=== PATIENT | male | born 1965 | race Caucasian/White ===

== ENCOUNTER 2016-11-16 20:43 | Inpatient (IN) | payer SELFPAY ==
[~2016-11-16] VITALS: Ht 167.6 cm; Wt 82.0 kg
[~2016-11-16 20:43] MED LIST: ASPI81TA82 PO; INSU1INJ14 SQ; LISI-357 PO
[2016-11-16 20:49] VITALS: BP 140/81; PULSE 129; RESP 18; TEMP 101.6; O2SAT 97
[2016-11-16] MEDS ORDERED: BACT800T5 PO (21:27)
[2016-11-16] MEDS ORDERED: CLIN1CAP6 PO (21:27)
[2016-11-16] MEDS ORDERED: ASPI81CH CHEW (21:27)
[2016-11-16] MEDS ORDERED: SODIUM CHLOR 0.9% 1000 ML INJ 1,000 ML IV ONE (21:31)
[2016-11-16] MEDS ORDERED: SODIUM CHLOR 0.9% 1000 ML INJ 800 ML IV ONE (21:31)
--- NOTE | 2016-11-16 21:38 | PD ---
HPI Chief Complaint: Skin Problem Time Seen by Provider: 21:19 Travel History International Travel<30 days: No Contact w/Intl Traveler<30days: No Traveled to known affect area: No History of Present Illness HPI 51-year-old male with history of diabetes, currently not on any medications, here for evaluation of right foot infection. Two nights ago the patient reports that a corn on the right/lateral aspect of his right foot was scraped off. The next day he noticed pain and redness to the area. Today he noticed red streaks up his leg and increasing area of redness to the right foot. He went to an urgent care facility earlier today and was prescribed Bactrim and Keflex, however was advised to present to the emergency department for evaluation. Pain is 10 out of 10, constant, worse with movement and palpation. PFSH Past Medical History Autoimmune Disease: No Blood Disorders: No Cancer: No Cardiovascular Problems: No High Cholesterol: No Congestive Heart Failure: No Cerebrovascular Accident: No Diabetes: Yes Patient Takes Glucophage: No Diminished Hearing: No Gastrointestinal Disorders: No GERD: No Glaucoma: No Genitourinary: No Headaches: No Hepatitis: No Hiatal Hernia: No Hypertension: No Kidney Stones: No Musculoskeletal: No Neurologic: No Psychiatric: No Reproductive: No Respiratory: No Immunizations Current: No Myocardial Infarction: No Radiation Therapy: No Renal Failure: No Seizures: No Sickle Cell Disease: No Thyroid Disease: No Ulcer: No ?: Not Past Surgical History Abdominal Surgery: No Cardiac Surgery: No Ear Surgery: No Endocrine Surgery: No Eye Surgery: No Genitourinary Surgery: No Gynecologic Surgery: No Neurologic Surgery: No Oral Surgery: No Pacemaker: No Thoracic Surgery: No Social History Alcohol Use: Yes (once a week beer) Tobacco Use: Yes Substance Use: No Allergies-Medications (Allergen,Severity, Reaction): Coded Allergies: Penicillin (Verified Allergy, Severe, 11/16/16) Reported Meds & Prescriptions Reported Meds & Active Scripts Active Reported Aspirin 81 Mg Chew 81 Mg CHEW DAILY Clindamycin (Clindamycin HCl) 300 Mg Cap 300 Mg PO Q6H Bactrim DS (Sulfamethoxazole-Trimethoprim) 800-160 Mg Tab 1 Tab PO BID Review of Systems Except as stated in HPI: all other systems reviewed are Neg Physical Exam Narrative GENERAL: Well-developed, well-nourished, comfortable, no acute distress. SKIN: Dorsal aspect of right foot with diffuse warmth and erythema with red streaks up two thirds of the right leg. Right lateral/plantar aspect of the foot with small/superficial/circular ulceration. Right/lateral/dorsal aspect of the right foot with small/ruptured blister. The foot is very foul-smelling. There is no gross purulence. No crepitus. HEAD: Atraumatic. Normocephalic. EYES: Pupils equal and round. No scleral icterus. No injection or drainage. ENT: Mucous membranes pink and moist. NECK: Trachea midline. No JVD. CARDIOVASCULAR: Tachycardic, regular. Bilateral dorsalis pedis pulses are brisk and equal. RESPIRATORY: No accessory muscle use. Clear to auscultation. Breath sounds equal bilaterally. GASTROINTESTINAL: Abdomen soft, non-tender, nondistended. MUSCULOSKELETAL: Skin exam as above. NEUROLOGICAL: Awake and alert. No obvious cranial nerve deficits. Motor grossly within normal limits. Normal speech. PSYCHIATRIC: Appropriate mood and affect; insight and judgment normal. Data Data Last Documented VS Vital Signs Date Time Temp Pulse Resp B/P Pulse Ox O2 Delivery O2 Flow Rate FiO2 11/16/16 20:49 101.6 129 18 140/81 97 Orders Complete Blood Count With Diff (11/16/16 21:31) Comprehensive Metabolic Panel (11/16/16 21:31) Lactic Acid Sepsis Protocol (11/16/16 21:31) Blood Culture (11/16/16 21:31) Ecg Monitoring (11/16/16 21:31) Iv Access Insert/Monitor (11/16/16 21:31) Oximetry (11/16/16 21:31) Sodium Chlor 0.9% 1000 Ml Inj (Ns 1000 M (11/16/16 21:31) Sodium Chlor 0.9% 1000 Ml Inj (Ns 1000 M (11/16/16 21:31) Morphine Inj (Morphine Inj) (11/16/16 21:45) Vancomycin Inj (Vancomycin Inj) (11/16/16 21:45) Foot, Complete ([id number]) (11/16/16 ) Wound Culture And Gram Stain (11/16/16 21:35) Piperacil-Tazo 3.375 Gm Premix (Zosyn 3. (11/16/16 21:45) Acetaminophen (Tylenol) (11/16/16 21:45) Insulin Human Regular Inj (Novolin R Inj (11/16/16 22:30) Morphine Inj (Morphine Inj) (11/16/16 22:30) Labs Laboratory Tests Test 11/16/16 21:45 White Blood Count 19.8 TH/MM3 Red Blood Count 4.98 MIL/MM3 Hemoglobin 14.8 GM/DL Hematocrit 44.2 % Mean Corpuscular Volume 88.6 FL Mean Corpuscular Hemoglobin 29.7 PG Mean Corpuscular Hemoglobin 33.5 % Concent Red Cell Distribution Width 12.7 % Platelet Count 175 TH/MM3 Mean Platelet Volume 8.8 FL Neutrophils (%) (Auto) 80.7 % Lymphocytes (%) (Auto) 6.0 % Monocytes (%) (Auto) 11.1 % Eosinophils (%) (Auto) 0.1 % Basophils (%) (Auto) 2.1 % Neutrophils # (Auto) 16.0 TH/MM3 Lymphocytes # (Auto) 1.2 TH/MM3 Monocytes # (Auto) 2.2 TH/MM3 Eosinophils # (Auto) 0.0 TH/MM3 Basophils # (Auto) 0.4 TH/MM3 CBC Comment AUTO DIFF Differential Comment AUTO DIFF CONFIRMED Sodium Level 130 MEQ/L Potassium Level 3.6 MEQ/L Chloride Level 96 MEQ/L Carbon Dioxide Level 25.8 MEQ/L Anion Gap 8 MEQ/L Blood Urea Nitrogen 11 MG/DL Creatinine 0.66 MG/DL Estimat Glomerular Filtration 127 ML/MIN Rate Random Glucose 278 MG/DL Lactic Acid Level 1.2 mmol/L Calcium Level 8.6 MG/DL Total Bilirubin 1.3 MG/DL Aspartate Amino Transf 10 U/L (AST/SGOT) Alanine Aminotransferase 19 U/L (ALT/SGPT) Alkaline Phosphatase 106 U/L Total Protein 7.1 GM/DL Albumin 2.9 GM/DL [facility] Medical Decision Making Medical Screen Exam Complete: Yes Emergency Medical Condition: Yes Differential Diagnosis Cellulitis, lymphangitis, diabetic foot ulcer, necrotizing fasciitis, osteomyelitis Narrative Course Initial vital signs show heart rate 129, blood pressure 140/81, pulse ox 97% on room air, oral temp of 101.6F. CBC is remarkable for WBC 19.8 with 80.7% neutrophils. CMP is remarkable for sodium 1:30, chloride 96, random glucose 278. Patient was given 6 units of subcutaneous regular insulin. Lactic acid is 1.2. Right foot x-ray: CONCLUSION: 1. Changes consistent with cellulitis involving the lateral forefoot. No radiopaque foreign body or radiographic evidence to clearly suggest osteomyelitis. Patient was given 2 L of normal saline IV and was written for IV vancomycin and IV Zosyn. He was also given 6 units of regular insulin. He meets sepsis criteria. Given rapid progression of cellulitis, lymphangitis, believe the patient should be admitted for further IV antibiotic therapy as well as podiatry consultation. Case discussed with hospitalist Dr Fya who will admit the patient to her service. Diagnosis Primary Impression: Sepsis Qualified Code: A41.9 - Sepsis, due to unspecified organism Additional Impressions: Cellulitis of right foot Lymphangitis Hyperglycemia Admitting Information Admitting Physician Requests: Admit Jose Angel Sellers MD November 16, 2016 21:38
[2016-11-16] MEDS ORDERED: PIPERACIL-TAZO 3.375 GM PREMIX 50 ML IV ONE (21:45)
[2016-11-16] MEDS ORDERED: VANCOMYCIN INJ 1,000 MG in SODIUM CHLOR 0.9% 250 ML INJ 250 ML IV ONE (21:45)
[2016-11-16] MEDS ORDERED: MORPHINE SULFATE 8 MG/ML INJ IV PUSH ONE ×2 (21:45→22:30)
[2016-11-16] MEDS ORDERED: ACETAMINOPHEN 325 MG TAB PO ONE (21:45)
[2016-11-16 21:57] LABS: BASOPHIL # 0.4 TH/MM3 (0-0.2); BASOPHIL % 2.1 % (0.0-2.0); EOSINOPHIL % 0.1 % (0.0-4.0); HEMATOCRIT 44.2 % (39.0-51.0); LYMPHOCYTE # 1.2 TH/MM3 (1.0-4.8); MEAN CELL VOLUME 88.6 FL (80.0-100.0); MEAN CORPUSCULAR HEMOGLOBIN 29.7 PG (27.0-34.0); MEAN CORPUSCULAR HGB CONC 33.5 % (32.0-36.0); MONO % 11.1 % (0.0-8.0); NEUT % 80.7 % (16.0-70.0); PLATELET COUNT 175 TH/MM3 (150-450); RED BLOOD COUNT 4.98 MIL/MM3 (4.50-5.90); RED CELL DISTRIBUTION WIDTH 12.7 % (11.6-17.2); WHITE BLOOD COUNT 19.8 TH/MM3 (4.0-11.0)
[2016-11-16 22:04] LABS: HEMO FLAGS AUTO DIFF
[2016-11-16 22:05] LABS: CHLORIDE 96 MEQ/L (98-107); POTASSIUM 3.6 MEQ/L (3.5-5.1); SODIUM (NA) 130 MEQ/L (136-145)
[2016-11-16 22:08] LABS: ANION GAP 8 MEQ/L (5-15); BICARBONATE 25.8 MEQ/L (21.0-32.0); BLOOD UREA NITROGEN 11 MG/DL (7-18)
[2016-11-16 22:11] LABS: ALT (GPT) 19 U/L (12-78); AST (GOT) 10 U/L (15-37); GLOMERULAR FILTRATION RATE 127 ML/MIN (>89)
[2016-11-16 22:13] LABS: TOTAL BILIRUBIN ADULT 1.3 MG/DL (0.2-1.0)
[2016-11-16 22:14] LABS: ALKALINE PHOSPHATASE 106 U/L (45-117)
--- NOTE | 2016-11-16 22:20 | RADHPO ---
EXAM DATE/TIME: 11/16/2016 21:54 [facility] COMPARISON: No previous studies available for comparison. INDICATIONS : Right foot swelling. Patient states he has had an open sore on the lateral side of his right foot sin ce Tuesday. MEDICAL HISTORY : None. SURGICAL HISTORY : None. ENCOUNTER: Initial ACUITY: 4 - 6 days PAIN SCORE: 5/10 LOCATION: Right foot. FINDINGS: 3 views of the right foot show soft tissue swelling the subcutaneous air involving the lateral portio n of the forefoot. No radiopaque foreign body observed. No cortical destruction or lucency. No fractu res or dislocations. CONCLUSION: 1. Changes consistent with cellulitis involving the lateral forefoot. No radiopaque foreign body or r adiographic evidence to clearly suggest osteomyelitis. Robb Landin Jr., MD on November 16, 2016 at 22:18 Board Certified Radiologist. This report was verified electronically.
[2016-11-16 22:29] LABS: SCAN/DIFF AUTO DIFF CONFIRMED
[2016-11-16] MEDS ORDERED: INSULIN HUMAN REGULAR 1,000 UNITS/10 ML VIAL SQ ONE (22:30)
[2016-11-16] MEDS ORDERED: NALOXONE HCL 0.4 MG/ML AMP IV PRN (23:00)
[2016-11-16] MEDS ORDERED: Vancomycin Consult Pharmacy 1 EA OTHER SCH (23:00)
[2016-11-17] VITALS (10 sets, daily range): BP systolic 108–142; BP diastolic 67–91; PULSE 88–99; RESP 16–20; TEMP 98.2–99.1; O2SAT 93–100
[2016-11-17] MEDS: MORPHINE SULFATE 4 MG/ML INJ IV PUSH PRN ×3 (03:45→18:04)
[2016-11-17] MEDS: PIPERACIL-TAZO 4.5 GM PREMIX 100 ML IV SCH ×4 (05:33→23:49)
[2016-11-17 06:04] LABS: AUTOMATED NEUTROPHIL # 15.2 TH/MM3 (1.8-7.7); BASOPHIL # 0.1 TH/MM3 (0-0.2); BASOPHIL % 0.6 % (0.0-2.0); EOSINOPHIL # 0.1 TH/MM3 (0-0.4); EOSINOPHIL % 0.3 % (0.0-4.0); HEMATOCRIT 37.7 % (39.0-51.0); LYMPH % 6.6 % (9.0-44.0); LYMPHOCYTE # 1.3 TH/MM3 (1.0-4.8); MEAN CORPUSCULAR HEMOGLOBIN 30.5 PG (27.0-34.0); MEAN CORPUSCULAR HGB CONC 34.7 % (32.0-36.0); MONO % 11.8 % (0.0-8.0); NEUT % 80.7 % (16.0-70.0); PLATELET COUNT 153 TH/MM3 (150-450); RED BLOOD COUNT 4.29 MIL/MM3 (4.50-5.90); RED CELL DISTRIBUTION WIDTH 12.2 % (11.6-17.2); WHITE BLOOD COUNT 18.9 TH/MM3 (4.0-11.0)
[2016-11-17 06:13] LABS: POTASSIUM 3.3 MEQ/L (3.5-5.1)
[2016-11-17 06:22] LABS: BICARBONATE 27.5 MEQ/L (21.0-32.0)
[2016-11-17 06:34] LABS: HEMO FLAGS AUTO DIFF
[2016-11-17 07:15] LABS: SCAN/DIFF AUTO DIFF CONFIRMED
[2016-11-17] MEDS ORDERED: GLUCAGON 1 MG/ML VIAL OTHER PRN (08:15)
[2016-11-17] MEDS ORDERED: POTASSIUM CHLORIDE 20 MEQ CONTROLLED RELEASE TAB PO ONE (08:15)
[2016-11-17] MEDS ORDERED: DEXTROSE 50% IN WATER 50 ML VIAL(D50) IV PRN (08:15)
[2016-11-17] MEDS ORDERED: CALCIUM CARBONATE 500 MG CHEWABLE TAB CHEW PRN (08:15)
[2016-11-17] MEDS ORDERED: MAGNESIUM HYDROXIDE SUSP 30 ML CUP PO PRN (08:15)
[2016-11-17] MEDS ORDERED: ACETAMINOPHEN 325 MG TAB PO PRN ×2 (08:15)
[2016-11-17] MEDS ORDERED: NALOXONE HCL 0.4 MG/ML AMP IV PRN (08:15)
[2016-11-17] MEDS ORDERED: ONDANSETRON HCL 4 MG/2 ML VIAL IV PRN (08:15)
[2016-11-17] MEDS: ASPIRIN 81 MG CHEW TAB CHEW SCH (08:47)
[2016-11-17] MEDS: SODIUM CHLORIDE 0.9% FLUSH 10 ML FLUSH IV FLUSH SCH ×2 (09:00→22:32)
[2016-11-17] MEDS: DOCUSATE SODIUM 50 MG/SENNA 8.6 MG TAB PO SCH ×2 (09:12→21:00)
[2016-11-17] MEDS: VANCOMYCIN INJ 1,700 MG in SODIUM CHLORID 0.9% 500 ML INJ 500 ML IV SCH ×2 (09:13→22:32)
[2016-11-17] MEDS: INSULIN ASPART SUPPLEMENTAL SCALE SQ SCH ×3 (12:04→22:41)
[2016-11-17] MEDS: ACETAMINOPHEN/HYDROcodone 325 MG/7.5 MG TAB PO PRN ×3 (12:06→22:33)
--- NOTE | 2016-11-17 14:34 | HHI.HP ---
[facility] Service [place] [facility] Primary Care Physician No Primary Care Physician Admission Diagnosis Sepsis, right foot cellulitis, lymphangitis, hyperglycemia Diagnoses: Chief Complaint: Cellulitis Travel History International Travel<30 Days: No Contact w/Intl Traveler <30 Da: No Traveled to Known Affected Are: No Sepsis Criteria SIRS Criteria (2 or more): Temp > 100.9 or < 96.8, Heart rate over 90, WBC > 24891, < 4000 or > 10% bands Sepsis Criteria (SIRS+source): Infect source susp/known Criteria Outcome: Meets SIRS criteria, Meets sepsis criteria History of Present Illness This is a 51-year-old male with history of diabetes and tobacco abuse. He presents to the emergency department complaining of cellulitis involving his right foot. Two nights ago, he reports that a corn on the right/lateral aspect of his right foot was scraped off after banging against the door. The next day he noticed pain and redness to the area. He reports of constant severe foot pain worse when his foot is lowered. He noticed red streaks up his leg and increasing area of redness to the right foot with purulent drainage. He also had fever last night. He went to an urgent care facility earlier today and was prescribed Bactrim and Keflex, however was advised to present to the emergency department for evaluation. Denies claudication Review of Systems Except as stated in HPI: all other systems reviewed are Neg Past Family Social History Past Medical History As previously mentioned Past Surgical History Denies Reported Medications Aspirin Allergies: Coded Allergies: Penicillin (Verified Allergy, Severe, 11/16/16) Family History Heart disease and diabetes mellitus Social History Drinks socially. Continues to smoke. Physical Exam Vital Signs Vital Signs Date Time Temp Pulse Resp B/P Pulse Ox O2 Delivery O2 Flow Rate FiO2 11/17/16 12:00 98.4 96 20 142/91 94 11/17/16 10:21 94 16 127/83 97 Room Air 11/17/16 09:30 90 16 11/17/16 09:00 88 16 123/75 97 Room Air 11/17/16 07:00 95 16 11/17/16 07:00 98.9 95 16 108/67 97 Room Air 11/17/16 05:34 89 16 136/79 98 Room Air 11/17/16 03:52 98.2 96 16 134/72 Room Air 11/17/16 02:35 92 16 142/76 100 Room Air 11/17/16 00:04 98.9 99 16 117/74 99 Room Air 11/16/16 20:49 101.6 129 18 140/81 97 Physical Exam GENERAL: This is a well-nourished, well-developed patient, in no apparent distress. SKIN: No rashes, ecchymoses or lesions. Cool and dry. HEAD: Atraumatic. Normocephalic. No temporal or scalp tenderness. EYES: Pupils equal round and reactive. Extraocular motions intact. No scleral icterus. No injection or drainage. ENT: Nose without bleeding, purulent drainage or septal hematoma. Throat without erythema, tonsillar hypertrophy or exudate. Uvula midline. Airway patent. NECK: Trachea midline. No JVD or lymphadenopathy. Supple, nontender, no meningeal signs. CARDIOVASCULAR: Regular rate and rhythm without murmurs, gallops, or rubs. RESPIRATORY: Clear to auscultation. Breath sounds equal bilaterally. No wheezes , rales, or rhonchi. GASTROINTESTINAL: Abdomen soft, non-tender, nondistended. No guarding. MUSCULOSKELETAL: Extremities without clubbing, cyanosis, or edema. No joint tenderness, effusion, or edema noted. No calf tenderness. Negative Homans sign bilaterally. Dorsal aspect of the right foot with diffuse warmth and erythema with red streaks spreading cephalad the proximal leg. There is a central ulceration on the right foot is very foul-smelling. NEUROLOGICAL: Awake and alert. Cranial nerves II through XII intact. Motor and sensory grossly within normal limits. Five out of 5 muscle strength in all muscle groups. Normal speech. Laboratory Laboratory Tests Test 11/16/16 11/17/16 21:45 05:30 White Blood Count 19.8 18.9 Red Blood Count 4.98 4.29 Hemoglobin 14.8 13.1 Hematocrit 44.2 37.7 Mean Corpuscular Volume 88.6 88.0 Mean Corpuscular Hemoglobin 29.7 30.5 Mean Corpuscular Hemoglobin 33.5 34.7 Concent Red Cell Distribution Width 12.7 12.2 Platelet Count 175 153 Mean Platelet Volume 8.8 8.8 Neutrophils (%) (Auto) 80.7 80.7 Lymphocytes (%) (Auto) 6.0 6.6 Monocytes (%) (Auto) 11.1 11.8 Eosinophils (%) (Auto) 0.1 0.3 Basophils (%) (Auto) 2.1 0.6 Neutrophils # (Auto) 16.0 15.2 Lymphocytes # (Auto) 1.2 1.3 Monocytes # (Auto) 2.2 2.2 Eosinophils # (Auto) 0.0 0.1 Basophils # (Auto) 0.4 0.1 CBC Comment AUTO DIFF AUTO DIFF Differential Comment AUTO DIFF AUTO DIFF CONFIRMED CONFIRMED Sodium Level 130 134 Potassium Level 3.6 3.3 Chloride Level 96 101 Carbon Dioxide Level 25.8 27.5 Anion Gap 8 6 Blood Urea Nitrogen 11 4 Creatinine 0.66 0.47 Estimat Glomerular Filtration 127 188 Rate Random Glucose 278 160 Lactic Acid Level 1.2 Calcium Level 8.6 7.6 Total Bilirubin 1.3 Aspartate Amino Transf 10 (AST/SGOT) Alanine Aminotransferase 19 (ALT/SGPT) Alkaline Phosphatase 106 Total Protein 7.1 Albumin 2.9 Magnesium Level 1.8 Date/Time Procedure Status Source Growth 11/16/16 22:30 Gram Stain - Final Resulted Wound Foot 11/16/16 22:30 Wound Culture - Preliminary Resulted Wound Foot RESULTS PENDING 11/16/16 21:55 Aerobic Blood Culture - Preliminary Resulted Blood Peripheral NO GROWTH IN 1 DAY 11/16/16 21:55 Anaerobic Blood Culture - Preliminary Resulted Blood Peripheral NO GROWTH IN 1 DAY Result Diagram: 11/17/16 0530 11/17/16 0530 Imaging Image of the foot interpreted by me with no foreign body or evidence to suggest osteomyelitis Last Impressions Foot X-Ray 11/16/16 0000 Signed Impressions: Service Date/Time: Wednesday, November 16, 2016 21:54 - CONCLUSION: 1. Changes consistent with cellulitis involving the lateral forefoot. No radiopaque foreign body or radiographic evidence to clearly suggest osteomyelitis. Robb Landin Jr., MD Assessment and Plan Problem List: (1) Sepsis ICD Code: A41.9 Status: Acute (2) Cellulitis of right foot ICD Code: L03.115 Status: Acute Assessment and Plan This is a 51-year-old male with history of diabetes and tobacco abuse. He presents to the emergency department because of cellulitis/abscess involving his right foot. Diabetic foot infection. He has cellulitis/abscess and I suspect osteomyelitis. Obtain MRI of the foot. Continue IV vancomycin and Zosyn. Pain management with Lortab and IV morphine. Consult podiatry Sepsis secondary to above. Follow up cultures. Hypokalemia. Replace with 40 in MICU potassium. Repeat BMP and magnesium in the morning Diabetes mellitus. Monitor fingerstick restart scale coverage. Obtain A1c. Diabetic education Tobacco abuse. Tobacco cessation. DVT prophylaxis with teds and early ambulation. Hold pharmacological prophylaxis pending podiatry evaluation Discussed Condition With Patient and nursing staff Physician Certification 2 Midnight Certification Type: Admission for Inpatient Services Order for Inpatient Services The services are ordered in accordance with Medicare regulations or non- Medicare payer requirements, as applicable. In the case of services not specified as inpatient-only, they are appropriately provided as inpatient services in accordance with the 2-midnight benchmark. Estimated LOS (days): 2 days is the estimated time the patient will need to remain in the hospital, assuming treatment plan goals are met and no additional complications. Post-Hospital Plan: Home Problem Qualifiers (1) Sepsis: Qualified Code: A41.9 - Sepsis, due to unspecified organism Rodney Dickey MD November 17, 2016 14:34
[2016-11-17 15:44] LABS: HEMOGLOBIN A1a 1.3 %; HEMOGLOBIN A1b 0.8 %; HEMOGLOBIN Ao 76.8 %; HEMOGLOBIN F 1.7 %; HEMOGLOBIN LA1C 2.4 %
[2016-11-17] MEDS: MUPIROCIN 2% CREAM 15 GM TOPICAL SCH (21:00)
[2016-11-17] MEDS: INSULIN DETEMIR 100 UNITS/ML VIAL SQ SCH (22:41)
[2016-11-18] VITALS: BP 136/82; PULSE 89; RESP 16; TEMP 100.5; O2SAT 95
[2016-11-18] MEDS: PIPERACIL-TAZO 4.5 GM PREMIX 100 ML IV SCH ×3 (05:51→16:06)
[2016-11-18] MEDS: INSULIN ASPART SUPPLEMENTAL SCALE SQ SCH ×4 (05:58→21:22)
[2016-11-18] MEDS: ACETAMINOPHEN/HYDROcodone 325 MG/7.5 MG TAB PO PRN ×4 (05:59→21:20)
[2016-11-18 06:39] LABS: BASOPHIL # 0.1 TH/MM3 (0-0.2); BASOPHIL % 0.5 % (0.0-2.0); EOSINOPHIL % 0.2 % (0.0-4.0); HEMATOCRIT 39.2 % (39.0-51.0); LYMPH % 5.7 % (9.0-44.0); MEAN CELL VOLUME 88.5 FL (80.0-100.0); MEAN CORPUSCULAR HEMOGLOBIN 30.5 PG (27.0-34.0); MEAN CORPUSCULAR HGB CONC 34.4 % (32.0-36.0); MONO % 9.9 % (0.0-8.0); NEUT % 83.7 % (16.0-70.0); PLATELET COUNT 160 TH/MM3 (150-450); RED BLOOD COUNT 4.43 MIL/MM3 (4.50-5.90); RED CELL DISTRIBUTION WIDTH 12.3 % (11.6-17.2); WHITE BLOOD COUNT 17.9 TH/MM3 (4.0-11.0)
[2016-11-18 06:44] LABS: HEMO FLAGS DIFF FINAL
[2016-11-18 06:53] LABS: CHLORIDE 100 MEQ/L (98-107); POTASSIUM 3.4 MEQ/L (3.5-5.1); SODIUM (NA) 136 MEQ/L (136-145)
[2016-11-18 07:07] LABS: ALKALINE PHOSPHATASE 126 U/L (45-117); ALT (GPT) 13 U/L (12-78); ANION GAP 9 MEQ/L (5-15); AST (GOT) 5 U/L (15-37); BICARBONATE 27.5 MEQ/L (21.0-32.0); BLOOD UREA NITROGEN 6 MG/DL (7-18); GLOMERULAR FILTRATION RATE 192 ML/MIN (>89); MAGNESIUM 1.8 MG/DL (1.5-2.5); TOTAL BILIRUBIN ADULT 1.3 MG/DL (0.2-1.0)
[2016-11-18] MEDS: INSULIN DETEMIR 100 UNITS/ML VIAL SQ SCH ×2 (07:50→21:20)
[2016-11-18] MEDS: VANCOMYCIN INJ 1,700 MG in SODIUM CHLORID 0.9% 500 ML INJ 500 ML IV SCH ×2 (07:51→21:09)
[2016-11-18] MEDS: ASPIRIN 81 MG CHEW TAB CHEW SCH (07:56)
[2016-11-18] MEDS: MUPIROCIN 2% CREAM 15 GM TOPICAL SCH ×2 (07:57→20:28)
[2016-11-18] MEDS: SODIUM CHLORIDE 0.9% FLUSH 10 ML FLUSH IV FLUSH SCH ×2 (07:57→21:00)
[2016-11-18] MEDS: DOCUSATE SODIUM 50 MG/SENNA 8.6 MG TAB PO SCH ×2 (07:57→21:00)
[2016-11-18 08:00] VITALS: BP 124/78; PULSE 86; RESP 18; TEMP 97.8; O2SAT 96
[2016-11-18] MEDS ORDERED: POTASSIUM CHLORIDE 20 MEQ CONTROLLED RELEASE TAB PO ONE (09:00)
--- NOTE | 2016-11-18 09:36 | HHI.PR ---
Subjective Remarks Follow-up diabetic foot infection. Tmax 100.5. Complaining of foot pain. Discussed with RN, podiatry requesting patient to be transferred to the main hospital for surgery which patient agrees. Blood culture positive for gram- positive cocci Objective Vitals Vital Signs Date Time Temp Pulse Resp B/P Pulse Ox O2 Delivery O2 Flow Rate FiO2 11/18/16 08:00 97.8 86 18 124/78 96 11/18/16 00:00 100.5 89 16 136/82 95 11/17/16 20:00 99.1 93 18 123/85 93 11/17/16 16:00 98.8 89 20 126/81 95 11/17/16 12:00 98.4 96 20 142/91 94 11/17/16 10:21 94 16 127/83 97 Room Air I/O 11/17/16 11/17/16 11/17/16 11/18/16 11/18/16 11/18/16 07:00 15:00 23:00 07:00 15:00 23:00 Intake Total 1350 ml 350 ml 765 ml Balance 1350 ml 350 ml 765 ml Intake Oral 240 ml IV Total 1350 ml 110 ml 765 ml # Voids 1 Result Diagram: 11/18/16 0540 11/18/16 0540 Imaging Last Impressions Foot X-Ray 11/16/16 0000 Signed Impressions: Service Date/Time: Wednesday, November 16, 2016 21:54 - CONCLUSION: 1. Changes consistent with cellulitis involving the lateral forefoot. No radiopaque foreign body or radiographic evidence to clearly suggest osteomyelitis. Robb Landin Jr., MD Objective Remarks GENERAL: This is a well-nourished, well-developed patient, in no apparent distress. SKIN: No rashes, ecchymoses or lesions. Cool and dry. HEAD: Atraumatic. Normocephalic. No temporal or scalp tenderness. EYES: Pupils equal round and reactive. Extraocular motions intact. No scleral icterus. No injection or drainage. ENT: Nose without bleeding, purulent drainage or septal hematoma. Throat without erythema, tonsillar hypertrophy or exudate. Uvula midline. Airway patent. NECK: Trachea midline. No JVD or lymphadenopathy. Supple, nontender, no meningeal signs. CARDIOVASCULAR: Regular rate and rhythm without murmurs, gallops, or rubs. RESPIRATORY: Clear to auscultation. Breath sounds equal bilaterally. No wheezes , rales, or rhonchi. GASTROINTESTINAL: Abdomen soft, non-tender, nondistended. No guarding. MUSCULOSKELETAL: Extremities without clubbing, cyanosis, or edema. No joint tenderness, effusion, or edema noted. No calf tenderness. Negative Homans sign bilaterally. Dorsal aspect of the right foot with diffuse warmth and erythema with red streaks spreading cephalad the proximal leg. There is a central ulceration on the right foot which is very foul-smelling. NEUROLOGICAL: Awake and alert. Cranial nerves II through XII intact. Motor and sensory grossly within normal limits. Five out of 5 muscle strength in all muscle groups. Normal speech. A/P Problem List: (1) Sepsis ICD Code: A41.9 Status: Acute (2) Cellulitis of right foot ICD Code: L03.115 Status: Acute Assessment and Plan This is a 51-year-old male with history of diabetes and tobacco abuse. He presents to the emergency department because of cellulitis/abscess involving his right foot. Diabetic foot infection. He has cellulitis/abscess and I suspect osteomyelitis. Obtain MRI of the foot. Continue IV vancomycin and Zosyn. Pain management with Lortab and IV morphine. Consulted podiatry who requested transfer to [facility] for surgery. Nothing by mouth and start IV hydration with NS with 20 mEq potassium Sepsis secondary to above. Follow up cultures growing gram-positive cocci in 2/ 4 bottles. Hypokalemia. Replace with 20 in Meq potassium. Repeat BMP and magnesium in the morning Diabetes mellitus. Uncontrolled A1c 11.8. Monitor fingerstick restart scale coverage. Continue Levemir 5 units twice a day, patient prefers insulin. Diabetic education. Discussed with RN, monitor fingersticks every 4 hours and do not cover fingersticks less than 200 while nothing by mouth Tobacco abuse. Tobacco cessation. DVT prophylaxis with teds and early ambulation. Hold pharmacological prophylaxis pending surgical intervention Problem Qualifiers (1) Sepsis: Qualified Code: A41.9 - Sepsis, due to unspecified organism Rodney Dickey MD Nov 18, 2016 09:36
[2016-11-18] MEDS ORDERED: GADODIAMIDE PF 287 MG/ML 5 ML VIAL (for RAD MRI) IV ONE (10:02)
[2016-11-18] MEDS: NS + KCL 20 MEQ INJ 1,000 ML IV SCH ×2 (10:50→21:25)
--- NOTE | 2016-11-18 11:01 | RADHPO ---
EXAM DATE/TIME: 11/18/2016 09:43 [facility] COMPARISON: No previous studies available for comparison. INDICATIONS : Osteomyelitis. Ulcer on lateral aspect of great toe on right foot. CONTRAST: 15 cc Omniscan (gadodiamide) IV MEDICAL HISTORY : Diabetes mellitus type 2. SURGICAL HISTORY : None. ENCOUNTER: Initial ACUITY: 1 week PAIN SCORE: 0/10 LOCATION: Right Foot. TECHNIQUE: Multiplanar, multisequence MRI examination was performed without contrast and after the intravenous a dministration of gadolinium. FINDINGS: BONE/CARTILAGE: Bone marrow signal in the region of interest of the great toe is homogeneous and within normal limits . No evidence of focal bone erosion. Small osteophytes of the tarsometatarsal joints and mild subcho ndral reactive bony change of the second and third metatarsal bases. TENDONS: All of the visualized tendons are intact. MISCELLANEOUS: Ill-defined superficial soft tissue edema of the forefoot and toes. Lobulated area of soft tissue sig nal abnormality is seen laterally superficial to the lateral aspect of the fifth metatarsal head and neck. It has predominantly high signal on T2 weighted images measuring 2.6 x 0.9 cm. It has mixed hig h and intermediate signal on precontrast T1-weighted images. No evidence of enhancement. POST-CONTRAST: Mild superficial soft tissue enhancement of the first second and third toes on the postcontrast image s. CONCLUSION: 1. Mild enhancement of the soft tissues of the first through third toes indicating possible celluliti s. 2. No evidence of osteomyelitis. 3. Nonspecific arthritic findings of the midfoot. 4. Lobulated 2 cm area of superficial soft tissue abnormality lateral to the fifth metatarsal head an d neck. No evidence of enhancement. May represent "pressure lesion". Given that it has predominantly high signal on the T1-weighted images, hemangioma is also the differential diagnosis. Jerry Moreau MD on November 18, 2016 at 10:45 Board Certified Radiologist. This report was verified electronically.
[2016-11-18 11:46] VITALS: BP 124/78; PULSE 86; RESP 18; TEMP 97.8; O2SAT 96
[2016-11-18] MEDS ORDERED: BUPIVACAINE HCL PF 0.25% 30 ML VIAL ONE (11:49)
[2016-11-18] MEDS ORDERED: ONDANSETRON HCL 4 MG/2 ML VIAL IV PUSH ONE (12:00)
[2016-11-18] MEDS ORDERED: PROPOFOL 200 MG/20 ML AMP IV ONE (12:00)
[2016-11-18] MEDS ORDERED: MIDAZOLAM HCL 2 MG/2 ML VIAL ONE (12:09)
[2016-11-18] MEDS ORDERED: FAMOTIDINE 20 MG/2 ML VIAL ONE (12:09)
[2016-11-18] MEDS ORDERED: LACTATED RINGER'S 1000 ML INJ 1,000 ML ONE (12:15)
--- NOTE | 2016-11-18 12:18 | PD.CONS ---
History of Present Illness Service Podiatry Consult Requested By Reason for Consult R foot infection Primary Care Physician No Primary Care Physician Diagnoses: History of Present Illness This is a 51-year-old male presented to the emergency department complaining of cellulitis involving his right foot. Two nights before admission, he reports that he had a corn on lateral R foot that was injured and scraped off after banging against the door. The next day he noticed pain and redness to the area. He reports of constant severe foot pain worse when his foot is lowered. He noticed red streaks up his leg and increasing area of redness to the right foot with purulent drainage. He also had fever. Past Family Social History Allergies: Coded Allergies: Penicillin (Verified Allergy, Severe, 11/16/16) Past Medical History DM HTN Past Surgical History Denies Reported Medications ASA Active Ordered Medications Current Medications Medications (Trade) Dose Ordered Sig/Kristian Route Start Time Stop Time Status Last Admin (NS Flush) 2 ml UNSCH PRN IV FLUSH 11/16/16 23:00 (NS Flush) 2 ml BID IV FLUSH 11/17/16 09:00 11/18/16 07:57 Naloxone HCl 0.4 mg 0.4 mg UNSCH PRN IV 11/16/16 23:00 Pharmacy Profile Note 0 ml @ 0 mls/hr UNSCH OTHER 11/16/16 23:00 (Zosyn 4.5 Gm Premix) 100 ml @ 200 mls/hr Q6H IV 11/17/16 05:00 11/18/16 11:21 Morphine Sulfate 2 mg 2 mg Q3H PRN IV PUSH 11/16/16 23:00 11/17/16 18:04 (Vancomycin Inj/ NS 500 ml Inj) 517 ml @ 250 mls/hr Q12H IV 11/17/16 08:00 11/18/16 07:51 Miscellaneous Information SPECIFIC LAB TO BE DRAWN: VANCO TROUGH DATE TO... ONCE ONCE .XX 11/18/16 19:45 11/18/16 19:46 (Tylenol) 650 mg Q4H PRN PO 11/17/16 08:15 (Zofran Inj) 4 mg Q6H PRN IV 11/17/16 08:15 (Luda-Colace) 1 tab BID PO 11/17/16 09:00 11/17/16 09:12 (Milk Of Magnesia Liq) 30 ml DAILY PRN PO 11/17/16 08:15 (Tums Chew) 1,000 mg TID PRN CHEW 11/17/16 08:15 (Tylenol) 650 mg Q6H PRN PO 11/17/16 08:15 (Ingram 5-325 Mg) 1 tab Q4H PRN PO 11/17/16 08:15 (Ingram 7.5-325 Mg) 1 tab Q4H PRN PO 11/17/16 08:15 11/18/16 10:49 (Narcan Inj) 0.4 mg UNSCH PRN IV 11/17/16 08:15 (D50w (Vial) Inj) 50 ml UNSCH PRN IV 11/17/16 08:15 (Glucagon Inj) 1 mg UNSCH PRN OTHER 11/17/16 08:15 (Aspirin Chew) 81 mg DAILY CHEW 11/17/16 09:00 11/18/16 07:56 (Bactroban 2% Cream) 1 applic Q12HR TOPICAL 11/17/16 21:00 11/18/16 07:57 (Levemir Inj) 5 units HS SQ 11/17/16 21:00 11/17/16 22:41 Insulin Detemir 5 units 5 units DAILYAC SQ 11/18/16 08:00 11/18/16 07:50 (NS + KCl 20 Meq Inj) 1,000 ml @ 84 mls/hr [id number] IV 11/18/16 09:30 11/18/16 10:50 Family History Heart disease and diabetes mellitus Social History Drinks socially. Continues to smoke. Physical Exam Vital Signs Vital Signs Date Time Temp Pulse Resp B/P Pulse Ox O2 Delivery O2 Flow Rate FiO2 11/18/16 11:46 97.8 86 18 124/78 96 11/18/16 08:00 97.8 86 18 124/78 96 11/18/16 00:00 100.5 89 16 136/82 95 11/17/16 20:00 99.1 93 18 123/85 93 11/17/16 16:00 98.8 89 20 126/81 95 Physical Exam R lateral foot with necrotic tissue and purulence dorsally and erythema extending proximally to just below knee. Significant malodor Sensation diminished. Laboratory Laboratory Tests Test 11/18/16 05:40 White Blood Count 17.9 Red Blood Count 4.43 Hemoglobin 13.5 Hematocrit 39.2 Mean Corpuscular Volume 88.5 Mean Corpuscular Hemoglobin 30.5 Mean Corpuscular Hemoglobin 34.4 Concent Red Cell Distribution Width 12.3 Platelet Count 160 Mean Platelet Volume 9.1 Neutrophils (%) (Auto) 83.7 Lymphocytes (%) (Auto) 5.7 Monocytes (%) (Auto) 9.9 Eosinophils (%) (Auto) 0.2 Basophils (%) (Auto) 0.5 Neutrophils # (Auto) 15.0 Lymphocytes # (Auto) 1.0 Monocytes # (Auto) 1.8 Eosinophils # (Auto) 0.0 Basophils # (Auto) 0.1 CBC Comment DIFF FINAL Differential Comment Sodium Level 136 Potassium Level 3.4 Chloride Level 100 Carbon Dioxide Level 27.5 Anion Gap 9 Blood Urea Nitrogen 6 Creatinine 0.46 Estimat Glomerular Filtration 192 Rate Random Glucose 166 Calcium Level 8.5 Magnesium Level 1.8 Total Bilirubin 1.3 Aspartate Amino Transf 5 (AST/SGOT) Alanine Aminotransferase 13 (ALT/SGPT) Alkaline Phosphatase 126 Total Protein 6.6 Albumin 2.3 Date/Time Procedure Status Source Growth 11/16/16 22:30 Gram Stain - Final Resulted Wound Foot 11/16/16 22:30 Wound Culture - Preliminary Resulted Strep Not A,B D 11/16/16 21:55 Aerobic Blood Culture - Preliminary Resulted Blood Peripheral NO GROWTH IN 2 DAYS 11/16/16 21:55 Anaerobic Blood Culture - Preliminary Resulted Gram Positive Cocci Result Diagram: 11/18/16 0540 11/18/16 0540 Imaging Last Impressions Foot MRI 11/18/16 0000 Signed Impressions: Service Date/Time: November 09:43 - CONCLUSION: 1. Mild enhancement of the soft tissues of the first through third toes indicating possible cellulitis. 2. No evidence of osteomyelitis. 3. Nonspecific arthritic findings of the midfoot. 4. Lobulated 2 cm area of superficial soft tissue abnormality lateral to the fifth metatarsal head and neck. No evidence of enhancement. May represent pressure lesion. Given that it has predominantly high signal on the T1-weighted images, hemangioma is also the differential diagnosis. Jerry Moreau MD Foot X-Ray 11/16/16 0000 Signed Impressions: Service Date/Time: Ila, November 16, 2016 21:54 - CONCLUSION: 1. Changes consistent with cellulitis involving the lateral forefoot. No radiopaque foreign body or radiographic evidence to clearly suggest osteomyelitis. Robb Landin Jr., MD Assessment and Plan Assessment and Plan Abscess R dorsolateral foot NPO To OR today for I&D, possible wound vac placement Arsenio Sales DPM Nov 18, 2016 12:18
[2016-11-18] MEDS: NEOMYCIN/POLYMYXIN 1 ML G.U. IRRIGANT ONE ×2 (12:35→12:45)
--- NOTE | 2016-11-18 13:16 | HHI.PR ---
Immediate Post Op Note Procedure Date: Nov 18, 2016 Pre Op Diagnosis: Abscess R dorsolateral foot Post Op Diagnosis: Same Surgeon: Arsenio Sales DPM [employer]ight Truck Driver(s): Staff Procedure: I&D R foot with wound vac Findings: Consistent with diagnosis. Dorsolateral foot with large necrotic center and foul odor/purulence dorsal to metatarsals 3-5 midshaft area. Upon I&D, copious amount of purulent drainage and necrotic tissue down to extensor tendon and MTP joints of 3,4,5. Curettage and rongeur utilized to remove necrotic tissue, found worm-like structure in foot and send to pathology, followed by irrigation with 6L NS, then adaptic and wound vac application R foot. Will plan to repeat I&D Tuesday Additional Information: n/a Complications: none Specimen(s) removed: Micro: Culture R foot To Pathology: Foreign body R foot, possible worm Estimated blood loss: minimal Anesthesia: General Drains: None Tourniquet time (min at mmHg) n/a Patient to: PACU Patient Condition: Good Date/Time of Procedure: SEE SURGICAL CARE RECORD Arsenio Sales DPM Nov 18, 2016 13:16
[2016-11-18] MEDS ORDERED: DO NOT ADM ANY ANTICOAGULANT DRUGS PRN (14:15)
[2016-11-18 16:00] VITALS: BP 135/88; PULSE 87; RESP 18; TEMP 97.5; O2SAT 96
[2016-11-18] MEDS: MORPHINE SULFATE 4 MG/ML INJ IV PUSH PRN (18:48)
--- NOTE | 2016-11-18 19:10 | PD.CONS ---
History of Present Illness Service ID CONSULT DR ZABALA Consult Requested By Reason for Consult RIGHT FOOT DIABETIC INFECTION BACTEREMIA Primary Care Physician No Primary Care Physician Diagnoses: (1) Lymphangitis (2) Type 2 diabetes mellitus History of Present Illness This is a 51-year-old male presented to the emergency department complaining of cellulitis involving his right foot. Tuesday night he woke up and hit his right foot on a wooden coffee table. He had a callus on the outer toe / foot and states that what he hit. by Tuesday it was bluish and red and swollen. Tuesday he noted red streaks up his leg and came in to the ed. He had fever on admission. He is diabetic and noted elevated blood glucose. Bc are 3 of 4 + gpc 1 with MRSA. His wound culture + strep / MRSA. He is on zosyn / vancomycin . Id consulted. He was seen by surgery and taken for I&D and now has a wound vac. Review of Systems Constitutional: COMPLAINS OF: Fever, Chills Eyes: DENIES: Double Vision Gastrointestinal: DENIES: Bloody stools Genitourinary: DENIES: Urinary incontinence Musculoskeletal: DENIES: Joint Swelling Integumentary: DENIES: Pruritus Past Family Social History Allergies: Coded Allergies: Penicillin (Verified Allergy, Severe, 11/16/16) Past Medical History Past Medical History As previously mentioned Past Surgical History Denies Past Surgical History No surgical history Reported Medications asa Active Ordered Medications vancomycin zosyn Family History Family History Heart disease and diabetes mellitus Social History Social History Drinks socially. Continues to smoke. He is a hoffman Physical Exam Vital Signs Vital Signs Date Time Temp Pulse Resp B/P Pulse Ox O2 Delivery O2 Flow Rate FiO2 11/18/16 16:00 97.5 87 18 135/88 96 11/18/16 13:55 98.0 72 16 130/78 99 11/18/16 13:40 74 16 120/80 98 11/18/16 13:25 77 16 132/80 98 Room Air 11/18/16 13:08 97.5 81 16 115/74 97 Nasal Cannula 2 11/18/16 11:46 97.8 86 18 124/78 96 11/18/16 08:00 97.8 86 18 124/78 96 11/18/16 00:00 100.5 89 16 136/82 95 11/17/16 20:00 99.1 93 18 123/85 93 Physical Exam GENERAL: This is a well-nourished, well-developed patient, appears older than in no apparent distress. SKIN: No rashes, ecchymoses or lesions. Cool and dry. HEAD: Atraumatic. Normocephalic. No temporal or scalp tenderness. EYES: Pupils equal round and reactive. Extraocular motions intact. No scleral icterus. No injection or drainage. ENT: Nose without bleeding, purulent drainage or septal hematoma. Throat without erythema, tonsillar hypertrophy or exudate. Uvula midline. Airway patent. NECK: Trachea midline. No JVD or lymphadenopathy. Supple, nontender, no meningeal signs. CARDIOVASCULAR: Regular rate and rhythm without murmurs, gallops, or rubs. RESPIRATORY: Clear to auscultation. Breath sounds equal bilaterally. No wheezes , rales, or rhonchi. GASTROINTESTINAL: Abdomen soft, non-tender, nondistended. No hepato-splenomegaly , or palpable masses. No guarding. MUSCULOSKELETAL: Extremities without clubbing, cyanosis, or edema. No joint tenderness, effusion, or edema noted. No calf tenderness. Negative Homans sign bilaterally. right foot with wound vac NEUROLOGICAL: Awake and alert. Cranial nerves II through XII intact. Motor and sensory grossly within normal limits. Five out of 5 muscle strength in all muscle groups. Normal speech. Laboratory Laboratory Tests Test 11/18/16 05:40 White Blood Count 17.9 Red Blood Count 4.43 Hemoglobin 13.5 Hematocrit 39.2 Mean Corpuscular Volume 88.5 Mean Corpuscular Hemoglobin 30.5 Mean Corpuscular Hemoglobin 34.4 Concent Red Cell Distribution Width 12.3 Platelet Count 160 Mean Platelet Volume 9.1 Neutrophils (%) (Auto) 83.7 Lymphocytes (%) (Auto) 5.7 Monocytes (%) (Auto) 9.9 Eosinophils (%) (Auto) 0.2 Basophils (%) (Auto) 0.5 Neutrophils # (Auto) 15.0 Lymphocytes # (Auto) 1.0 Monocytes # (Auto) 1.8 Eosinophils # (Auto) 0.0 Basophils # (Auto) 0.1 CBC Comment DIFF FINAL Differential Comment Sodium Level 136 Potassium Level 3.4 Chloride Level 100 Carbon Dioxide Level 27.5 Anion Gap 9 Blood Urea Nitrogen 6 Creatinine 0.46 Estimat Glomerular Filtration 192 Rate Random Glucose 166 Calcium Level 8.5 Magnesium Level 1.8 Total Bilirubin 1.3 Aspartate Amino Transf 5 (AST/SGOT) Alanine Aminotransferase 13 (ALT/SGPT) Alkaline Phosphatase 126 Total Protein 6.6 Albumin 2.3 Date/Time Procedure Status Source Growth 11/18/16 12:37 Gram Stain Received Wound Foot Pending 11/18/16 12:37 Wound Culture Received Wound Foot Pending 11/18/16 12:37 Fungal Smear Received Wound Foot Pending 11/18/16 12:37 Fungal Culture Received Wound Foot Pending 11/18/16 12:37 Acid Fast Stain Received Wound Foot Pending 11/18/16 12:37 Mycobacterial Culture Received Wound Foot Pending 11/16/16 22:30 Gram Stain - Final Resulted Wound Foot 11/16/16 22:30 Wound Culture - Preliminary Resulted Strep Not A,B D 11/16/16 21:55 Aerobic Blood Culture - Preliminary Resulted Blood Peripheral NO GROWTH IN 2 DAYS 11/16/16 21:55 Anaerobic Blood Culture - Preliminary Resulted Gram Positive Cocci Result Diagram: 11/18/16 0540 11/18/16 0540 Assessment and Plan Problem List: (1) Type 2 diabetes mellitus Status: Acute (2) Cellulitis of right foot Status: Acute Plan: s/p I& D on zosyn change to rocephin (3) Lymphangitis Status: Acute Plan: better continue to monitor (4) MRSA (methicillin resistant staph aureus) culture positive Status: Acute Plan: pt on vancomycin monitor trough will fu (5) Bacteremia due to methicillin resistant Staphylococcus aureus Status: Acute Charlette Ruiz Nov 18, 2016 19:10
[2016-11-18] MEDS ORDERED: PHARMACY ORDERED LAB ONE (19:45)
[2016-11-18 20:00] VITALS: BP 140/85; PULSE 81; RESP 20; TEMP 98.2; O2SAT 94
[2016-11-18] MEDS: cefTRIAXone INJ 2,000 MG in SODIUM CHLORIDE 0.9% INJ 100 ML IV SCH (23:09)
[2016-11-19] VITALS: BP 142/86; PULSE 83; RESP 20; TEMP 97.9; O2SAT 92
[2016-11-19] MEDS: VANCOMYCIN INJ 1,250 MG in SODIUM CHLOR 0.9% 250 ML INJ 250 ML IV SCH ×3 (05:45→22:48)
[2016-11-19] MEDS: NS + KCL 20 MEQ INJ 1,000 ML IV SCH (05:46)
[2016-11-19] MEDS: ACETAMINOPHEN/HYDROcodone 325 MG/7.5 MG TAB PO PRN ×3 (05:46→20:47)
[2016-11-19] MEDS: INSULIN ASPART SUPPLEMENTAL SCALE SQ SCH ×4 (05:59→23:40)
[2016-11-19 06:20] LABS: AUTOMATED NEUTROPHIL # 10.4 TH/MM3 (1.8-7.7); BASOPHIL # 0.2 TH/MM3 (0-0.2); BASOPHIL % 1.2 % (0.0-2.0); EOSINOPHIL # 0.1 TH/MM3 (0-0.4); EOSINOPHIL % 0.5 % (0.0-4.0); LYMPH % 12.7 % (9.0-44.0); LYMPHOCYTE # 1.7 TH/MM3 (1.0-4.8); MEAN CELL VOLUME 88.2 FL (80.0-100.0); MEAN CORPUSCULAR HEMOGLOBIN 30.4 PG (27.0-34.0); MEAN CORPUSCULAR HGB CONC 34.5 % (32.0-36.0); MONO % 9.1 % (0.0-8.0); NEUT % 76.5 % (16.0-70.0); PLATELET COUNT 172 TH/MM3 (150-450); RED CELL DISTRIBUTION WIDTH 12.1 % (11.6-17.2); WHITE BLOOD COUNT 13.7 TH/MM3 (4.0-11.0)
[2016-11-19 06:30] LABS: POTASSIUM 3.5 MEQ/L (3.5-5.1)
[2016-11-19 06:32] LABS: HEMO FLAGS DIFF FINAL
[2016-11-19 06:35] LABS: MAGNESIUM 1.9 MG/DL (1.5-2.5)
[2016-11-19 06:36] LABS: BICARBONATE 29.4 MEQ/L (21.0-32.0)
[2016-11-19 08:00] VITALS: BP 121/74; PULSE 77; RESP 17; TEMP 98.6; O2SAT 96
[2016-11-19] MEDS: MORPHINE SULFATE 4 MG/ML INJ IV PUSH PRN ×2 (08:38→18:07)
[2016-11-19] MEDS: DOCUSATE SODIUM 50 MG/SENNA 8.6 MG TAB PO SCH (08:38)
[2016-11-19] MEDS: ASPIRIN 81 MG CHEW TAB CHEW SCH (08:39)
[2016-11-19] MEDS: SODIUM CHLORIDE 0.9% FLUSH 10 ML FLUSH IV FLUSH SCH ×2 (08:39→20:44)
[2016-11-19] MEDS: MUPIROCIN 2% CREAM 15 GM TOPICAL SCH ×2 (08:40→20:48)
[2016-11-19] MEDS: INSULIN DETEMIR 100 UNITS/ML VIAL SQ SCH ×2 (08:46→23:05)
[2016-11-19] MEDS ORDERED: POTASSIUM CHLORIDE 20 MEQ CONTROLLED RELEASE TAB PO ONE (09:00)
--- NOTE | 2016-11-19 10:51 | HHI.IDPN ---
Subjective Subjective Remarks Feels better Some pain in right foot No more fevers Antibiotics Vancomycin Ceftriaxone Lines Peripheral line Past Medical History Type 2 diabetes Allergies: Coded Allergies: Penicillin (Verified Allergy, Severe, 11/16/16) *MDRO Multi-Drug Resistant Organism (Verified Adverse Reaction, Unknown, MRSA, 11/19/16) MRSA (blood) - 11/16/16 Review of Systems Constitutional Constitutional Remarks No fever chills Objective . Vital Signs Date Time Temp Pulse Resp B/P Pulse Ox O2 Delivery O2 Flow Rate FiO2 11/19/16 08:00 98.6 77 17 121/74 96 11/19/16 00:00 97.9 83 20 142/86 92 11/18/16 20:00 98.2 81 20 140/85 94 11/18/16 16:00 97.5 87 18 135/88 96 11/18/16 13:55 98.0 72 16 130/78 99 11/18/16 13:40 74 16 120/80 98 11/18/16 13:25 77 16 132/80 98 Room Air 11/18/16 13:08 97.5 81 16 115/74 97 Nasal Cannula 2 11/18/16 11:46 97.8 86 18 124/78 96 11/18/16 11/18/16 11/19/16 14:59 22:59 06:59 Intake Total 500 ml 2724 ml Balance 500 ml 2724 ml Intake Oral 0 ml 480 ml IV Total 2244 ml Other 500 ml # Voids 1 1 # Bowel Movements 1 1 . Laboratory Tests Test 11/18/16 11/19/16 05:40 05:05 White Blood Count 17.9 TH/MM3 13.7 TH/MM3 Red Blood Count 4.43 MIL/MM3 4.20 MIL/MM3 Hemoglobin 13.5 GM/DL 12.8 GM/DL Hematocrit 39.2 % 37.0 % Mean Corpuscular Volume 88.5 FL 88.2 FL Mean Corpuscular Hemoglobin 30.5 PG 30.4 PG Mean Corpuscular Hemoglobin 34.4 % 34.5 % Concent Red Cell Distribution Width 12.3 % 12.1 % Platelet Count 160 TH/MM3 172 TH/MM3 Mean Platelet Volume 9.1 FL 9.2 FL Neutrophils (%) (Auto) 83.7 % 76.5 % Lymphocytes (%) (Auto) 5.7 % 12.7 % Monocytes (%) (Auto) 9.9 % 9.1 % Eosinophils (%) (Auto) 0.2 % 0.5 % Basophils (%) (Auto) 0.5 % 1.2 % Neutrophils # (Auto) 15.0 TH/MM3 10.4 TH/MM3 Lymphocytes # (Auto) 1.0 TH/MM3 1.7 TH/MM3 Monocytes # (Auto) 1.8 TH/MM3 1.3 TH/MM3 Eosinophils # (Auto) 0.0 TH/MM3 0.1 TH/MM3 Basophils # (Auto) 0.1 TH/MM3 0.2 TH/MM3 CBC Comment DIFF FINAL DIFF FINAL Differential Comment Laboratory Tests Test 11/18/16 11/19/16 05:40 05:05 Sodium Level 136 MEQ/L 138 MEQ/L Potassium Level 3.4 MEQ/L 3.5 MEQ/L Chloride Level 100 MEQ/L 103 MEQ/L Carbon Dioxide Level 27.5 MEQ/L 29.4 MEQ/L Anion Gap 9 MEQ/L 6 MEQ/L Blood Urea Nitrogen 6 MG/DL 4 MG/DL Creatinine 0.46 MG/DL 0.49 MG/DL Estimat Glomerular Filtration 192 ML/MIN 179 ML/MIN Rate Random Glucose 166 MG/DL 192 MG/DL Calcium Level 8.5 MG/DL 8.3 MG/DL Magnesium Level 1.8 MG/DL 1.9 MG/DL Total Bilirubin 1.3 MG/DL Aspartate Amino Transf 5 U/L (AST/SGOT) Alanine Aminotransferase 13 U/L (ALT/SGPT) Alkaline Phosphatase 126 U/L Total Protein 6.6 GM/DL Albumin 2.3 GM/DL Microbiology Date/Time Procedure Status Source Growth 11/16/16 21:45 Aerobic Blood Culture - Preliminary Resulted Blood Peripheral S. Aureus Mrsa Staphylococcus Epidermidis 11/16/16 21:45 Anaerobic Blood Culture - Preliminary Resulted Blood Peripheral NO GROWTH IN 2 DAYS 11/16/16 21:55 Aerobic Blood Culture - Preliminary Resulted Blood Peripheral NO GROWTH IN 2 DAYS 11/16/16 21:55 Anaerobic Blood Culture - Preliminary Resulted Gram Positive Cocci 11/16/16 22:30 Gram Stain - Final Resulted Wound Foot 11/16/16 22:30 Wound Culture - Preliminary Resulted Strep Not A,B D 11/18/16 12:37 Gram Stain - Final Resulted Wound Foot 11/18/16 12:37 Wound Culture Resulted Wound Foot Pending 11/18/16 12:37 Acid Fast Stain Received Wound Foot Pending 11/18/16 12:37 Mycobacterial Culture Received Wound Foot Pending 11/18/16 12:37 Fungal Smear - Final Resulted Wound Foot NO FUNGAL ELEMENTS SEEN. 11/18/16 12:37 Fungal Culture Resulted Wound Foot Pending Physical Exam GENERAL: This is a chronically ill patient, appears older than in no apparent distress. SKIN: rt siddiqi some lymphangitis. HEAD: Atraumatic. Normocephalic. No temporal or scalp tenderness. EYES: Pupils equal round and reactive. Extraocular motions intact. No scleral icterus. No injection or drainage. ENT: Nose without bleeding, purulent drainage or septal hematoma. Throat without erythema, tonsillar hypertrophy or exudate. Uvula midline. Airway patent. Poor dental hygiene NECK: Trachea midline. No JVD or lymphadenopathy. Supple, nontender, no meningeal signs. CARDIOVASCULAR: Regular rate and rhythm without murmurs, gallops, or rubs. RESPIRATORY: Clear to auscultation. Breath sounds equal bilaterally. No wheezes , rales, or rhonchi. GASTROINTESTINAL: Abdomen soft, non-tender, nondistended. No hepato-splenomegaly , or palpable masses. No guarding. MUSCULOSKELETAL: Rt foot with a wound vac NEUROLOGICAL: Awake and alert. Cranial nerves II through XII intact. Motor and sensory grossly within normal limits. Five out of 5 muscle strength in all muscle groups. Normal speech. Assessment & Plan Diagnosis: (1) Sepsis Plan: Continue IV Vancomycin Pharmacy to dose Check repeat blood cultures Check Echocardiogram (2) Cellulitis of right foot Plan: Wound culture with Strep Continue IV Ceftriaxone (3) Bacteremia due to methicillin resistant Staphylococcus aureus (4) Type 2 diabetes mellitus (5) Lymphangitis Problem Qualifiers (1) Sepsis: Qualified Code: A41.02 - Sepsis due to methicillin resistant Staphylococcus aureus (MRSA) Bren Silva MD Nov 19, 2016 10:51
--- NOTE | 2016-11-19 11:39 | HHI.PR ---
Subjective Remarks Follow-up diabetic foot infection. Tolerated procedure yesterday. Patient reports he has been having loose stools for the past 3 months no workup. Denies nausea and abdominal pain. Discussed with RN and ID Objective Vitals Vital Signs Date Time Temp Pulse Resp B/P Pulse Ox O2 Delivery O2 Flow Rate FiO2 11/19/16 08:00 98.6 77 17 121/74 96 11/19/16 00:00 97.9 83 20 142/86 92 11/18/16 20:00 98.2 81 20 140/85 94 11/18/16 16:00 97.5 87 18 135/88 96 11/18/16 13:55 98.0 72 16 130/78 99 11/18/16 13:40 74 16 120/80 98 11/18/16 13:25 77 16 132/80 98 Room Air 11/18/16 13:08 97.5 81 16 115/74 97 Nasal Cannula 2 11/18/16 11:46 97.8 86 18 124/78 96 I/O 11/18/16 11/18/16 11/18/16 11/19/16 11/19/16 11/19/16 07:00 15:00 23:00 07:00 15:00 23:00 Intake Total 765 ml 500 ml 2724 ml Balance 765 ml 500 ml 2724 ml Intake Oral 0 ml 480 ml IV Total 765 ml 2244 ml Other 500 ml # Voids 1 1 # Bowel Movements 1 1 Result Diagram: 11/19/16 0505 11/19/16 0505 Imaging Last Impressions Foot MRI 11/18/16 0000 Signed Impressions: Service Date/Time: November 09:43 - CONCLUSION: 1. Mild enhancement of the soft tissues of the first through third toes indicating possible cellulitis. 2. No evidence of osteomyelitis. 3. Nonspecific arthritic findings of the midfoot. 4. Lobulated 2 cm area of superficial soft tissue abnormality lateral to the fifth metatarsal head and neck. No evidence of enhancement. May represent pressure lesion. Given that it has predominantly high signal on the T1-weighted images, hemangioma is also the differential diagnosis. Jerry Moreau MD Foot X-Ray 11/16/16 0000 Signed Impressions: Service Date/Time: Wednesday, November 16, 2016 21:54 - CONCLUSION: 1. Changes consistent with cellulitis involving the lateral forefoot. No radiopaque foreign body or radiographic evidence to clearly suggest osteomyelitis. Robb Landin Jr., MD Objective Remarks GENERAL: This is a well-nourished, well-developed patient, in no apparent distress. SKIN: No rashes, ecchymoses or lesions. Cool and dry. HEAD: Atraumatic. Normocephalic. No temporal or scalp tenderness. EYES: Pupils equal round and reactive. Extraocular motions intact. No scleral icterus. No injection or drainage. ENT: Nose without bleeding, purulent drainage or septal hematoma. Throat without erythema, tonsillar hypertrophy or exudate. Uvula midline. Airway patent. NECK: Trachea midline. No JVD or lymphadenopathy. Supple, nontender, no meningeal signs. CARDIOVASCULAR: Regular rate and rhythm without murmurs, gallops, or rubs. RESPIRATORY: Clear to auscultation. Breath sounds equal bilaterally. No wheezes , rales, or rhonchi. GASTROINTESTINAL: Abdomen soft, non-tender, nondistended. No guarding. MUSCULOSKELETAL: Extremities without clubbing, cyanosis, or edema. No joint tenderness, effusion, or edema noted. No calf tenderness. Negative Homans sign bilaterally. Right foot with wound VAC. NEUROLOGICAL: Awake and alert. Cranial nerves II through XII intact. Motor and sensory grossly within normal limits. Five out of 5 muscle strength in all muscle groups. Normal speech. Procedures IND of the right foot abscess with wound VAC application A/P Problem List: (1) Sepsis ICD Code: A41.9 Status: Acute (2) Cellulitis of right foot ICD Code: L03.115 Status: Acute Assessment and Plan This is a 51-year-old male with history of diabetes and tobacco abuse. He presents to the emergency department because of cellulitis/abscess involving his right foot. Diabetic foot infection. He has cellulitis/abscess status post I and D and wound VAC application. Culture growing multiple organisms. Continue Rocephin per ID Pain management with Lortab and IV morphine. Polymicrobial bacteremia/Sepsis secondary to above. Continue IV vancomycin Hypokalemia. Improved Diabetes mellitus. Uncontrolled A1c 11.8. Improving hyperglycemia on Levemir Monitor fingerstick restart scale coverage. Diarrhea. Start Lactinex and obtain stool studies including C. difficile Tobacco abuse. Tobacco cessation. DVT prophylaxis with teds and early ambulation. Subcutaneous heparin if okay with podiatry Discharge Planning Not ready for discharge Problem Qualifiers (1) Sepsis: Qualified Code: A41.02 - Sepsis due to methicillin resistant Staphylococcus aureus (MRSA) Rodney Dickey MD Nov 19, 2016 11:39
[2016-11-19 12:00] VITALS: BP 143/94; PULSE 94; RESP 17; TEMP 97.9; O2SAT 96
[2016-11-19] MEDS: LACTOBACILLUS ACIDOPHILUS TAB PO SCH ×2 (14:32→18:06)
[2016-11-19 16:00] VITALS: BP 146/90; PULSE 78; RESP 17; TEMP 95.7; O2SAT 97
--- NOTE | 2016-11-19 17:44 | EC ---
Study Study Date:11/19/2016 STUDY CONCLUSIONS SUMMARY - Procedure narrative: Image quality was fair. The study was technically limited due to poor acoustic window availability. - Left ventricle: The cavity size was normal. Wall thickness was at the upper limits of normal. Systolic function was normal. The estimated ejection fraction was in the range of 55% to 60%. Although no diagnostic regional wall motion abnormality was identified, this possibility cannot be completely excluded on the basis of this study. - Aortic valve: Moderately thickened leaflets, specifically of the left coronary cusp, cannot rule out endocarditis, but does not appear mobile as endocarditis would be. If LV function is below 40, please consider prescribing an ACEI or ARB or document rationale for non-use. PROCEDURE DATA STUDY STATUS: Elective. Procedure: Transthoracic echocardiography. Image quality was fair. The study was technically limited due to poor acoustic window availability. Scanning was performed from the parasternal, apical, and subcostal acoustic windows. Study completion: The patient tolerated the procedure well. Transthoracic echocardiography. M-mode, complete 2D, complete spectral Doppler, and color Doppler. Height: Height: 69in. Weight: Weight: 164.7lb. Body mass index: BMI: 24.4kg/m^2. Body surface area: BSA: 1.9m^2. Patient status: Inpatient. CARDIAC ANATOMY LEFT VENTRICLE: The cavity size was normal. Wall thickness was at the upper limits of normal. Systolic function was normal. The estimated ejection fraction was in the range of 55% to 60%. Although no diagnostic regional wall motion abnormality was identified, this possibility cannot be completely excluded on the basis of this study. AORTIC VALVE: Moderately thickened leaflets, specifically of the left coronary cusp, cannot rule out endocarditis, but does not appear mobile as endocarditis would be. Doppler: There was no stenosis. No significant regurgitation. Valve area: 2.3cm^2(VTI). Indexed valve area: 1.21cm^2/m^2 (VTI). Valve area: 2.7cm^2 (Vmax). Indexed valve area: 1.42cm^2/m^2 (Vmax). Mean gradient: 7mm Hg (S). Peak gradient: 16mm Hg (S). MITRAL VALVE: The valve appears to be grossly normal. Doppler: There was no evidence for stenosis. Trace to mild regurgitation. Peak gradient: 3mm Hg (D). LEFT ATRIUM: The atrium was normal in size. PULMONIC VALVE: Not visualized. Doppler: There was no evidence for stenosis. Trace regurgitation. TRICUSPID VALVE: The valve appears to be grossly normal. Doppler: There was no evidence for stenosis. Trace regurgitation. Patient weight: 164.7lb _Ejection fraction:_ 65-75% _Fractional shortening:_ 32% up to 5Kg 5-11.5Kg 11.6-22.9Kg 23-45Kg 45-57Kg Aortic Root 7-13 <17 13-22 17-27 17-27 LA diam 6-13 <23 24-38 33-47 37-40 RVID 10-17 7-15 7-15 7-18 8-17 LVIDd 12-22 <32 24-38 33-47 37-40 LVPW 2-4 3-6 5-7 6-8 7-8 IVS 2-4 3-6 5-7 6-8 7-8 BASIC MEASUREMENTS ADULT NORMAL Left ventricle LV internal dimension, ED, chordal 48.6 mm 43-52 level, PLAX LV internal dimension, ES, chordal 34.6 mm 23-38 level, PLAX Fractional shortening, chordal level, *29 % >29 PLAX LV posterior wall thickness, ED 10.6 mm IVS/LVPW ratio, ED 0.99 <1.3 Ventricular septum Septal thickness, ED 10.5 mm Aortic valve Leaflet separation 18 mm 15-26 Aorta Root diameter, ED 33 mm Left atrium Anterior-posterior dimension 34 mm Anterior-posterior dimension index 1.79 cm/m^2 <2.2 BASIC MEASUREMENTS ADULT NORMAL Aortic valve Leaflet separation 18 mm 15-26 DOPPLER MEASUREMENTS ADULT NORMAL Main pulmonary artery Pressure, S *33 mm Hg =30 Aortic valve Peak velocity, S 197 cm/s Mean velocity, S 123 cm/s VTI, S 32.7 cm Mean gradient, S 7 mm Hg Peak gradient, S 16 mm Hg Valve area, VTI 2.3 cm^2 Valve area index, VTI 1.21 cm^2/m^2 Valve area, Vmax 2.7 cm^2 Valve area index, Vmax 1.42 cm^2/m^2 Mitral valve Peak E-wave velocity 83.9 cm/s Peak A-wave velocity 75.5 cm/s Deceleration time *120 ms 150-230 Peak gradient, D 3 mm Hg Peak E/A ratio 1.1 Tricuspid valve Regurgitant peak velocity 257 cm/s Peak RV-RA gradient, S 26 mm Hg Maximal regurgitant velocity 257 cm/s Systemic veins Estimated CVP 10 mm Hg Right ventricle RV pressure, S *36 mm Hg <30 Pulmonic valve Peak velocity, S 83.5 cm/s LEGEND: Mean values are shown as u=mean value. Asterisk (*) askew values outside specified normal range. Prepared and signed by Catalino Powers [id number]
[2016-11-19] MEDS: HEPARIN SODIUM - SQ 10,000 UNITS/ML VIAL SQ SCH (20:46)
[2016-11-19 21:15] VITALS: BP 136/91; PULSE 81; RESP 18; TEMP 98.3; O2SAT 99
[2016-11-19] MEDS: cefTRIAXone INJ 2,000 MG in SODIUM CHLORIDE 0.9% INJ 100 ML IV SCH (23:41)
[2016-11-20] VITALS (11 sets, daily range): BP systolic 127–151; BP diastolic 70–92; PULSE 68–99; RESP 16–20; TEMP 97.1–98.8; O2SAT 96–100
[2016-11-20] MEDS: ACETAMINOPHEN/HYDROcodone 325 MG/7.5 MG TAB PO PRN ×5 (00:29→21:33)
[2016-11-20] MEDS: MORPHINE SULFATE 4 MG/ML INJ IV PUSH PRN ×5 (02:23→21:33)
[2016-11-20] MEDS ORDERED: PHARMACY ORDERED LAB ONE (04:45)
[2016-11-20] MEDS: VANCOMYCIN INJ 1,250 MG in SODIUM CHLOR 0.9% 250 ML INJ 250 ML IV SCH (05:00)
[2016-11-20] MEDS: INSULIN ASPART SUPPLEMENTAL SCALE SQ SCH ×4 (07:00→20:23)
[2016-11-20] MEDS ORDERED: NEOMYCIN/POLYMYXIN 1 ML G.U. IRRIGANT ONE (07:24)
[2016-11-20] MEDS ORDERED: BUPIVACAINE HCL PF 0.25% 30 ML VIAL ONE (07:24)
[2016-11-20] MEDS ORDERED: LACTATED RINGER'S 1000 ML INJ 1,000 ML ONE (08:01)
[2016-11-20] MEDS ORDERED: MIDAZOLAM HCL 2 MG/2 ML VIAL ONE (08:10)
[2016-11-20 08:37] LABS: POTASSIUM 3.5 MEQ/L (3.5-5.1)
[2016-11-20 08:40] LABS: BICARBONATE 28.5 MEQ/L (21.0-32.0); MAGNESIUM 2.1 MG/DL (1.5-2.5)
[2016-11-20] MEDS: MUPIROCIN 2% CREAM 15 GM TOPICAL SCH ×2 (09:00→20:23)
[2016-11-20] MEDS ORDERED: POTASSIUM CHLORIDE 20 MEQ CONTROLLED RELEASE TAB PO ONE (09:00)
--- NOTE | 2016-11-20 09:14 | HHI.PR ---
Immediate Post Op Note Procedure Date: Nov 20, 2016 Pre Op Diagnosis: Abscess R dorsolateral foot Post Op Diagnosis: same Surgeon: Arsenio Sales DPM [employer] Lifeguard(s): Staff Procedure: I&D abscess R foot with wound vac Findings: Consistent with diagnosis. Large defect from initial I&D abscess R dorsolateral foot. Debrided all necrotic tissue from periphery and residual wound measures approx 20 cm x 15cm x 1cm depth, down to level of extensor tendons to 2,3,4,5 R foot. Mild peripheral bleeding noted. Irrigation with 3L NS. Wound vac reapplied. Additional Information: mild peripheral bleeding. No bleeding from wound base. Tendons exposed. WBAT R foot with vac. Ordering wound vac changes MWF 125mmHg medium continuous. Adaptic over tendons. MUST REMOVE AND RE-APPLY ADAPTIC WITH EACH DSG CHANGE Will need long-term vac therapy in order to attempt limb salvage and IV antibiotics long-term per ID recommendations based on initial cultures Complications: none Estimated blood loss: 20mL Anesthesia: General Drains: None IVF Tourniquet time (min at mmHg) n/a Patient to: PACU Patient Condition: Good Date/Time of Procedure: SEE SURGICAL CARE RECORD Arsenio Sales DPM Nov 20, 2016 09:14
[2016-11-20] MEDS: HEPARIN SODIUM - SQ 10,000 UNITS/ML VIAL SQ SCH ×2 (10:13→20:18)
[2016-11-20] MEDS: ASPIRIN 81 MG CHEW TAB CHEW SCH (10:14)
[2016-11-20] MEDS: SODIUM CHLORIDE 0.9% FLUSH 10 ML FLUSH IV FLUSH SCH ×2 (10:14→20:17)
[2016-11-20] MEDS: LACTOBACILLUS ACIDOPHILUS TAB PO SCH ×3 (10:14→18:10)
--- NOTE | 2016-11-20 12:25 | HHI.PR ---
Subjective Remarks Follow-up right foot abscess and bacteremia. Patient has no new complaints. Having soft stools. Agrees with NORIS made aware of echo results. Discussed with RN Objective Vitals Vital Signs Date Time Temp Pulse Resp B/P Pulse Ox O2 Delivery O2 Flow Rate FiO2 11/20/16 12:00 97.1 70 20 151/92 98 11/20/16 10:00 68 14 145/89 97 Room Air 11/20/16 09:45 67 14 141/86 97 Room Air 11/20/16 09:30 68 11/20/16 09:30 98.2 68 14 140/88 97 Room Air 11/20/16 09:15 76 14 138/83 94 Room Air 11/20/16 09:11 74 11/20/16 09:11 98.8 74 14 132/82 94 Room Air 11/20/16 08:00 97.1 70 20 151/92 98 11/20/16 07:45 98.8 76 16 138/76 96 11/20/16 04:48 11/20/16 00:55 98.7 79 16 127/88 100 11/19/16 21:15 98.3 81 18 136/91 99 11/19/16 16:00 95.7 78 17 146/90 97 11/19/16 15:32 20 I/O 11/19/16 11/19/16 11/19/16 11/20/16 11/20/16 11/20/16 07:00 15:00 23:00 07:00 15:00 23:00 Intake Total 2724 ml 900 ml 700 ml Output Total 50 ml Balance 2724 ml 900 ml 650 ml Intake Oral 480 ml 900 ml 0 ml IV Total 2244 ml Other 700 ml Output Estimated Blood Loss 50 ml # Voids 1 4 3 0 # Bowel Movements 1 0 0 Result Diagram: 11/19/16 0505 11/20/16 0645 Imaging Echocardiogram 11/19/16 - Procedure narrative: Image quality was fair. The study was technically limited due to poor acoustic window availability. - Left ventricle: The cavity size was normal. Wall thickness was at the upper limits of normal. Systolic function was normal. The estimated ejection fraction was in the range of 55% to 60%. Although no diagnostic regional wall motion abnormality was identified, this possibility cannot be completely excluded on the basis of this study. - Aortic valve: Moderately thickened leaflets, specifically of the left coronary cusp, cannot rule out endocarditis, but does not appear mobile as endocarditis would be. Last Impressions Foot MRI 11/18/16 0000 Signed Impressions: Service Date/Time: November 09:43 - CONCLUSION: 1. Mild enhancement of the soft tissues of the first through third toes indicating possible cellulitis. 2. No evidence of osteomyelitis. 3. Nonspecific arthritic findings of the midfoot. 4. Lobulated 2 cm area of superficial soft tissue abnormality lateral to the fifth metatarsal head and neck. No evidence of enhancement. May represent pressure lesion. Given that it has predominantly high signal on the T1-weighted images, hemangioma is also the differential diagnosis. Jerry Moreau MD Foot X-Ray 11/16/16 0000 Signed Impressions: Service Date/Time: Wednesday, November 16, 2016 21:54 - CONCLUSION: 1. Changes consistent with cellulitis involving the lateral forefoot. No radiopaque foreign body or radiographic evidence to clearly suggest osteomyelitis. Robb Landin Jr., MD Objective Remarks GENERAL: This is a well-nourished, well-developed patient, in no apparent distress. SKIN: No rashes, ecchymoses or lesions. Cool and dry. HEAD: Atraumatic. Normocephalic. No temporal or scalp tenderness. EYES: Pupils equal round and reactive. Extraocular motions intact. No scleral icterus. No injection or drainage. ENT: Nose without bleeding, purulent drainage or septal hematoma. Throat without erythema, tonsillar hypertrophy or exudate. NECK: Trachea midline. No JVD or lymphadenopathy. Supple CARDIOVASCULAR: Regular rate and rhythm RESPIRATORY: Clear to auscultation. Breath sounds equal bilaterally. No wheezes , rales, or rhonchi. GASTROINTESTINAL: Abdomen soft, non-tender, nondistended. No guarding. MUSCULOSKELETAL: Extremities without clubbing, cyanosis, or edema. No joint tenderness, effusion, or edema noted. No calf tenderness. Negative Homans sign bilaterally. Right foot with wound VAC. NEUROLOGICAL: Awake and alert. Cranial nerves II through XII intact. Motor and sensory grossly within normal limits. Five out of 5 muscle strength in all muscle groups. Normal speech. Procedures IND of the right foot abscess with wound VAC application November 18 and November 20 A/P Problem List: (1) Sepsis ICD Code: A41.9 Status: Acute (2) Cellulitis of right foot ICD Code: L03.115 Status: Acute Assessment and Plan This is a 51-year-old male with history of diabetes and tobacco abuse. He presents to the emergency department because of cellulitis/abscess involving his right foot. Diabetic foot infection. He has cellulitis/abscess status post I and D 2 and wound VAC application. Culture growing multiple organisms. Continue Rocephin per ID Pain management with Lortab and IV morphine. Polymicrobial bacteremia/Sepsis including MRSA secondary to above. Continue IV vancomycin. Echocardiogram shows thickened leaflets of the aortic valve unable to rule out endocarditis will request NORIS consult cardiology Hypokalemia. Improved Diabetes mellitus. Uncontrolled A1c 11.8. Episodic hyperglycemia with increased Levemir to 8 units in the morning and continue 5 units at bedtime Monitor fingerstick restart scale coverage. Diarrhea. Continue Lactinex and follow-up stool studies including C. difficile Tobacco abuse. Tobacco cessation. DVT prophylaxis with teds and early ambulation. Continue subcutaneous heparin Discharge Planning Not ready for discharge Problem Qualifiers (1) Sepsis: Qualified Code: A41.02 - Sepsis due to methicillin resistant Staphylococcus aureus (MRSA) Rodney Dickey MD Nov 20, 2016 12:25
[2016-11-20] MEDS ORDERED: PROPOFOL 200 MG/20 ML AMP IV ONE (13:08)
[2016-11-20] MEDS: VANCOMYCIN 1,500 MG/NS 500 ML IV SCH ×4 (15:41→23:00)
[2016-11-20] MEDS: INSULIN DETEMIR 100 UNITS/ML VIAL SQ SCH (20:22)
[2016-11-21] VITALS (12 sets, daily range): BP systolic 128–147; BP diastolic 78–93; PULSE 60–81; RESP 16–20; TEMP 97.9–98.3; O2SAT 95–99
[2016-11-21] MEDS: cefTRIAXone INJ 2,000 MG in SODIUM CHLORIDE 0.9% INJ 100 ML IV SCH ×2 (01:51→20:41)
[2016-11-21] MEDS: MORPHINE SULFATE 4 MG/ML INJ IV PUSH PRN (05:35)
[2016-11-21] MEDS: VANCOMYCIN 1,500 MG/NS 500 ML IV SCH ×6 (05:36→23:06)
[2016-11-21] MEDS: INSULIN ASPART SUPPLEMENTAL SCALE SQ SCH ×4 (06:11→20:47)
[2016-11-21] MEDS ORDERED: INSULIN DETEMIR 100 UNITS/ML VIAL SQ SCH (08:00)
[2016-11-21] MEDS ORDERED: ATROPINE SULFATE 1 MG/10 ML SYRINGE ONE (08:45)
[2016-11-21] MEDS: ASPIRIN 81 MG CHEW TAB CHEW SCH (08:47)
[2016-11-21] MEDS: LACTOBACILLUS ACIDOPHILUS TAB PO SCH ×3 (08:47→16:59)
[2016-11-21] MEDS: HEPARIN SODIUM - SQ 10,000 UNITS/ML VIAL SQ SCH ×2 (08:47→20:40)
[2016-11-21] MEDS: SODIUM CHLORIDE 0.9% FLUSH 10 ML FLUSH IV FLUSH SCH ×2 (08:56→20:39)
[2016-11-21] MEDS: MUPIROCIN 2% CREAM 15 GM TOPICAL SCH ×2 (09:00→20:55)
--- NOTE | 2016-11-21 09:43 | HHI.PR ---
Subjective Remarks F-U sepsis/DFI/positive 2D echo with vegetation 11/21/16-patient seen and examined; transferred from to [facility] for NORIS. Currently afebrile and denies any chest pain Objective Vitals Vital Signs Date Time Temp Pulse Resp B/P Pulse Ox O2 Delivery O2 Flow Rate FiO2 11/21/16 08:24 97.9 81 20 139/78 96 11/21/16 07:21 96 Room Air 11/21/16 06:24 70 11/21/16 05:00 68 11/21/16 04:00 Room Air 11/21/16 04:00 72 11/21/16 04:00 98.0 72 20 143/90 95 11/21/16 03:00 68 11/21/16 02:00 71 11/21/16 01:00 68 11/21/16 00:00 98.3 68 18 128/83 96 11/21/16 00:00 68 11/21/16 00:00 Room Air 11/20/16 23:00 72 11/20/16 22:00 75 11/20/16 21:00 70 11/20/16 20:00 77 11/20/16 20:00 98.1 77 20 139/88 97 11/20/16 20:00 Room Air 11/20/16 16:35 98.0 99 148/70 98 11/20/16 12:00 97.1 70 20 151/92 98 11/20/16 10:00 68 14 145/89 97 Room Air 11/20/16 09:45 67 14 141/86 97 Room Air I/O 11/20/16 11/20/16 11/20/16 11/21/16 11/21/16 11/21/16 07:00 15:00 23:00 07:00 15:00 23:00 Intake Total 710 ml 1180 ml Output Total 50 ml 800 ml Balance 660 ml 380 ml Intake Oral 0 ml 480 ml IV Total 10 ml 700 ml Other 700 ml Output Urine Total 800 ml Estimated Blood Loss 50 ml # Voids 3 0 # Bowel Movements 0 0 Result Diagram: 11/19/16 0505 11/21/16 0606 Imaging Last Impressions Foot MRI 11/18/16 0000 Signed Impressions: Service Date/Time: November 09:43 - CONCLUSION: 1. Mild enhancement of the soft tissues of the first through third toes indicating possible cellulitis. 2. No evidence of osteomyelitis. 3. Nonspecific arthritic findings of the midfoot. 4. Lobulated 2 cm area of superficial soft tissue abnormality lateral to the fifth metatarsal head and neck. No evidence of enhancement. May represent pressure lesion. Given that it has predominantly high signal on the T1-weighted images, hemangioma is also the differential diagnosis. Jerry Moreau MD Foot X-Ray 11/16/16 0000 Signed Impressions: Service Date/Time: Wednesday, November 16, 2016 21:54 - CONCLUSION: 1. Changes consistent with cellulitis involving the lateral forefoot. No radiopaque foreign body or radiographic evidence to clearly suggest osteomyelitis. Robb Landin Jr., MD Objective Remarks GENERAL: NAD SKIN: Warm and dry. HEAD: Normocephalic. EYES: No scleral icterus. No injection or drainage. NECK: Supple, trachea midline. No JVD or lymphadenopathy. CARDIOVASCULAR: Regular rate and rhythm without murmurs, gallops, or rubs. RESPIRATORY: Breath sounds equal bilaterally. No accessory muscle use. GASTROINTESTINAL: Abdomen soft, non-tender, nondistended. MUSCULOSKELETAL: No cyanosis, or edema. wound vac to RLE BACK: Nontender without obvious deformity. No CVA tenderness. Procedures IND of the right foot abscess with wound VAC application November 18 and November 20 A/P Problem List: (1) Sepsis ICD Code: A41.9 Status: Acute (2) Cellulitis of right foot ICD Code: L03.115 Status: Acute (3) Type 2 diabetes mellitus ICD Code: E11.9 Status: Acute (4) Bacteremia due to methicillin resistant Staphylococcus aureus ICD Code: R78.81 Status: Acute Assessment and Plan 51 yrs old man with Polymicrobial bacteremia/Sepsis including MRSA secondary to above. Continue IV vancomycin and Rocephin per ID. Monitor cultures Echocardiogram shows thickened leaflets of the aortic valve unable to rule out endocarditis Cardiology consultation pending for evaluation for NORIS Diabetic foot infection. Status post I and D 2 and wound VAC application. Appreciate input from Podiatry Continue Rocephin and Vancomycin per ID Pain management with Lortab and IV morphine. Hypokalemia. Improved Diabetes mellitus. Uncontrolled A1c 11.8. On Levemir 8 units in the morning and continue 5 units at bedtime Monitor fingerstick restart scale coverage. Diarrhea. Continue Lactinex and follow-up stool studies including C. difficile Tobacco abuse. Tobacco cessation. DVT prophylaxis: Continue subcutaneous heparin Problem Qualifiers (1) Sepsis: Qualified Code: A41.02 - Sepsis due to methicillin resistant Staphylococcus aureus (MRSA) Marcel Orlando MD Nov 21, 2016 09:42
--- NOTE | 2016-11-21 10:23 | MB ---
cc: Joycelyn DATE OF CONSULTATION: 11/21/2016 REASON FOR CONSULTATION For NORIS. HISTORY OF PRESENT ILLNESS The patient is a pleasant 51-year-old gentleman with no prior cardiac history, who was admitted with purulent right foot drainage as well as other signs of infection such as red streaks up his legs. He was admitted for a diabetic foot infection and sepsis. He an echocardiogram which showed a thickened aortic valve and I have been asked to perform a NORIS to exclude endocarditis. Currently the patient is asymptomatic, denying chest pain, shortness breath, lightheadedness, dizziness, syncope or any prior cardiac history or symptoms. PAST MEDICAL HISTORY Diabetes, tobacco abuse. CURRENT MEDICATIONS 1. IV vancomycin. 2. Lactinex. 3. IV Ceftriaxone. 4. Aspirin 81 milligrams daily. ALLERGIES PENICILLIN. PHYSICAL EXAMINATION VITAL SIGNS: Afebrile, pulse 81, respiratory rate 20, BP 139/78. Sating 96 on room air. GENERAL: Pleasant well-appearing gentleman, in no distress. NECK: No JVD. LUNGS: Clear to auscultation bilaterally. CARDIOVASCULAR: Regular rate and rhythm. No murmurs appreciated. ABDOMEN: Benign. EXTREMITIES: No edema, though the right cellulitic diabetic infection is noted. LABORATORY DATA Sodium 130, potassium 3.5, chloride 103, bicarb 28.5, BUN 5, creatinine 0.5, glucose 258, hemoglobin A1c is 11.8. Microbiology was notable for MRSA. EKG Shows sinus tachycardia with no acute ST or T-wave changes. ECHOCARDIOGRAM From November 19, 2016 showed a normal ejection fraction with thickened aortic valve leaflets and endocarditis was not excluded. IMPRESSION 1. Bacteremia with abnormal echocardiogram. The patient had a abnormal echocardiogram and positive blood cultures, I think a NORIS is reasonable though probably unlikely to reveal endocarditis, still given his diabetes and at least transient bacteremia, a NORIS is a reasonable procedure to perform. The patient agrees with this plan and will be done later this morning. Thank you again for the opportunity to participate in this patient's care. MD ADITHYA Cruz/DIPESH /9:21 AM /10:14 AM
--- NOTE | 2016-11-21 10:47 | PD.CARD ---
Cardiology Procedure Note Procedure Name: NORIS with bubble study Procedure Date: Nov 21, 2016 Procedure Note: NORIS with bubble study was done for concern for endocarditis Preliminary report showing probable endocarditis of the anterior mitral valve towards the annulus. Not felt to be an abscess, mild MR, non-surgical in nature. Discussed with the primary team, may be sent back to [facility] for treatment. Discussed with Infectious Disease, to make recommendations tomorrow. Catalino Powers DO Nov 21, 2016 10:47
--- NOTE | 2016-11-21 11:11 | PD.POD ---
Subjective Podiatric Problems R foot infection, s/p I&D 11/18/16 and 11/20/16 Mónica Past Med/Surg/Social History Social History Smoking Status: Never Smoker Objective Vital Signs Vital Signs Date Time Temp Pulse Resp B/P Pulse Ox O2 Delivery O2 Flow Rate FiO2 11/21/16 08:24 97.9 81 20 139/78 96 11/21/16 07:21 96 Room Air 11/21/16 06:24 70 11/21/16 05:00 68 11/21/16 04:00 Room Air 11/21/16 04:00 72 11/21/16 04:00 98.0 72 20 143/90 95 11/21/16 03:00 68 11/21/16 02:00 71 11/21/16 01:00 68 11/21/16 00:00 98.3 68 18 128/83 96 11/21/16 00:00 68 11/21/16 00:00 Room Air 11/20/16 23:00 72 11/20/16 22:00 75 11/20/16 21:00 70 11/20/16 20:00 77 11/20/16 20:00 98.1 77 20 139/88 97 11/20/16 20:00 Room Air 11/20/16 16:35 98.0 99 148/70 98 11/20/16 12:00 97.1 70 20 151/92 98 Coded Allergies: Penicillin (Verified Allergy, Severe, 11/16/16) *MDRO Multi-Drug Resistant Organism (Verified Adverse Reaction, Unknown, MRSA, 11/19/16) MRSA (blood) - 11/16/16 Physical Exam Remarks vac in place and functioning properly Assessment & Plan A/P R foot infection, s/p I&D 11/18/16 and 11/20/16 Mónica Continue wound vac Consulted vascular for evaluation [facility] eval/management before transfer back to [facility]. Continue IV antibiotics Arsenio Sales DPM Nov 21, 2016 11:11
--- NOTE | 2016-11-21 11:18 | ETE ---
Study Study Date:11/21/2016 STUDY CONCLUSIONS SUMMARY - Left ventricle: The cavity size was normal. Systolic function was normal. The estimated ejection fraction was in the range of 55% to 60%. Wall motion was normal; there were no regional wall motion abnormalities. - Mitral valve: There is a echodensity on the atrial aspect of the base of the anterior leaflet; the appearance is consistent with vegetation. Mild regurgitation. - Atrial septum: No defect or patent foramen ovale was identified. 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 Discussed with Primary team and Infectious Disease If LV function is below 40, please consider prescribing an ACEI or ARB or document rationale for non-use. PROCEDURE DATA Consent: The risks, benefits, and alternatives to the procedure were explained to the patient and informed consent was obtained. Procedure: Initial setup. The patient was brought to the laboratory in the fasting state. Intravenous access was obtained. Surface ECG leads and pulse oximetric signals were monitored. Sedation. Conscious sedation was administered by anesthesia. Transesophageal echocardiography. A transesophageal probe was inserted by the attending dining room manager. Image quality was good. Study completion: All IVs inserted during the procedure were removed. The patient tolerated the procedure well. There were no complications. Transesophageal echocardiography. 2D, complete spectral Doppler, and color Doppler. CARDIAC ANATOMY LEFT VENTRICLE: The cavity size was normal. Systolic function was normal. The estimated ejection fraction was in the range of 55% to 60%. Wall motion was normal; there were no regional wall motion abnormalities. AORTIC VALVE: Mildly thickened leaflets. Doppler: There was no stenosis. No significant regurgitation. MITRAL VALVE: Normal thickness leaflets, . There is a echodensity on the atrial aspect of the base of the anterior leaflet; the appearance is consistent with vegetation. Doppler: There was no evidence for stenosis. Mild regurgitation. LEFT ATRIUM: The atrium was normal in size. ATRIAL SEPTUM: No defect or patent foramen ovale was identified. PULMONIC VALVE: The valve appears to be grossly normal. Doppler: There was no evidence for stenosis. Trace regurgitation. TRICUSPID VALVE: The valve appears to be grossly normal. Doppler: There was no evidence for stenosis. No significant regurgitation. Prepared and signed by Catalino Powers [id number]
--- NOTE | 2016-11-21 13:15 | HHI.PR ---
Addendum to Inpatient Note Addendum Reason: Additional Documentation Additional Information Report of NORIS discussed with cardiology as well as infectious disease on-call Dr. García -Atrial septum: No defect or patent foramen ovale was identified. 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 Silva He will require long-term treatment for endocarditis Marcel Orlando MD Nov 21, 2016 13:15
--- NOTE | 2016-11-21 13:33 | MB ---
cc: MD SONAM,[facility] ([place]) DATE OF CONSULTATION: 11/21/2016. REASON FOR CONSULTATION: Cellulitis of the right foot and purulent infection of the right foot with diabetes mellitus and peripheral vascular disease. REFERRING PHYSICIAN: Dr. Arsenio Godinez, podiatry. 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 The patient states that he had a corn on the lateral aspect of his foot and banged it against a door. This thing came off, got worse over the next few days and he noted streaking up the leg and then the foot swelled up like a balloon. One thing lead to another and the bottom line is the patient had drainage and debridement of the foot and has a purulent cellulitic ulcer on the right lateral foot with some cellulitis of the leg. The question arises about vascular disease and some contribution to the changes. PAST MEDICAL HISTORY: 1. Diabetes mellitus. 2. Hypertension for about 15 years. PAST SURGICAL HISTORY: The patient denies any surgery except this last debridement. MEDICATIONS: The patient takes only aspirin, it is not treating his diabetes at all. SOCIAL HISTORY: He is a social drinker and has smoked most of his adult life off and on between one pack and two packs a day. He is very noncompliant with his care. PHYSICAL EXAMINATION: GENERAL: The physical examination reveals a 51-year-old male. HEAD, EYES, EARS, NOSE, THROAT: Normocephalic. No trauma to the head. Pupils equal and reactive. Extraocular muscles intact. NECK: The neck is supple. Bilateral carotid pulses. No bruits. CHEST: Clear. Bilateral breath sounds. HEART: Regular rhythm. ABDOMEN: Soft. No rebound. No guarding. No masses. EXTREMITIES: The patient actually has palpable femoral pulses and palpable popliteal pulses. Distal pulses, posterior tibial pulses and dorsalis pedis pulses by Doppler. The feet are warm. Capillary refill is intact. The right foot is indeed swollen and cellulitic status post debridement. A wound VAC is applied. NEUROLOGIC: The patient is grossly intact. IMPRESSION AND RECOMMENDATIONS: A 51-year-old male with longstanding diabetes mellitus, a heavy smoker, now starting to develop various sequelae of the diabetes and smoking in the form of peripheral vascular changes, nonhealing and so forth. The patient has grown MRSA and Staph aureus from his wound and I believe this probably took a while to develop, probably longer than only 48 hours as he states. Having said that, there are two kinds of vascular disease that we usually see: The pattern of diabetic vascular disease involves vessels below the level of the knee and small vessel disease with a classic atherosclerotic pattern involves the vessels in the inflow tract and above the knee. In this case, I will order a CTA with runoff but I do not think the patient will at this point have any reconstructable disease. By exam patient has very good inflow and clean vessels based on the fact that can palpate his femoral and popliteal pulses easily.considering the feet are warm patient has a good flow to the feet but there is likely some degree of disease in trifurcation vessels and CTA will show us this. Again there is unlikely something unreconstructable and blood flow is in essence adequate by clinical exam. I will continue to follow the patient at [facility]. It should be noted that the patient got transferred from [facility] here for cardiac transesophageal echo so I saw him at this hospital but I could have as easily have seen him at [facility] without him being transferred here, but so be it. I will continue to follow patient as necessary at [facility] Thank you very much for the referral. Emily CONSTANTINO/SUSANNAH /1:02 PM /1:25 PM ANA
[2016-11-21] MEDS ORDERED: PHARMACY ORDERED LAB ONE (14:45)
[2016-11-21] MEDS: ACETAMINOPHEN/HYDROcodone 325 MG/5 MG TAB PO PRN (16:59)
[2016-11-21] MEDS: INSULIN DETEMIR 100 UNITS/ML VIAL SQ SCH (20:46)
[2016-11-22 01:32] VITALS: BP 156/84; PULSE 65; RESP 16; TEMP 98.4; O2SAT 97
[2016-11-22] MEDS: ACETAMINOPHEN/HYDROcodone 325 MG/7.5 MG TAB PO PRN ×4 (03:55→22:00)
[2016-11-22 06:04] VITALS: BP 156/84; PULSE 65; RESP 16; TEMP 98.4; O2SAT 97
[2016-11-22] MEDS: VANCOMYCIN 1,500 MG/NS 500 ML IV SCH ×6 (06:31→22:00)
[2016-11-22 08:00] VITALS: BP 150/89; PULSE 75; RESP 18; TEMP 97.9; O2SAT 96
[2016-11-22] MEDS: MUPIROCIN 2% CREAM 15 GM TOPICAL SCH ×2 (08:35→21:00)
[2016-11-22] MEDS: SODIUM CHLORIDE 0.9% FLUSH 10 ML FLUSH IV FLUSH SCH ×2 (08:39→21:50)
[2016-11-22] MEDS: LACTOBACILLUS ACIDOPHILUS TAB PO SCH ×3 (08:40→17:47)
[2016-11-22] MEDS: ASPIRIN 81 MG CHEW TAB CHEW SCH (08:40)
[2016-11-22] MEDS: HEPARIN SODIUM - SQ 10,000 UNITS/ML VIAL SQ SCH ×2 (08:41→21:45)
[2016-11-22] MEDS: INSULIN ASPART SUPPLEMENTAL SCALE SQ SCH ×4 (08:43→21:49)
[2016-11-22] MEDS: INSULIN DETEMIR 100 UNITS/ML VIAL SQ SCH ×2 (08:46→21:49)
--- NOTE | 2016-11-22 09:42 | PD.CARD.PN ---
Subjective Subjective Remarks Doing well post-NORIS, minor sore throat yesterday, none today Objective Medications Current Medications Medications (Trade) Dose Ordered Sig/Kristian Route Start Time Stop Time Status Last Admin (NS Flush) 2 ml UNSCH PRN IV FLUSH 11/16/16 23:00 (NS Flush) 2 ml BID IV FLUSH 11/17/16 09:00 11/21/16 20:39 Naloxone HCl 0.4 mg 0.4 mg UNSCH PRN IV 11/16/16 23:00 (Vancomycin Consult Pharmacy) 0 ml @ 0 mls/hr UNSCH OTHER 11/16/16 23:00 (Morphine Inj) 2 mg Q3H PRN IV PUSH 11/16/16 23:00 11/21/16 05:35 (Tylenol) 650 mg Q4H PRN PO 11/17/16 08:15 (Zofran Inj) 4 mg Q6H PRN IV 11/17/16 08:15 (Milk Of Magnesia Liq) 30 ml DAILY PRN PO 11/17/16 08:15 (Tums Chew) 1,000 mg TID PRN CHEW 11/17/16 08:15 (Tylenol) 650 mg Q6H PRN PO 11/17/16 08:15 ([place] 5-325 Mg) 1 tab Q4H PRN PO 11/17/16 08:15 11/21/16 16:59 ([place] 7.5-325 Mg) 1 tab Q4H PRN PO 11/17/16 08:15 11/22/16 08:52 (Narcan Inj) 0.4 mg UNSCH PRN IV 11/17/16 08:15 (D50w (Vial) Inj) 50 ml UNSCH PRN IV 11/17/16 08:15 (Glucagon Inj) 1 mg UNSCH PRN OTHER 11/17/16 08:15 (Aspirin Chew) 81 mg DAILY CHEW 11/17/16 09:00 11/22/16 08:40 (Bactroban 2% Cream) 1 applic Q12HR TOPICAL 11/17/16 21:00 11/20/16 20:23 Insulin Detemir 5 units 5 units HS SQ 11/17/16 21:00 11/21/16 20:46 (Rocephin Inj/NS Inj) 100 ml @ 200 mls/hr Q24H IV 11/18/16 23:00 11/21/16 20:41 (Lactinex) 1 tab TID PO 11/19/16 13:00 11/22/16 08:40 Heparin Sodium (Porcine) 5000 units 5,000 units BID SQ 11/19/16 21:00 11/22/16 08:41 (Vancomycin Inj/ NS 500 ml Inj) 515 ml @ 257.5 mls/ hr Q8H IV 11/20/16 15:00 11/22/16 06:31 Miscellaneous Information SPECIFIC LAB TO BE MONI... ONCE ONCE .XX 11/22/16 14:45 11/22/16 14:46 (Levemir Inj) 12 units DAILYAC SQ 11/22/16 08:00 11/22/16 08:46 Vital Signs / I&O Vital Signs Date Time Temp Pulse Resp B/P Pulse Ox O2 Delivery O2 Flow Rate FiO2 11/22/16 09:31 16 11/22/16 08:00 97.9 75 18 150/89 96 11/22/16 06:04 98.4 65 16 156/84 97 11/22/16 01:32 98.4 65 16 156/84 97 11/21/16 21:50 98.0 63 16 137/93 96 11/21/16 21:50 Room Air 11/21/16 16:04 98.1 66 18 138/87 99 11/21/16 15:12 98.2 76 20 147/85 97 11/21/16 12:29 98.1 60 20 145/86 99 I/O 11/21/16 11/21/16 11/21/16 11/22/16 11/22/16 11/22/16 07:00 15:00 23:00 07:00 15:00 23:00 Intake Total 1180 ml 520 ml 1500 ml Output Total 800 ml Balance 380 ml 520 ml 1500 ml Intake Oral 480 ml IV Total 700 ml 520 ml 1500 ml Output Urine Total 800 ml # Voids 4 # Bowel Movements 0 Physical Exam GENERAL: NAD, AAOx3 SKIN: Warm and dry. HEAD: Atraumatic. Normocephalic. EYES: Pupils equal and round. No scleral icterus. No injection or drainage. ENT: No nasal bleeding or discharge. Mucous membranes pink and moist. NECK: Trachea midline. No JVD. CARDIOVASCULAR: Regular rate and rhythm. RESPIRATORY: No accessory muscle use. Clear to auscultation. Breath sounds equal bilaterally. GASTROINTESTINAL: Abdomen soft, non-tender, nondistended. Hepatic and splenic margins not palpable. MUSCULOSKELETAL: Extremities without clubbing, cyanosis, or edema. No obvious deformities. Right lower extremity with wrapped foot NEUROLOGICAL: Awake and alert. No obvious cranial nerve deficits. Motor grossly within normal limits. Five out of 5 muscle strength in the arms and legs. Normal speech. PSYCHIATRIC: Appropriate mood and affect; insight and judgment normal. Laboratory Laboratory Tests Test 11/21/16 15:12 Vancomycin Level Trough 12.4 MCG/ML Assessment and Plan Problem List: (1) Bacteremia due to methicillin resistant Staphylococcus aureus (2) Type 2 diabetes mellitus (3) Cellulitis of right foot (4) Sepsis (5) Endocarditis, suspected (6) Endocarditis of mitral valve Assessment and Plan 1) NORIS showing what is felt to be endocarditis of the mitral valve No abscess, mild MR 2) Await recommendations from ID for antibiotics 3) Discussed with primary team 4) Will see PRN, call with questions Problem Qualifiers (1) Sepsis: Qualified Code: A41.02 - Sepsis due to methicillin resistant Staphylococcus aureus (MRSA) Catalino Powers DO Nov 22, 2016 09:42
--- NOTE | 2016-11-22 10:34 | PD.CAR.PN ---
CVT Progress Note Subjective/Hospital Course: 11/22/16 Patient with PVD and related issues. Full consult done yesterday. CTA with runoff pending Objective: Vital Signs Date Time Temp Pulse Resp B/P Pulse Ox O2 Delivery O2 Flow Rate FiO2 11/22/16 09:31 16 11/22/16 08:00 97.9 75 18 150/89 96 11/22/16 06:04 98.4 65 16 156/84 97 11/22/16 01:32 98.4 65 16 156/84 97 11/21/16 21:50 98.0 63 16 137/93 96 11/21/16 21:50 Room Air 11/21/16 16:04 98.1 66 18 138/87 99 11/21/16 15:12 98.2 76 20 147/85 97 11/21/16 12:29 98.1 60 20 145/86 99 Result Diagram: 11/19/16 0505 11/21/16 0606 (1) Bacteremia due to methicillin resistant Staphylococcus aureus (2) Type 2 diabetes mellitus (3) Cellulitis of right foot (4) Sepsis (5) Endocarditis, suspected (6) Endocarditis of mitral valve Problem Qualifiers (1) Sepsis: Qualified Code: A41.02 - Sepsis due to methicillin resistant Staphylococcus aureus (MRSA) Emily Shah MD Nov 22, 2016 10:34
--- NOTE | 2016-11-22 11:46 | HHI.PR ---
Subjective Remarks Follow-up DFI and probable mitral valve endocarditis. Patient is doing okay. He went to [facility] for NORIS. Results discussed with patient and cardiology. Discussed with RN Objective Vitals Vital Signs Date Time Temp Pulse Resp B/P Pulse Ox O2 Delivery O2 Flow Rate FiO2 11/22/16 09:31 16 11/22/16 08:40 Room Air 11/22/16 08:00 97.9 75 18 150/89 96 11/22/16 06:04 98.4 65 16 156/84 97 11/22/16 01:32 98.4 65 16 156/84 97 11/21/16 21:50 98.0 63 16 137/93 96 11/21/16 21:50 Room Air 11/21/16 16:04 98.1 66 18 138/87 99 11/21/16 15:12 98.2 76 20 147/85 97 11/21/16 12:29 98.1 60 20 145/86 99 I/O 11/21/16 11/21/16 11/21/16 11/22/16 11/22/16 11/22/16 07:00 15:00 23:00 07:00 15:00 23:00 Intake Total 1180 ml 520 ml 1500 ml Output Total 800 ml Balance 380 ml 520 ml 1500 ml Intake Oral 480 ml IV Total 700 ml 520 ml 1500 ml Output Urine Total 800 ml # Voids 4 # Bowel Movements 0 Result Diagram: 11/19/16 0505 11/21/16 0606 Imaging Last Impressions Foot MRI 11/18/16 0000 Signed Impressions: Service Date/Time: November 09:43 - CONCLUSION: 1. Mild enhancement of the soft tissues of the first through third toes indicating possible cellulitis. 2. No evidence of osteomyelitis. 3. Nonspecific arthritic findings of the midfoot. 4. Lobulated 2 cm area of superficial soft tissue abnormality lateral to the fifth metatarsal head and neck. No evidence of enhancement. May represent pressure lesion. Given that it has predominantly high signal on the T1-weighted images, hemangioma is also the differential diagnosis. Jerry Moreau MD Foot X-Ray 11/16/16 0000 Signed Impressions: Service Date/Time: Wednesday, November 16, 2016 21:54 - CONCLUSION: 1. Changes consistent with cellulitis involving the lateral forefoot. No radiopaque foreign body or radiographic evidence to clearly suggest osteomyelitis. Robb Lanidn Jr., MD Objective Remarks GENERAL: This is a well-nourished, well-developed patient, in no apparent distress. SKIN: No rashes, ecchymoses or lesions. Cool and dry. HEAD: Atraumatic. Normocephalic. EYES: Pupils equal round and reactive. Extraocular motions intact. No scleral icterus. No injection or drainage. ENT: Nose without bleeding, purulent drainage or septal hematoma. Throat without erythema, tonsillar hypertrophy or exudate. NECK: Trachea midline. No JVD or lymphadenopathy. Supple CARDIOVASCULAR: Regular rate and rhythm RESPIRATORY: Clear to auscultation. Breath sounds equal bilaterally. No wheezes , rales, or rhonchi. GASTROINTESTINAL: Abdomen soft, non-tender, nondistended. No guarding. MUSCULOSKELETAL: Extremities without clubbing, cyanosis, or edema. No joint tenderness, effusion, or edema noted. No calf tenderness. Negative Homans sign bilaterally. Right foot with wound VAC. NEUROLOGICAL: Awake and alert. Cranial nerves II through XII intact. Motor and sensory grossly within normal limits. Five out of 5 muscle strength in all muscle groups. Normal speech. Procedures IND of the right foot abscess with wound VAC application November 18 and November 20 NORIS A/P Problem List: (1) Sepsis ICD Code: A41.9 Status: Acute (2) Cellulitis of right foot ICD Code: L03.115 Status: Acute (3) Type 2 diabetes mellitus ICD Code: E11.9 Status: Acute (4) Bacteremia due to methicillin resistant Staphylococcus aureus ICD Code: R78.81 Status: Acute Assessment and Plan This is a 51-year-old male with history of diabetes and tobacco abuse. He presents to the emergency department because of cellulitis/abscess involving his right foot. Diabetic foot infection. He has cellulitis/abscess status post I and D 2 and wound VAC application. Culture growing multiple organisms. Continue Rocephin per ID Pain management with Lortab and IV morphine. Follow-up CTA to evaluate for PVD. Vascular surgery following Sepsis blood culture updated to staph epidermidis only. It was initially reported growing MRSA. Continue IV vancomycin. Echocardiogram shows thickened leaflets of the aortic valve unable to rule out endocarditis. NORIS shows probable mitral valve endocarditis. Repeat blood culture 11/20/16 negative to date. Hypokalemia. Improved Diabetes mellitus. Uncontrolled A1c 11.8. Increase Levemir to 12 units in the morning and continue 5 units at bedtime Monitor fingerstick restart scale coverage. Hypertension. Start Norvasc. Monitor for response Diarrhea. Improving. Continue Lactinex and follow-up stool studies including C. difficile Tobacco abuse. Tobacco cessation. DVT prophylaxis with teds and early ambulation. Continue subcutaneous heparin Discharge Planning Not ready for discharge Problem Qualifiers (1) Sepsis: Qualified Code: A41.02 - Sepsis due to methicillin resistant Staphylococcus aureus (MRSA) Rodney Dickey MD Nov 22, 2016 11:46
[2016-11-22 12:00] VITALS: BP 144/91; PULSE 67; RESP 20; TEMP 98; O2SAT 96
[2016-11-22] MEDS ORDERED: IOHEXOL 350 MG/ML 10 ML VIAL (for RAD DIAG) IV ONE (12:12)
[2016-11-22] MEDS ORDERED: PILL SPLITTER OTHER PRN (12:15)
--- NOTE | 2016-11-22 14:19 | HHI.IDPN ---
Subjective Subjective Remarks ID FU DR SILVA Feels better Some pain in right foot No more fevers + diarrhea stool negative cdiff Antibiotics Vancomycin Ceftriaxone Lines Peripheral line Past Medical History Type 2 diabetes (Charlette Ruiz) Remarks ISSAC findings noted (Bren Silva MD) Allergies: Coded Allergies: Penicillin (Verified Allergy, Severe, 11/16/16) Objective . Vital Signs Date Time Temp Pulse Resp B/P Pulse Ox O2 Delivery O2 Flow Rate FiO2 11/22/16 12:00 98.0 67 20 144/91 96 11/22/16 09:31 16 11/22/16 08:40 Room Air 11/22/16 08:00 97.9 75 18 150/89 96 11/22/16 06:04 98.4 65 16 156/84 97 11/22/16 01:32 98.4 65 16 156/84 97 11/21/16 21:50 98.0 63 16 137/93 96 11/21/16 21:50 Room Air 11/21/16 16:04 98.1 66 18 138/87 99 11/21/16 15:12 98.2 76 20 147/85 97 11/21/16 11/21/16 11/22/16 15:00 23:00 07:00 Intake Total 520 ml 1500 ml Balance 520 ml 1500 ml IV Total 520 ml 1500 ml # Voids 4 . Laboratory Tests Test 11/21/16 06:06 Creatinine 0.50 MG/DL Estimat Glomerular Filtration 175 ML/MIN Rate Microbiology Date/Time Procedure Status Source Growth 11/19/16 18:00 - Final Complete Stool Stool NO ENTERIC PATHOGENS DETECTED BY PCR... Physical Exam GENERAL: This is a chronically ill patient, appears older than in no apparent distress. SKIN: rt siddiqi some lymphangitis. HEAD: Atraumatic. Normocephalic. No temporal or scalp tenderness. EYES: Pupils equal round and reactive. Extraocular motions intact. No scleral icterus. No injection or drainage. ENT: Nose without bleeding, purulent drainage or septal hematoma. Throat without erythema, tonsillar hypertrophy or exudate. Uvula midline. Airway patent. Poor dental hygiene NECK: Trachea midline. No JVD or lymphadenopathy. Supple, nontender, no meningeal signs. CARDIOVASCULAR: Regular rate and rhythm without murmurs, gallops, or rubs. RESPIRATORY: Clear to auscultation. Breath sounds equal bilaterally. No wheezes , rales, or rhonchi. GASTROINTESTINAL: Abdomen soft, non-tender, nondistended. No hepato-splenomegaly , or palpable masses. No guarding. MUSCULOSKELETAL: Rt foot with a wound vac NEUROLOGICAL: Awake and alert. Cranial nerves II through XII intact. Motor and sensory grossly within normal limits. Five out of 5 muscle strength in all muscle groups. Normal speech. (Charlette Ruiz) Assessment & Plan Diagnosis: (1) Type 2 diabetes mellitus (2) Cellulitis of right foot Plan: s/p I& D on rocephin will need PICC line seen exam with Dr Silva (3) Lymphangitis Plan: better continue to monitor (4) MRSA (methicillin resistant staph aureus) culture positive Plan: pt on vancomycin monitor trough will fu (5) Bacteremia due to methicillin resistant Staphylococcus aureus Plan: updated cultures show staph epi in 2 of 4 bottles only pt with + ISSAC however he has poor dental health possible culprit (6) Endocarditis of mitral valve (Charlette Ruiz) Diagnosis: (1) Type 2 diabetes mellitus (2) Cellulitis of right foot Plan: s/p I& D on rocephin will need PICC line seen exam with Dr Silva (3) Lymphangitis Plan: better continue to monitor (4) MRSA (methicillin resistant staph aureus) culture positive Plan: pt on vancomycin monitor trough will fu Blood culture was initially reported as 1 bottle with MRSA - subsequently changed to 2 of 4 bottles with Staph epidermis Repeat blood cultures again Issac with ? vegetation on Mitral valve (5) Bacteremia due to methicillin resistant Staphylococcus aureus Plan: updated cultures show staph epi in 2 of 4 bottles only pt with + ISSAC however he has poor dental health possible culprit (6) Endocarditis of mitral valve (Bren Silva MD) Charlette Ruiz Nov 22, 2016 14:19 Bren Silva MD Nov 22, 2016 15:21
[2016-11-22] MEDS ORDERED: PHARMACY ORDERED LAB ONE (14:45)
--- NOTE | 2016-11-22 15:11 | RADHPO ---
EXAM DATE/TIME: 11/22/2016 12:01 [facility] COMPARISON: No previous studies available for comparison. INDICATIONS : Right foot cellulitis. Peripheral vascular disease. IV CONTRAST: 95 cc Omnipaque 350 (iohexol) IV RADIATION DOSE: 14.57 CTDIvol (mGy) MEDICAL HISTORY : Diabetes. SURGICAL HISTORY : None. ENCOUNTER: Initial ACUITY: 4 - 6 days PAIN SCALE: 5/10 LOCATION: Right lower extremity TECHNIQUE: Volumetric scanning was performed using a multi-row detector CT scanner. The data was post processed with a variety of visualization algorithms including full volume maximum intensity projection, multi -planar sliding thin slab reformation, curved planar reformation, and surface rendering techniques. Using automated exposure control and adjustment of the mA and/or kV according to patient size, radiat ion dose was kept as low as reasonably achievable to obtain optimal diagnostic quality images. FINDINGS: ABDOMINAL AORTA: Moderate mixed atherosclerotic plaque involving the infrarenal abdominal aorta with resultant mild jennifer hsashi stenosis. No aortic aneurysm. Celiac is patent. SMA is patent. There is standard celiac and SMA anatomy. There are single bilateral renal arteries which are widely patent. Origin of the EPTER is occ luded and there is reconstitution of the proximal PETER via prominent marginal artery. BIFURCATION: Mild mixed plaque with resultant mild stenosis. RIGHT PELVIS: Mild calcified plaque in the distal common iliac artery with resultant mild stenosis. Internal and ex ternal iliac arteries are patent. Common femoral artery is patent. LEFT PELVIS: Mild eccentric calcified plaque involving the proximal to mid common iliac artery without significant flow-limiting stenosis. Calcified plaque at the internal iliac origin with resultant moderate stenos is. External iliac is widely patent. Tandem [id number] stenoses of the mid to distal common fem oral artery secondary to noncalcified plaque. RIGHT THIGH: Profunda is patent. Mild stenosis of the distal SFA near the adductor canal. SFA is otherwise patent. LEFT THIGH: Profunda is patent. Mild tandem stenoses of the distal SFA near the adductor canal secondary to be ce ntric calcified plaque. RIGHT KNEE: Patent popliteal artery. LEFT KNEE: Tandem mild stenoses of the above-knee popliteal artery. RIGHT LEG: The trifurcation is intact. LEFT LEG: The trifurcation is intact. CT ABDOMEN NON-ANGIOGRAPHIC FINDINGS: There are trace bilateral pleural effusions and minimal associated lower lobe atelectasis in the lung bases. Liver, spleen, adrenal glands, pancreas, and gallbladder are unremarkable by CT. Kidneys demo nstrate symmetrical enhancement status hydronephrosis or radiopaque renal calculi. No significant foc al renal mass. The appendix is visualized and normal in appearance. Bowel appears grossly unremarkabl e without evidence for bowel obstruction. No significant free fluid or drainable fluid collection. CT PELVIS NON-ANGIOGRAPHIC FINDINGS: The bladder is distended but otherwise unremarkable. Prostate is minimally enlarged and contains calc ifications. There is a left inguinal hernia containing trace fluid and fat. There are prominent right inguinal nodes measuring up to 1.1 cm. No abnormal lytic or blastic bony lesions. Multiple bilateral femoral bone islands. CONCLUSION: 1. Mild to moderate mixed infrarenal aortic plaque with resultant mild distal aortic stenosis. 2. Mild bilateral common iliac artery stenosis secondary to calcified plaque. Otherwise, no significa nt iliac inflow stenosis. 3. Tandem [id number]-[id number]-[id number] stenoses of the mid to distal left common femoral artery secondary to ecce ntric noncalcified plaque. 4. No significant outflow stenosis. 5. Three-vessel runoff bilaterally. 6. Trace bilateral pleural effusions. 7. Left inguinal hernia containing trace fluid and fat. 8. Nonspecific, likely reactive, right inguinal adenopathy measuring up to 1.1 cm. Kelvin Ferguson MD on November 22, 2016 at 14:41 Board Certified Radiologist. This report was verified electronically.
--- NOTE | 2016-11-22 15:20 | PD.CAR.PN ---
CVT Progress Note Subjective/Hospital Course: 11/22/16 Patient with PVD and related issues. Full consult done yesterday. CTA with runoff pending 11/22/16 CTA with runoff has been performed and I reviewed it patient has actually very good flow through the aorta. Iliac arteries separately clean and saw the external iliac arteries as well as common femorals. Bilateral superficial femoral arteries are patent down to the trifurcation and trifurcation looks pretty clean as well bilaterally going down to the feet patient has infrapopliteal disease consisting of dominant anterior tibial artery on the right which is interrupted in one area and then smaller posterior tibial artery that runs to the foot. On the left side there is more disease in the anterior tibial artery and there are some areas of interruption but finally it reaches the foot. Plantar and dorsal arch or interrupted and not fully formed due to arthrosclerotic disease which is consistent with diabetes and small vessel disease changes At this point there is no reconstructable disease of sorts that would improve the blood supply to the feet Objective: Vital Signs Date Time Temp Pulse Resp B/P Pulse Ox O2 Delivery O2 Flow Rate FiO2 11/22/16 12:00 98.0 67 20 144/91 96 11/22/16 09:31 16 11/22/16 08:40 Room Air 11/22/16 08:00 97.9 75 18 150/89 96 11/22/16 06:04 98.4 65 16 156/84 97 11/22/16 01:32 98.4 65 16 156/84 97 11/21/16 21:50 98.0 63 16 137/93 96 11/21/16 21:50 Room Air 11/21/16 16:04 98.1 66 18 138/87 99 Result Diagram: 11/19/16 0505 11/21/16 0606 (1) Bacteremia due to methicillin resistant Staphylococcus aureus (2) Type 2 diabetes mellitus (3) Cellulitis of right foot (4) Sepsis (5) Endocarditis, suspected (6) Endocarditis of mitral valve Problem Qualifiers (1) Sepsis: Qualified Code: A41.02 - Sepsis due to methicillin resistant Staphylococcus aureus (MRSA) Emily Shah MD Nov 22, 2016 15:20
[2016-11-22 16:00] VITALS: BP 158/99; PULSE 65; RESP 20; TEMP 98.2; O2SAT 99
[2016-11-22] MEDS: MORPHINE SULFATE 4 MG/ML INJ IV PUSH PRN (17:20)
[2016-11-22 20:00] VITALS: BP 152/87; PULSE 62; RESP 20; TEMP 98; O2SAT 99
[2016-11-22] MEDS: cefTRIAXone INJ 2,000 MG in SODIUM CHLORIDE 0.9% INJ 100 ML IV SCH (21:45)
[2016-11-23] VITALS: BP 140/74; PULSE 54; RESP 18; TEMP 96.4; O2SAT 96
[2016-11-23] MEDS: ACETAMINOPHEN/HYDROcodone 325 MG/7.5 MG TAB PO PRN ×3 (02:27→12:11)
[2016-11-23] MEDS: VANCOMYCIN 1,500 MG/NS 500 ML IV SCH ×6 (06:06→21:30)
[2016-11-23 08:00] VITALS: BP 156/95; PULSE 66; RESP 18; TEMP 97.8; O2SAT 98
[2016-11-23] MEDS: INSULIN ASPART SUPPLEMENTAL SCALE SQ SCH ×4 (08:00→21:00)
[2016-11-23] MEDS: INSULIN DETEMIR 100 UNITS/ML VIAL SQ SCH ×2 (09:00→21:00)
[2016-11-23] MEDS: MUPIROCIN 2% CREAM 15 GM TOPICAL SCH ×2 (09:00→21:00)
[2016-11-23] MEDS: ASPIRIN 81 MG CHEW TAB CHEW SCH (09:11)
[2016-11-23] MEDS: amLODIPine BESYLATE 5 MG TAB PO SCH (09:12)
[2016-11-23] MEDS: HEPARIN SODIUM - SQ 10,000 UNITS/ML VIAL SQ SCH ×3 (09:12→21:28)
[2016-11-23] MEDS: LACTOBACILLUS ACIDOPHILUS TAB PO SCH ×3 (09:12→18:09)
[2016-11-23] MEDS: SODIUM CHLORIDE 0.9% FLUSH 10 ML FLUSH IV FLUSH SCH ×2 (09:12→21:27)
--- NOTE | 2016-11-23 10:24 | HHI.PR ---
Subjective Remarks Follow-up diabetic foot infection. He is doing okay requesting assistance with medications and outpatient follow-up. Discussed with case management, awaiting recommendations from podiatry still has wound VAC. Infectious disease has recommended IV Rocephin for 6 weeks from November 20. He will need a PICC line when he is ready for discharge. Objective Vitals Vital Signs Date Time Temp Pulse Resp B/P Pulse Ox O2 Delivery O2 Flow Rate FiO2 11/23/16 08:00 97.8 66 18 156/95 98 11/23/16 07:15 18 11/23/16 00:00 96.4 54 18 140/74 96 11/22/16 20:00 98.0 62 20 152/87 99 11/22/16 17:26 16 11/22/16 16:00 98.2 65 20 158/99 99 11/22/16 12:00 98.0 67 20 144/91 96 I/O 11/22/16 11/22/16 11/22/16 11/23/16 11/23/16 11/23/16 07:00 15:00 23:00 07:00 15:00 23:00 Intake Total 1500 ml 600 ml 480 ml 1670 ml Balance 1500 ml 600 ml 480 ml 1670 ml Intake Oral 600 ml 480 ml 480 ml IV Total 1500 ml 1190 ml # Voids 4 3 Result Diagram: 11/19/16 0505 11/23/16 0715 Imaging Last Impressions Aorta w/Runoff CTA 11/22/16 0000 Signed Impressions: Service Date/Time: Tuesday, November 22, 2016 12:01 - CONCLUSION: 1. Mild to moderate mixed infrarenal aortic plaque with resultant mild distal aortic stenosis. 2. Mild bilateral common iliac artery stenosis secondary to calcified plaque. Otherwise, no significant iliac inflow stenosis. 3. Tandem yxgz-cw-veaziwrb stenoses of the mid to distal left common femoral artery secondary to eccentric noncalcified plaque. 4. No significant outflow stenosis. 5. Three-vessel runoff bilaterally. 6. Trace bilateral pleural effusions. 7. Left inguinal hernia containing trace fluid and fat. 8. Nonspecific, likely reactive, right inguinal adenopathy measuring up to 1.1 cm. Kelvin Ferguson MD Foot MRI 11/18/16 0000 Signed Impressions: Service Date/Time: November 09:43 - CONCLUSION: 1. Mild enhancement of the soft tissues of the first through third toes indicating possible cellulitis. 2. No evidence of osteomyelitis. 3. Nonspecific arthritic findings of the midfoot. 4. Lobulated 2 cm area of superficial soft tissue abnormality lateral to the fifth metatarsal head and neck. No evidence of enhancement. May represent pressure lesion. Given that it has predominantly high signal on the T1-weighted images, hemangioma is also the differential diagnosis. Jerry Moreau MD Foot X-Ray 11/16/16 0000 Signed Impressions: Service Date/Time: Wednesday, November 16, 2016 21:54 - CONCLUSION: 1. Changes consistent with cellulitis involving the lateral forefoot. No radiopaque foreign body or radiographic evidence to clearly suggest osteomyelitis. Robb Landin Jr., MD Objective Remarks GENERAL: This is a well-nourished, well-developed patient, in no apparent distress. SKIN: No rashes, ecchymoses or lesions. Cool and dry. HEAD: Atraumatic. Normocephalic. EYES: Pupils equal round and reactive. Extraocular motions intact. No scleral icterus. No injection or drainage. ENT: Nose without bleeding, purulent drainage or septal hematoma. NECK: Trachea midline. No JVD or lymphadenopathy. Supple CARDIOVASCULAR: Regular rate and rhythm RESPIRATORY: Clear to auscultation. Breath sounds equal bilaterally. No wheezes , rales, or rhonchi. GASTROINTESTINAL: Abdomen soft, non-tender, nondistended. No guarding. MUSCULOSKELETAL: Extremities without clubbing, cyanosis, or edema. No joint tenderness, effusion, or edema noted. No calf tenderness. Negative Homans sign bilaterally. Right foot with wound VAC. NEUROLOGICAL: Awake and alert. Cranial nerves II through XII intact. Motor and sensory grossly within normal limits. Five out of 5 muscle strength in all muscle groups. Normal speech. Procedures IND of the right foot abscess with wound VAC application November 18 and November 20 NORIS A/P Problem List: (1) Sepsis ICD Code: A41.9 Status: Acute (2) Cellulitis of right foot ICD Code: L03.115 Status: Acute (3) Type 2 diabetes mellitus ICD Code: E11.9 Status: Acute (4) Bacteremia due to methicillin resistant Staphylococcus aureus ICD Code: R78.81 Status: Acute Assessment and Plan This is a 51-year-old male with history of diabetes and tobacco abuse. He presents to the emergency department because of cellulitis/abscess involving his right foot. Diabetic foot infection. He has cellulitis/abscess status post I and D 2 and wound VAC application. Culture growing multiple organisms. Continue Rocephin per ID Pain management with Lortab and IV morphine. Sepsis blood culture updated to staph epidermidis only. It was initially reported growing MRSA. Continue IV vancomycin/Rocephin. Echocardiogram shows thickened leaflets of the aortic valve unable to rule out endocarditis. NORIS shows probable mitral valve endocarditis. Repeat blood culture 11/20/16 negative to date. ID recommended 6 weeks of IV Rocephin and will need PICC line when he is ready for discharge Hypokalemia. Improved Diabetes mellitus. Uncontrolled A1c 11.8. Increase Levemir to 8 units units at bedtime and continue 12 units in the morning. Monitor fingerstick with sliding scale coverage. Hypertension. Improving continue Norvasc. Monitor for response Diarrhea. Improving. Continue Lactinex and follow-up stool studies including C. difficile Tobacco abuse. Tobacco cessation. Peripheral vascular disease. Status post CTA no reconstructable dse per vascular surgery. Ct asa. Tobacco cessation DVT prophylaxis with teds and early ambulation. Continue subcutaneous heparin Discharge Planning Discharge when cleared by podiatry and IV antibiotics arranged Problem Qualifiers (1) Sepsis: Qualified Code: A41.02 - Sepsis due to methicillin resistant Staphylococcus aureus (MRSA) Rodney Dickey MD Nov 23, 2016 10:24
[2016-11-23] MEDS ORDERED: LACT PO (10:28)
[2016-11-23] MEDS ORDERED: LEVEMIR SQ ×2 (10:28)
[2016-11-23] MEDS ORDERED: HYDR-3580 PO (10:28)
[2016-11-23] MEDS ORDERED: AMLO5 PO (10:28)
[2016-11-23] MEDS ORDERED: INSU1MIS15 (10:30)
[2016-11-23] MEDS ORDERED: GLUCTES12 (10:30)
[2016-11-23] MEDS ORDERED: LANCETS1 MI1 (10:30)
[2016-11-23] MEDS ORDERED: GLUCKIT15 (10:30)
--- NOTE | 2016-11-23 10:31 | HHI.DCPOC ---
Discharge Care Plan Diagnosis: (1) Endocarditis of mitral valve (2) Cellulitis of right foot (3) Sepsis Your Health Problems Are: Difficulty with ADL Exercise Tolerance Goals to Promote Your Health * To prevent worsening of your condition and complications * To maintain your health at the optimal level Directions to Meet Your Goals Take your medications as prescribed Follow your dietary instruction Follow activity as directed Keep your appointments as scheduled Take your immunizations and boosters as scheduled If your symptoms worsen call your PCP, if no PCP go to Urgent Care Center or Emergency Room Smoking is Dangerous to Your Health. Avoid second hand smoke Call the 24-hour hour crisis hotline for domestic abuse at Rodney Dickey MD Nov 23, 2016 10:31
[2016-11-23 12:00] VITALS: BP 161/97; PULSE 63; RESP 18; TEMP 97.8; O2SAT 97
--- NOTE | 2016-11-23 12:54 | PD.POD ---
Subjective Podiatric Problems R foot infection, s/p I&D 11/18/16 and 11/20/16 Mónica Past Med/Surg/Social History Social History Smoking Status: Never Smoker Objective Vital Signs Vital Signs Date Time Temp Pulse Resp B/P Pulse Ox O2 Delivery O2 Flow Rate FiO2 11/23/16 12:00 97.8 63 18 161/97 97 11/23/16 08:00 97.8 66 18 156/95 98 11/23/16 07:15 18 11/23/16 00:00 96.4 54 18 140/74 96 11/22/16 20:00 98.0 62 20 152/87 99 11/22/16 17:26 16 11/22/16 16:00 98.2 65 20 158/99 99 Coded Allergies: Penicillin (Verified Allergy, Severe, 11/16/16) Physical Exam Remarks R foot wound vac intact and functioning properly. Upon removal of wound vac, there is a small amount of necrotic tissue at most proximal aspect of wound. Remainder of wound appears healthy and granular. Extensor tendons visualized. DP pulse palpable in wound. Assessment & Plan A/P R foot infection, s/p I&D 11/18/16 and 11/20/16 Mónica Continue wound vac changes as ordered until next debridement Am recommended at least one more debridement with wound vac to continue for limb salvage effort, in addition to long-term IV antibiotics Will notify Dr Hardwick (formulation technician podiatry) and she will schedule surgery per her availability Wet to dry applied today after wound examination. Continue IV antibiotics Arsenio Sales DPM Nov 23, 2016 12:54
[2016-11-23 15:58] VITALS: BP 155/89; PULSE 71; RESP 18; TEMP 98.9; O2SAT 98
[2016-11-23 16:00] VITALS: BP 155/89; PULSE 71; RESP 18; TEMP 98.9; O2SAT 98
[2016-11-23 20:00] VITALS: BP 156/94; PULSE 65; RESP 18; TEMP 98.5; O2SAT 96
[2016-11-23] MEDS: cefTRIAXone INJ 2,000 MG in SODIUM CHLORIDE 0.9% INJ 100 ML IV SCH (21:30)
[2016-11-23] MEDS: ACETAMINOPHEN/HYDROcodone 325 MG/5 MG TAB PO PRN (21:31)
[2016-11-24] VITALS (8 sets, daily range): BP systolic 127–171; BP diastolic 87–94; PULSE 59–89; RESP 18–20; TEMP 97.2–98.3; O2SAT 96–97
[2016-11-24] MEDS: VANCOMYCIN 1,500 MG/NS 500 ML IV SCH ×6 (05:08→23:01)
[2016-11-24] MEDS: ACETAMINOPHEN/HYDROcodone 325 MG/7.5 MG TAB PO PRN ×2 (05:08→20:02)
[2016-11-24] MEDS: INSULIN ASPART SUPPLEMENTAL SCALE SQ SCH ×4 (05:08→20:07)
[2016-11-24] MEDS ORDERED: BUPIVACAINE HCL PF 0.25% 30 ML VIAL ONE (06:12)
[2016-11-24] MEDS ORDERED: NEOMYCIN/POLYMYXIN 1 ML G.U. IRRIGANT ONE (06:12)
[2016-11-24] MEDS ORDERED: MIDAZOLAM HCL 2 MG/2 ML VIAL ONE (07:08)
[2016-11-24] MEDS: INSULIN DETEMIR 100 UNITS/ML VIAL SQ SCH ×2 (08:00→20:07)
--- NOTE | 2016-11-24 08:23 | MP ---
cc: IVET HARDWICK DATE OF SURGERY: 11/24/[address] Ivet Hardwick BUSINESS LIBRARIAN None. PREOPERATIVE DIAGNOSIS Right foot ulceration. POSTOPERATIVE DIAGNOSIS Right foot ulceration. PROCEDURE PERFORMED 1. Right foot wound debridement. 2. Wound VAC application. PATHOLOGY SENT None. ANESTHESIA General. HEMOSTASIS Anatomical dissection. ESTIMATED BLOOD LOSS Less than 5 mL. MATERIALS USED Adaptic and a [employer] black wound VAC. INJECTABLES None. COMPLICATIONS None. INDICATIONS Mr. Armstrong is a 51-year-old male patient, well-known to my partner Dr. Sales who performed I&D on November 18 and November 20. There was a small amount of residual fibrotic and necrotic tissue at his last dressing change with Dr. Sales and she felt that an additional debridement would be beneficial to the patient's health. The consent was signed. The procedure was explained. No guarantees were given. PROCEDURE Under mild sedation the patient was brought to the operating room and placed on the operating table in supine position. Following IV sedation a pneumatic ankle tourniquet was applied to the right ankle and the foot was scrubbed, prepped and draped in the usual aseptic manner. Attention was directed to the dorsal aspect of the right foot where a large dorsolateral wound was noted to approximately 5 cm x 7 cm x 0.25 cm with a small amount of tunneling to the proximal lateral aspect with exposed extensor tendons but they do appear viable. The extensor tendon to the third digit is showing some signs of desiccation but still appears viable as well. A scalpel, curet and rongeur were used to remove all nonviable soft tissue. There was a small amount of necrotic tissue at the most proximal aspect of the wound, however, after close evaluation it appeared to be slightly ischemic and not full thickness necrosis. The decision was made to leave the tissue intact and monitor. The area was flushed with copious amounts of sterile saline. Adaptic was placed over the tendons. A small piece of black wound VAC sponge was placed inside the lateral tunneling site. Wound VAC tape was placed around the edges of the wound in order to protect the skin and then a larger piece of black wound VAC sponge was applied to the entire wound site and secured with wound VAC tape. The suction was set to 125 medium pressure continuous therapy and adequate suction was noted. Proper bandaging and padding were applied. The patient tolerated the procedure and anesthesia well. He will recover in the PACU for a period of time before being discharged back to his room with written and oral postoperative instructions. Ivet CAMPO /8:02 AM /8:09 AM
[2016-11-24] MEDS ORDERED: DO NOT ADM ANY ANTICOAGULANT DRUGS PRN (08:30)
[2016-11-24] MEDS ORDERED: MORPHINE SULFATE 8 MG/ML INJ ONE (08:36)
[2016-11-24] MEDS ORDERED: VISCOAT OPHT IRRIG SOLN 0.75 ML SYRINGE RIGHT EYE ONE ×2 (08:55→09:05)
[2016-11-24] MEDS: MUPIROCIN 2% CREAM 15 GM TOPICAL SCH ×2 (09:00→20:09)
[2016-11-24] MEDS: HEPARIN SODIUM - SQ 10,000 UNITS/ML VIAL SQ SCH ×4 (09:00→20:12)
[2016-11-24] MEDS: ASPIRIN 81 MG CHEW TAB CHEW SCH (09:35)
[2016-11-24] MEDS: amLODIPine BESYLATE 5 MG TAB PO SCH (09:35)
[2016-11-24] MEDS: LACTOBACILLUS ACIDOPHILUS TAB PO SCH ×3 (09:35→18:03)
[2016-11-24] MEDS: SODIUM CHLORIDE 0.9% FLUSH 10 ML FLUSH IV FLUSH SCH ×2 (09:36→20:05)
--- NOTE | 2016-11-24 11:52 | HHI.PR ---
Subjective Remarks Patient is seen postop right foot debridement and wound VAC application. He reports he is feeling well. Pain is controlled. Afebrile. Objective Vitals Vital Signs Date Time Temp Pulse Resp B/P Pulse Ox O2 Delivery O2 Flow Rate FiO2 11/24/16 09:58 97.7 86 20 159/94 97 11/24/16 09:00 98.0 75 16 166/88 96 Room Air 11/24/16 08:45 79 16 166/91 97 Room Air 11/24/16 08:30 70 16 179/83 97 Room Air 11/24/16 08:15 77 16 171/89 95 Room Air 11/24/16 08:04 89 11/24/16 08:04 98.3 77 16 171/89 95 Room Air 11/24/16 00:00 97.2 59 18 170/93 97 11/23/16 20:00 98.5 65 18 156/94 96 11/23/16 16:00 98.9 71 18 155/89 98 11/23/16 15:58 98.9 71 18 155/89 98 11/23/16 13:23 15 11/23/16 12:00 97.8 63 18 161/97 97 I/O 11/23/16 11/23/16 11/23/16 11/24/16 11/24/16 11/24/16 07:00 15:00 23:00 07:00 15:00 23:00 Intake Total 1670 ml 600 ml 1500 ml 1108 ml 900 ml Output Total 750 ml Balance 1670 ml 600 ml 750 ml 1108 ml 900 ml Intake Oral 480 ml 600 ml 450 ml IV Total 1190 ml 1050 ml 1108 ml 900 ml Output Urine Total 750 ml # Voids 3 3 0 # Bowel Movements 0 Result Diagram: 11/23/16 0715 Imaging Last Impressions Aorta w/Runoff CTA 11/22/16 0000 Signed Impressions: Service Date/Time: Tuesday, November 22, 2016 12:01 - CONCLUSION: 1. Mild to moderate mixed infrarenal aortic plaque with resultant mild distal aortic stenosis. 2. Mild bilateral common iliac artery stenosis secondary to calcified plaque. Otherwise, no significant iliac inflow stenosis. 3. Tandem tcoy-se-lhbafphj stenoses of the mid to distal left common femoral artery secondary to eccentric noncalcified plaque. 4. No significant outflow stenosis. 5. Three-vessel runoff bilaterally. 6. Trace bilateral pleural effusions. 7. Left inguinal hernia containing trace fluid and fat. 8. Nonspecific, likely reactive, right inguinal adenopathy measuring up to 1.1 cm. Kelvin Ferguson MD Foot MRI 11/18/16 0000 Signed Impressions: Service Date/Time: November 09:43 - CONCLUSION: 1. Mild enhancement of the soft tissues of the first through third toes indicating possible cellulitis. 2. No evidence of osteomyelitis. 3. Nonspecific arthritic findings of the midfoot. 4. Lobulated 2 cm area of superficial soft tissue abnormality lateral to the fifth metatarsal head and neck. No evidence of enhancement. May represent pressure lesion. Given that it has predominantly high signal on the T1-weighted images, hemangioma is also the differential diagnosis. Jerry Moreau MD Foot X-Ray 11/16/16 0000 Signed Impressions: Service Date/Time: Wednesday, November 16, 2016 21:54 - CONCLUSION: 1. Changes consistent with cellulitis involving the lateral forefoot. No radiopaque foreign body or radiographic evidence to clearly suggest osteomyelitis. Robb Landin Jr., MD Objective Remarks GENERAL: This is a well-nourished, well-developed patient, in no apparent distress. CARDIOVASCULAR: Normal rate and regular rhythm without murmurs, gallops, or rubs. RESPIRATORY: Good respiratory efforts. Breath sounds equal and clear to auscultation bilaterally. GASTROINTESTINAL: Abdomen soft, non-tender, non-distended. Normal active bowel sounds MUSCULOSKELETAL: Right foot postop, wound vac in place. NEURO: Alert & Oriented x4 to person, place, time, situation. Moves all ext x4 PSYCH: Appropriate mood and affect. Procedures IND of the right foot abscess with wound VAC application November 18 and November 20 NORIS A/P Problem List: (1) Sepsis ICD Code: A41.9 Status: Acute (2) Cellulitis of right foot ICD Code: L03.115 Status: Acute (3) Type 2 diabetes mellitus ICD Code: E11.9 Status: Acute (4) Bacteremia due to methicillin resistant Staphylococcus aureus ICD Code: R78.81 Status: Acute Assessment and Plan 51-year-old male with history of diabetes and tobacco abuse. He presents to the emergency department because of cellulitis/abscess involving his right foot. Diabetic foot infection. He has cellulitis/abscess status post I and D 3 and wound VAC application. Culture growing multiple organisms. Continue Rocephin per ID Pain management with Lortab and IV morphine. Per ID, patient needs 6 weeks of IV antibiotics. PICC line to be placed today. Sepsis blood culture updated to staph epidermidis only. It was initially reported growing MRSA. Continue IV vancomycin/Rocephin. Echocardiogram shows thickened leaflets of the aortic valve unable to rule out endocarditis. NORIS shows probable mitral valve endocarditis. Repeat blood culture 11/20/16 negative to date. ID recommended 6 weeks of IV Rocephin. Diabetes mellitus. Uncontrolled A1c 11.8. Increase Levemir to 10 units units at bedtime and continue 12 units in the morning. Monitor fingerstick with sliding scale coverage. Hypertension. Improving continue Norvasc. Monitor for response Tobacco abuse. Patient previously counseled regarding cessation. Peripheral vascular disease. Status post CTA no reconstructible vessels per vascular surgery. Ct asa. Tobacco cessation DVT prophylaxis with subcutaneous heparin Discharge Planning Discharge when cleared by podiatry and IV antibiotics arranged. Likely in the next 1-2 days. Problem Qualifiers (1) Sepsis: Qualified Code: A41.02 - Sepsis due to methicillin resistant Staphylococcus aureus (MRSA) Carlos Alvarez MD Nov 24, 2016 11:51
[2016-11-24] MEDS ORDERED: PROPOFOL 200 MG/20 ML AMP IV ONE (12:52)
--- NOTE | 2016-11-24 17:39 | HHI.IDPN ---
Note Infectious Disease Note ID COVERAGE: Patient seen and examined. Admitted 11/16 with cellulitis at the r. foot with streaks up the r. leg. Had debridement of the r. foot and wound vac placement. Feels okay. says pain in right foot is better. No fever. Antibiotics Vancomycin Ceftriaxone Lines Peripheral line Past Medical History Type 2 diabetes Allergies: Coded Allergies: Penicillin (Verified Allergy, Severe, 11/16/16) OBJECTIVE: Vital Signs Date Time Temp Pulse Resp B/P Pulse Ox O2 Delivery O2 Flow Rate FiO2 11/24/16 16:30 96 21 11/24/16 16:00 98.0 78 20 171/94 96 11/24/16 11:59 97.4 79 20 127/87 97 11/24/16 09:58 97.7 86 20 159/94 97 11/24/16 09:00 98.0 75 16 166/88 96 Room Air 11/24/16 08:45 79 16 166/91 97 Room Air 11/24/16 08:30 70 16 179/83 97 Room Air 11/24/16 08:15 77 16 171/89 95 Room Air 11/24/16 08:04 89 11/24/16 08:04 98.3 77 16 171/89 95 Room Air 11/24/16 00:00 97.2 59 18 170/93 97 11/23/16 20:00 98.5 65 18 156/94 96 11/23/16 11/23/16 11/24/16 15:00 23:00 07:00 Intake Total 600 ml 1500 ml 1108 ml Output Total 750 ml Balance 600 ml 750 ml 1108 ml Intake Oral 600 ml 450 ml IV Total 1050 ml 1108 ml Output Urine Total 750 ml # Voids 3 3 # Bowel Movements 0 Laboratory Tests Test 11/23/16 07:15 Creatinine 0.52 MG/DL Estimat Glomerular Filtration 167 ML/MIN Rate Microbiology Date/Time Procedure Status Source Growth 11/22/16 16:35 Aerobic Blood Culture - Preliminary Resulted Blood Peripheral NO GROWTH IN 2 DAYS 11/22/16 16:35 Anaerobic Blood Culture - Preliminary Resulted Blood Peripheral NO GROWTH IN 2 DAYS 11/22/16 16:41 Aerobic Blood Culture - Preliminary Resulted Blood Peripheral NO GROWTH IN 2 DAYS 11/22/16 16:41 Anaerobic Blood Culture - Preliminary Resulted Blood Peripheral NO GROWTH IN 2 DAYS PHYSICAL EXAM GENERAL: Patient is in no acute distress. HEENT: EOMI, No icterus. Oropharynx has poor dentition. NECK: Supple. LUNGS: Clear breath sounds. CARDIAC: Regular rate and rhythm. No audible murmur. ABDOMEN: Soft, non tender. EXTREMITIES: No CCE. SKIN: No rash. NEURO: Non focal. Impression: 1. endocarditis - mitral valve. Staph epi (+) blood culture. 2. Cellulitis R. foot. Post wound vac. 3. Diabetes mellitus. Recommend: DC Rocephin. Continue IV Vancomycin x 6 weeks- until December 28, if last blood culture is negative. PICC line when negative blood culture. Follow up with ID outpatient after discharge. Lazarus Villalta MD Nov 24, 2016 17:39
--- NOTE | 2016-11-24 17:41 | HHI.FF ---
Infusion Therapy Location of Infusion Therapy: Ambulatory Infusion Therapy Order Patient Information Patient Weight 75.1 kg Diagnosis: (1) Endocarditis of mitral valve Coded Allergies: Penicillin (Verified Allergy, Severe, 11/16/16) Administer Medication Vancomycin 2 grams IV q 12 hours Stop Treatment: Dec 28, 2016 Additional Information Venous access: PICC Line Additional Instructions [x] Peripheral flush and dressing changes per protocol [x] Implanted port and central front line leader: * Implanted port: 10 ml Normal Saline followed by 5 ml Heparin 100 units/ml Heparin flush after each use and monthly to maintain. [] May leave port accessed during therapy. [] May leave peripheral site accessed for duration of therapy. [x] If patient has SOB or respiratory distress, check oxygen saturation. If less than 90% or clinical signs of respiratory distress, administer oxygen at 2 L/min. via nasal cannula and notify physician. [x] Anaphylaxis/Reaction orders: * Stop infusion. * Keep IV line open with saline flush. * Notify physician. * Monitor vital signs every 15 minutes until symptoms resolve. * Check Oxygen saturation; Oxygen at 2 L/min. via nasal cannula if less than 90% or clinical signs of respiratory distress. * Administer diphenhydramine (Benadryl) 25 mg IV STAT, (unless patient has received as pre-med). May repeat once, if necessary. * Solu-Cortef 250 mg IVP over 30-60 seconds, use 100 mg vials for each dissolution. * Epinephrine (1mg/1 ml) 0.3 mg subcutaneously or IVP now with any signs of respiratory distress. * Check with physician for new additional pre-med orders if patient is re- challenged or re-treated. [x] May remove PICC line when treatment complete, after confirming with Physician. [x] If the patient is admitted to the hospital, the ED, or transferred via [facility] , complete transfer form including medication reconciliation order sheet. Laboratory Tests Weekly Labs: BMP, Vancomycin Trough Lazarus Villalta MD Nov 24, 2016 17:41
[2016-11-24] MEDS: SODIUM CHLORIDE 0.9% FLUSH 10 ML FLUSH IV FLUSH PRN (23:01)
[2016-11-24] MEDS: MORPHINE SULFATE 4 MG/ML INJ IV PUSH PRN (23:22)
[2016-11-25] VITALS: BP 142/89; PULSE 71; RESP 18; TEMP 96.8; O2SAT 96
[2016-11-25 05:45] LABS: HEMATOCRIT 38.3 % (39.0-51.0); MEAN CELL VOLUME 88.7 FL (80.0-100.0); MEAN CORPUSCULAR HEMOGLOBIN 30.4 PG (27.0-34.0); MEAN CORPUSCULAR HGB CONC 34.3 % (32.0-36.0); PLATELET COUNT 290 TH/MM3 (150-450); RED BLOOD COUNT 4.32 MIL/MM3 (4.50-5.90); RED CELL DISTRIBUTION WIDTH 12.5 % (11.6-17.2); WHITE BLOOD COUNT 8.1 TH/MM3 (4.0-11.0)
[2016-11-25 05:52] LABS: REVIEW FLAG FINAL
[2016-11-25] MEDS: VANCOMYCIN 1,500 MG/NS 500 ML IV SCH ×6 (06:24→21:42)
[2016-11-25] MEDS: INSULIN ASPART SUPPLEMENTAL SCALE SQ SCH ×4 (06:25→21:00)
[2016-11-25] MEDS: ACETAMINOPHEN/HYDROcodone 325 MG/7.5 MG TAB PO PRN ×4 (06:25→21:41)
[2016-11-25 08:00] VITALS: BP 150/94; PULSE 80; RESP 20; TEMP 98.8; O2SAT 100
[2016-11-25] MEDS: LACTOBACILLUS ACIDOPHILUS TAB PO SCH ×3 (08:38→17:36)
[2016-11-25] MEDS: ASPIRIN 81 MG CHEW TAB CHEW SCH (08:38)
[2016-11-25] MEDS: amLODIPine BESYLATE 5 MG TAB PO SCH (08:38)
[2016-11-25] MEDS: INSULIN DETEMIR 100 UNITS/ML VIAL SQ SCH (08:38)
[2016-11-25] MEDS: HEPARIN SODIUM - SQ 10,000 UNITS/ML VIAL SQ SCH ×2 (08:39→21:41)
[2016-11-25] MEDS: MUPIROCIN 2% CREAM 15 GM TOPICAL SCH ×2 (08:39→21:00)
[2016-11-25] MEDS: SODIUM CHLORIDE 0.9% FLUSH 10 ML FLUSH IV FLUSH SCH ×2 (08:40→21:45)
--- NOTE | 2016-11-25 09:41 | HHI.PR ---
Subjective Remarks Patient reports is feeling well today. Pain is controlled. Awaiting to have PICC line placed. No fevers or chills. Objective Vitals Vital Signs Date Time Temp Pulse Resp B/P Pulse Ox O2 Delivery O2 Flow Rate FiO2 11/25/16 08:00 98.8 80 20 150/94 100 11/25/16 00:00 96.8 71 18 142/89 96 11/24/16 20:00 98.3 78 18 161/94 96 11/24/16 19:56 96 21 11/24/16 16:30 96 21 11/24/16 16:00 98.0 78 20 171/94 96 11/24/16 11:59 97.4 79 20 127/87 97 11/24/16 09:58 97.7 86 20 159/94 97 I/O 11/24/16 11/24/16 11/24/16 11/25/16 11/25/16 11/25/16 07:00 15:00 23:00 07:00 15:00 23:00 Intake Total 1108 ml 1560 ml 240 ml 240 ml Balance 1108 ml 1560 ml 240 ml 240 ml Intake Oral 660 ml 240 ml 240 ml IV Total 1108 ml 900 ml # Voids 1 2 2 # Bowel Movements 1 0 0 Result Diagram: 11/25/16 0450 11/25/16 0450 Objective Remarks GENERAL: This is a well-nourished, well-developed patient, in no apparent distress. CARDIOVASCULAR: Normal rate and regular rhythm without murmurs, gallops, or rubs. RESPIRATORY: Good respiratory efforts. Breath sounds equal and clear to auscultation bilaterally. GASTROINTESTINAL: Abdomen soft, non-tender, non-distended. Normal active bowel sounds MUSCULOSKELETAL: Right foot postop, wound vac in place. NEURO: Alert & Oriented x4 to person, place, time, situation. Moves all ext x4 PSYCH: Appropriate mood and affect. Procedures IND of the right foot abscess with wound VAC application November 18 and November 20 NORIS A/P Problem List: (1) Sepsis ICD Code: A41.9 Status: Acute (2) Cellulitis of right foot ICD Code: L03.115 Status: Acute (3) Type 2 diabetes mellitus ICD Code: E11.9 Status: Acute (4) Bacteremia due to methicillin resistant Staphylococcus aureus ICD Code: R78.81 Status: Acute Assessment and Plan 51-year-old male with history of diabetes and tobacco abuse. He presents to the emergency department because of cellulitis/abscess involving his right foot. Diabetic foot infection. He has cellulitis/abscess status post I and D 3 and wound VAC application. Culture growing multiple organisms. Continue Rocephin per ID Pain management with Lortab and IV morphine. Per ID, patient needs 6 weeks of IV vancomycin. PICC line will be placed today. Case management to assist. Unsure if he will be able to get home IV antibiotics every 12 hours Sepsis blood culture updated to staph epidermidis only. It was initially reported growing MRSA. Continue IV vancomycin/Rocephin. Echocardiogram shows thickened leaflets of the aortic valve unable to rule out endocarditis. NORIS shows probable mitral valve endocarditis. Repeat blood culture 11/20/16 negative to date. ID recommended 6 weeks of IV vancomycin as above. Diabetes mellitus. Uncontrolled A1c 11.8. Increase Levemir to 10 units units at bedtime and continue 12 units in the morning. Monitor fingerstick with sliding scale coverage. Hypertension. Improving continue Norvasc. Monitor for response Tobacco abuse. Patient previously counseled regarding cessation. Peripheral vascular disease. Status post CTA no reconstructible vessels per vascular surgery. Ct asa. Tobacco cessation DVT prophylaxis with subcutaneous heparin Discharge Planning Discharge when cleared by podiatry and IV antibiotics arranged. Problem Qualifiers (1) Sepsis: Qualified Code: A41.02 - Sepsis due to methicillin resistant Staphylococcus aureus (MRSA) Carlos Alvarez MD Nov 25, 2016 09:41
[2016-11-25] MEDS ORDERED: SODIUM CHLORIDE 0.9% FLUSH 10 ML FLUSH IV FLUSH PRN (09:45)
--- NOTE | 2016-11-25 11:18 | RADHPO ---
EXAM DATE/TIME: 11/25/2016 10:56 [place] COMPARISON: CHEST SINGLE AP, December 25, 2015, 12:30. INDICATIONS : Post PICC line placement. MEDICAL HISTORY : Diabetes mellitus type II. SURGICAL HISTORY : None. ENCOUNTER: Subsequent ACUITY: 1 week PAIN SCORE: 0/10 LOCATION: Right chest FINDINGS: A single view of the chest demonstrates the lungs to be symmetrically aerated without evidence of mas s, infiltrate or effusion. No evidence of pneumothorax. The cardiomediastinal contours are unremark able. Osseous structures are intact. Right PICC line catheter at the cavoatrial junction. CONCLUSION: PICC line in good position. The lungs are clear. Robb Pathak MD on November 25, 2016 at 11:16 Board Certified Radiologist. This report was verified electronically.
[2016-11-25 12:00] VITALS: BP 121/91; PULSE 76; RESP 20; TEMP 98.2; O2SAT 98
--- NOTE | 2016-11-25 12:56 | HHI.IDPN ---
Note Infectious Disease Note ID COVERAGE: Admitted 11/16 with cellulitis at the r. foot with streaks up the r. leg. Had debridement of the r. foot and wound vac placement. No complaints says pain in right foot is better. No fever. Antibiotics Vancomycin Lines Peripheral line Past Medical History Type 2 diabetes Allergies: Coded Allergies: Penicillin (Verified Allergy, Severe, 11/16/16) OBJECTIVE: Vital Signs Date Time Temp Pulse Resp B/P Pulse Ox O2 Delivery O2 Flow Rate FiO2 11/25/16 12:00 98.2 76 20 121/91 98 11/25/16 08:00 98.8 80 20 150/94 100 11/25/16 00:00 96.8 71 18 142/89 96 11/24/16 20:00 98.3 78 18 161/94 96 11/24/16 19:56 96 21 11/24/16 16:30 96 21 11/24/16 16:00 98.0 78 20 171/94 96 11/24/16 11/24/16 11/25/16 14:59 22:59 06:59 Intake Total 1560 ml 240 ml 240 ml Balance 1560 ml 240 ml 240 ml Intake Oral 660 ml 240 ml 240 ml IV Total 900 ml # Voids 1 2 2 # Bowel Movements 1 0 0 Laboratory Tests Test 11/25/16 04:50 White Blood Count 8.1 TH/MM3 Red Blood Count 4.32 MIL/MM3 Hemoglobin 13.1 GM/DL Hematocrit 38.3 % Mean Corpuscular Volume 88.7 FL Mean Corpuscular Hemoglobin 30.4 PG Mean Corpuscular Hemoglobin 34.3 % Concent Red Cell Distribution Width 12.5 % Platelet Count 290 TH/MM3 Mean Platelet Volume 8.4 FL Laboratory Tests Test 11/25/16 04:50 Creatinine 0.58 MG/DL Estimat Glomerular Filtration 147 ML/MIN Rate Microbiology Date/Time Procedure Status Source Growth 11/22/16 16:35 Aerobic Blood Culture - Preliminary Resulted Blood Peripheral NO GROWTH IN 3 DAYS 11/22/16 16:35 Anaerobic Blood Culture - Preliminary Resulted Blood Peripheral NO GROWTH IN 3 DAYS 11/22/16 16:41 Aerobic Blood Culture - Preliminary Resulted Blood Peripheral NO GROWTH IN 3 DAYS 11/22/16 16:41 Anaerobic Blood Culture - Preliminary Resulted Blood Peripheral NO GROWTH IN 3 DAYS PHYSICAL EXAM GENERAL: Patient is in no acute distress. HEENT: EOMI, No icterus. Oropharynx : poor dentition. NECK: Supple. LUNGS: Clear breath sounds. CARDIAC: Regular rate and rhythm. No audible murmur. ABDOMEN: Soft, non tender. EXTREMITIES: No CCE. Wound vac in place. SKIN: No rash. NEURO: Non focal. Impression: 1. Endocarditis - mitral valve. Staph epi (+) blood culture. 2. Cellulitis R. foot. Post wound vac. Follow. 3. Diabetes mellitus. Recommend: Continue IV Vancomycin x 6 weeks- until December 28. Case management to arrange outpatient IV antibiotics. Orders written and case discussed with case management. Patient needs BID vancomycin and will need to be trained to administer one of the doses himself if treated outpatient. Dose adjustment will need to be done as outpatient. Follow up with ID outpatient after discharge. Lazarus Villalta MD Nov 25, 2016 12:56
[2016-11-25 16:00] VITALS: BP 159/89; PULSE 72; RESP 20; TEMP 97.2; O2SAT 98
[2016-11-25 20:00] VITALS: BP 148/88; PULSE 79; RESP 18; TEMP 97.8; O2SAT 98
[2016-11-25] MEDS ORDERED: INSULIN DETEMIR 100 UNITS/ML VIAL SQ SCH (21:00)
[2016-11-26] VITALS: BP 135/90; PULSE 75; RESP 18; TEMP 96.1; O2SAT 96
[2016-11-26] MEDS: VANCOMYCIN 1,500 MG/NS 500 ML IV SCH ×6 (06:07→23:28)
[2016-11-26 08:00] VITALS: BP 163/97; PULSE 79; RESP 18; TEMP 97.6; O2SAT 98
[2016-11-26] MEDS: ASPIRIN 81 MG CHEW TAB CHEW SCH (08:00)
[2016-11-26] MEDS: LACTOBACILLUS ACIDOPHILUS TAB PO SCH ×3 (08:01→16:48)
[2016-11-26] MEDS: amLODIPine BESYLATE 5 MG TAB PO SCH (08:01)
[2016-11-26] MEDS: HEPARIN SODIUM - SQ 10,000 UNITS/ML VIAL SQ SCH ×2 (08:01→21:34)
[2016-11-26] MEDS: INSULIN DETEMIR 100 UNITS/ML VIAL SQ SCH ×2 (08:05→21:32)
[2016-11-26] MEDS: INSULIN ASPART SUPPLEMENTAL SCALE SQ SCH ×4 (08:05→21:33)
[2016-11-26] MEDS: MUPIROCIN 2% CREAM 15 GM TOPICAL SCH ×2 (08:07→21:00)
[2016-11-26] MEDS: SODIUM CHLORIDE 0.9% FLUSH 10 ML FLUSH IV FLUSH SCH ×3 (08:07→21:34)
[2016-11-26 12:00] VITALS: BP 165/92; PULSE 86; RESP 19; TEMP 98.4; O2SAT 97
[2016-11-26] MEDS ORDERED: FUROSEMIDE 20 MG/2 ML VIAL IV ONE (12:15)
[2016-11-26] MEDS ORDERED: SODIUM CHLOR 0.9% 250 ML INJ 250 ML IV ONE (12:15)
--- NOTE | 2016-11-26 14:05 | HHI.PR ---
Subjective Remarks Written by Diogo Gallagher, acting as scribe for Dr. Eastman on 11/26/16 at 13: 45. 51-year-old male who is seen and examined today with Dr. Eastman for follow-up on diabetic foot infection, sepsis with endocarditis. Patient sitting in chair resting comfortably. Is indicated the patient will require 6 weeks worth of IV vancomycin. Patient does not have insurance or any monetary means of this time. Case was discussed with case management who indicates that they're trying to get outpatient company to supply antibiotics but do not think that is going to be feasible. Patient will likely be transitioned into long- term care here in [place] for continued IV antibiotics. Objective Vitals Vital Signs Date Time Temp Pulse Resp B/P Pulse Ox O2 Delivery O2 Flow Rate FiO2 11/26/16 12:00 98.4 86 19 165/92 97 11/26/16 08:00 97.6 79 18 163/97 98 11/26/16 00:00 96.1 75 18 135/90 96 11/25/16 20:00 97.8 79 18 148/88 98 11/25/16 16:00 97.2 72 20 159/89 98 I/O 11/25/16 11/25/16 11/25/16 11/26/16 11/26/16 11/26/16 07:00 15:00 23:00 07:00 15:00 23:00 Intake Total 240 ml 900 ml 1480 ml Output Total 1300 ml 700 ml Balance 240 ml -400 ml 780 ml Intake Oral 240 ml 900 ml 480 ml IV Total 1000 ml Output Urine Total 1300 ml 700 ml # Voids 2 # Bowel Movements 0 0 Result Diagram: 11/25/16 0450 11/25/16 0450 Objective Remarks GENERAL: Well-developed, well-nourished, in no acute distress. alert and orientated HEENT: Head is normocephalic without any lesions or masses noted. Facial features are symmetric. Eyes: Extraocular muscles are intact. Conjunctivae were clear. NECK: Supple without any masses. Trachea midline no deviation. No JVD, CARDIAC: Regular rhythm, regular rate. S1/S2 are heard. No murmurs gallops or rubs. LUNGS: Clear to auscultation bilaterally. No wheeze, rhonchi or rales. No use of accessory muscles on inspiration or expiration. ABDOMEN: Soft, nontender. Nondistended. Bowel sounds heard in all 4 quadrants. No organomegaly or masses. Negative rebound, negative guarding EXTREMITIES: No edema, pulses are equal bilaterally. No cyanosis or clubbing NEUROLOGY: Mood and affect appear appropriate. Cranial nerves II through XII grossly intact. Moving all extremities, speech is clear RIGHT FOOT: Patient does have right foot bandaged with wound VAC at this time. Procedures IND of the right foot abscess with wound VAC application November 18 and November 20 [facility] Urinary Catheter: No Vascular Central Line Catheter: Yes Assessment to: Continue Date of Insertion: Nov 25, 2016 Line: PICC Side: Right A/P Assessment and Plan 51-year-old male with history of diabetes and tobacco abuse. He presents to the emergency department because of cellulitis/abscess involving his right foot. Mitral valve endocarditis Patient originally presented with sepsis from diabetic foot infection, bacteremia Blood cultures indicated Staphylococcus epidermidis Repeat blood cultures 11/19/16 have remained negative Echocardiogram 11/19/16 indicated aortic valve was moderately thickened leaflets , specifically of the left coronary cusp, cannot rule out endocarditis does not appear mobile as endocarditis would be NORIS 11/21/16 indicates mitral valve with echo density on the atrial aspect of the base of the anterior leaflet appearance consistent with vegetation. Probable endocarditis of the anterior leaflet of the mitral valve. Infectious disease was consulted and evaluated the patient and at this time recommending 6 weeks worth of IV vancomycin, until December 28, 2016 PICC line placed 11/25/16 for long-term antibiotics Case management consulted to try to arrange outpatient antibiotics Diabetic foot infection. He has cellulitis/abscess status post I and D 3 and wound VAC application. Culture growing multiple organisms. Infectious disease consulted and made antibiotic recommendations Diabetes mellitus. Uncontrolled Hemoglobin A1c 11.8. Increase Levemir to 15 units units at bedtime and continue 15 units in the morning. Accu-Cheks with sliding scale coverage. Hypertension. Improving Increase to Norvasc 5 mg daily Start lisinopril 5 mg daily. Monitor for response Tobacco abuse. Patient previously counseled regarding cessation. Peripheral vascular disease. Status post CTA no reconstructible vessels per vascular surgery. Ct asa. Tobacco cessation DVT prophylaxis subcutaneous heparin Discharge Planning Discharge planning if case management can arrange outpatient antibiotics, otherwise, patient remain at [facility] for long-term care until antibiotics completed This note was transcribed by chiquita [Diogo Gallagher]. I, Dr. Leo Eastman personally performed the history, physical exam, and medical decision making; and confirmed the accuracy of the information in the transcribed note. Authenticated by Dr. Leo Eastman on 11/26/16 at 22:17. Diogo Gallagher Nov 26, 2016 14:05 Leo Eastman MD Nov 26, 2016 22:17
[2016-11-26] MEDS: MORPHINE SULFATE 4 MG/ML INJ IV PUSH PRN (17:05)
[2016-11-26 20:00] VITALS: BP 125/88; PULSE 82; RESP 19; TEMP 98.1; O2SAT 100
--- NOTE | 2016-11-26 20:00 | PD.WCN.NOT ---
Neg Pressure Wound Therapy Wound Location Wound Location: R foot Wound Description Underminin.5 cm undermining noted at 9 o'clock Periwound appearance: Other (Periwound noted with partial thickness skin loss at 1 o'clock) Settings Suction: 125 mmHg, Continuous Other Information: Mushroomed Foam type: Black Number of pieces: 2 Additonal Information Patient seen on 5th floor [facility] for wound VAC dressing changed, Removed VAC and adaptic dressings in place to reveal Wound with ~40% red granulation tissue, ~40 % exposed tendon and ~20% subcutaneous tissue. Cleansed wound with wound cleanser and applied oil emulsion gauze (adaptic) over exposed tendons. Cut black granufoam into small single strip and packed dressing into undermined area at 9 o'clock. Skin prep applied to periwound before window paning wound with VAC drape. Stoma paste applied between 5 and 7 o'clock just below toes on dorsal surface of foot to seal dressing. Applied larger single piece of black granufoam over wound bed connecting to single strip of granufoam in undermined area. Covered all exposed granufoam with VAC drape. Cut hole in dressing and applied single granufoam mushroom cap over exposed foam. Covered Mushroom cap with VAC Sensi trac pad. Wound suctioning at 125 mm/hg medium continuous suction. Patient tolerated dressing change well. Next dressing change due on 05/2017. Anisha Jolly Nov 26, 2016 20:00
[2016-11-27] MEDS: ACETAMINOPHEN/HYDROcodone 325 MG/7.5 MG TAB PO PRN ×4 (02:23→23:34)
[2016-11-27] MEDS: VANCOMYCIN 1,500 MG/NS 500 ML IV SCH ×6 (06:37→23:34)
[2016-11-27 08:00] VITALS: BP 142/86; PULSE 75; RESP 18; TEMP 97.6; O2SAT 99
[2016-11-27] MEDS: INSULIN ASPART SUPPLEMENTAL SCALE SQ SCH ×4 (08:25→20:04)
[2016-11-27] MEDS: INSULIN DETEMIR 100 UNITS/ML VIAL SQ SCH ×2 (08:25→20:06)
[2016-11-27] MEDS: HEPARIN SODIUM - SQ 10,000 UNITS/ML VIAL SQ SCH ×2 (08:26→21:30)
[2016-11-27] MEDS: LISINOPRIL 5 MG TAB PO SCH (08:27)
[2016-11-27] MEDS: ASPIRIN 81 MG CHEW TAB CHEW SCH (08:27)
[2016-11-27] MEDS: LACTOBACILLUS ACIDOPHILUS TAB PO SCH ×3 (08:27→16:48)
[2016-11-27] MEDS: amLODIPine BESYLATE 5 MG TAB PO SCH (08:27)
[2016-11-27] MEDS: SODIUM CHLORIDE 0.9% FLUSH 10 ML FLUSH IV FLUSH SCH ×3 (08:28→21:31)
[2016-11-27] MEDS: MUPIROCIN 2% CREAM 15 GM TOPICAL SCH ×2 (08:31→21:00)
--- NOTE | 2016-11-27 11:30 | HHI.PR ---
Subjective Remarks Patient seen and examined today for follow-up on endocarditis, diabetic foot infection. Patient to case that he developed a rash in his groin area. Otherwise patient is doing well. Objective Vitals Vital Signs Date Time Temp Pulse Resp B/P Pulse Ox O2 Delivery O2 Flow Rate FiO2 11/27/16 08:00 97.6 75 18 142/86 99 11/26/16 20:00 98.1 82 19 125/88 100 11/26/16 12:00 98.4 86 19 165/92 97 I/O 11/26/16 11/26/16 11/26/16 11/27/16 11/27/16 11/27/16 07:00 15:00 23:00 07:00 15:00 23:00 Intake Total 1480 ml 960 ml 460 ml 240 ml Output Total 700 ml Balance 780 ml 960 ml 460 ml 240 ml Intake Oral 480 ml 960 ml 460 ml 240 ml IV Total 1000 ml Output Urine Total 700 ml # Voids 3 2 2 # Bowel Movements 0 1 Result Diagram: 11/25/16 0450 11/27/16 0635 Objective Remarks GENERAL: Well-developed, well-nourished, in no acute distress. alert and orientated HEENT: Head is normocephalic without any lesions or masses noted. Facial features are symmetric. Eyes: Extraocular muscles are intact. Conjunctivae were clear. NECK: Supple without any masses. Trachea midline no deviation. No JVD, CARDIAC: Regular rhythm, regular rate. S1/S2 are heard. No murmurs gallops or rubs. LUNGS: Clear to auscultation bilaterally. No wheeze, rhonchi or rales. No use of accessory muscles on inspiration or expiration. ABDOMEN: Soft, nontender. Nondistended. Bowel sounds heard in all 4 quadrants. No organomegaly or masses. Negative rebound, negative guarding EXTREMITIES: No edema, pulses are equal bilaterally. No cyanosis or clubbing NEUROLOGY: Mood and affect appear appropriate. Cranial nerves II through XII grossly intact. Moving all extremities, speech is clear RIGHT FOOT: Patient does have right foot bandaged with wound VAC at this time. Procedures IND of the right foot abscess with wound VAC application November 18 and November 20 [facility] Urinary Catheter: No Vascular Central Line Catheter: Yes Assessment to: Continue Date of Insertion: Nov 25, 2016 Line: PICC Side: Right A/P Assessment and Plan 51-year-old male with history of diabetes and tobacco abuse. He presents to the emergency department because of cellulitis/abscess involving his right foot. Mitral valve endocarditis Patient originally presented with sepsis from diabetic foot infection, bacteremia Blood cultures indicated Staphylococcus epidermidis Repeat blood cultures 11/19/16 have remained negative Echocardiogram 11/19/16 indicated aortic valve was moderately thickened leaflets , specifically of the left coronary cusp, cannot rule out endocarditis does not appear mobile as endocarditis would be NORIS 11/21/16 indicates mitral valve with echo density on the atrial aspect of the base of the anterior leaflet appearance consistent with vegetation. Probable endocarditis of the anterior leaflet of the mitral valve. Infectious disease was consulted and evaluated the patient and at this time recommending 6 weeks worth of IV vancomycin, until December 28, 2016 PICC line placed 11/25/16 for long-term antibiotics Case management consulted to try to arrange outpatient antibiotics Diabetic foot infection. He has cellulitis/abscess status post I and D 3 and wound VAC application. Culture growing multiple organisms. Infectious disease consulted and made antibiotic recommendations Diabetes mellitus. Improving Hemoglobin A1c 11.8. Levemir to 15 units units at bedtime and continue 15 units in the morning. Accu-Cheks with sliding scale coverage. Hypertension. Improving Norvasc 5 mg daily lisinopril 5 mg daily. Monitor for response Tinea cruris Nystatin powder Tobacco abuse. Patient previously counseled regarding cessation. Peripheral vascular disease. Status post CTA no reconstructible vessels per vascular surgery. Ct asa. Tobacco cessation DVT prophylaxis subcutaneous heparin Discharge Planning Discharge planning if case management can arrange outpatient antibiotics, otherwise, patient remain at [facility] for long-term care until antibiotics completed Diogo Gallagher Nov 27, 2016 11:30
[2016-11-27 20:00] VITALS: BP 152/98; PULSE 75; RESP 16; TEMP 98.3; O2SAT 98
[2016-11-27] MEDS: NYSTATIN 100,000 U/GM PWD 15 GM BTL TOPICAL SCH (21:31)
[2016-11-28] MEDS: VANCOMYCIN 1,500 MG/NS 500 ML IV SCH ×6 (06:15→22:57)
[2016-11-28 08:00] VITALS: BP 145/85; PULSE 78; RESP 18; TEMP 98.6; O2SAT 99
[2016-11-28] MEDS: amLODIPine BESYLATE 5 MG TAB PO SCH (08:24)
[2016-11-28] MEDS: ASPIRIN 81 MG CHEW TAB CHEW SCH (08:25)
[2016-11-28] MEDS: LACTOBACILLUS ACIDOPHILUS TAB PO SCH ×3 (08:25→16:43)
[2016-11-28] MEDS: LISINOPRIL 5 MG TAB PO SCH (08:25)
[2016-11-28] MEDS: HEPARIN SODIUM - SQ 10,000 UNITS/ML VIAL SQ SCH ×2 (08:25→20:43)
[2016-11-28] MEDS: NYSTATIN 100,000 U/GM PWD 15 GM BTL TOPICAL SCH ×2 (08:26→20:45)
[2016-11-28] MEDS: ACETAMINOPHEN/HYDROcodone 325 MG/7.5 MG TAB PO PRN ×3 (08:28→20:42)
[2016-11-28] MEDS: INSULIN ASPART SUPPLEMENTAL SCALE SQ SCH ×4 (08:28→20:37)
[2016-11-28] MEDS: MUPIROCIN 2% CREAM 15 GM TOPICAL SCH ×2 (08:29→20:45)
[2016-11-28] MEDS: INSULIN DETEMIR 100 UNITS/ML VIAL SQ SCH ×2 (08:29→20:40)
[2016-11-28] MEDS: SODIUM CHLORIDE 0.9% FLUSH 10 ML FLUSH IV FLUSH SCH ×3 (08:33→20:42)
--- NOTE | 2016-11-28 11:49 | HHI.PR ---
Subjective Remarks Patient seen and examined today for follow-up on endocarditis, diabetic foot infection. Patient resting carefully in a chair. Denies any new complaints. He asked if he could get IV morphine prior to wound VAC changes. He indicated that wound care nurse recommended it. Objective Vitals Vital Signs Date Time Temp Pulse Resp B/P Pulse Ox O2 Delivery O2 Flow Rate FiO2 11/28/16 09:41 14 11/28/16 08:00 98.6 78 18 145/85 99 11/27/16 20:00 98.3 75 16 152/98 98 I/O 11/27/16 11/27/16 11/27/16 11/28/16 11/28/16 11/28/16 07:00 15:00 23:00 07:00 15:00 23:00 Intake Total 240 ml 820 ml 680 ml Output Total 700 ml Balance 240 ml 820 ml -20 ml Intake Oral 240 ml 820 ml 680 ml Output Urine Total 700 ml # Voids 2 2 # Bowel Movements 1 0 Result Diagram: 11/25/16 0450 11/27/16 0635 Objective Remarks GENERAL: Well-developed, well-nourished, in no acute distress. alert and orientated HEENT: Head is normocephalic without any lesions or masses noted. Facial features are symmetric. Eyes: Extraocular muscles are intact. Conjunctivae were clear. NECK: Supple without any masses. Trachea midline no deviation. No JVD, CARDIAC: Regular rhythm, regular rate. S1/S2 are heard. No murmurs gallops or rubs. LUNGS: Clear to auscultation bilaterally. No wheeze, rhonchi or rales. No use of accessory muscles on inspiration or expiration. ABDOMEN: Soft, nontender. Nondistended. Bowel sounds heard in all 4 quadrants. No organomegaly or masses. Negative rebound, negative guarding EXTREMITIES: No edema, pulses are equal bilaterally. No cyanosis or clubbing NEUROLOGY: Mood and affect appear appropriate. Cranial nerves II through XII grossly intact. Moving all extremities, speech is clear RIGHT FOOT: Patient does have right foot bandaged with wound VAC at this time. Procedures IND of the right foot abscess with wound VAC application November 18 and November 20 [facility] Urinary Catheter: No Vascular Central Line Catheter: Yes Assessment to: Continue Date of Insertion: Nov 25, 2016 Line: PICC Side: Right A/P Assessment and Plan 51-year-old male with history of diabetes and tobacco abuse. He presents to the emergency department because of cellulitis/abscess involving his right foot. Mitral valve endocarditis Patient originally presented with sepsis from diabetic foot infection, bacteremia Blood cultures indicated Staphylococcus epidermidis Repeat blood cultures 11/19/16 have remained negative Echocardiogram 11/19/16 indicated aortic valve was moderately thickened leaflets , specifically of the left coronary cusp, cannot rule out endocarditis does not appear mobile as endocarditis would be [facility]IS 11/21/16 indicates mitral valve with echo density on the atrial aspect of the base of the anterior leaflet appearance consistent with vegetation. Probable endocarditis of the anterior leaflet of the mitral valve. Infectious disease was consulted and evaluated the patient and at this time recommending 6 weeks worth of IV vancomycin, until December 28, 2016 PICC line placed 11/25/16 for long-term antibiotics Case management consulted to try to arrange outpatient antibiotics Diabetic foot infection. He has cellulitis/abscess status post I and D 3 and wound VAC application. Culture growing multiple organisms. Infectious disease consulted and made antibiotic recommendations Diabetes mellitus. Improving Hemoglobin A1c 11.8. Levemir to 15 units units at bedtime and continue 15 units in the morning. Accu-Cheks with sliding scale coverage. Hypertension. Improving Norvasc 5 mg daily, increase to 10 mg daily lisinopril 5 mg daily. Monitor for response Tinea cruris Nystatin powder Tobacco abuse. Patient previously counseled regarding cessation. Peripheral vascular disease. Status post CTA no reconstructible vessels per vascular surgery. Ct asa. Tobacco cessation DVT prophylaxis subcutaneous heparin Discharge Planning Discharge planning if case management can arrange outpatient antibiotics, otherwise, patient remain at [facility] for long-term care until antibiotics completed Diogo Gallagher Nov 28, 2016 11:49
[2016-11-28 20:00] VITALS: BP 115/76; PULSE 84; RESP 16; TEMP 98.7; O2SAT 97
[2016-11-29] MEDS: ACETAMINOPHEN/HYDROcodone 325 MG/7.5 MG TAB PO PRN ×5 (01:14→23:24)
[2016-11-29] MEDS: SODIUM CHLORIDE 0.9% FLUSH 10 ML FLUSH IV FLUSH PRN (06:34)
[2016-11-29] MEDS: VANCOMYCIN 1,500 MG/NS 500 ML IV SCH ×6 (06:34→23:04)
[2016-11-29] MEDS ORDERED: PHARMACY ORDERED LAB ONE (06:45)
[2016-11-29 08:55] VITALS: BP 149/90; PULSE 82; RESP 18; TEMP 98.5; O2SAT 100
[2016-11-29] MEDS: MUPIROCIN 2% CREAM 15 GM TOPICAL SCH ×2 (09:00→20:56)
[2016-11-29] MEDS: SODIUM CHLORIDE 0.9% FLUSH 10 ML FLUSH IV FLUSH SCH ×3 (09:00→20:55)
[2016-11-29] MEDS: ASPIRIN 81 MG CHEW TAB CHEW SCH (09:19)
[2016-11-29] MEDS: LACTOBACILLUS ACIDOPHILUS TAB PO SCH ×3 (09:21→17:07)
[2016-11-29] MEDS: HEPARIN SODIUM - SQ 10,000 UNITS/ML VIAL SQ SCH ×2 (09:21→20:55)
[2016-11-29] MEDS: LISINOPRIL 5 MG TAB PO SCH (09:21)
[2016-11-29] MEDS: NYSTATIN 100,000 U/GM PWD 15 GM BTL TOPICAL SCH ×2 (09:24→20:57)
[2016-11-29] MEDS: INSULIN DETEMIR 100 UNITS/ML VIAL SQ SCH ×2 (09:34→20:54)
[2016-11-29] MEDS: INSULIN ASPART SUPPLEMENTAL SCALE SQ SCH ×4 (09:34→20:52)
--- NOTE | 2016-11-29 11:57 | HHI.PR ---
Subjective Remarks Patient seen and examined today for follow-up on endocarditis, diabetic foot infection. Patient sitting in chair, resting comfortably. Patient still requesting to have morphine when wound VAC is changed Objective Vitals Vital Signs Date Time Temp Pulse Resp B/P Pulse Ox O2 Delivery O2 Flow Rate FiO2 11/29/16 08:55 98.5 82 18 149/90 100 11/29/16 07:28 18 11/28/16 20:00 98.7 84 16 115/76 97 I/O 11/28/16 11/28/16 11/28/16 11/29/16 11/29/16 11/29/16 07:00 15:00 23:00 07:00 15:00 23:00 Intake Total 680 ml 720 ml 1060 ml Output Total 700 ml 700 ml Balance -20 ml 720 ml 360 ml Intake Oral 680 ml 720 ml 560 ml IV Total 500 ml Output Urine Total 700 ml 700 ml # Voids 2 # Bowel Movements 0 2 0 Result Diagram: 11/25/16 0450 11/29/16 0635 Objective Remarks GENERAL: Well-developed, well-nourished, in no acute distress. alert and orientated HEENT: Head is normocephalic without any lesions or masses noted. Facial features are symmetric. Eyes: Extraocular muscles are intact. Conjunctivae were clear. NECK: Supple without any masses. Trachea midline no deviation. No JVD, CARDIAC: Regular rhythm, regular rate. S1/S2 are heard. No murmurs gallops or rubs. LUNGS: Clear to auscultation bilaterally. No wheeze, rhonchi or rales. No use of accessory muscles on inspiration or expiration. ABDOMEN: Soft, nontender. Nondistended. Bowel sounds heard in all 4 quadrants. No organomegaly or masses. Negative rebound, negative guarding EXTREMITIES: No edema, pulses are equal bilaterally. No cyanosis or clubbing NEUROLOGY: Mood and affect appear appropriate. Cranial nerves II through XII grossly intact. Moving all extremities, speech is clear RIGHT FOOT: Patient does have right foot bandaged with wound VAC at this time. Procedures IND of the right foot abscess with wound VAC application November 18 and November 20 [facility] Urinary Catheter: No Vascular Central Line Catheter: Yes Assessment to: Continue Date of Insertion: Nov 25, 2016 Line: PICC Side: Right A/P Assessment and Plan 51-year-old male with history of diabetes and tobacco abuse. He presents to the emergency department because of cellulitis/abscess involving his right foot. Mitral valve endocarditis Patient originally presented with sepsis from diabetic foot infection, bacteremia Blood cultures indicated Staphylococcus epidermidis Repeat blood cultures 11/19/16 have remained negative Echocardiogram 11/19/16 indicated aortic valve was moderately thickened leaflets , specifically of the left coronary cusp, cannot rule out endocarditis does not appear mobile as endocarditis would be NORIS 11/21/16 indicates mitral valve with echo density on the atrial aspect of the base of the anterior leaflet appearance consistent with vegetation. Probable endocarditis of the anterior leaflet of the mitral valve. Infectious disease was consulted and evaluated the patient and at this time recommending 6 weeks worth of IV vancomycin, until December 28, 2016 PICC line placed 11/25/16 for long-term antibiotics Case management consulted to try to arrange outpatient antibiotics Diabetic foot infection. He has cellulitis/abscess status post I and D 3 and wound VAC application. Culture growing multiple organisms. Infectious disease consulted and made antibiotic recommendations Morphine 2 mg IV when necessary for wound VAC change Diabetes mellitus. Improving Hemoglobin A1c 11.8. Levemir to 15 units units at bedtime and 18 units in the morning. Accu-Cheks with sliding scale coverage. Hypertension. Improving Norvasc 10 mg daily lisinopril 5 mg daily. Monitor for response Tinea cruris Nystatin powder Tobacco abuse. Patient previously counseled regarding cessation. Peripheral vascular disease. Status post CTA no reconstructible vessels per vascular surgery. Ct asa. Tobacco cessation DVT prophylaxis subcutaneous heparin Discharge Planning Discharge planning if case management can arrange outpatient antibiotics, otherwise, patient remain at [facility] for long-term care until antibiotics completed Diogo Gallagher Nov 29, 2016 11:57
[2016-11-29] MEDS ORDERED: ACETAMINOPHEN/HYDROcodone 325 MG/7.5 MG TAB PO PRN (18:00)
[2016-11-29] MEDS: MORPHINE SULFATE 4 MG/ML INJ IV PUSH PRN (18:40)
[2016-11-29 20:00] VITALS: BP 108/66; PULSE 79; RESP 20; TEMP 98.5; O2SAT 97
--- NOTE | 2016-11-29 20:16 | PD.WCN.NOT ---
Wound Consult Description: R foot Neg Pressure Wound Therapy Wound Location Wound Location: R foot Wound Description Underminin.5 cm undermining noted at 9 o'clock Periwound appearance: Unremarkable Settings Suction: 125 mmHg, Continuous Other Information: Bridged Foam type: Black Number of pieces: 2 Additonal Information Patient seen on 5th floor [facility] for wound VAC dressing change.Removed VAC and adaptic dressings in place to reveal Wound bed noted with ~40% red granulation tissue, ~40% exposed tendon, ~20% yellow slough. Periwound noted with erythema behind toes on dorsal aspect of R foot between 4 and 7 o'clock. Dark purple discolored tissue noted at 2 o'clock. Undermined area noted at 9 o' clock.Cleansed wound with wound cleanser and applied oil emulsion gauze (adaptic ) over exposed tendons. Cut black granufoam into small single strip and packed dressing into undermined area at 9 o'clock. Skin prep applied to periwound before window paning wound with VAC drape. Stoma paste applied between 5 and 7 o 'clock just below toes on dorsal surface of foot to seal dressing. Applied larger single piece of black granufoam over wound bed connecting to single strip of granufoam in undermined area. Covered all exposed granufoam with VAC drape. Cut hole in dressing and bridged granufoam over VAC drape to anterior medial siddiqi.Applied Sensi trac pad over bridged granufoam. Wound suctioning at 125 mm/hg medium continuous suction. Patient tolerated dressing change well. Next dressing change due on 12/01/2016.Spoke with Doctor Ronen regarding findings. Anisha Jolly [facility] Nov 29, 2016 20:16
[2016-11-30] MEDS: VANCOMYCIN 1,500 MG/NS 500 ML IV SCH ×6 (06:34→22:53)
[2016-11-30] MEDS: ACETAMINOPHEN/HYDROcodone 325 MG/7.5 MG TAB PO PRN ×4 (06:34→23:34)
[2016-11-30] MEDS: SODIUM CHLORIDE 0.9% FLUSH 10 ML FLUSH IV FLUSH PRN ×2 (06:35→22:56)
[2016-11-30] MEDS: INSULIN ASPART SUPPLEMENTAL SCALE SQ SCH ×4 (06:40→20:43)
[2016-11-30 08:00] VITALS: BP 147/92; PULSE 90; RESP 19; TEMP 97.8; O2SAT 98
[2016-11-30] MEDS: LISINOPRIL 5 MG TAB PO SCH (08:21)
[2016-11-30] MEDS: ASPIRIN 81 MG CHEW TAB CHEW SCH (08:21)
[2016-11-30] MEDS: LACTOBACILLUS ACIDOPHILUS TAB PO SCH ×3 (08:21→16:54)
[2016-11-30] MEDS: SODIUM CHLORIDE 0.9% FLUSH 10 ML FLUSH IV FLUSH SCH ×3 (08:22→20:46)
[2016-11-30] MEDS: HEPARIN SODIUM - SQ 10,000 UNITS/ML VIAL SQ SCH ×2 (08:23→20:44)
[2016-11-30] MEDS: INSULIN DETEMIR 100 UNITS/ML VIAL SQ SCH ×2 (08:26→20:42)
[2016-11-30] MEDS: MUPIROCIN 2% CREAM 15 GM TOPICAL SCH ×2 (09:00→20:46)
--- NOTE | 2016-11-30 10:12 | HHI.PR ---
Subjective Remarks Follow-up for endocarditis, diabetic foot infection. Patient denies any fevers or chills. Objective Vitals Vital Signs Date Time Temp Pulse Resp B/P Pulse Ox O2 Delivery O2 Flow Rate FiO2 11/30/16 08:00 97.8 90 19 147/92 98 11/29/16 20:00 98.5 79 20 108/66 97 11/29/16 18:45 18 11/29/16 18:31 18 I/O 11/29/16 11/29/16 11/29/16 11/30/16 11/30/16 11/30/16 07:00 15:00 23:00 07:00 15:00 23:00 Intake Total 1060 ml 1160 ml 926 ml Output Total 700 ml 800 ml Balance 360 ml 1160 ml 126 ml Intake Oral 560 ml 660 ml 360 ml IV Total 500 ml 500 ml 566 ml Output Urine Total 700 ml 800 ml # Voids 4 # Bowel Movements 0 Result Diagram: 11/29/16 0635 Objective Remarks GENERAL: Pleasant, well-nourished, well-developed patient in no apparent distress sitting in recliner. CARDIOVASCULAR: Regular rate and rhythm. No murmurs. RESPIRATORY: No accessory muscle use. Clear to auscultation. Breath sounds equal bilaterally. GASTROINTESTINAL: Abdomen soft, non-tender, nondistended. NEUROLOGICAL: Awake and alert. Normal speech. PSYCHIATRIC: Appropriate mood and affect; insight and judgment normal. Procedures IND of the right foot abscess with wound VAC application November 18 and November 20 NORIS Urinary Catheter: No Vascular Central Line Catheter: Yes Assessment to: Continue Date of Insertion: Nov 25, 2016 Line: PICC Side: Right Reason for Continuation Long-term antibiotics. A/P Problem List: (1) Sepsis ICD Code: A41.9 Status: Acute (2) Cellulitis of right foot ICD Code: L03.115 Status: Acute (3) Type 2 diabetes mellitus ICD Code: E11.9 Status: Acute (4) Bacteremia due to methicillin resistant Staphylococcus aureus ICD Code: R78.81 Status: Acute Assessment and Plan 51-year-old male with history of diabetes and tobacco abuse. He presents to the emergency department because of cellulitis/abscess involving his right foot. Mitral valve endocarditis Presented with sepsis from diabetic foot infection, bacteremia Blood cultures indicated Staphylococcus epidermidis Repeat blood cultures 11/19/16 have remained negative Echocardiogram 11/19/16 indicated aortic valve was moderately thickened leaflets , specifically of the left coronary cusp, cannot rule out endocarditis. NORIS 11/21/16 indicates mitral valve with echo density on the atrial aspect of the base of the anterior leaflet appearance consistent with vegetation. Probable endocarditis of the anterior leaflet of the mitral valve. Infectious disease was consulted and evaluated the patient and recommend 6 weeks worth of IV vancomycin, until December 28, 2016 PICC line placed 11/25/16 for long-term antibiotics Case management consulted to try to arrange outpatient antibiotics Diabetic foot infection. He has cellulitis/abscess status post I&D 3 and wound VAC application. Culture growing multiple organisms. Infectious disease consulted and made antibiotic recommendations Morphine 2 mg IV when necessary for wound VAC change, dressing changed 11/29. Diabetes mellitus: Improving Hemoglobin A1c 11.8. Levemir 15 units units at bedtime and 18 units in the morning. Continue to monitor and adjust as needed. Accu-Cheks with sliding scale coverage. Only 4 units required today thus far. Hypertension. Improving Norvasc 10 mg daily lisinopril 5 mg daily. Monitor for response Tinea cruris Nystatin powder Tobacco abuse. Patient previously counseled regarding cessation. Peripheral vascular disease. Status post CTA no reconstructible vessels per vascular surgery. Continue asa. Tobacco cessation DVT prophylaxis subcutaneous heparin Problem Qualifiers (1) Sepsis: Qualified Code: A41.02 - Sepsis due to methicillin resistant Staphylococcus aureus (MRSA) Alexandra Mora Nov 30, 2016 10:12
[2016-11-30] MEDS: NYSTATIN 100,000 U/GM PWD 15 GM BTL TOPICAL SCH ×2 (12:07→20:46)
--- NOTE | 2016-11-30 17:16 | MP ---
cc: ARSENIO GONZALEZ DP DATE OF 63 DATE OF SURGERY 11/18/16 DATE OF SURGERY 11/18/2016 The patient is a 51-year-old male who presented to the emergency department originally complaining of cellulitis involving his right foot. About two nights before admission, he says he had a corn on the lateral aspect of the right foot that was injured and he scraped some of it off when he banged it against the door. He states that the next day he noticed there was pain and redness to the area. He says that there is constant, severe foot pain that gets worse when he lowers his foot and he started noticing some red streaks coming up the leg with some drainage as well as a fever and came into the emergency department to be evaluated. I discussed with the patient that, based on this alone, that he needed to undergo incision and drainage of the abscess on the right foot. He was noted to have a loculated 2 cm soft tissue abnormality to the lateral aspect of the fifth metatarsal head and neck with no evidence of osteomyelitis noted at the time. The right lateral foot was noted to have significant necrotic tissue with purulence and erythema extending proximally to just below the knee with significant malodor noted. I discussed with him that he needed to undergo incision and drainage in order to salvage the limb. He consented to surgery and he was seen in preop holding by myself, nursing staff and Anesthesia where the correct patient, side and site were all confirmed to be correct and the right foot. He was taken back to the surgical suite, placed in supine position where the right foot was prepped and draped in normal sterile fashion followed by attention directed to the right foot at the dorsal and lateral aspect. The dorsal foot had a large necrotic center with foul odor and purulent drainage dorsal to the metatarsal heads three through five mid shaft areas. Upon incision and drainage, there was copious amount of purulent drainage and necrotic tissue that was found to be down to the extensor tendon and the metatarsophalangeal joints of digits 3, 4 and 5. Curettage and rongeur were utilized in order to remove necrotic tissue. I found a wormlike structure that was black and had a clear head and tail in the foot. It was sent to pathology for gross and microscopic exam. Irrigation consisting of 6 liters of normal saline was then used followed by Adaptic and wound VAC application to the right foot. He was then taken back to PACU with vital signs stable and vascular status intact for remainder of the right foot. We plan to repeat an incision and drainage on Tuesday and determine if further surgery is required. SHORT OPERATIVE NOTE SURGEON Meghan Gonzalez MD [employer] Staff PREOPERATIVE DIAGNOSIS Abscess right dorsolateral foot. POSTOPERATIVE DIAGNOSIS Abscess right dorsolateral foot. PROCEDURE Incision and drainage right foot with wound VAC application PATHOLOGY Culture right foot and foreign body possible worm to right foot sent to pathology for gross microscopic exam. ESTIMATED BLOOD LOSS Minimal ANESTHESIA General endotracheal anesthesia CONDITION Stable to PACU. COMPLICATIONS None DISPOSITION Weightbearing as tolerated with plan to repeat incision and drainage on Tuesday. Arsenio RENE/ /7:13 PM /5:09 PM
[2016-11-30 20:08] VITALS: BP 145/87; PULSE 96; RESP 21; TEMP 98.1; O2SAT 100
[2016-12-01] MEDS: SODIUM CHLORIDE 0.9% FLUSH 10 ML FLUSH IV FLUSH PRN (06:54)
[2016-12-01] MEDS: VANCOMYCIN 1,500 MG/NS 500 ML IV SCH ×6 (06:54→21:53)
[2016-12-01] MEDS: ACETAMINOPHEN/HYDROcodone 325 MG/7.5 MG TAB PO PRN (06:55)
[2016-12-01 08:00] VITALS: BP 150/97; PULSE 88; RESP 18; TEMP 98.1; O2SAT 99
[2016-12-01] MEDS: INSULIN ASPART SUPPLEMENTAL SCALE SQ SCH ×4 (08:44→21:13)
[2016-12-01] MEDS: INSULIN DETEMIR 100 UNITS/ML VIAL SQ SCH ×2 (08:45→21:12)
[2016-12-01] MEDS: LISINOPRIL 5 MG TAB PO SCH (08:49)
[2016-12-01] MEDS: ASPIRIN 81 MG CHEW TAB CHEW SCH (08:50)
[2016-12-01] MEDS: LACTOBACILLUS ACIDOPHILUS TAB PO SCH ×3 (08:50→17:36)
[2016-12-01] MEDS: HEPARIN SODIUM - SQ 10,000 UNITS/ML VIAL SQ SCH ×2 (08:51→21:14)
[2016-12-01] MEDS: SODIUM CHLORIDE 0.9% FLUSH 10 ML FLUSH IV FLUSH SCH ×3 (08:53→21:14)
[2016-12-01] MEDS: MUPIROCIN 2% CREAM 15 GM TOPICAL SCH ×2 (09:00→21:51)
[2016-12-01] MEDS: NYSTATIN 100,000 U/GM PWD 15 GM BTL TOPICAL SCH ×2 (09:03→21:51)
--- NOTE | 2016-12-01 11:45 | PD.POD ---
Subjective Podiatric Problems R foot infection, s/p I&D 11/18/16 and 11/20/16 [place] 11/24/16 [place] Past Med/Surg/Social History Social History Smoking Status: Never Smoker Objective Vital Signs Vital Signs Date Time Temp Pulse Resp B/P Pulse Ox O2 Delivery O2 Flow Rate FiO2 12/01/16 08:00 98.1 88 18 150/97 99 11/30/16 20:08 98.1 96 21 145/87 100 11/30/16 18:33 18 Coded Allergies: Penicillin (Verified Allergy, Severe, 11/16/16) Physical Exam Remarks R foot with wound vac intact and functioning properly. Photos from patient's phone from yesterday's dressing change shows a slight amount of necrotic tissue to distal wound and questionable area to proximal rim of wound. Tendons still appear white, intact, and viable. Assessment & Plan A/P R foot infection, s/p I&D 11/18/16 and 11/20/16 Mónica 11/24 Ronen Plan for I&D with possible graft R foot and vac dressing tomorrow. Continue wound vac changes as ordered until next debridement NPO after midnight Arsenio Sales DPM Dec 01, 2016 11:45
--- NOTE | 2016-12-01 13:31 | HHI.PR ---
Subjective Remarks Follow-up for endocarditis, diabetic foot infection. Objective Vitals Vital Signs Date Time Temp Pulse Resp B/P Pulse Ox O2 Delivery O2 Flow Rate FiO2 12/01/16 08:00 98.1 88 18 150/97 99 11/30/16 20:08 98.1 96 21 145/87 100 11/30/16 18:33 18 I/O 11/30/16 11/30/16 11/30/16 12/01/16 12/01/16 12/01/16 07:00 15:00 23:00 07:00 15:00 23:00 Intake Total 926 ml 1500 ml 1130 ml Output Total 800 ml 900 ml Balance 126 ml 1500 ml 230 ml Intake Oral 360 ml 1500 ml 600 ml IV Total 566 ml 530 ml Output Urine Total 800 ml 900 ml # Voids 4 2 Result Diagram: 12/01/16 0650 Objective Remarks GENERAL: Pleasant, well-nourished, well-developed patient in no apparent distress sitting in recliner. CARDIOVASCULAR: Regular rate and rhythm. No murmurs. RESPIRATORY: No accessory muscle use. Clear to auscultation. Breath sounds equal bilaterally. GASTROINTESTINAL: Abdomen soft, non-tender, nondistended. NEUROLOGICAL: Awake and alert. Normal speech. PSYCHIATRIC: Appropriate mood and affect; insight and judgment normal. Wound vac R foot. Procedures R foot infection, I&D 11/18/16 and 11/20/16 [facility], 11/24 [place] NORIS Urinary Catheter: No Vascular Central Line Catheter: Yes Assessment to: Continue Date of Insertion: Nov 25, 2016 Line: PICC Side: Right A/P Problem List: (1) Sepsis ICD Code: A41.9 Status: Acute (2) Cellulitis of right foot ICD Code: L03.115 Status: Acute (3) Type 2 diabetes mellitus ICD Code: E11.9 Status: Acute (4) Bacteremia due to methicillin resistant Staphylococcus aureus ICD Code: R78.81 Status: Acute Assessment and Plan 51-year-old male with history of diabetes and tobacco abuse. He presents to the emergency department because of cellulitis/abscess involving his right foot. Mitral valve endocarditis Presented with sepsis from diabetic foot infection, bacteremia Blood cultures indicated Staphylococcus epidermidis Repeat blood cultures 11/19/16 have remained negative Echocardiogram 11/19/16 indicated aortic valve was moderately thickened leaflets , specifically of the left coronary cusp, cannot rule out endocarditis. NORIS 11/21/16 indicates mitral valve with echo density on the atrial aspect of the base of the anterior leaflet appearance consistent with vegetation. Probable endocarditis of the anterior leaflet of the mitral valve. Infectious disease was consulted and evaluated the patient and recommend 6 weeks worth of IV vancomycin, until December 28, 2016 PICC line placed 11/25/16 for long-term antibiotics Case management consulted to try to arrange outpatient antibiotics Diabetic foot infection. He has cellulitis/abscess status post I&D 3 and wound VAC application. Culture growing multiple organisms. Infectious disease consulted and made antibiotic recommendations Morphine 2 mg IV when necessary for wound VAC change, dressing changed 11/29. Podiatry evaluated the patient today. Plan for I&D with possible graft R foot and vac dressing tomorrow. NPO after midnight. Diabetes mellitus: Stable. Hemoglobin A1c 11.8. Levemir 15 units units at bedtime and 18 units in the morning. AM BGLs improved but still elevated in the evening. Daytime Levemir dose was just adjusted yesterday. Will continue to monitor and reevaluate tomorrow. Accu-Cheks with sliding scale coverage. Hypertension: BP still elevated but there are intermittently low blood pressures. Will reevaluate tomorrow, but will likely need to increase Lisinopril. Norvasc 10 mg daily Lisinopril 5 mg daily. Monitor for response Tinea cruris Nystatin powder Tobacco abuse. Patient previously counseled regarding cessation. Peripheral vascular disease. Status post CTA no reconstructible vessels per vascular surgery. Continue asa. Tobacco cessation DVT prophylaxis subcutaneous heparin Problem Qualifiers (1) Sepsis: Qualified Code: A41.02 - Sepsis due to methicillin resistant Staphylococcus aureus (MRSA) Alexandra Mora Dec 01, 2016 13:31
[2016-12-01 20:29] VITALS: BP 144/88; PULSE 92; RESP 16; TEMP 98.7; O2SAT 98
[2016-12-02] MEDS: ACETAMINOPHEN/HYDROcodone 325 MG/7.5 MG TAB PO PRN ×3 (06:18→23:51)
[2016-12-02] MEDS: VANCOMYCIN 1,500 MG/NS 500 ML IV SCH ×6 (06:18→22:52)
[2016-12-02] MEDS: INSULIN ASPART SUPPLEMENTAL SCALE SQ SCH ×4 (06:28→20:47)
[2016-12-02 07:10] VITALS: BP 138/89; PULSE 92; RESP 16; TEMP 98.4; O2SAT 97
[2016-12-02] MEDS ORDERED: MIDAZOLAM HCL 2 MG/2 ML VIAL ONE (07:33)
[2016-12-02] MEDS ORDERED: FAMOTIDINE 20 MG/2 ML VIAL ONE (07:33)
[2016-12-02] MEDS: LACTATED RINGER'S 1000 ML IV PRN ×2 (07:36→08:20)
--- NOTE | 2016-12-02 08:32 | HHI.PR ---
Immediate Post Op Note Procedure Date: Dec 02, 2016 Pre Op Diagnosis: Wound dorsal R foot Post Op Diagnosis: same Surgeon: Arsenio Sales DPM [employer]isher T[employer]or Apprentice(s): Staff Procedure: I&D R foot with integra graft placement and wound vac Additional Information: R dorsal foot wound measured approx 10 x 13 x 0.5 cm Extensor tendons exposed and appear viable at this time with otherwise healthy granular base. Excisional debridement performed of wound with #15 blade and curettage, to remove fibrotic tissue down to healthy bleeding granulation tissue. Nonadherent dressing over graft, followed by small granufoam vac applied and set at 125mmHg medium continuous setting. Patient will need wound vac set up for d/c Complications: none Specimen(s) removed: none Estimated blood loss: minimal Anesthesia: General Drains: None IVF Patient to: PACU Patient Condition: Good Date/Time of Procedure: SEE SURGICAL CARE RECORD Arsenio Sales DPM Dec 02, 2016 08:32
[2016-12-02] MEDS ORDERED: METOPROLOL TARTRATE 25 MG TAB PO PRN (09:00)
[2016-12-02] MEDS ORDERED: SODIUM CHLORID 0.9% 500 ML IV PRN (09:00)
[2016-12-02] MEDS ORDERED: POVIDONE IODINE 5% (ANTISEPSIS KIT) 4 APPLICATIONS EACH NARE PRN (09:00)
[2016-12-02] MEDS ORDERED: INSULIN HUMAN REGULAR 1,000 UNITS/10 ML VIAL SQ PRN (09:00)
[2016-12-02] MEDS: SODIUM CHLORIDE 0.9% FLUSH 10 ML FLUSH IV FLUSH SCH ×3 (09:00→20:41)
[2016-12-02] MEDS: MUPIROCIN 2% CREAM 15 GM TOPICAL SCH ×2 (09:00→20:48)
[2016-12-02] MEDS ORDERED: CHLORHEXIDINE GLUCONATE 2 % 1 PACK (2 CLOTHS) TOPICAL PRN (09:00)
[2016-12-02 09:14] VITALS: PULSE 76
[2016-12-02 09:30] VITALS: PULSE 85
[2016-12-02 10:30] VITALS: BP 127/80; PULSE 86; RESP 18; TEMP 97.5; O2SAT 98
[2016-12-02] MEDS: LACTOBACILLUS ACIDOPHILUS TAB PO SCH ×3 (10:45→17:40)
[2016-12-02] MEDS: LISINOPRIL 5 MG TAB PO SCH (10:46)
[2016-12-02] MEDS: ASPIRIN 81 MG CHEW TAB CHEW SCH (10:46)
[2016-12-02] MEDS: HEPARIN SODIUM - SQ 10,000 UNITS/ML VIAL SQ SCH ×2 (10:46→20:41)
[2016-12-02] MEDS: INSULIN DETEMIR 100 UNITS/ML VIAL SQ SCH ×2 (10:49→20:44)
[2016-12-02] MEDS: NYSTATIN 100,000 U/GM PWD 15 GM BTL TOPICAL SCH ×2 (10:50→20:40)
[2016-12-02] MEDS ORDERED: PROPOFOL 200 MG/20 ML AMP IV ONE (12:00)
[2016-12-02] MEDS ORDERED: PHENYLEPH/NS 1000 MCG/10 ML SYR IV ONE (12:00)
[2016-12-02] MEDS ORDERED: ONDANSETRON HCL 4 MG/2 ML VIAL IV PUSH ONE (12:00)
--- NOTE | 2016-12-02 13:43 | HHI.PR ---
Subjective Remarks Patient evaluated around 1100 this morning s/p I&D R foot with integra graft placement and wound vac this morning by Dr. Sales. Patient admits to doing well. Objective Vitals Vital Signs Date Time Temp Pulse Resp B/P Pulse Ox O2 Delivery O2 Flow Rate FiO2 12/02/16 10:30 97.5 86 18 127/80 98 12/02/16 09:45 98.4 85 14 109/68 98 Room Air 12/02/16 09:30 85 12/02/16 09:30 85 14 102/71 99 Nasal Cannula 2 12/02/16 09:15 80 14 94/65 99 Nasal Cannula 2 12/02/16 09:14 76 12/02/16 09:14 98.7 76 14 89/61 96 Nasal Cannula 2 12/02/16 07:10 98.4 92 16 138/89 97 12/01/16 20:29 98.7 92 16 144/88 98 I/O 12/01/16 12/01/16 12/01/16 12/02/16 12/02/16 12/02/16 07:00 15:00 23:00 07:00 15:00 23:00 Intake Total 1130 ml 960 ml 1015 ml 220 ml 500 ml Output Total 900 ml 1000 ml 20 ml Balance 230 ml 960 ml 1015 ml -780 ml 480 ml Intake Oral 600 ml 960 ml 220 ml 0 ml IV Total 530 ml 1015 ml Other 500 ml Output Urine Total 900 ml 1000 ml Estimated Blood Loss 20 ml # Voids 2 3 0 # Bowel Movements 1 0 Result Diagram: 12/02/16 0541 Objective Remarks GENERAL: Pleasant, well-nourished, well-developed patient in no apparent distress sitting in recliner eating a snack. CARDIOVASCULAR: Regular rate and rhythm. RESPIRATORY: No accessory muscle use. Clear to auscultation. Breath sounds equal bilaterally. GASTROINTESTINAL: Abdomen soft, non-tender, nondistended. MUSCULOSKELETAL: Wound vac and JUNE to R foot. Capillary refill normal in all toes to R foot. NEUROLOGICAL: Awake and alert. Normal speech. PSYCHIATRIC: Appropriate mood and affect; insight and judgment normal. Procedures R foot infection, I&D 11/18/16 and 11/20/16 M[facility]ica, 11/24 [place] NORIS Urinary Catheter: No Vascular Central Line Catheter: Yes Assessment to: Continue Date of Insertion: Nov 25, 2016 Line: PICC Side: Right Reason for Continuation long-term IV antibiotics. A/P Problem List: (1) Sepsis ICD Code: A41.9 Status: Acute (2) Cellulitis of right foot ICD Code: L03.115 Status: Acute (3) Type 2 diabetes mellitus ICD Code: E11.9 Status: Acute (4) Bacteremia due to methicillin resistant Staphylococcus aureus ICD Code: R78.81 Status: Acute Assessment and Plan 51-year-old male with history of diabetes and tobacco abuse. He presents to the emergency department because of cellulitis/abscess involving his right foot. Mitral valve endocarditis Presented with sepsis from diabetic foot infection, bacteremia Blood cultures indicated Staphylococcus epidermidis Repeat blood cultures 11/19/16 have remained negative Echocardiogram 11/19/16 indicated aortic valve was moderately thickened leaflets , specifically of the left coronary cusp, cannot rule out endocarditis. NORIS 11/21/16 indicates mitral valve with echo density on the atrial aspect of the base of the anterior leaflet appearance consistent with vegetation. Probable endocarditis of the anterior leaflet of the mitral valve. Infectious disease was consulted and evaluated the patient and recommend 6 weeks worth of IV vancomycin, until December 28, 2016 PICC line placed 11/25/16 for long-term antibiotics Case management consulted to try to arrange outpatient antibiotic infusion. Diabetic foot infection. He has cellulitis/abscess status post multiple I&Ds and wound VAC application. Culture growing multiple organisms. Infectious disease consulted and made antibiotic recommendations Morphine 2 mg IV when necessary for wound VAC change. 12/02: Patient underwent I&D R foot with integra graft placement and wound vac today. Diabetes mellitus: Stable. Hemoglobin A1c 11.8. Levemir 15 units units at bedtime and 18 units in the morning. AM BGL good at 140 although patient was NPO overnight. Will monitor blood glucose level today and reevaluate need for adjustment tomorrow. Accu-Cheks with sliding scale coverage. Hypertension: Improved today. Norvasc 10 mg daily Lisinopril 5 mg daily. Tinea cruris Nystatin powder Tobacco abuse. Patient previously counseled regarding cessation. Peripheral vascular disease. Status post CTA no reconstructible vessels per vascular surgery. Continue asa. Tobacco cessation DVT prophylaxis subcutaneous heparin Discharge Planning 12/02: Per podiatry, needs wound vac set up for discharge. Case management had been previously consulted to set up outpatient antibiotic infusion therapy, but this likely will not be able to be arranged as patient is on vancomycin 3 times daily. Problem Qualifiers (1) Sepsis: Qualified Code: A41.02 - Sepsis due to methicillin resistant Staphylococcus aureus (MRSA) Alexandra Mora Dec 02, 2016 13:43
[2016-12-02 20:00] VITALS: BP 147/92; PULSE 94; RESP 18; TEMP 97.6; O2SAT 98
[2016-12-02] MEDS: SODIUM CHLORIDE 0.9% FLUSH 10 ML FLUSH IV FLUSH PRN (22:55)
[2016-12-03 06:05] LABS: AUTOMATED NEUTROPHIL # 3.9 TH/MM3 (1.8-7.7); BASOPHIL # 0.1 TH/MM3 (0-0.2); BASOPHIL % 1.3 % (0.0-2.0); EOSINOPHIL # 0.1 TH/MM3 (0-0.4); EOSINOPHIL % 1.5 % (0.0-4.0); HEMATOCRIT 36.9 % (39.0-51.0); HEMO FLAGS DIFF FINAL; LYMPH % 23.3 % (9.0-44.0); LYMPHOCYTE # 1.4 TH/MM3 (1.0-4.8); MEAN CELL VOLUME 88.6 FL (80.0-100.0); MEAN CORPUSCULAR HEMOGLOBIN 30.8 PG (27.0-34.0); MEAN CORPUSCULAR HGB CONC 34.7 % (32.0-36.0); NEUT % 61.9 % (16.0-70.0); PLATELET COUNT 264 TH/MM3 (150-450); RED BLOOD COUNT 4.16 MIL/MM3 (4.50-5.90); RED CELL DISTRIBUTION WIDTH 12.9 % (11.6-17.2); WHITE BLOOD COUNT 6.2 TH/MM3 (4.0-11.0)
[2016-12-03] MEDS: ACETAMINOPHEN/HYDROcodone 325 MG/7.5 MG TAB PO PRN ×2 (06:06→20:31)
[2016-12-03] MEDS: VANCOMYCIN 1,500 MG/NS 500 ML IV SCH ×6 (06:09→22:59)
[2016-12-03] MEDS: SODIUM CHLORIDE 0.9% FLUSH 10 ML FLUSH IV FLUSH PRN (06:09)
[2016-12-03] MEDS: INSULIN ASPART SUPPLEMENTAL SCALE SQ SCH ×4 (08:06→20:40)
[2016-12-03] MEDS: SODIUM CHLORIDE 0.9% FLUSH 10 ML FLUSH IV FLUSH SCH ×3 (09:00→20:34)
[2016-12-03] MEDS: MUPIROCIN 2% CREAM 15 GM TOPICAL SCH ×2 (09:00→21:00)
[2016-12-03] MEDS: ASPIRIN 81 MG CHEW TAB CHEW SCH (09:12)
[2016-12-03] MEDS: LISINOPRIL 5 MG TAB PO SCH (09:12)
[2016-12-03] MEDS: LACTOBACILLUS ACIDOPHILUS TAB PO SCH ×3 (09:12→18:01)
[2016-12-03] MEDS: NYSTATIN 100,000 U/GM PWD 15 GM BTL TOPICAL SCH ×2 (09:13→21:43)
[2016-12-03] MEDS: HEPARIN SODIUM - SQ 10,000 UNITS/ML VIAL SQ SCH ×2 (09:18→20:32)
[2016-12-03] MEDS: INSULIN DETEMIR 100 UNITS/ML VIAL SQ SCH ×2 (09:21→20:40)
[2016-12-03 09:56] VITALS: BP 128/93; PULSE 81; RESP 16; TEMP 97.6; O2SAT 98
--- NOTE | 2016-12-03 12:01 | HHI.PR ---
Subjective Remarks Follow up for endocarditis and diabetic foot infection s/p I&D R foot with integra graft placement and wound vac yesterday. No acute complaints. Objective Vitals Vital Signs Date Time Temp Pulse Resp B/P Pulse Ox O2 Delivery O2 Flow Rate FiO2 12/03/16 09:56 97.6 81 16 128/93 98 12/03/16 07:06 18 12/02/16 20:00 97.6 94 18 147/92 98 I/O 12/02/16 12/02/16 12/02/16 12/03/16 12/03/16 12/03/16 07:00 15:00 23:00 07:00 15:00 23:00 Intake Total 220 ml 500 ml 1996 ml 996 ml Output Total 1000 ml 20 ml 700 ml Balance -780 ml 480 ml 1996 ml 296 ml Intake Oral 220 ml 0 ml 960 ml 480 ml IV Total 1036 ml 516 ml Tube Feeding 0 ml Tube Irrigant 0 ml Other 500 ml Output Urine Total 1000 ml 700 ml Estimated Blood Loss 20 ml # Voids 0 5 # Bowel Movements 0 1 0 Result Diagram: 12/03/16 0545 12/03/16 0545 Objective Remarks GENERAL: Pleasant, well-nourished, well-developed patient in no apparent distress sitting in recliner. CARDIOVASCULAR: Regular rate and rhythm. RESPIRATORY: No accessory muscle use. Clear to auscultation. Breath sounds equal bilaterally. GASTROINTESTINAL: Abdomen soft, non-tender, nondistended. MUSCULOSKELETAL: Wound vac and JUNE to R foot. NEUROLOGICAL: Awake and alert. Normal speech. PSYCHIATRIC: Appropriate mood and affect; insight and judgment normal. Procedures R foot infection, [facility] [place] [facility] Urinary Catheter: No Vascular Central Line Catheter: Yes Assessment to: Continue Date of Insertion: Nov 25, 2016 Line: PICC Side: Right A/P Problem List: (1) Sepsis ICD Code: A41.9 Status: Acute (2) Cellulitis of right foot ICD Code: L03.115 Status: Acute (3) Type 2 diabetes mellitus ICD Code: E11.9 Status: Acute (4) Bacteremia due to methicillin resistant Staphylococcus aureus ICD Code: R78.81 Status: Acute Assessment and Plan 51-year-old male with history of diabetes and tobacco abuse. He presents to the emergency department because of cellulitis/abscess involving his right foot. Mitral valve endocarditis: stable Presented with sepsis from diabetic foot infection, bacteremia Blood cultures indicated Staphylococcus epidermidis Repeat blood cultures 11/19/16 have remained negative Echocardiogram 11/19/16 indicated aortic valve was moderately thickened leaflets , specifically of the left coronary cusp, cannot rule out endocarditis. NORIS 11/21/16 indicates mitral valve with echo density on the atrial aspect of the base of the anterior leaflet appearance consistent with vegetation. Probable endocarditis of the anterior leaflet of the mitral valve. Infectious disease was consulted and evaluated the patient and recommend 6 weeks worth of IV vancomycin, until December 28, 2016 PICC line placed 11/25/16 for long-term antibiotics 12/03: Weekly CBC reviewed with normal WBC count. Diabetic foot infection. He has cellulitis/abscess status post multiple I&Ds and wound VAC application. Culture growing multiple organisms. Infectious disease consulted and made antibiotic recommendations Morphine 2 mg IV when necessary for wound VAC change. 12/02: Patient underwent I&D R foot with integra graft placement and wound vac. Diabetes mellitus: Hemoglobin A1c 11.8. Levemir 15 units units at bedtime and 18 units in the morning. BGLs for the past few days reviewed, worse, elevated last night at 315. Will increase AM Levemir to 20 units. Accu-Cheks with sliding scale coverage. Hypertension: Improved. Norvasc 10 mg daily Lisinopril 5 mg daily. Tinea cruris Nystatin powder Tobacco abuse. Patient previously counseled regarding cessation. Peripheral vascular disease. Status post CTA no reconstructible vessels per vascular surgery. Continue asa. Tobacco cessation DVT prophylaxis subcutaneous heparin Discharge Planning 12/02: Per podiatry, needs wound vac set up for discharge. Case management had been previously consulted to set up outpatient antibiotic infusion therapy, but this likely will not be able to be arranged as patient is on vancomycin 3 times daily. Problem Qualifiers (1) Sepsis: Qualified Code: A41.02 - Sepsis due to methicillin resistant Staphylococcus aureus (MRSA) Alexandra Mora Dec 03, 2016 12:01
[2016-12-03 20:00] VITALS: BP 96/59; PULSE 84; RESP 14; TEMP 97.2; O2SAT 97
[2016-12-04] MEDS: ACETAMINOPHEN/HYDROcodone 325 MG/7.5 MG TAB PO PRN ×3 (06:16→21:12)
[2016-12-04] MEDS: VANCOMYCIN 1,500 MG/NS 500 ML IV SCH ×2 (06:31)
[2016-12-04] MEDS ORDERED: PHARMACY ORDERED LAB ONE (06:45)
[2016-12-04 08:00] VITALS: BP 142/79; PULSE 81; RESP 18; TEMP 97.5; O2SAT 98
[2016-12-04] MEDS: LISINOPRIL 5 MG TAB PO SCH (09:00)
[2016-12-04] MEDS: MUPIROCIN 2% CREAM 15 GM TOPICAL SCH ×2 (09:00→21:00)
[2016-12-04] MEDS: NYSTATIN 100,000 U/GM PWD 15 GM BTL TOPICAL SCH ×2 (09:00→20:10)
[2016-12-04] MEDS: HEPARIN SODIUM - SQ 10,000 UNITS/ML VIAL SQ SCH ×2 (09:23→20:09)
[2016-12-04] MEDS: ASPIRIN 81 MG CHEW TAB CHEW SCH (09:23)
[2016-12-04] MEDS: LACTOBACILLUS ACIDOPHILUS TAB PO SCH ×3 (09:23→15:59)
[2016-12-04] MEDS: SODIUM CHLORIDE 0.9% FLUSH 10 ML FLUSH IV FLUSH SCH ×3 (09:24→20:10)
--- NOTE | 2016-12-04 09:24 | HHI.PR ---
Subjective Remarks Follow up for endocarditis and diabetic foot infection s/p I&D R foot with Integra graft placement and wound vac on 12/02. Patient denies any fevers or chills. Admits to pain in his foot but states it is relieved by the pain medication. Objective Vitals Vital Signs Date Time Temp Pulse Resp B/P Pulse Ox O2 Delivery O2 Flow Rate FiO2 12/03/16 21:31 20 12/03/16 20:00 97.2 84 14 96/59 97 12/03/16 09:56 97.6 81 16 128/93 98 I/O 12/03/16 12/03/16 12/03/16 12/04/16 12/04/16 12/04/16 06:59 14:59 22:59 06:59 14:59 22:59 Intake Total 1512 ml 1600 ml 1480 ml Output Total 700 ml 1550 ml Balance 812 ml 1600 ml -70 ml Intake Oral 480 ml 1080 ml 480 ml IV Total 1032 ml 520 ml 1000 ml Tube Feeding 0 ml Tube Irrigant 0 ml Output Urine Total 700 ml 1550 ml # Voids 2 # Bowel Movements 0 1 0 Result Diagram: 12/03/16 0545 12/03/16 0545 Objective Remarks GENERAL: Pleasant, well-nourished, well-developed patient in no apparent distress. CARDIOVASCULAR: Regular rate and rhythm. RESPIRATORY: No accessory muscle use. Clear to auscultation. Breath sounds equal bilaterally. GASTROINTESTINAL: Abdomen soft, non-tender, nondistended. MUSCULOSKELETAL: Wound vac and JUNE to R foot. Intact Right DP pulse. NEUROLOGICAL: Awake and alert. Normal speech. PSYCHIATRIC: Appropriate mood and affect; insight and judgment normal. Procedures R foot infection, I&D 11/18/16 and 11/20/16 [facility], 11/24 [place] NORIS Urinary Catheter: No Vascular Central Line Catheter: Yes Assessment to: Continue Date of Insertion: Nov 25, 2016 Line: PICC Side: Right Reason for Continuation Long-term IV antibiotics A/P Problem List: (1) Sepsis ICD Code: A41.9 Status: Acute (2) Cellulitis of right foot ICD Code: L03.115 Status: Acute (3) Type 2 diabetes mellitus ICD Code: E11.9 Status: Acute (4) Bacteremia due to methicillin resistant Staphylococcus aureus ICD Code: R78.81 Status: Acute Assessment and Plan 51-year-old male with history of diabetes and tobacco abuse. He presents to the emergency department because of cellulitis/abscess involving his right foot. Mitral valve endocarditis: stable Presented with sepsis from diabetic foot infection, bacteremia Blood cultures indicated Staphylococcus epidermidis Repeat blood cultures 11/19/16 have remained negative Echocardiogram 11/19/16 indicated aortic valve was moderately thickened leaflets , specifically of the left coronary cusp, cannot rule out endocarditis. NORIS 11/21/16 indicates mitral valve with echo density on the atrial aspect of the base of the anterior leaflet appearance consistent with vegetation. Probable endocarditis of the anterior leaflet of the mitral valve. Infectious disease was consulted and evaluated the patient and recommend 6 weeks worth of IV vancomycin, until December 28, 2016 PICC line placed 11/25/16 for long-term antibiotics 12/03: CBC with normal WBC count. Diabetic foot infection. He has cellulitis/abscess status post multiple I&Ds and wound VAC application. Culture growing multiple organisms. Infectious disease consulted and made antibiotic recommendations Morphine 2 mg IV when necessary for wound VAC change. 12/02: Patient underwent I&D R foot with integra graft placement and wound vac. Diabetes mellitus: Hemoglobin A1c 11.8. Levemir 15 units units at bedtime and 20 units in the morning (am dose increase to start today). BGL 151 this morning, so will keep nighttime dose the same. Accu-Cheks with sliding scale coverage. Hypertension: Improved. Norvasc 10 mg daily Lisinopril 5 mg daily. Tinea cruris Nystatin powder Tobacco abuse. Patient previously counseled regarding cessation. Peripheral vascular disease. Status post CTA no reconstructible vessels per vascular surgery. Continue asa. Tobacco cessation DVT prophylaxis subcutaneous heparin Discharge Planning 12/02: Per podiatry, needs wound vac set up for discharge. Case management had been previously consulted to set up outpatient antibiotic infusion therapy, but this will not be able to be arranged as patient is on vancomycin 3 times daily. Problem Qualifiers (1) Sepsis: Qualified Code: A41.02 - Sepsis due to methicillin resistant Staphylococcus aureus (MRSA) Alexandra Mora Dec 04, 2016 09:24
[2016-12-04] MEDS: INSULIN DETEMIR 100 UNITS/ML VIAL SQ SCH ×2 (09:25→20:07)
[2016-12-04] MEDS: INSULIN ASPART SUPPLEMENTAL SCALE SQ SCH ×4 (09:26→20:08)
[2016-12-04] MEDS: VANCOMYCIN INJ 1,250 MG in SODIUM CHLOR 0.9% 250 ML INJ 250 ML IV SCH ×2 (16:00→22:59)
--- NOTE | 2016-12-04 19:25 | MP ---
cc: ARSENIO GONZALEZ DPM DATE OF SURGERY: 12/02/2016 PREOPERATIVE DIAGNOSIS: Wound, dorsal right foot. POSTOPERATIVE DIAGNOSIS: Wound, dorsal right foot. OPERATION: Irrigation and debridement right foot with Integra graft placement and wound VAC application. SURGEON: Arsenio Gonzalez DPM. AMPOULE FILLER: Staff. ANESTHESIA: General endotracheal anesthesia. ESTIMATED BLOOD LOSS: Minimal. SPECIMENS: No specimens were removed. COMPLICATIONS: None. CONDITION: Stable to post-anesthesia care unit. DISPOSITION: Weightbearing to heel only right foot and will need wound VAC changes on Tuesday, Tuesday and Tuesday set up with home health care upon discharge. INDICATIONS FOR THE PROCEDURE: The patient presented to the emergency department with a worsening infection to the right dorsal foot. He has undergone several incisions and drainages with wound VAC changes to the right dorsal foot and debridement of the wound and was found to have a slight amount of necrotic tissue to the area just proximal to the toes and it was deemed necessary for him to undergo a final wound debridement and irrigation and debridement of the right foot with possible graft placement secondary to tendons being visible to the dorsal aspect of the foot in this area. I discussed this with the patient including the risks, benefits and potential complications were also described and the patient understood and signed consent for the procedure and irrigation and debridement right foot with Integra graft placement and wound VAC. DESCRIPTION OF THE PROCEDURE IN DETAIL: He was seen in preop holding by myself, nursing staff and anesthesia where the correct patient side and site were all confirmed to be correct in the right foot. He was then taken to the surgical suite, placed in supine position where the right foot was addressed and irrigated with three liters of normal sterile saline followed by excisional debridement of the wound was a #15 blade and curettage to remove the fibrotic tissue and necrotic tissue distally down to healthy bleeding granulation tissue and visible exposed extensor tendons that appeared viable at that time as well as an otherwise healthy granular base to the wound. The right dorsal foot wound measured approximately 10 cm x 13 cm x 0.5 cm. However, a 2 inch x 2 inch Integra graft was utilized at an angle in order to apply coverage to the dorsal extensor tendon area in the central aspect of the wound. Following irrigation, was sutured in place with Vicryl suture followed by a non-adherent dressing over the graft followed by the small Granufoam wound VAC applied at a setting of 125 mmHg medium continuous. The patient tolerated procedure and anesthesia well without complications and was returned the post-anesthesia care unit with vital signs stable and vascular status intact to the remainder of the right foot. He will be weightbearing to heel only to the right foot and will be discharged with wound VAC changes and monitored for wound healing and the coming weeks to months. Arsenio RENE/SUSANNAH /3:09 PM /7:21 PM
--- NOTE | 2016-12-04 19:43 | MP ---
cc: ARSENIO GONZALEZ DPM DATE OF SURGERY: 11/20/2016. PREOPERATIVE DIAGNOSIS: Abscess, right dorsolateral foot. POSTOPERATIVE DIAGNOSIS: Abscess, right dorsolateral foot. OPERATION: Incision and drainage of abscess right foot with wound VAC. SURGEON: Arsenio Gonzalez DPM. DESULFURIZER MACHINE: Staff. PATHOLOGY: None. COMPLICATIONS: None. ESTIMATED BLOOD LOSS: 20 mL. ANESTHESIA: General endotracheal anesthesia. CONDITION: Stable to the post-anesthesia care unit. DISPOSITION: Weightbearing as tolerated to the heel only on the right foot with wound VAC changes ordered and will continue to monitor the wound in the coming days to weeks to determine if further surgery versus graft placement is possible. INDICATIONS FOR THE PROCEDURE: The patient presented to the hospital with an infection to the right dorsolateral foot. He underwent incision and drainage of the right foot abscess with wound VAC placement and it was deemed necessary to take him back for repeat incision and drainage of the right foot. He consented to the procedure. DESCRIPTION OF THE PROCEDURE IN DETAIL: He was seen in preop holding by myself, nursing staff and anesthesia where the correct patient side and site were all confirmed to be correct in the right foot. He was then taken back to the surgical suite and placed in supine position where attention was directed to the right dorsolateral foot. The wound VAC was removed and the wound was examined to have minimal necrotic tissue around the periphery of the wound, visible extensor tendons to digits two, three, four and five were present within the central aspect of the wound with mild peripheral bleeding noted. The area was irrigated copiously with 3 liters of normal saline followed by debridement of the necrotic tissue with curettage, a #15 blade and a rongeur. The wound measured approximately 10 cm x 15 cm x 1 cm in depth with visible extensor tendons and appeared to be healthy and viable upon end of procedure. Following this irrigation with normal saline, a wound VAC was re-applied with a small Granufoam wound VAC and set at 125 mmHg medium continuous after Adaptic was placed over the tendon areas. Orders were written for wound VAC changes Tuesday, Tuesday, Tuesday and specifically to remember to apply a nonadherent barrier between the wound VAC and the tendons in order to hopefully maintain viability of the tissue. The patient tolerated procedure and anesthesia well without complications and will likely need long-term therapy and possibly skin grafting of some sort in the future and will monitor the wound in the coming days to weeks. Arsenio RENE/SUSANNAH /3:13 PM /7:35 PM
[2016-12-04 20:00] VITALS: BP 129/81; PULSE 87; RESP 19; TEMP 97.5; O2SAT 97
[2016-12-05] MEDS: VANCOMYCIN INJ 1,250 MG in SODIUM CHLOR 0.9% 250 ML INJ 250 ML IV SCH ×3 (06:31→14:51)
[2016-12-05] MEDS: ACETAMINOPHEN/HYDROcodone 325 MG/7.5 MG TAB PO PRN ×2 (06:40→16:00)
[2016-12-05] MEDS: INSULIN ASPART SUPPLEMENTAL SCALE SQ SCH ×4 (07:00→21:00)
[2016-12-05 08:00] VITALS: BP 136/92; PULSE 88; RESP 18; TEMP 98; O2SAT 97
[2016-12-05] MEDS: HEPARIN SODIUM - SQ 10,000 UNITS/ML VIAL SQ SCH ×2 (08:22→21:51)
[2016-12-05] MEDS: ASPIRIN 81 MG CHEW TAB CHEW SCH (08:22)
[2016-12-05] MEDS: LISINOPRIL 5 MG TAB PO SCH (08:22)
[2016-12-05] MEDS: LACTOBACILLUS ACIDOPHILUS TAB PO SCH ×3 (08:22→15:52)
[2016-12-05] MEDS: SODIUM CHLORIDE 0.9% FLUSH 10 ML FLUSH IV FLUSH SCH ×3 (08:22→21:55)
[2016-12-05] MEDS: MUPIROCIN 2% CREAM 15 GM TOPICAL SCH ×2 (08:33→21:48)
[2016-12-05] MEDS: NYSTATIN 100,000 U/GM PWD 15 GM BTL TOPICAL SCH ×2 (08:33→21:48)
[2016-12-05] MEDS: INSULIN DETEMIR 100 UNITS/ML VIAL SQ SCH ×2 (08:33→21:50)
[2016-12-05] MEDS: MORPHINE SULFATE 4 MG/ML INJ IV PUSH PRN (08:43)
--- NOTE | 2016-12-05 11:22 | HHI.PR ---
Subjective Remarks Follow up for endocarditis and diabetic foot infection s/p I&D R foot with Integra graft placement and wound vac on 12/02. Nurse states that the patient's wound VAC was turned off early this morning by overnight houseperson because it was getting clogged and was apparently left on the patient's foot for 8 hours not running. No acute complaints by patient. Objective Vitals Vital Signs Date Time Temp Pulse Resp B/P Pulse Ox O2 Delivery O2 Flow Rate FiO2 12/05/16 08:00 98.0 88 18 136/92 97 12/04/16 20:00 97.5 87 19 129/81 97 I/O 12/04/16 12/04/16 12/04/16 12/05/16 12/05/16 12/05/16 07:00 15:00 23:00 07:00 15:00 23:00 Intake Total 1480 ml 960 ml 240 ml Output Total 1550 ml Balance -70 ml 960 ml 240 ml Intake Oral 480 ml 960 ml 240 ml IV Total 1000 ml Output Urine Total 1550 ml # Voids 9 1 # Bowel Movements 0 Result Diagram: 12/03/16 0545 12/05/16 0630 Objective Remarks GENERAL: Pleasant, well-nourished, well-developed patient in no apparent distress. SKIN: Wound VAC has been removed from dorsal R foot by the nurse as she is about to change it. The patient's wound site appears good with grafts in place. Tendons are visible. There is no surrounding erythema. No drainage. CARDIOVASCULAR: Regular rate and rhythm. RESPIRATORY: No accessory muscle use. Clear to auscultation. Breath sounds equal bilaterally. GASTROINTESTINAL: Abdomen soft, non-tender, nondistended. MUSCULOSKELETAL: There is no swelling to the right foot. Capillary refill is normal in digits of right foot. Patient is able to move his right toes. NEUROLOGICAL: Awake and alert. Normal speech. PSYCHIATRIC: Appropriate mood and affect; insight and judgment normal. Procedures R foot infection, I&D 11/18/16 and 11/20/16 [place], 11/24 [place] NORIS Urinary Catheter: No Vascular Central Line Catheter: Yes Assessment to: Continue Date of Insertion: Nov 25, 2016 Line: PICC Side: Right Reason for Continuation detention IV antibiotics A/P Problem List: (1) Sepsis ICD Code: A41.9 Status: Acute (2) Cellulitis of right foot ICD Code: L03.115 Status: Acute (3) Type 2 diabetes mellitus ICD Code: E11.9 Status: Acute (4) Bacteremia due to methicillin resistant Staphylococcus aureus ICD Code: R78.81 Status: Acute Assessment and Plan 51-year-old male with history of diabetes and tobacco abuse. He presents to the emergency department because of cellulitis/abscess involving his right foot. Mitral valve endocarditis: stable Presented with sepsis from diabetic foot infection, bacteremia Blood cultures indicated Staphylococcus epidermidis Repeat blood cultures 11/19/16 have remained negative Echocardiogram 11/19/16 indicated aortic valve was moderately thickened leaflets , specifically of the left coronary cusp, cannot rule out endocarditis. NORIS 11/21/16 indicates mitral valve with echo density on the atrial aspect of the base of the anterior leaflet appearance consistent with vegetation. Probable endocarditis of the anterior leaflet of the mitral valve. Infectious disease was consulted and evaluated the patient and recommend 6 weeks worth of IV vancomycin, until December 28, 2016 PICC line placed 11/25/16 for long-term antibiotics 12/03: CBC with normal WBC count. Diabetic foot infection. He has cellulitis/abscess status post multiple I&Ds and wound VAC application. Culture growing multiple organisms. Infectious disease consulted and made antibiotic recommendations Morphine 2 mg IV when necessary for wound VAC change. 12/02: Patient underwent I&D R foot with integra graft placement and wound vac. 12/05: Afebrile. Wound vac changed today. Diabetes mellitus: Improving. Hemoglobin A1c 11.8. Levemir 15 units units at bedtime and 20 units in the morning (am dose increased on 12/04). Accu-Cheks with sliding scale coverage. 12/05: Last night's BGL improved. AM BGL good today at 134. Continue current regimen. Hypertension: Improved. Norvasc 10 mg daily Lisinopril 5 mg daily. Tinea cruris Nystatin powder Tobacco abuse. Patient previously counseled regarding cessation. Peripheral vascular disease. Status post CTA no reconstructible vessels per vascular surgery. Continue asa. Tobacco cessation DVT prophylaxis subcutaneous heparin Discharge Planning 12/02: Per podiatry, needs wound vac set up for discharge. Case management had been previously consulted to set up outpatient antibiotic infusion therapy, but this will not be able to be arranged as patient is on vancomycin 3 times daily. Problem Qualifiers (1) Sepsis: Qualified Code: A41.02 - Sepsis due to methicillin resistant Staphylococcus aureus (MRSA) Alexandra Mora Dec 05, 2016 11:22
[2016-12-05] MEDS ORDERED: PHARMACY ORDERED LAB ONE (14:45)
[2016-12-05 20:00] VITALS: BP 123/79; PULSE 84; RESP 20; TEMP 97.3; O2SAT 98
[2016-12-06] MEDS: VANCOMYCIN INJ 1,300 MG in SODIUM CHLORID 0.9% 500 ML INJ 500 ML IV SCH ×2 (02:51→16:41)
[2016-12-06] MEDS: INSULIN ASPART SUPPLEMENTAL SCALE SQ SCH ×4 (07:00→20:19)
[2016-12-06] MEDS: LACTOBACILLUS ACIDOPHILUS TAB PO SCH ×3 (08:34→16:41)
[2016-12-06] MEDS: LISINOPRIL 5 MG TAB PO SCH (08:34)
[2016-12-06] MEDS: ASPIRIN 81 MG CHEW TAB CHEW SCH (08:34)
[2016-12-06] MEDS: SODIUM CHLORIDE 0.9% FLUSH 10 ML FLUSH IV FLUSH SCH ×3 (08:34→20:21)
[2016-12-06] MEDS: HEPARIN SODIUM - SQ 10,000 UNITS/ML VIAL SQ SCH ×2 (08:34→20:26)
[2016-12-06] MEDS: INSULIN DETEMIR 100 UNITS/ML VIAL SQ SCH ×2 (08:40→20:16)
[2016-12-06] MEDS: MUPIROCIN 2% CREAM 15 GM TOPICAL SCH ×2 (08:40→20:22)
[2016-12-06] MEDS: NYSTATIN 100,000 U/GM PWD 15 GM BTL TOPICAL SCH ×2 (08:40→20:21)
[2016-12-06 08:58] VITALS: BP 139/101; PULSE 109; RESP 14; TEMP 97.1; O2SAT 100
--- NOTE | 2016-12-06 09:55 | HHI.PR ---
Subjective Remarks Follow up for endocarditis and diabetic foot infection s/p I&D R foot with Integra graft placement and wound vac on 12/02. Patient states there is only clear drainage from his foot. Objective Vitals Vital Signs Date Time Temp Pulse Resp B/P Pulse Ox O2 Delivery O2 Flow Rate FiO2 12/06/16 08:58 97.1 109 14 139/101 100 12/05/16 20:00 97.3 84 20 123/79 98 I/O 12/05/16 12/05/16 12/05/16 12/06/16 12/06/16 12/06/16 07:00 15:00 23:00 07:00 15:00 23:00 Intake Total 240 ml 240 ml 1000 ml Balance 240 ml 240 ml 1000 ml Intake Oral 240 ml 240 ml 480 ml IV Total 520 ml # Voids 1 2 2 Result Diagram: 12/03/16 0545 12/05/16 0630 Objective Remarks GENERAL: Pleasant, well-nourished, well-developed patient in no apparent distress. CARDIOVASCULAR: Regular rate and rhythm. RESPIRATORY: No accessory muscle use. Clear to auscultation. Breath sounds equal bilaterally. GASTROINTESTINAL: Abdomen soft, non-tender, nondistended. NEUROLOGICAL: Awake and alert. Normal speech. PSYCHIATRIC: Appropriate mood and affect; insight and judgment normal. Wound vac with clear drainage only. Procedures R foot infection, I&D 11/18/16 and 11/20/16 [facility], 11/24 [place] NORIS Urinary Catheter: No Vascular Central Line Catheter: Yes Assessment to: Continue Date of Insertion: Nov 25, 2016 Line: PICC Side: Right Reason for Continuation Long-term antibiotics A/P Problem List: (1) Sepsis ICD Code: A41.9 Status: Acute (2) Cellulitis of right foot ICD Code: L03.115 Status: Acute (3) Type 2 diabetes mellitus ICD Code: E11.9 Status: Acute (4) Bacteremia due to methicillin resistant Staphylococcus aureus ICD Code: R78.81 Status: Acute Assessment and Plan 51-year-old male with history of diabetes and tobacco abuse. He presents to the emergency department because of cellulitis/abscess involving his right foot. Mitral valve endocarditis: stable Presented with sepsis from diabetic foot infection, bacteremia Blood cultures indicated Staphylococcus epidermidis Repeat blood cultures 11/19/16 have remained negative Echocardiogram 11/19/16 indicated aortic valve was moderately thickened leaflets , specifically of the left coronary cusp, cannot rule out endocarditis. NORIS 11/21/16 indicates mitral valve with echo density on the atrial aspect of the base of the anterior leaflet appearance consistent with vegetation. Probable endocarditis of the anterior leaflet of the mitral valve. Infectious disease was consulted and evaluated the patient and recommend 6 weeks worth of IV vancomycin, until December 28, 2016. PICC line placed 11/25/16 for long-term antibiotics 12/03: CBC with normal WBC count. Diabetic foot infection. He has cellulitis/abscess status post multiple I&Ds and wound VAC application. Culture growing multiple organisms. Infectious disease consulted and made antibiotic recommendations Morphine 2 mg IV when necessary for wound VAC change. 12/02: Patient underwent I&D R foot with integra graft placement and wound vac. 12/05: Afebrile. Wound vac changed today. Diabetes mellitus: Improving. Hemoglobin A1c 11.8. Levemir 15 units units at bedtime and 20 units in the morning (am dose increased on 12/04). Accu-Cheks with sliding scale coverage. 12/06: Last night's BGL greatly improved to 123. AM BGL good today at 137. Continue current regimen. Hypertension: Norvasc 10 mg daily Lisinopril 5 mg daily. 12/06: BP fluctuates, elevated this morning. Continue to monitor and adjust regimen as needed. Tinea cruris Nystatin powder Tobacco abuse. Patient previously counseled regarding cessation. Peripheral vascular disease. Status post CTA no reconstructible vessels per vascular surgery. Continue asa. Tobacco cessation DVT prophylaxis subcutaneous heparin Discharge Planning 12/02: Per podiatry, needs wound vac set up for discharge. Case management had been previously consulted to set up outpatient antibiotic infusion therapy, but this will not be able to be arranged as patient is on vancomycin 3 times daily. Problem Qualifiers (1) Sepsis: Qualified Code: A41.02 - Sepsis due to methicillin resistant Staphylococcus aureus (MRSA) Alexandra Mora Dec 06, 2016 09:55
[2016-12-06] MEDS: ACETAMINOPHEN/HYDROcodone 325 MG/7.5 MG TAB PO PRN ×2 (12:33→20:28)
[2016-12-06 20:00] VITALS: BP 145/96; PULSE 96; RESP 20; TEMP 97.7; O2SAT 100
[2016-12-07] MEDS: VANCOMYCIN INJ 1,300 MG in SODIUM CHLORID 0.9% 500 ML INJ 500 ML IV SCH ×2 (02:53→15:00)
[2016-12-07] MEDS: INSULIN ASPART SUPPLEMENTAL SCALE SQ SCH ×4 (07:00→20:16)
[2016-12-07] MEDS: MORPHINE SULFATE 4 MG/ML INJ IV PUSH PRN (07:03)
[2016-12-07 08:00] VITALS: BP 140/82; PULSE 83; RESP 18; TEMP 96.9; O2SAT 98
[2016-12-07] MEDS: MUPIROCIN 2% CREAM 15 GM TOPICAL SCH ×2 (09:00→20:20)
[2016-12-07] MEDS: NYSTATIN 100,000 U/GM PWD 15 GM BTL TOPICAL SCH ×2 (09:00→20:21)
[2016-12-07] MEDS: LACTOBACILLUS ACIDOPHILUS TAB PO SCH ×3 (09:18→17:07)
[2016-12-07] MEDS: LISINOPRIL 5 MG TAB PO SCH (09:18)
[2016-12-07] MEDS: ASPIRIN 81 MG CHEW TAB CHEW SCH (09:19)
[2016-12-07] MEDS: HEPARIN SODIUM - SQ 10,000 UNITS/ML VIAL SQ SCH ×2 (09:19→20:20)
[2016-12-07] MEDS: INSULIN DETEMIR 100 UNITS/ML VIAL SQ SCH ×2 (09:19→20:17)
[2016-12-07] MEDS: SODIUM CHLORIDE 0.9% FLUSH 10 ML FLUSH IV FLUSH SCH ×3 (09:20→20:20)
--- NOTE | 2016-12-07 10:42 | HHI.PR ---
Subjective Remarks Patient seen and examined today in follow-up for right foot cellulitis. Patient lying in bed currently having wound VAC change. Wound was evaluated which appears to be healing nicely. Sister at bedside who is a nurse at [employer] who is inquiring if there is a GM or exercise equipment that can be used while the patient is here in the hospital. Objective Vitals Vital Signs Date Time Temp Pulse Resp B/P Pulse Ox O2 Delivery O2 Flow Rate FiO2 12/07/16 08:00 96.9 83 18 140/82 98 12/06/16 21:28 16 12/06/16 20:00 97.7 96 20 145/96 100 I/O 12/06/16 12/06/16 12/06/16 12/07/16 12/07/16 12/07/16 07:00 15:00 23:00 07:00 15:00 23:00 Intake Total 1000 ml 1360 ml 765 ml Balance 1000 ml 1360 ml 765 ml Intake Oral 480 ml 1360 ml 240 ml IV Total 520 ml 525 ml # Voids 2 7 2 # Bowel Movements 1 Result Diagram: 12/03/16 0545 12/07/16 0610 Objective Remarks GENERAL: Well-developed, well-nourished, in no acute distress. alert and orientated HEENT: Head is normocephalic without any lesions or masses noted. Facial features are symmetric. Eyes: Extraocular muscles are intact. Conjunctivae were clear. NECK: Supple without any masses. Trachea midline no deviation. No JVD, CARDIAC: Regular rhythm, regular rate. S1/S2 are heard. No murmurs gallops or rubs. LUNGS: Clear to auscultation bilaterally. No wheeze, rhonchi or rales. No use of accessory muscles on inspiration or expiration. ABDOMEN: Soft, nontender. Nondistended. Bowel sounds heard in all 4 quadrants. No organomegaly or masses. Negative rebound, negative guarding EXTREMITIES: No edema, pulses are equal bilaterally. No cyanosis or clubbing NEUROLOGY: Mood and affect appear appropriate. Cranial nerves II through XII grossly intact. Moving all extremities, speech is clear RIGHT FOOT: Patient does have right foot wound which appears to be healing fine , nice pink edges, able see tendon sheaths through graft material. No signs of infection Procedures R foot infection, I&D 11/18/16 and 11/20/16 [facility], 11/24 [place] NORIS Urinary Catheter: No Vascular Central Line Catheter: Yes Assessment to: Continue Date of Insertion: Nov 25, 2016 Line: PICC Side: Right A/P Assessment and Plan 51-year-old male with history of diabetes and tobacco abuse. He presents to the emergency department because of cellulitis/abscess involving his right foot. Mitral valve endocarditis Patient originally presented with sepsis from diabetic foot infection, bacteremia Blood cultures indicated Staphylococcus epidermidis Repeat blood cultures 11/19/16 have remained negative Echocardiogram 11/19/16 indicated aortic valve was moderately thickened leaflets , specifically of the left coronary cusp, cannot rule out endocarditis does not appear mobile as endocarditis would be NORIS 11/21/16 indicates mitral valve with echo density on the atrial aspect of the base of the anterior leaflet appearance consistent with vegetation. Probable endocarditis of the anterior leaflet of the mitral valve. Infectious disease was consulted and evaluated the patient and at this time recommending 6 weeks worth of IV vancomycin, until December 28, 2016 PICC line placed 11/25/16 for long-term antibiotics Case management consulted to try to arrange outpatient antibiotics Diabetic foot infection. He has cellulitis/abscess status post I and D 3 and wound VAC application. Culture growing multiple organisms. Infectious disease consulted and made antibiotic recommendations Morphine 2 mg IV when necessary for wound VAC change Diabetes mellitus. Improving Hemoglobin A1c 11.8. Levemir to 15 units units at bedtime and 22 units in the morning. Accu-Cheks with sliding scale coverage. Hypertension. Improving Norvasc 10 mg daily lisinopril 5 mg daily. Increase to 10 mg daily Monitor for response Tinea cruris Nystatin powder Tobacco abuse. Patient previously counseled regarding cessation. Peripheral vascular disease. Status post CTA no reconstructible vessels per vascular surgery. Ct asa. Tobacco cessation DVT prophylaxis subcutaneous heparin Discharge Planning Discharge planning if case management can arrange outpatient antibiotics, otherwise, patient remain at [facility] for long-term care until antibiotics completed Diogo Gallagher Dec 07, 2016 10:42
[2016-12-07] MEDS ORDERED: PHARMACY ORDERED LAB ONE (14:45)
[2016-12-07] MEDS: ACETAMINOPHEN/HYDROcodone 325 MG/7.5 MG TAB PO PRN (17:07)
[2016-12-07 20:00] VITALS: BP 118/80; PULSE 95; RESP 16; TEMP 97.6; O2SAT 97
--- NOTE | 2016-12-07 20:53 | PD.POD ---
Subjective Podiatric Problems R foot infection, s/p I&D 11/18/16 and 11/20/16 [facility], 11/24/16 [place] , [facility] with skin graft application and wound VAC. Seen this am at bedside with nursing staff. Nursing staff Noted VAC stoppage x 8hrs without removing the sponge on 12/05/16 Pain scale used: 0-10 numeric scale Past Med/Surg/Social History Social History Smoking Status: Never Smoker Objective Vital Signs Vital Signs Date Time Temp Pulse Resp B/P Pulse Ox O2 Delivery O2 Flow Rate FiO2 12/07/16 08:00 96.9 83 18 140/82 98 12/06/16 21:28 16 Coded Allergies: Penicillin (Verified Allergy, Severe, 11/16/16) Other Results Laboratory Tests Test 12/03/16 12/07/16 12/07/16 05:45 06:10 15:28 White Blood Count 6.2 TH/MM3 Red Blood Count 4.16 MIL/MM3 Hemoglobin 12.8 GM/DL Hematocrit 36.9 % Mean Corpuscular Volume 88.6 FL Mean Corpuscular Hemoglobin 30.8 PG Mean Corpuscular Hemoglobin 34.7 % Concent Red Cell Distribution Width 12.9 % Platelet Count 264 TH/MM3 Mean Platelet Volume 7.8 FL Neutrophils (%) (Auto) 61.9 % Lymphocytes (%) (Auto) 23.3 % Monocytes (%) (Auto) 12.0 % Eosinophils (%) (Auto) 1.5 % Basophils (%) (Auto) 1.3 % Neutrophils # (Auto) 3.9 TH/MM3 Lymphocytes # (Auto) 1.4 TH/MM3 Monocytes # (Auto) 0.7 TH/MM3 Eosinophils # (Auto) 0.1 TH/MM3 Basophils # (Auto) 0.1 TH/MM3 CBC Comment DIFF FINAL Differential Comment Creatinine 0.53 MG/DL Estimat Glomerular Filtration 163 ML/MIN Rate Vancomycin Level Trough 8.4 MCG/ML Exam-Podiatry Dermatological Exam Ulcers: Location/Measurements RLE Intact skin substitute with exposed extensor tendons. Granular wound base. Intact DP and PT. Protective sensation is intact. Assessment & Plan Diagnosis: (1) Type 2 diabetes mellitus Status: Acute A/P R foot infection, s/p I&D 11/18/16 and 11/20/16 [place], 11/24/16 [place], 12/04/17 [place] with skin substitute application. OK to WB with post ops shoe. OK to work out including stationary bike with post op shoe x 20-30 minutes qod. Continue with wound VAC. Will continue to f/u while inhouse. Kate Ayoub DPM Dec 07, 2016 20:53
[2016-12-08] MEDS: VANCOMYCIN INJ 1,500 MG in SODIUM CHLORID 0.9% 500 ML INJ 500 ML IV SCH ×2 (03:07→16:23)
[2016-12-08] MEDS: INSULIN ASPART SUPPLEMENTAL SCALE SQ SCH ×4 (07:00→20:09)
[2016-12-08] MEDS: ASPIRIN 81 MG CHEW TAB CHEW SCH (08:09)
[2016-12-08] MEDS: HEPARIN SODIUM - SQ 10,000 UNITS/ML VIAL SQ SCH ×2 (08:09→20:09)
[2016-12-08] MEDS: LACTOBACILLUS ACIDOPHILUS TAB PO SCH ×3 (08:09→16:23)
[2016-12-08] MEDS: LISINOPRIL 10 MG TAB PO SCH (08:09)
[2016-12-08] MEDS: SODIUM CHLORIDE 0.9% FLUSH 10 ML FLUSH IV FLUSH SCH ×3 (08:10→20:09)
[2016-12-08] MEDS: MUPIROCIN 2% CREAM 15 GM TOPICAL SCH ×2 (08:11→20:15)
[2016-12-08] MEDS: ACETAMINOPHEN/HYDROcodone 325 MG/7.5 MG TAB PO PRN (08:14)
[2016-12-08] MEDS: INSULIN DETEMIR 100 UNITS/ML VIAL SQ SCH ×2 (08:18→20:06)
[2016-12-08] MEDS: NYSTATIN 100,000 U/GM PWD 15 GM BTL TOPICAL SCH ×2 (08:19→20:14)
[2016-12-08 08:51] VITALS: BP 138/84; PULSE 106; RESP 19; TEMP 98.3; O2SAT 99
--- NOTE | 2016-12-08 12:14 | HHI.PR ---
Subjective Remarks Patient seen and examined today for follow-up on foot cellulitis. Patient is resting comfortably in a chair. Denies any new complaints. No change in clinical status. Objective Vitals Vital Signs Date Time Temp Pulse Resp B/P Pulse Ox O2 Delivery O2 Flow Rate FiO2 12/08/16 08:51 98.3 106 19 138/84 99 12/07/16 20:00 97.6 95 16 118/80 97 I/O 12/07/16 12/07/16 12/07/16 12/08/16 12/08/16 12/08/16 07:00 15:00 23:00 07:00 15:00 23:00 Intake Total 765 ml 1150 ml 480 ml 1005 ml Balance 765 ml 1150 ml 480 ml 1005 ml Intake Oral 240 ml 1150 ml 480 ml 480 ml IV Total 525 ml 525 ml # Voids 2 4 6 1 # Bowel Movements 1 2 0 Result Diagram: 12/07/16 0610 Objective Remarks GENERAL: Well-developed, well-nourished, in no acute distress. alert and orientated HEENT: Head is normocephalic without any lesions or masses noted. Facial features are symmetric. Eyes: Extraocular muscles are intact. Conjunctivae were clear. NECK: Supple without any masses. Trachea midline no deviation. No JVD, CARDIAC: Regular rhythm, regular rate. S1/S2 are heard. No murmurs gallops or rubs. LUNGS: Clear to auscultation bilaterally. No wheeze, rhonchi or rales. No use of accessory muscles on inspiration or expiration. ABDOMEN: Soft, nontender. Nondistended. Bowel sounds heard in all 4 quadrants. No organomegaly or masses. Negative rebound, negative guarding EXTREMITIES: No edema, pulses are equal bilaterally. No cyanosis or clubbing NEUROLOGY: Mood and affect appear appropriate. Cranial nerves II through XII grossly intact. Moving all extremities, speech is clear RIGHT FOOT: Patient does have right foot wound which appears to be healing fine , nice pink edges, able see tendon sheaths through graft material. No signs of infection Procedures R foot infection, I&D 11/18/16 and 11/20/16 [place], 11/24 [place] NORIS Urinary Catheter: No Vascular Central Line Catheter: Yes Assessment to: Continue Date of Insertion: Nov 25, 2016 Line: PICC Side: Right A/P Assessment and Plan 51-year-old male with history of diabetes and tobacco abuse. He presents to the emergency department because of cellulitis/abscess involving his right foot. Mitral valve endocarditis Patient originally presented with sepsis from diabetic foot infection, bacteremia Blood cultures indicated Staphylococcus epidermidis Repeat blood cultures 11/19/16 have remained negative Echocardiogram 11/19/16 indicated aortic valve was moderately thickened leaflets , specifically of the left coronary cusp, cannot rule out endocarditis does not appear mobile as endocarditis would be NORIS 11/21/16 indicates mitral valve with echo density on the atrial aspect of the base of the anterior leaflet appearance consistent with vegetation. Probable endocarditis of the anterior leaflet of the mitral valve. Infectious disease was consulted and evaluated the patient and at this time recommending 6 weeks worth of IV vancomycin, until December 28, 2016 PICC line placed 11/25/16 for long-term antibiotics Case management consulted to try to arrange outpatient antibiotics Diabetic foot infection. He has cellulitis/abscess status post multiple I&D, intragraft placement and wound VAC application. Culture growing multiple organisms. Infectious disease consulted and made antibiotic recommendations Morphine 2 mg IV when necessary for wound VAC change Diabetes mellitus. Improving Hemoglobin A1c 11.8. Levemir to 15 units units at bedtime and 22 units in the morning. Accu-Cheks with sliding scale coverage. Hypertension. Improving Norvasc 10 mg daily lisinopril 10 mg daily Monitor for response Tinea cruris Nystatin powder Tobacco abuse. Patient previously counseled regarding cessation. Peripheral vascular disease. Status post CTA no reconstructible vessels per vascular surgery. Ct asa. Tobacco cessation DVT prophylaxis subcutaneous heparin Discharge Planning Discharge planning if case management can arrange outpatient antibiotics, otherwise, patient remain at [facility] for long-term care until antibiotics completed Diogo Gallagher Dec 08, 2016 12:14
[2016-12-08 20:00] VITALS: BP 117/73; PULSE 96; RESP 16; TEMP 98; O2SAT 98
[2016-12-09] MEDS: VANCOMYCIN INJ 1,500 MG in SODIUM CHLORID 0.9% 500 ML INJ 500 ML IV SCH ×2 (02:50→15:22)
[2016-12-09] MEDS: INSULIN ASPART SUPPLEMENTAL SCALE SQ SCH ×3 (07:43→17:35)
[2016-12-09] MEDS: NYSTATIN 100,000 U/GM PWD 15 GM BTL TOPICAL SCH ×2 (09:00→21:26)
[2016-12-09] MEDS: MUPIROCIN 2% CREAM 15 GM TOPICAL SCH (09:00)
[2016-12-09] MEDS: SODIUM CHLORIDE 0.9% FLUSH 10 ML FLUSH IV FLUSH SCH ×3 (09:00→21:26)
[2016-12-09] MEDS: ASPIRIN 81 MG CHEW TAB CHEW SCH (09:40)
[2016-12-09] MEDS: LISINOPRIL 10 MG TAB PO SCH (09:40)
[2016-12-09] MEDS: LACTOBACILLUS ACIDOPHILUS TAB PO SCH ×3 (09:40→17:26)
[2016-12-09] MEDS: HEPARIN SODIUM - SQ 10,000 UNITS/ML VIAL SQ SCH ×2 (09:42→21:26)
[2016-12-09] MEDS: INSULIN DETEMIR 100 UNITS/ML VIAL SQ SCH (09:48)
[2016-12-09] MEDS: ACETAMINOPHEN/HYDROcodone 325 MG/7.5 MG TAB PO PRN (09:50)
--- NOTE | 2016-12-09 10:30 | HHI.PR ---
Subjective Remarks Patient seen and examined today for follow-up on right foot wound. Patient is resting carefully in a chair. Denies any new complaints. States that he had the wound VAC changed yesterday. Objective Vitals Vital Signs Date Time Temp Pulse Resp B/P Pulse Ox O2 Delivery O2 Flow Rate FiO2 12/08/16 20:00 98.0 96 16 117/73 98 I/O 12/08/16 12/08/16 12/08/16 12/09/16 12/09/16 12/09/16 07:00 15:00 23:00 07:00 15:00 23:00 Intake Total 1005 ml 1680 ml 480 ml Output Total 2 ml Balance 1005 ml 1678 ml 480 ml Intake Oral 480 ml 1680 ml 480 ml IV Total 525 ml Output Urine Total 2 ml # Voids 1 4 1 # Bowel Movements 0 1 0 Result Diagram: 12/07/16 0610 Objective Remarks GENERAL: Well-developed, well-nourished, in no acute distress. alert and orientated HEENT: Head is normocephalic without any lesions or masses noted. Facial features are symmetric. Eyes: Extraocular muscles are intact. Conjunctivae were clear. NECK: Supple without any masses. Trachea midline no deviation. No JVD, CARDIAC: Regular rhythm, regular rate. S1/S2 are heard. No murmurs gallops or rubs. LUNGS: Clear to auscultation bilaterally. No wheeze, rhonchi or rales. No use of accessory muscles on inspiration or expiration. ABDOMEN: Soft, nontender. Nondistended. Bowel sounds heard in all 4 quadrants. No organomegaly or masses. Negative rebound, negative guarding EXTREMITIES: No edema, pulses are equal bilaterally. No cyanosis or clubbing NEUROLOGY: Mood and affect appear appropriate. Cranial nerves II through XII grossly intact. Moving all extremities, speech is clear RIGHT FOOT: Patient does have right foot wound which appears to be healing fine , nice pink edges, able see tendon sheaths through graft material. No signs of infection Procedures R foot infection, I&D 11/18/16 and 11/20/16 [place], 11/24 [place] NORIS Urinary Catheter: No Vascular Central Line Catheter: Yes Assessment to: Continue Date of Insertion: Nov 25, 2016 Line: PICC Side: Right A/P Assessment and Plan 51-year-old male with history of diabetes and tobacco abuse. He presents to the emergency department because of cellulitis/abscess involving his right foot. Mitral valve endocarditis Patient originally presented with sepsis from diabetic foot infection, bacteremia Blood cultures indicated Staphylococcus epidermidis Repeat blood cultures 11/19/16 have remained negative Echocardiogram 11/19/16 indicated aortic valve was moderately thickened leaflets , specifically of the left coronary cusp, cannot rule out endocarditis does not appear mobile as endocarditis would be NORIS 11/21/16 indicates mitral valve with echo density on the atrial aspect of the base of the anterior leaflet appearance consistent with vegetation. Probable endocarditis of the anterior leaflet of the mitral valve. Infectious disease was consulted and evaluated the patient and at this time recommending 6 weeks worth of IV vancomycin, until December 28, 2016 PICC line placed 11/25/16 for long-term antibiotics Case management consulted to try to arrange outpatient antibiotics Diabetic foot infection. He has cellulitis/abscess status post multiple I&D, intragraft placement and wound VAC application. Culture growing multiple organisms. Infectious disease consulted and made antibiotic recommendations Morphine 2 mg IV when necessary for wound VAC change Diabetes mellitus. Improving Hemoglobin A1c 11.8. Levemir to 15 units units at bedtime and 22 units in the morning. Accu-Cheks with sliding scale coverage. Hypertension. Improving Norvasc 10 mg daily lisinopril 10 mg daily Monitor for response Tinea cruris Nystatin powder Tobacco abuse. Patient previously counseled regarding cessation. Peripheral vascular disease. Status post CTA no reconstructible vessels per vascular surgery. Ct asa. Tobacco cessation DVT prophylaxis subcutaneous heparin Discharge Planning Discharge planning if case management can arrange outpatient antibiotics, otherwise, patient remain at [facility] for long-term care until antibiotics completed Diogo Gallagher Dec 09, 2016 10:30
[2016-12-09 10:35] VITALS: BP 137/81; PULSE 97; RESP 16; TEMP 97.4; O2SAT 100
[2016-12-09] MEDS: MORPHINE SULFATE 4 MG/ML INJ IV PUSH PRN (11:29)
[2016-12-09] MEDS ORDERED: VANCOMYCIN TROUGH ONE (14:45)
[2016-12-09 20:00] VITALS: BP 134/84; PULSE 90; RESP 20; TEMP 97.7; O2SAT 98
[2016-12-10] MEDS: VANCOMYCIN INJ 1,250 MG in SODIUM CHLOR 0.9% 250 ML INJ 250 ML IV SCH ×3 (03:54→18:21)
[2016-12-10] MEDS: INSULIN ASPART SUPPLEMENTAL SCALE SQ SCH ×4 (07:00→19:51)
[2016-12-10 08:00] VITALS: BP 127/91; PULSE 91; RESP 18; TEMP 97.8; O2SAT 96
[2016-12-10] MEDS: INSULIN DETEMIR 100 UNITS/ML VIAL SQ SCH ×2 (08:39→19:50)
[2016-12-10] MEDS: LISINOPRIL 10 MG TAB PO SCH (08:41)
[2016-12-10] MEDS: LACTOBACILLUS ACIDOPHILUS TAB PO SCH ×3 (08:42→16:57)
[2016-12-10] MEDS: ACETAMINOPHEN/HYDROcodone 325 MG/7.5 MG TAB PO PRN ×2 (08:42→20:43)
[2016-12-10] MEDS: ASPIRIN 81 MG CHEW TAB CHEW SCH (08:42)
[2016-12-10] MEDS: HEPARIN SODIUM - SQ 10,000 UNITS/ML VIAL SQ SCH ×2 (08:46→20:36)
[2016-12-10] MEDS: NYSTATIN 100,000 U/GM PWD 15 GM BTL TOPICAL SCH ×2 (08:48→20:36)
[2016-12-10] MEDS: SODIUM CHLORIDE 0.9% FLUSH 10 ML FLUSH IV FLUSH SCH ×3 (08:48→21:00)
[2016-12-10] MEDS: MUPIROCIN 2% CREAM 15 GM TOPICAL SCH ×2 (09:00→21:00)
--- NOTE | 2016-12-10 11:27 | HHI.PR ---
Subjective Remarks Patient seen and examined today for follow-up on right foot infection. Patient resting carefully in a chair. Denies any new complaints. Objective Vitals Vital Signs Date Time Temp Pulse Resp B/P Pulse Ox O2 Delivery O2 Flow Rate FiO2 12/10/16 09:56 18 12/09/16 20:00 97.7 90 20 134/84 98 12/09/16 11:34 18 I/O 12/09/16 12/09/16 12/09/16 12/10/16 12/10/16 12/10/16 07:00 15:00 23:00 07:00 15:00 23:00 Intake Total 480 ml 2580 ml 120 ml Output Total 1000 ml Balance 480 ml 2580 ml -880 ml Intake Oral 480 ml 2040 ml 120 ml IV Total 540 ml Output Urine Total 1000 ml # Voids 1 7 1 # Bowel Movements 0 2 Result Diagram: 12/10/16 0625 Objective Remarks GENERAL: Well-developed, well-nourished, in no acute distress. alert and orientated HEENT: Head is normocephalic without any lesions or masses noted. Facial features are symmetric. Eyes: Extraocular muscles are intact. Conjunctivae were clear. NECK: Supple without any masses. Trachea midline no deviation. No JVD, CARDIAC: Regular rhythm, regular rate. S1/S2 are heard. No murmurs gallops or rubs. LUNGS: Clear to auscultation bilaterally. No wheeze, rhonchi or rales. No use of accessory muscles on inspiration or expiration. ABDOMEN: Soft, nontender. Nondistended. Bowel sounds heard in all 4 quadrants. No organomegaly or masses. Negative rebound, negative guarding EXTREMITIES: No edema, pulses are equal bilaterally. No cyanosis or clubbing NEUROLOGY: Mood and affect appear appropriate. Cranial nerves II through XII grossly intact. Moving all extremities, speech is clear RIGHT FOOT: Patient does have right foot wound which appears to be healing fine , nice pink edges, able see tendon sheaths through graft material. No signs of infection Procedures R foot infection, I&D 11/18/16 and 11/20/16 [place], 11/24 [place] NROIS Urinary Catheter: No Vascular Central Line Catheter: Yes Assessment to: Continue Date of Insertion: Nov 25, 2016 Line: PICC Side: Right A/P Assessment and Plan 51-year-old male with history of diabetes and tobacco abuse. He presents to the emergency department because of cellulitis/abscess involving his right foot. Mitral valve endocarditis Patient originally presented with sepsis from diabetic foot infection, bacteremia Blood cultures indicated Staphylococcus epidermidis Repeat blood cultures 11/19/16 have remained negative Echocardiogram 11/19/16 indicated aortic valve was moderately thickened leaflets , specifically of the left coronary cusp, cannot rule out endocarditis does not appear mobile as endocarditis would be NORIS 11/21/16 indicates mitral valve with echo density on the atrial aspect of the base of the anterior leaflet appearance consistent with vegetation. Probable endocarditis of the anterior leaflet of the mitral valve. Infectious disease was consulted and evaluated the patient and at this time recommending 6 weeks worth of IV vancomycin, until December 28, 2016 PICC line placed 11/25/16 for long-term antibiotics Case management consulted to try to arrange outpatient antibiotics Diabetic foot infection. He has cellulitis/abscess status post multiple I&D, intragraft placement and wound VAC application. Culture growing multiple organisms. Infectious disease consulted and made antibiotic recommendations Morphine 2 mg IV when necessary for wound VAC change Diabetes mellitus. Improving Hemoglobin A1c 11.8. Levemir to 15 units units at bedtime and 22 units in the morning. Accu-Cheks with sliding scale coverage. Hypertension. Improving Norvasc 10 mg daily lisinopril 10 mg daily Monitor for response Tinea cruris Nystatin powder Tobacco abuse. Patient previously counseled regarding cessation. Peripheral vascular disease. Status post CTA no reconstructible vessels per vascular surgery. Ct asa. Tobacco cessation DVT prophylaxis subcutaneous heparin Discharge Planning Discharge planning if case management can arrange outpatient antibiotics, otherwise, patient remain at [facility] for long-term care until antibiotics completed Diogo Gallagher Dec 10, 2016 11:27
[2016-12-10 20:00] VITALS: BP 129/83; PULSE 106; RESP 20; TEMP 97.6; O2SAT 98
[2016-12-11] MEDS: VANCOMYCIN INJ 1,250 MG in SODIUM CHLOR 0.9% 250 ML INJ 250 ML IV SCH ×3 (04:31→18:01)
[2016-12-11] MEDS: INSULIN ASPART SUPPLEMENTAL SCALE SQ SCH ×4 (07:00→21:06)
[2016-12-11 08:00] VITALS: BP 124/85; PULSE 101; RESP 19; TEMP 97.7; O2SAT 99
[2016-12-11] MEDS: ACETAMINOPHEN/HYDROcodone 325 MG/7.5 MG TAB PO PRN ×2 (08:16→16:40)
[2016-12-11] MEDS: LACTOBACILLUS ACIDOPHILUS TAB PO SCH ×3 (08:17→16:40)
[2016-12-11] MEDS: ASPIRIN 81 MG CHEW TAB CHEW SCH (08:17)
[2016-12-11] MEDS: LISINOPRIL 10 MG TAB PO SCH (08:17)
[2016-12-11] MEDS: SODIUM CHLORIDE 0.9% FLUSH 10 ML FLUSH IV FLUSH SCH ×3 (08:18→21:07)
[2016-12-11] MEDS: HEPARIN SODIUM - SQ 10,000 UNITS/ML VIAL SQ SCH ×2 (08:19→21:07)
[2016-12-11] MEDS: INSULIN DETEMIR 100 UNITS/ML VIAL SQ SCH ×2 (08:28→21:04)
[2016-12-11] MEDS: MUPIROCIN 2% CREAM 15 GM TOPICAL SCH ×2 (08:28→21:00)
[2016-12-11] MEDS: NYSTATIN 100,000 U/GM PWD 15 GM BTL TOPICAL SCH (08:29)
[2016-12-11] MEDS ORDERED: PHARMACY ORDERED LAB ONE (10:45)
--- NOTE | 2016-12-11 12:01 | HHI.PR ---
Subjective Remarks Patient seen and examined today for follow-up on right foot infection. Patient sitting in chair talking with a friend. Denies any new complaints. Objective Vitals Vital Signs Date Time Temp Pulse Resp B/P Pulse Ox O2 Delivery O2 Flow Rate FiO2 12/11/16 08:00 97.7 101 19 124/85 99 12/10/16 20:00 97.6 106 20 129/83 98 I/O 12/10/16 12/10/16 12/10/16 12/11/16 12/11/16 12/11/16 07:00 15:00 23:00 07:00 15:00 23:00 Intake Total 120 ml 1170 ml Output Total 1000 ml Balance -880 ml 1170 ml Intake Oral 120 ml 900 ml IV Total 270 ml Output Urine Total 1000 ml # Voids 1 4 # Bowel Movements 1 Result Diagram: 12/10/16 0625 Objective Remarks GENERAL: Well-developed, well-nourished, in no acute distress. alert and orientated HEENT: Head is normocephalic without any lesions or masses noted. Facial features are symmetric. Eyes: Extraocular muscles are intact. Conjunctivae were clear. NECK: Supple without any masses. Trachea midline no deviation. No JVD, CARDIAC: Regular rhythm, regular rate. S1/S2 are heard. No murmurs gallops or rubs. LUNGS: Clear to auscultation bilaterally. No wheeze, rhonchi or rales. No use of accessory muscles on inspiration or expiration. ABDOMEN: Soft, nontender. Nondistended. Bowel sounds heard in all 4 quadrants. No organomegaly or masses. Negative rebound, negative guarding EXTREMITIES: No edema, pulses are equal bilaterally. No cyanosis or clubbing NEUROLOGY: Mood and affect appear appropriate. Cranial nerves II through XII grossly intact. Moving all extremities, speech is clear RIGHT FOOT: Patient does have right foot wound which appears to be healing fine , nice pink edges, able see tendon sheaths through graft material. No signs of infection Procedures R foot infection, I&D 11/18/16 and 11/20/16 [place], 11/24 [place] NORIS Urinary Catheter: No Vascular Central Line Catheter: Yes Assessment to: Continue Date of Insertion: Nov 25, 2016 Line: PICC Side: Right A/P Assessment and Plan 51-year-old male with history of diabetes and tobacco abuse. He presents to the emergency department because of cellulitis/abscess involving his right foot. Mitral valve endocarditis Patient originally presented with sepsis from diabetic foot infection, bacteremia Blood cultures indicated Staphylococcus epidermidis Repeat blood cultures 11/19/16 have remained negative Echocardiogram 11/19/16 indicated aortic valve was moderately thickened leaflets , specifically of the left coronary cusp, cannot rule out endocarditis does not appear mobile as endocarditis would be NORIS 11/21/16 indicates mitral valve with echo density on the atrial aspect of the base of the anterior leaflet appearance consistent with vegetation. Probable endocarditis of the anterior leaflet of the mitral valve. Infectious disease was consulted and evaluated the patient and at this time recommending 6 weeks worth of IV vancomycin, until December 28, 2016 PICC line placed 11/25/16 for long-term antibiotics Case management consulted to try to arrange outpatient antibiotics Diabetic foot infection. He has cellulitis/abscess status post multiple I&D, intragraft placement and wound VAC application. Culture growing multiple organisms. Infectious disease consulted and made antibiotic recommendations Morphine 2 mg IV when necessary for wound VAC change Diabetes mellitus. Improving Hemoglobin A1c 11.8. Levemir to 15 units units at bedtime and 22 units in the morning. Accu-Cheks with sliding scale coverage. Hypertension. Improving Norvasc 10 mg daily lisinopril 10 mg daily Monitor for response Tinea cruris Nystatin powder Tobacco abuse. Patient previously counseled regarding cessation. Peripheral vascular disease. Status post CTA no reconstructible vessels per vascular surgery. Ct asa. Tobacco cessation DVT prophylaxis subcutaneous heparin Discharge Planning Discharge planning if case management can arrange outpatient antibiotics, otherwise, patient remain at [facility] for long-term care until antibiotics completed Diogo Gallagher Dec 11, 2016 12:01
[2016-12-11 20:00] VITALS: BP 130/86; PULSE 100; RESP 16; TEMP 97.4; O2SAT 99
[2016-12-12] MEDS: VANCOMYCIN INJ 1,250 MG in SODIUM CHLOR 0.9% 250 ML INJ 250 ML IV SCH ×3 (03:43→17:58)
[2016-12-12] MEDS: INSULIN ASPART SUPPLEMENTAL SCALE SQ SCH ×4 (07:00→20:50)
[2016-12-12 08:00] VITALS: BP 134/89; PULSE 93; RESP 18; TEMP 97.1; O2SAT 100
[2016-12-12] MEDS: MUPIROCIN 2% CREAM 15 GM TOPICAL SCH ×2 (09:00→20:55)
[2016-12-12] MEDS: SODIUM CHLORIDE 0.9% FLUSH 10 ML FLUSH IV FLUSH SCH ×3 (09:00→20:55)
[2016-12-12] MEDS: HEPARIN SODIUM - SQ 10,000 UNITS/ML VIAL SQ SCH ×2 (09:19→20:53)
[2016-12-12] MEDS: LACTOBACILLUS ACIDOPHILUS TAB PO SCH ×3 (09:23→17:58)
[2016-12-12] MEDS: ASPIRIN 81 MG CHEW TAB CHEW SCH (09:23)
[2016-12-12] MEDS: LISINOPRIL 10 MG TAB PO SCH (09:23)
[2016-12-12] MEDS: INSULIN DETEMIR 100 UNITS/ML VIAL SQ SCH ×2 (09:28→20:52)
--- NOTE | 2016-12-12 09:59 | HHI.PR ---
Subjective Remarks Patient seen and examined today for follow-up on right foot wound. Patient denies any new complaints. Patient sitting in chair comfortably. Objective Vitals Vital Signs Date Time Temp Pulse Resp B/P Pulse Ox O2 Delivery O2 Flow Rate FiO2 12/12/16 08:00 97.1 93 18 134/89 100 12/11/16 20:00 97.4 100 16 130/86 99 I/O 12/11/16 12/11/16 12/11/16 12/12/16 12/12/16 12/12/16 07:00 15:00 23:00 07:00 15:00 23:00 Intake Total 260 ml 480 ml 480 ml Balance 260 ml 480 ml 480 ml Intake Oral 480 ml 480 ml IV Total 260 ml # Voids 2 1 # Bowel Movements 2 0 Result Diagram: 12/12/16 0630 Objective Remarks GENERAL: Well-developed, well-nourished, in no acute distress. alert and orientated HEENT: Head is normocephalic without any lesions or masses noted. Facial features are symmetric. Eyes: Extraocular muscles are intact. Conjunctivae were clear. NECK: Supple without any masses. Trachea midline no deviation. No JVD, CARDIAC: Regular rhythm, regular rate. S1/S2 are heard. No murmurs gallops or rubs. LUNGS: Clear to auscultation bilaterally. No wheeze, rhonchi or rales. No use of accessory muscles on inspiration or expiration. ABDOMEN: Soft, nontender. Nondistended. Bowel sounds heard in all 4 quadrants. No organomegaly or masses. Negative rebound, negative guarding EXTREMITIES: No edema, pulses are equal bilaterally. No cyanosis or clubbing NEUROLOGY: Mood and affect appear appropriate. Cranial nerves II through XII grossly intact. Moving all extremities, speech is clear RIGHT FOOT: Patient does have right foot wound which appears to be healing fine , nice pink edges, able see tendon sheaths through graft material. No signs of infection Procedures R foot infection, I&D 11/18/16 and 11/20/16 [place], 11/24 [place] NORIS Urinary Catheter: No Vascular Central Line Catheter: Yes Assessment to: Continue Date of Insertion: Nov 25, 2016 Line: PICC Side: Right A/P Assessment and Plan 51-year-old male with history of diabetes and tobacco abuse. He presents to the emergency department because of cellulitis/abscess involving his right foot. Mitral valve endocarditis Patient originally presented with sepsis from diabetic foot infection, bacteremia Blood cultures indicated Staphylococcus epidermidis Repeat blood cultures 11/19/16 have remained negative Echocardiogram 11/19/16 indicated aortic valve was moderately thickened leaflets , specifically of the left coronary cusp, cannot rule out endocarditis does not appear mobile as endocarditis would be NORIS 11/21/16 indicates mitral valve with echo density on the atrial aspect of the base of the anterior leaflet appearance consistent with vegetation. Probable endocarditis of the anterior leaflet of the mitral valve. Infectious disease was consulted and evaluated the patient and at this time recommending 6 weeks worth of IV vancomycin, until December 28, 2016 PICC line placed 11/25/16 for long-term antibiotics Case management consulted to try to arrange outpatient antibiotics Diabetic foot infection. He has cellulitis/abscess status post multiple I&D, intragraft placement and wound VAC application. Culture growing multiple organisms. Infectious disease consulted and made antibiotic recommendations Morphine 2 mg IV when necessary for wound VAC change Podiatry says okay to be weightbearing in postop shoe, okay to work out with stationary bike with postop shoe 2030 minutes every other day Diabetes mellitus. Improving Hemoglobin A1c 11.8. Levemir to 15 units units at bedtime and 22 units in the morning. Accu-Cheks with sliding scale coverage. Hypertension. Improving Norvasc 10 mg daily lisinopril 10 mg daily Monitor for response Tinea cruris Nystatin powder Tobacco abuse. Patient previously counseled regarding cessation. Peripheral vascular disease. Status post CTA no reconstructible vessels per vascular surgery. Ct asa. Tobacco cessation DVT prophylaxis subcutaneous heparin Discharge Planning Discharge planning if case management can arrange outpatient antibiotics, otherwise, patient remain at [facility] for long-term care until antibiotics completed Diogo Gallagher Dec 12, 2016 09:59
[2016-12-12] MEDS: ACETAMINOPHEN/HYDROcodone 325 MG/7.5 MG TAB PO PRN (18:04)
[2016-12-12 20:00] VITALS: BP 121/73; PULSE 88; RESP 18; TEMP 97.8; O2SAT 98
[2016-12-13] MEDS: ACETAMINOPHEN/HYDROcodone 325 MG/7.5 MG TAB PO PRN ×3 (00:05→19:27)
[2016-12-13] MEDS: VANCOMYCIN INJ 1,250 MG in SODIUM CHLOR 0.9% 250 ML INJ 250 ML IV SCH ×3 (03:08→18:03)
[2016-12-13] MEDS: INSULIN ASPART SUPPLEMENTAL SCALE SQ SCH ×4 (06:17→20:21)
[2016-12-13 08:00] VITALS: BP 129/87; PULSE 80; RESP 18; TEMP 98.1; O2SAT 95
[2016-12-13] MEDS: SODIUM CHLORIDE 0.9% FLUSH 10 ML FLUSH IV FLUSH SCH ×3 (09:00→19:27)
[2016-12-13] MEDS: MUPIROCIN 2% CREAM 15 GM TOPICAL SCH ×2 (09:00→20:23)
[2016-12-13] MEDS: HEPARIN SODIUM - SQ 10,000 UNITS/ML VIAL SQ SCH ×2 (09:20→20:23)
[2016-12-13] MEDS: ASPIRIN 81 MG CHEW TAB CHEW SCH (09:22)
[2016-12-13] MEDS: LISINOPRIL 10 MG TAB PO SCH (09:22)
[2016-12-13] MEDS: LACTOBACILLUS ACIDOPHILUS TAB PO SCH ×3 (09:22→17:26)
[2016-12-13] MEDS: INSULIN DETEMIR 100 UNITS/ML VIAL SQ SCH ×2 (09:31→20:22)
--- NOTE | 2016-12-13 11:13 | HHI.PR ---
Subjective Remarks Patient seen and examined today for follow-up on foot wound. Patient denies any new complaints. He is inquiring about if he is going require another skin graft and how long he'll be with wound VAC. I notified him he'll have to contact the horse identifier for those answers. Objective Vitals Vital Signs Date Time Temp Pulse Resp B/P Pulse Ox O2 Delivery O2 Flow Rate FiO2 12/13/16 07:15 18 12/12/16 20:00 97.8 88 18 121/73 98 I/O 12/12/16 12/12/16 12/12/16 12/13/16 12/13/16 12/13/16 07:00 15:00 23:00 07:00 15:00 23:00 Intake Total 480 ml 975 ml 760 ml 860 ml Balance 480 ml 975 ml 760 ml 860 ml Intake Oral 480 ml 975 ml 480 ml 580 ml IV Total 280 ml 280 ml # Voids 1 3 2 1 # Bowel Movements 0 0 0 0 Result Diagram: 12/12/16 0630 Objective Remarks GENERAL: Well-developed, well-nourished, in no acute distress. alert and orientated HEENT: Head is normocephalic without any lesions or masses noted. Facial features are symmetric. Eyes: Extraocular muscles are intact. Conjunctivae were clear. NECK: Supple without any masses. Trachea midline no deviation. No JVD, CARDIAC: Regular rhythm, regular rate. S1/S2 are heard. No murmurs gallops or rubs. LUNGS: Clear to auscultation bilaterally. No wheeze, rhonchi or rales. No use of accessory muscles on inspiration or expiration. ABDOMEN: Soft, nontender. Nondistended. Bowel sounds heard in all 4 quadrants. No organomegaly or masses. Negative rebound, negative guarding EXTREMITIES: No edema, pulses are equal bilaterally. No cyanosis or clubbing NEUROLOGY: Mood and affect appear appropriate. Cranial nerves II through XII grossly intact. Moving all extremities, speech is clear RIGHT FOOT: Patient does have right foot wound which appears to be healing fine , nice pink edges, able see tendon sheaths through graft material. No signs of infection Procedures R foot infection, I&D 11/18/16 and 11/20/16 [facility], 11/24 [place] [facility] Urinary Catheter: No Vascular Central Line Catheter: No Date of Insertion: Nov 25, 2016 Line: PICC Side: Right A/P Assessment and Plan 51-year-old male with history of diabetes and tobacco abuse. He presents to the emergency department because of cellulitis/abscess involving his right foot. Mitral valve endocarditis Patient originally presented with sepsis from diabetic foot infection, bacteremia Blood cultures indicated Staphylococcus epidermidis Repeat blood cultures 11/19/16 have remained negative Echocardiogram 11/19/16 indicated aortic valve was moderately thickened leaflets , specifically of the left coronary cusp, cannot rule out endocarditis does not appear mobile as endocarditis would be NORIS 11/21/16 indicates mitral valve with echo density on the atrial aspect of the base of the anterior leaflet appearance consistent with vegetation. Probable endocarditis of the anterior leaflet of the mitral valve. Infectious disease was consulted and evaluated the patient and at this time recommending 6 weeks worth of IV vancomycin, until December 28, 2016 PICC line placed 11/25/16 for long-term antibiotics Case management consulted trying to arrange outpatient antibiotics Diabetic foot infection. He has cellulitis/abscess status post multiple I&D, intragraft placement and wound VAC application. Culture growing multiple organisms. Infectious disease consulted and made antibiotic recommendations Morphine 2 mg IV when necessary for wound VAC change Podiatry says okay to be weightbearing in postop shoe, okay to work out with stationary bike with postop shoe 2030 minutes every other day Diabetes mellitus. Improving Hemoglobin A1c 11.8. Levemir to 15 units units at bedtime and 22 units in the morning. Accu-Cheks with sliding scale coverage. Hypertension. Improving Norvasc 10 mg daily lisinopril 10 mg daily Monitor for response Tinea cruris Nystatin powder Tobacco abuse. Patient previously counseled regarding cessation. Peripheral vascular disease. Status post CTA no reconstructible vessels per vascular surgery. Ct asa. Tobacco cessation DVT prophylaxis subcutaneous heparin Discharge Planning Discharge planning if case management can arrange outpatient antibiotics, otherwise, patient remain at [facility] for long-term care until antibiotics completed Diogo Gallagher Dec 13, 2016 11:13
[2016-12-13] MEDS: MORPHINE SULFATE 4 MG/ML INJ IV PUSH PRN (15:32)
[2016-12-13 20:00] VITALS: BP 117/82; PULSE 100; RESP 19; TEMP 98.6; O2SAT 98
[2016-12-14] MEDS: VANCOMYCIN INJ 1,250 MG in SODIUM CHLOR 0.9% 250 ML INJ 250 ML IV SCH ×3 (02:45→18:11)
[2016-12-14] MEDS: ACETAMINOPHEN/HYDROcodone 325 MG/7.5 MG TAB PO PRN ×2 (06:01→18:15)
[2016-12-14] MEDS: INSULIN ASPART SUPPLEMENTAL SCALE SQ SCH ×4 (07:00→20:27)
[2016-12-14 08:00] VITALS: BP 138/88; PULSE 109; RESP 18; TEMP 98.1; O2SAT 97
[2016-12-14] MEDS: MUPIROCIN 2% CREAM 15 GM TOPICAL SCH ×2 (09:00→20:30)
[2016-12-14] MEDS: SODIUM CHLORIDE 0.9% FLUSH 10 ML FLUSH IV FLUSH SCH ×3 (09:00→20:29)
[2016-12-14] MEDS: LISINOPRIL 10 MG TAB PO SCH (09:28)
[2016-12-14] MEDS: LACTOBACILLUS ACIDOPHILUS TAB PO SCH ×3 (09:28→18:10)
[2016-12-14] MEDS: ASPIRIN 81 MG CHEW TAB CHEW SCH (09:28)
[2016-12-14] MEDS: HEPARIN SODIUM - SQ 10,000 UNITS/ML VIAL SQ SCH ×2 (09:29→20:29)
[2016-12-14] MEDS: INSULIN DETEMIR 100 UNITS/ML VIAL SQ SCH ×2 (09:35→20:28)
--- NOTE | 2016-12-14 10:25 | HHI.PR ---
Subjective Remarks Follow up for endocarditis and diabetic foot infection s/p I&D R foot with Integra graft placement and wound vac on 12/02. Patient denies any fevers or chills. Objective Vitals Vital Signs Date Time Temp Pulse Resp B/P Pulse Ox O2 Delivery O2 Flow Rate FiO2 12/14/16 07:00 18 12/13/16 20:00 98.6 100 19 117/82 98 12/13/16 15:37 18 I/O 12/13/16 12/13/16 12/13/16 12/14/16 12/14/16 12/14/16 07:00 15:00 23:00 07:00 15:00 23:00 Intake Total 860 ml 1750 ml 400 ml Balance 860 ml 1750 ml 400 ml Intake Oral 580 ml 1200 ml 120 ml IV Total 280 ml 550 ml 280 ml # Voids 1 4 2 # Bowel Movements 0 1 Result Diagram: 12/14/16 0610 Objective Remarks GENERAL: Pleasant, well-nourished, well-developed patient in no apparent distress. CARDIOVASCULAR: Regular rate and rhythm. RESPIRATORY: No accessory muscle use. Clear to auscultation. Breath sounds equal bilaterally. GASTROINTESTINAL: Abdomen soft, non-tender, nondistended. MUSCULOSKELETAL: JUNE wrap R foot. NEUROLOGICAL: Awake and alert. Normal speech. PSYCHIATRIC: Appropriate mood and affect; insight and judgment normal. Procedures R foot infection, I&D 11/18/16 and 11/20/16 [facility], 11/24 [place] [facility] Vascular Central Line Catheter: Yes Assessment to: Continue Date of Insertion: Nov 25, 2016 Line: PICC Side: Right A/P Problem List: (1) Sepsis ICD Code: A41.9 Status: Acute (2) Cellulitis of right foot ICD Code: L03.115 Status: Acute (3) Type 2 diabetes mellitus ICD Code: E11.9 Status: Acute (4) Bacteremia due to methicillin resistant Staphylococcus aureus ICD Code: R78.81 Status: Acute Assessment and Plan 51-year-old male with history of diabetes and tobacco abuse. He presents to the emergency department because of cellulitis/abscess involving his right foot. Mitral valve endocarditis: stable Presented with sepsis from diabetic foot infection, bacteremia Blood cultures indicated Staphylococcus epidermidis Repeat blood cultures 11/19/16 have remained negative Echocardiogram 11/19/16 indicated aortic valve was moderately thickened leaflets , specifically of the left coronary cusp, cannot rule out endocarditis. NORIS 11/21/16 indicates mitral valve with echo density on the atrial aspect of the base of the anterior leaflet appearance consistent with vegetation. Probable endocarditis of the anterior leaflet of the mitral valve. Infectious disease was consulted and evaluated the patient and recommend 6 weeks worth of IV vancomycin, until December 28, 2016. PICC line placed 11/25/16 for long-term antibiotics 12/03: CBC with normal WBC count. Diabetic foot infection. He has cellulitis/abscess status post multiple I&D, Integra graft placement and wound VAC application. Culture growing multiple organisms. Infectious disease consulted and made antibiotic recommendations Morphine 2 mg IV when necessary for wound VAC change Podiatry says okay to be weightbearing in postop shoe, okay to work out with stationary bike with postop shoe 2030 minutes every other day Diabetes mellitus. Improving Hemoglobin A1c 11.8. Levemir to 15 units units at bedtime and 22 units in the morning. Accu-Cheks with sliding scale coverage. Hypertension. Improving Norvasc 10 mg daily Lisinopril 10 mg daily Monitor for response Tinea cruris Nystatin powder Tobacco abuse. Patient previously counseled regarding cessation. Peripheral vascular disease. Status post CTA no reconstructible vessels per vascular surgery. Continue asa. Tobacco cessation DVT prophylaxis subcutaneous heparin Discharge Planning 12/02: Per podiatry, needs wound vac set up for discharge. Case management had been previously consulted to set up outpatient antibiotic infusion therapy, but this will not be able to be arranged as patient is on vancomycin 3 times daily. Problem Qualifiers (1) Sepsis: Qualified Code: A41.02 - Sepsis due to methicillin resistant Staphylococcus aureus (MRSA) Alexandra Mora Dec 14, 2016 10:25
[2016-12-14 20:00] VITALS: BP 125/69; PULSE 100; RESP 19; TEMP 98.7; O2SAT 98
[2016-12-15] MEDS: ACETAMINOPHEN/HYDROcodone 325 MG/7.5 MG TAB PO PRN ×3 (00:19→19:28)
[2016-12-15] MEDS: VANCOMYCIN INJ 1,250 MG in SODIUM CHLOR 0.9% 250 ML INJ 250 ML IV SCH ×3 (02:56→18:30)
[2016-12-15] MEDS: SODIUM CHLORIDE 0.9% FLUSH 10 ML FLUSH IV FLUSH PRN (02:57)
[2016-12-15] MEDS: INSULIN ASPART SUPPLEMENTAL SCALE SQ SCH ×4 (06:33→20:51)
[2016-12-15 08:00] VITALS: BP 123/79; PULSE 107; RESP 17; TEMP 96; O2SAT 98
[2016-12-15] MEDS: MUPIROCIN 2% CREAM 15 GM TOPICAL SCH ×2 (09:00→20:53)
[2016-12-15] MEDS: SODIUM CHLORIDE 0.9% FLUSH 10 ML FLUSH IV FLUSH SCH ×3 (09:00→20:53)
[2016-12-15] MEDS: LACTOBACILLUS ACIDOPHILUS TAB PO SCH ×3 (09:51→17:48)
[2016-12-15] MEDS: ASPIRIN 81 MG CHEW TAB CHEW SCH (09:51)
[2016-12-15] MEDS: LISINOPRIL 10 MG TAB PO SCH (09:52)
[2016-12-15] MEDS: HEPARIN SODIUM - SQ 10,000 UNITS/ML VIAL SQ SCH ×2 (09:53→20:52)
[2016-12-15] MEDS: INSULIN DETEMIR 100 UNITS/ML VIAL SQ SCH ×2 (09:59→20:51)
[2016-12-15] MEDS ORDERED: VANCOMYCIN TROUGH ONE (10:45)
--- NOTE | 2016-12-15 11:07 | HHI.PR ---
Subjective Remarks Follow up for endocarditis and diabetic foot infection s/p I&D R foot with Integra graft placement and wound vac on 12/02. Nurse requests lotion for patient's foot to remove dry skin. Objective Vitals Vital Signs Date Time Temp Pulse Resp B/P Pulse Ox O2 Delivery O2 Flow Rate FiO2 12/15/16 08:00 96.0 107 17 123/79 98 12/15/16 07:22 18 12/14/16 20:00 98.7 100 19 125/69 98 I/O 12/14/16 12/14/16 12/14/16 12/15/16 12/15/16 12/15/16 07:00 15:00 23:00 07:00 15:00 23:00 Intake Total 400 ml 1532 ml 520 ml Balance 400 ml 1532 ml 520 ml Intake Oral 120 ml 960 ml 240 ml IV Total 280 ml 572 ml 280 ml # Voids 2 4 2 Result Diagram: 12/14/16 0610 Objective Remarks GENERAL: Pleasant, well-nourished, well-developed patient in no apparent distress. SKIN: Significant peeling skin to plantar R foot. CARDIOVASCULAR: Regular rate and rhythm. RESPIRATORY: No accessory muscle use. Clear to auscultation. Breath sounds equal bilaterally. MUSCULOSKELETAL: JUNE wrap R foot. NEUROLOGICAL: Awake and alert. Normal speech. PSYCHIATRIC: Appropriate mood and affect; insight and judgment normal. Wound vac with small amount of serosanguineous drainage. Procedures R foot infection, I&D 11/18/16 and 11/20/16 [facility], 11/24 [place] [facility] Urinary Catheter: No Vascular Central Line Catheter: Yes Assessment to: Continue Date of Insertion: Nov 25, 2016 Line: PICC Side: Right A/P Problem List: (1) Sepsis ICD Code: A41.9 Status: Acute (2) Cellulitis of right foot ICD Code: L03.115 Status: Acute (3) Type 2 diabetes mellitus ICD Code: E11.9 Status: Acute (4) Bacteremia due to methicillin resistant Staphylococcus aureus ICD Code: R78.81 Status: Acute Assessment and Plan 51-year-old male with history of diabetes and tobacco abuse. He presents to the emergency department because of cellulitis/abscess involving his right foot. Mitral valve endocarditis: stable Presented with sepsis from diabetic foot infection, bacteremia Blood cultures indicated Staphylococcus epidermidis Repeat blood cultures 11/19/16 have remained negative Echocardiogram 11/19/16 indicated aortic valve was moderately thickened leaflets , specifically of the left coronary cusp, cannot rule out endocarditis. NORIS 11/21/16 indicates mitral valve with echo density on the atrial aspect of the base of the anterior leaflet appearance consistent with vegetation. Probable endocarditis of the anterior leaflet of the mitral valve. Infectious disease was consulted and evaluated the patient and recommend 6 weeks worth of IV vancomycin, until December 28, 2016. PICC line placed 11/25/16 for long-term antibiotics Check weekly CBC to evaluate for neutropenia/thrombocytopenia as patient is on correction Vancomycin, CBC ordered for tomorrow. Diabetic foot infection. He has cellulitis/abscess status post multiple I&D, Integra graft placement and wound VAC application. Culture growing multiple organisms. Infectious disease consulted and made antibiotic recommendations Morphine 2 mg IV when necessary for wound VAC change Podiatry says okay to be weightbearing in postop shoe, okay to work out with stationary bike with postop shoe 2030 minutes every other day -Eucerin cream ordered for dry skin to R foot only to apply on plantar aspect. Diabetes mellitus. Hemoglobin A1c 11.8. Levemir to 15 units units at bedtime and 22 units in the morning. Monitor and adjust as needed. Accu-Cheks with sliding scale coverage. Hypertension. Improving Norvasc 10 mg daily Lisinopril 10 mg daily Monitor for response Tinea cruris Nystatin powder Tobacco abuse. Patient previously counseled regarding cessation. Peripheral vascular disease. Status post CTA no reconstructible vessels per vascular surgery. Continue asa. Tobacco cessation DVT prophylaxis subcutaneous heparin Discharge Planning 12/02: Per podiatry, needs wound vac set up for discharge. Case management had been previously consulted to set up outpatient antibiotic infusion therapy, but this will not be able to be arranged as patient is on vancomycin 3 times daily. Problem Qualifiers (1) Sepsis: Qualified Code: A41.02 - Sepsis due to methicillin resistant Staphylococcus aureus (MRSA) Alexandra Mora Dec 15, 2016 11:07
[2016-12-15] MEDS: MORPHINE SULFATE 4 MG/ML INJ IV PUSH PRN (16:09)
[2016-12-15] MEDS ORDERED: EUCERIN CREAM 120 GM JAR TOPICAL PRN (18:30)
[2016-12-15 20:00] VITALS: BP 106/74; PULSE 97; RESP 14; TEMP 99.3; O2SAT 96
[2016-12-16] MEDS: VANCOMYCIN INJ 1,250 MG in SODIUM CHLOR 0.9% 250 ML INJ 250 ML IV SCH ×3 (02:52→18:22)
[2016-12-16] MEDS: ACETAMINOPHEN/HYDROcodone 325 MG/7.5 MG TAB PO PRN ×2 (06:01→15:48)
[2016-12-16] MEDS: INSULIN ASPART SUPPLEMENTAL SCALE SQ SCH ×4 (06:02→20:44)
[2016-12-16 06:20] LABS: HEMATOCRIT 38.1 % (39.0-51.0); MEAN CELL VOLUME 87.8 FL (80.0-100.0); MEAN CORPUSCULAR HGB CONC 34.2 % (32.0-36.0); PLATELET COUNT 220 TH/MM3 (150-450); RED BLOOD COUNT 4.35 MIL/MM3 (4.50-5.90); RED CELL DISTRIBUTION WIDTH 13.1 % (11.6-17.2); WHITE BLOOD COUNT 3.2 TH/MM3 (4.0-11.0)
[2016-12-16 06:22] LABS: HEMO FLAGS AUTO DIFF
[2016-12-16 07:22] LABS: EOSINOPHILS 7 % (0-4); NEUTROPHIL # MANUAL DIFF 0.9 TH/MM3 (1.8-7.7); POLYS (SEG NEUTROPHILS) 27 % (16-70); WBC DIFF SAMPLE 100
[2016-12-16 07:23] LABS: PLATELET ESTIMATE SMEAR NORMAL (NORMAL); PLATELET MORPHOLOGY NORMAL (NORMAL); SCAN/DIFF FINAL DIFF MANUAL
[2016-12-16 08:00] VITALS: BP 116/74; PULSE 105; RESP 18; TEMP 96.3; O2SAT 99
[2016-12-16] MEDS: MUPIROCIN 2% CREAM 15 GM TOPICAL SCH ×2 (09:00→19:16)
[2016-12-16] MEDS: SODIUM CHLORIDE 0.9% FLUSH 10 ML FLUSH IV FLUSH SCH ×3 (09:00→20:44)
[2016-12-16] MEDS: ASPIRIN 81 MG CHEW TAB CHEW SCH (09:53)
[2016-12-16] MEDS: LISINOPRIL 10 MG TAB PO SCH (09:54)
[2016-12-16] MEDS: LACTOBACILLUS ACIDOPHILUS TAB PO SCH ×3 (09:54→17:22)
[2016-12-16] MEDS: HEPARIN SODIUM - SQ 10,000 UNITS/ML VIAL SQ SCH ×2 (09:55→20:43)
[2016-12-16] MEDS: INSULIN DETEMIR 100 UNITS/ML VIAL SQ SCH ×2 (10:00→20:49)
--- NOTE | 2016-12-16 10:17 | HHI.PR ---
Subjective Remarks Follow up for endocarditis and diabetic foot infection s/p I&D R foot with Integra graft placement and wound vac on 12/02. Nurse informs me the patient has some redness around the wound, no purulent drainage. Patient admits to some pain radiating up the R side of the foot which is new. Objective Vitals Vital Signs Date Time Temp Pulse Resp B/P Pulse Ox O2 Delivery O2 Flow Rate FiO2 12/16/16 08:00 96.3 105 18 116/74 99 12/16/16 07:01 18 12/15/16 20:00 99.3 97 14 106/74 96 12/15/16 16:14 18 I/O 12/15/16 12/15/16 12/15/16 12/16/16 12/16/16 12/16/16 07:00 15:00 23:00 07:00 15:00 23:00 Intake Total 520 ml 1275 ml 480 ml 1050 ml Output Total 900 ml Balance 520 ml 1275 ml 480 ml 1050 ml -900 ml Intake Oral 240 ml 1275 ml 480 ml 480 ml IV Total 280 ml 570 ml Output Urine Total 900 ml # Voids 2 4 1 1 # Bowel Movements 1 1 0 Result Diagram: 12/16/16 0557 12/16/16 0557 Objective Remarks GENERAL: Pleasant, well-nourished, well-developed patient in no apparent distress. SKIN: See MSK. CARDIOVASCULAR: Regular rate and rhythm. RESPIRATORY: No accessory muscle use. Clear to auscultation. Breath sounds equal bilaterally. MUSCULOSKELETAL: JUNE wrap R foot. R toes are mildly swollen and lightly erythematous. NEUROLOGICAL: Awake and alert. Normal speech. PSYCHIATRIC: Appropriate mood and affect; insight and judgment normal. Wound vac with serosanguineous drainage. Procedures R foot infection, I&D 11/18/16 and 11/20/16 [facility], 11/24 [place] [facility] Urinary Catheter: No Vascular Central Line Catheter: Yes Assessment to: Continue Date of Insertion: Nov 25, 2016 Line: PICC Side: Right A/P Problem List: (1) Sepsis ICD Code: A41.9 Status: Acute (2) Cellulitis of right foot ICD Code: L03.115 Status: Acute (3) Type 2 diabetes mellitus ICD Code: E11.9 Status: Acute (4) Bacteremia due to methicillin resistant Staphylococcus aureus ICD Code: R78.81 Status: Acute Assessment and Plan 51-year-old male with history of diabetes and tobacco abuse. He presents to the emergency department because of cellulitis/abscess involving his right foot. Mitral valve endocarditis: stable Presented with sepsis from diabetic foot infection, bacteremia Blood cultures indicated Staphylococcus epidermidis Repeat blood cultures 11/19/16 have remained negative Echocardiogram 11/19/16 indicated aortic valve was moderately thickened leaflets , specifically of the left coronary cusp, cannot rule out endocarditis. NORIS 11/21/16 indicates mitral valve with echo density on the atrial aspect of the base of the anterior leaflet appearance consistent with vegetation. Probable endocarditis of the anterior leaflet of the mitral valve. Infectious disease was consulted and evaluated the patient and recommend 6 weeks worth of IV vancomycin, until December 28, 2016. PICC line placed 11/25/16 for long-term antibiotics 12/16: CBC reviewed with mild leukopenia 3.2; neutrophils 27%, manual count low at 0.9. Platelets normal.Continue to monitor for worsening neutropenia Diabetic foot infection. He has cellulitis/abscess status post multiple I&D, Integra graft placement and wound VAC application. Culture growing multiple organisms. Infectious disease consulted and made antibiotic recommendations Morphine 2 mg IV when necessary for wound VAC change Podiatry says okay to be weightbearing in postop shoe, okay to work out with stationary bike with postop shoe 2030 minutes every other day -Eucerin cream ordered for dry skin to R foot only to apply on plantar aspect. -12/16: Toes swollen, light erythema; afebrile. Does have pain in the foot. Nurse put out call to podiatry this morning and Dr. Rodriguez was supposed to call back but that has not occurred. Will place new consult for podiatry to reevaluate patient. Diabetes mellitus. Hemoglobin A1c 11.8. Levemir to 15 units units at bedtime and 22 units in the morning. Monitor and adjust as needed. Accu-Cheks with sliding scale coverage. 12/16: BGLs elevated more than normal this afternoon. Will monitor BGLs tonight , but may need to again increase daytime dose of Levemir. Hypertension. Improving Norvasc 10 mg daily Lisinopril 10 mg daily Monitor for response Tinea cruris Nystatin powder Tobacco abuse. Patient previously counseled regarding cessation. Peripheral vascular disease. Status post CTA no reconstructible vessels per vascular surgery. Continue asa. Tobacco cessation DVT prophylaxis subcutaneous heparin Discharge Planning 12/02: Per podiatry, needs wound vac set up for discharge. Case management had been previously consulted to set up outpatient antibiotic infusion therapy, but this will not be able to be arranged as patient is on vancomycin 3 times daily. Problem Qualifiers (1) Sepsis: Qualified Code: A41.02 - Sepsis due to methicillin resistant Staphylococcus aureus (MRSA) Alexandra Mora Dec 16, 2016 10:17
[2016-12-16 20:00] VITALS: BP 117/80; PULSE 109; RESP 18; TEMP 96.4; O2SAT 98
[2016-12-17] MEDS: VANCOMYCIN INJ 1,250 MG in SODIUM CHLOR 0.9% 250 ML INJ 250 ML IV SCH ×3 (03:24→17:57)
[2016-12-17] MEDS: INSULIN ASPART SUPPLEMENTAL SCALE SQ SCH ×4 (06:14→21:34)
--- NOTE | 2016-12-17 07:29 | PD.POD ---
Subjective Pain scale used: 0-10 numeric scale Pain score: 2 Remarks Doing well mild pain, tolerating wound vac Past Med/Surg/Social History Social History Smoking Status: Never Smoker Objective Vital Signs Vital Signs Date Time Temp Pulse Resp B/P Pulse Ox O2 Delivery O2 Flow Rate FiO2 12/16/16 20:00 96.4 109 18 117/80 98 12/16/16 16:48 18 12/16/16 08:00 96.3 105 18 116/74 99 Coded Allergies: Penicillin (Verified Allergy, Severe, 11/16/16) Medications and IVs Administered Medications Medications (Trade) Dose Ordered Sig/Kristian Route PRN Reason Start Time Stop Time Status Last Admin Dose Admin Sodium Chloride (NS Flush) 2 ml UNSCH PRN IV FLUSH FLUSH AFTER USING IV ACCESS 11/16/16 23:00 12/15/16 02:57 Sodium Chloride (NS Flush) 2 ml BID IV FLUSH 11/17/16 09:00 12/16/16 20:44 Aspirin (Aspirin Chew) 81 mg DAILY CHEW 11/17/16 09:00 12/16/16 09:53 Mupirocin (Bactroban 2% Cream) 1 applic Q12HR TOPICAL 11/17/16 21:00 12/08/16 20:15 Lactobacillus Acidophilus (Lactinex) 1 tab TID PO 11/19/16 13:00 12/16/16 17:22 Heparin Sodium (Porcine) (Heparin Inj) 5,000 units BID SQ 11/19/16 21:00 12/16/16 20:43 Sodium Chloride (NS Flush) See Protocol DAILY IV FLUSH 11/26/16 09:00 12/16/16 09:00 Heparin Sodium (Porcine) (Heparin Central Flush) See Protocol DAILY IV FLUSH 11/26/16 09:00 12/16/16 09:00 Heparin Sodium (Porcine) (Heparin Central Flush) See Protocol UNSCH PRN IV FLUSH SEE PROTOCOL TABLE 11/25/16 09:45 12/14/16 06:08 Sodium Chloride (NS Flush) UNSCH PRN IV FLUSH SEE PROTOCOL TABLE 11/25/16 09:45 12/14/16 06:08 Amlodipine Besylate (Norvasc) 10 mg DAILY PO 11/29/16 09:00 12/16/16 09:53 Insulin Detemir (Levemir Inj) 15 units DAILY@2100 SQ 11/29/16 21:00 12/16/16 20:49 Morphine Sulfate (Morphine Inj) 2 mg DAILY PRN IV PUSH wound VAC change 11/29/16 12:00 12/15/16 16:09 Acetaminophen/ Hydrocodone Bitart (Coral 7.5-325 Mg) 1 tab Q6HR PRN PO PAIN SCALE 6 TO 10 11/29/16 12:30 12/16/16 15:48 Lisinopril (Prinivil) 10 mg DAILY PO 12/08/16 09:00 12/16/16 09:54 Insulin Detemir 22 units 22 units DAILY SQ 12/08/16 09:00 12/16/16 10:00 Vancomycin HCl/ Sodium Chloride (Vancomycin Inj/ NS 250 ml Inj) 262.5 ml @ 262.5 mls/ hr Q8H IV 12/10/16 03:00 12/17/16 03:24 Other Results Laboratory Tests Test 12/16/16 05:57 White Blood Count 3.2 TH/MM3 Red Blood Count 4.35 MIL/MM3 Hemoglobin 13.1 GM/DL Hematocrit 38.1 % Mean Corpuscular Volume 87.8 FL Mean Corpuscular Hemoglobin 30.0 PG Mean Corpuscular Hemoglobin 34.2 % Concent Red Cell Distribution Width 13.1 % Platelet Count 220 TH/MM3 Mean Platelet Volume 7.4 FL Neutrophils (%) (Auto) % Lymphocytes (%) (Auto) % Monocytes (%) (Auto) % Eosinophils (%) (Auto) % Basophils (%) (Auto) % Neutrophils # (Auto) TH/MM3 Lymphocytes # (Auto) TH/MM3 Monocytes # (Auto) TH/MM3 Eosinophils # (Auto) TH/MM3 Basophils # (Auto) TH/MM3 CBC Comment AUTO DIFF Differential Total Cells 100 Counted Neutrophils % (Manual) 27 % Lymphocytes % 47 % Monocytes % 19 % Eosinophils % 7 % Neutrophils # (Manual) 0.9 TH/MM3 Differential Comment FINAL DIFF MANUAL Platelet Estimate NORMAL Platelet Morphology Comment NORMAL Laboratory Tests Test 12/15/16 12/16/16 11:15 05:57 Creatinine 0.61 MG/DL 0.57 MG/DL Estimat Glomerular Filtration 139 ML/MIN 150 ML/MIN Rate Physical Exam Remarks RLE Intact skin substitute with exposed extensor tendons dorsum foot wound approx 7cm 6cm. minimal redness, no signs of abscess or infection Granular wound base appears to be beginning to encompass tendons Intact DP and PT. Protective sensation is intact Assessment & Plan A/P Right foot full thickness ulcer- no infection Wound is coming along, continue wound vac MWF, awaiting fully granular wound base. Once achieved, patient will need partial thickness skin graft harvest and application. Will FU 1 week, nursing to continue wound vac changes, no change in care at this point. Mike Rodriguez DPM Dec 17, 2016 07:29
[2016-12-17 08:00] VITALS: BP 127/83; PULSE 100; RESP 18; TEMP 97.6; O2SAT 96
[2016-12-17] MEDS: MORPHINE SULFATE 4 MG/ML INJ IV PUSH PRN ×2 (08:24→10:33)
[2016-12-17] MEDS: MUPIROCIN 2% CREAM 15 GM TOPICAL SCH ×2 (09:00→21:00)
[2016-12-17] MEDS: INSULIN DETEMIR 100 UNITS/ML VIAL SQ SCH ×2 (09:00→21:34)
[2016-12-17] MEDS: SODIUM CHLORIDE 0.9% FLUSH 10 ML FLUSH IV FLUSH SCH ×3 (09:00→21:39)
--- NOTE | 2016-12-17 10:00 | HHI.PR ---
Subjective Remarks Follow up for endocarditis and diabetic foot infection s/p I&D R foot with Integra graft placement and wound vac on 12/02. Patient denies any fevers or chills. Objective Vitals Vital Signs Date Time Temp Pulse Resp B/P Pulse Ox O2 Delivery O2 Flow Rate FiO2 12/16/16 20:00 96.4 109 18 117/80 98 12/16/16 16:48 18 I/O 12/16/16 12/16/16 12/16/16 12/17/16 12/17/16 12/17/16 07:00 15:00 23:00 07:00 15:00 23:00 Intake Total 1050 ml 930 ml 480 ml 1025 ml Output Total 900 ml Balance 1050 ml 30 ml 480 ml 1025 ml Intake Oral 480 ml 930 ml 480 ml 480 ml IV Total 570 ml 545 ml Output Urine Total 900 ml # Voids 1 3 2 1 # Bowel Movements 0 1 0 Result Diagram: 12/16/16 0557 12/16/16 0557 Objective Remarks GENERAL: Pleasant, well-nourished, well-developed patient in no apparent distress. CARDIOVASCULAR: Tachycardic rate with regular rhythm. RESPIRATORY: No accessory muscle use. Clear to auscultation. Breath sounds equal bilaterally. GASTROINTESTINAL: Abdomen soft, nontender, nondistended. MUSCULOSKELETAL: JUNE wrap R foot. Normal capillary refill in Right toes. NEUROLOGICAL: Awake and alert. Normal speech. PSYCHIATRIC: Appropriate mood and affect; insight and judgment normal. Procedures R foot infection, I&D 11/18/16 and 11/20/16 [facility], 11/24 [place] [facility] Urinary Catheter: No Vascular Central Line Catheter: No Date of Insertion: Nov 25, 2016 Line: PICC Side: Right A/P Problem List: (1) Sepsis ICD Code: A41.9 Status: Acute (2) Cellulitis of right foot ICD Code: L03.115 Status: Acute (3) Type 2 diabetes mellitus ICD Code: E11.9 Status: Acute (4) Bacteremia due to methicillin resistant Staphylococcus aureus ICD Code: R78.81 Status: Acute Assessment and Plan 51-year-old male with history of diabetes and tobacco abuse. He presents to the emergency department because of cellulitis/abscess involving his right foot. Mitral valve endocarditis: stable Presented with sepsis from diabetic foot infection, bacteremia Blood cultures indicated Staphylococcus epidermidis Repeat blood cultures 11/19/16 have remained negative Echocardiogram 11/19/16 indicated aortic valve was moderately thickened leaflets , specifically of the left coronary cusp, cannot rule out endocarditis. NORIS 11/21/16 indicates mitral valve with echo density on the atrial aspect of the base of the anterior leaflet appearance consistent with vegetation. Probable endocarditis of the anterior leaflet of the mitral valve. Infectious disease was consulted and evaluated the patient and recommend 6 weeks worth of IV vancomycin, until December 28, 2016. PICC line placed 11/25/16 for long-term antibiotics 12/16: CBC reviewed with mild leukopenia 3.2; neutrophils 27%, manual count low at 0.9. Platelets normal.Continue to monitor for worsening neutropenia 12/17: Order am CBC with diff to evaluate neutropenia. Diabetic foot infection. He has cellulitis/abscess status post multiple I&D, Integra graft placement and wound VAC application. Culture growing multiple organisms. Infectious disease consulted and made antibiotic recommendations Morphine 2 mg IV when necessary for wound VAC change Podiatry says okay to be weightbearing in postop shoe, okay to work out with stationary bike with postop shoe 2030 minutes every other day -Eucerin cream ordered for dry skin to R foot only to apply on plantar aspect. -12/17: After Jennifer evaluated the patient this morning. Advises continuing wound vac MWF, Per podiatry, awaiting fully granular wound base. Once achieved, patient will need partial thickness skin graft harvest and application. Will follow up in 1 week. Sinus tachycardia: Heart rate has been more persistently elevated since 12/06. Afebrile. -Will order TSH. Diabetes mellitus. Hemoglobin A1c 11.8. Current regimen: Levemir to 15 units units at bedtime and 22 units in the morning. Accu-Cheks with sliding scale coverage. 12/17: Patient persistently elevated above 170 at night. Last night's blood glucose level was elevated at 283. Will increase morning Levemir dose to 24 units. Hypertension. Improving Norvasc 10 mg daily Lisinopril 10 mg daily Monitor for response Tinea cruris Nystatin powder Tobacco abuse. Patient previously counseled regarding cessation. Peripheral vascular disease. Status post CTA no reconstructible vessels per vascular surgery. Continue asa. Tobacco cessation DVT prophylaxis subcutaneous heparin Discharge Planning 12/02: Per podiatry, needs wound vac set up for discharge. Case management had been previously consulted to set up outpatient antibiotic infusion therapy, but this will not be able to be arranged as patient is on vancomycin 3 times daily. Problem Qualifiers (1) Sepsis: Qualified Code: A41.02 - Sepsis due to methicillin resistant Staphylococcus aureus (MRSA) Alexandra Mora Dec 17, 2016 10:00
[2016-12-17] MEDS: ASPIRIN 81 MG CHEW TAB CHEW SCH (10:30)
[2016-12-17] MEDS: LACTOBACILLUS ACIDOPHILUS TAB PO SCH ×3 (10:30→16:03)
[2016-12-17] MEDS: HEPARIN SODIUM - SQ 10,000 UNITS/ML VIAL SQ SCH ×2 (10:31→21:39)
[2016-12-17] MEDS: LISINOPRIL 10 MG TAB PO SCH (10:31)
[2016-12-17] MEDS: ACETAMINOPHEN/HYDROcodone 325 MG/7.5 MG TAB PO PRN ×2 (10:32→17:42)
[2016-12-17 20:20] VITALS: BP 119/94; PULSE 102; RESP 18; TEMP 98.3; O2SAT 98
[2016-12-18] MEDS: VANCOMYCIN INJ 1,250 MG in SODIUM CHLOR 0.9% 250 ML INJ 250 ML IV SCH ×3 (02:33→18:33)
[2016-12-18 06:19] LABS: HEMATOCRIT 38.4 % (39.0-51.0); HEMO FLAGS AUTO DIFF; MEAN CELL VOLUME 86.5 FL (80.0-100.0); MEAN CORPUSCULAR HEMOGLOBIN 30.5 PG (27.0-34.0); MEAN CORPUSCULAR HGB CONC 35.2 % (32.0-36.0); PLATELET COUNT 210 TH/MM3 (150-450); RED BLOOD COUNT 4.44 MIL/MM3 (4.50-5.90)
[2016-12-18] MEDS: INSULIN ASPART SUPPLEMENTAL SCALE SQ SCH ×4 (06:19→21:00)
[2016-12-18 06:43] LABS: BANDS 3 % (0-6); BASOPHILS 1 % (0-2); EOSINOPHILS 6 % (0-4); NEUTROPHIL # MANUAL DIFF 0.9 TH/MM3 (1.8-7.7); POLYS (SEG NEUTROPHILS) 20 % (16-70); WBC DIFF SAMPLE 100
[2016-12-18 06:44] LABS: PLATELET ESTIMATE SMEAR NORMAL (NORMAL); PLATELET MORPHOLOGY NORMAL (NORMAL); SCAN/DIFF FINAL DIFF MANUAL
[2016-12-18 08:00] VITALS: BP 144/88; PULSE 98; RESP 18; TEMP 97.9; O2SAT 98
[2016-12-18] MEDS: LISINOPRIL 10 MG TAB PO SCH (08:23)
[2016-12-18] MEDS: LACTOBACILLUS ACIDOPHILUS TAB PO SCH ×3 (08:23→17:52)
[2016-12-18] MEDS: ASPIRIN 81 MG CHEW TAB CHEW SCH (08:23)
[2016-12-18] MEDS: SODIUM CHLORIDE 0.9% FLUSH 10 ML FLUSH IV FLUSH SCH ×3 (08:24→21:21)
[2016-12-18] MEDS: HEPARIN SODIUM - SQ 10,000 UNITS/ML VIAL SQ SCH ×2 (08:24→21:18)
[2016-12-18] MEDS: ACETAMINOPHEN/HYDROcodone 325 MG/7.5 MG TAB PO PRN ×3 (08:27→21:23)
[2016-12-18] MEDS: MUPIROCIN 2% CREAM 15 GM TOPICAL SCH ×2 (09:00→21:00)
[2016-12-18] MEDS: INSULIN DETEMIR 100 UNITS/ML VIAL SQ SCH ×2 (09:00→21:21)
--- NOTE | 2016-12-18 09:46 | HHI.PR ---
Subjective Remarks Follow up for endocarditis and diabetic foot infection s/p I&D R foot with Integra graft placement and wound vac on 12/02. Has pain in R foot but attributes pain to walking on it. Objective Vitals Vital Signs Date Time Temp Pulse Resp B/P Pulse Ox O2 Delivery O2 Flow Rate FiO2 12/18/16 08:00 97.9 98 18 144/88 98 12/17/16 20:20 98.3 102 18 119/94 98 I/O 12/17/16 12/17/16 12/17/16 12/18/16 12/18/16 12/18/16 07:00 15:00 23:00 07:00 15:00 23:00 Intake Total 1025 ml 720 ml Balance 1025 ml 720 ml Intake Oral 480 ml 720 ml IV Total 545 ml # Voids 1 3 3 # Bowel Movements 0 Result Diagram: 12/18/16 0600 12/18/16 0600 Objective Remarks GENERAL: Pleasant, well-nourished, well-developed patient in no apparent distress. CARDIOVASCULAR: Regular rhythm. RESPIRATORY: No accessory muscle use. Clear to auscultation. Breath sounds equal bilaterally. GASTROINTESTINAL: Abdomen soft, nontender, nondistended. MUSCULOSKELETAL: Post-op shoe R foot. NEUROLOGICAL: Awake and alert. Normal speech. PSYCHIATRIC: Appropriate mood and affect; insight and judgment normal. 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 He presents to the emergency department because of cellulitis/abscess involving his right foot. Mitral valve endocarditis: stable Presented with sepsis from diabetic foot infection, bacteremia Blood cultures indicated Staphylococcus epidermidis Repeat blood cultures 11/19/16 have remained negative Echocardiogram 11/19/16 indicated aortic valve was moderately thickened leaflets , specifically of the left coronary cusp, cannot rule out endocarditis. NORIS 11/21/16 indicates mitral valve with echo density on the atrial aspect of the base of the anterior leaflet appearance consistent with vegetation. Probable endocarditis of the anterior leaflet of the mitral valve. Infectious disease was consulted and evaluated the patient and recommend 6 weeks worth of IV vancomycin, until December 28, 2016. PICC line placed 11/25/16 for long-term antibiotics 12/16: CBC reviewed with mild leukopenia 3.2; neutrophils 27%, manual count low at 0.9. Platelets normal.Continue to monitor for worsening neutropenia 12/18: CBC with diff shows improved WBC count of 4.0, but neutrophil % further decreased at 20 although manual count is low but stable at 0.9. I discussed with ID, Dr. Silva, who states do not change antibiotics for now. Diabetic foot infection. He has cellulitis/abscess status post multiple I&D, Integra graft placement and wound VAC application. Culture growing multiple organisms. Infectious disease consulted and made antibiotic recommendations Morphine 2 mg IV when necessary for wound VAC change Podiatry says okay to be weightbearing in postop shoe, okay to work out with stationary bike with postop shoe 2030 minutes every other day -Eucerin cream ordered for dry skin to R foot only to apply on plantar aspect. -12/17: Dr. Rodriguez evaluated the patient this morning. Advises continuing wound vac MWF, Per podiatry, awaiting fully granular wound base. Once achieved, patient will need partial thickness skin graft harvest and application. Will follow up in 1 week. Sinus tachycardia: Heart rate has been more persistently elevated since 12/06. Afebrile. -12/18: Stable. TSH normal. Cr normal. Monitor. Diabetes mellitus. Hemoglobin A1c 11.8. Current regimen: Levemir to 15 units units at bedtime and 22 units in the morning. Accu-Cheks with sliding scale coverage. 12/17: Patient persistently elevated above 170 at night. Last night's blood glucose level was elevated at 283. Will increase morning Levemir dose to 24 units. 12/18: BGL 267 last night, good at 126 this morning. Increased am Levemir dose to start this morning. Continue to monitor daily and adjust as needed. Hypertension: stable Norvasc 10 mg daily Lisinopril 10 mg daily 12/18: BP mildly elevated this morning. Continue to monitor. Tinea cruris Nystatin powder Tobacco abuse. Patient previously counseled regarding cessation. Peripheral vascular disease. Status post CTA no reconstructible vessels per vascular surgery. Continue asa. Tobacco cessation DVT prophylaxis subcutaneous heparin Discharge Planning 12/02: Per podiatry, needs wound vac set up for discharge. Case management had been previously consulted to set up outpatient antibiotic infusion therapy, but this will not be able to be arranged as patient is on vancomycin 3 times daily. Problem Qualifiers (1) Sepsis: Qualified Code: A41.02 - Sepsis due to methicillin resistant Staphylococcus aureus (MRSA) Alexandra Mora Dec 18, 2016 09:46
[2016-12-18 20:00] VITALS: BP 131/89; PULSE 108; RESP 19; TEMP 97.6; O2SAT 98
[2016-12-19] MEDS: ACETAMINOPHEN/HYDROcodone 325 MG/7.5 MG TAB PO PRN ×3 (03:16→18:16)
[2016-12-19] MEDS: VANCOMYCIN INJ 1,250 MG in SODIUM CHLOR 0.9% 250 ML INJ 250 ML IV SCH ×3 (03:16→18:12)
[2016-12-19] MEDS: INSULIN ASPART SUPPLEMENTAL SCALE SQ SCH ×4 (05:32→21:00)
[2016-12-19 08:00] VITALS: BP 144/91; PULSE 99; RESP 19; TEMP 97.3; O2SAT 99
[2016-12-19] MEDS ORDERED: INSULIN ASPART SUPPLEMENTAL SCALE SQ ONE (08:30)
[2016-12-19] MEDS: MUPIROCIN 2% CREAM 15 GM TOPICAL SCH ×2 (09:00→21:00)
[2016-12-19] MEDS: SODIUM CHLORIDE 0.9% FLUSH 10 ML FLUSH IV FLUSH SCH ×3 (09:00→21:10)
--- NOTE | 2016-12-19 09:25 | HHI.PR ---
Subjective Remarks Follow up for endocarditis and diabetic foot infection s/p I&D R foot with Integra graft placement and wound vac on 12/02. Patient states the pain medication helps his right foot pain. Denies any fevers or chills. Objective Vitals Vital Signs Date Time Temp Pulse Resp B/P Pulse Ox O2 Delivery O2 Flow Rate FiO2 12/19/16 08:00 97.3 99 19 144/91 99 12/18/16 20:00 97.6 108 19 131/89 98 I/O 12/18/16 12/18/16 12/18/16 12/19/16 12/19/16 12/19/16 07:00 15:00 23:00 07:00 15:00 23:00 Intake Total 600 ml 240 ml 120 ml Output Total 300 ml 675 ml Balance 300 ml 240 ml -555 ml Intake Oral 600 ml 240 ml 120 ml Output Urine Total 300 ml 675 ml # Voids 3 2 2 # Bowel Movements 0 Result Diagram: 12/18/16 0600 12/18/16 0600 Objective Remarks GENERAL: Pleasant, well-nourished, well-developed patient in no apparent distress sitting in recliner. SKIN: R toes with light pink discoloration, same. CARDIOVASCULAR: Regular rhythm. RESPIRATORY: No accessory muscle use. Clear to auscultation. Breath sounds equal bilaterally. GASTROINTESTINAL: Abdomen soft, nontender, nondistended. MUSCULOSKELETAL: Post-op shoe R foot. Capillary refill normal in R toes which are slightly swollen, same. NEUROLOGICAL: Awake and alert. Normal speech. PSYCHIATRIC: Appropriate mood and affect; insight and judgment normal. Procedures R foot infection, I&D 11/18/16 and 11/20/16 [facility], 11/24 [place] Urinary Catheter: No Vascular Central Line Catheter: Yes Assessment to: Continue Date of Insertion: Nov 25, 2016 Line: PICC Side: Right Reason for Continuation shelter antibiotics A/P Problem List: (1) Sepsis ICD Code: A41.9 Status: Acute (2) Cellulitis of right foot ICD Code: L03.115 Status: Acute (3) Type 2 diabetes mellitus ICD Code: E11.9 Status: Acute (4) Bacteremia due to methicillin resistant Staphylococcus aureus ICD Code: R78.81 Status: Acute Assessment and Plan 51-year-old male with history of diabetes and tobacco abuse. He presents to the emergency department because of cellulitis/abscess involving his right foot. Mitral valve endocarditis: stable Presented with sepsis from diabetic foot infection, bacteremia Blood cultures indicated Staphylococcus epidermidis Repeat blood cultures 11/19/16 have remained negative Echocardiogram 11/19/16 indicated aortic valve was moderately thickened leaflets , specifically of the left coronary cusp, cannot rule out endocarditis. NORIS 11/21/16 indicates mitral valve with echo density on the atrial aspect of the base of the anterior leaflet appearance consistent with vegetation. Probable endocarditis of the anterior leaflet of the mitral valve. Infectious disease was consulted and evaluated the patient and recommend 6 weeks worth of IV vancomycin, until December 28, 2016. PICC line placed 11/25/16 for long-term antibiotics 12/16: CBC reviewed with mild leukopenia 3.2; neutrophils 27%, manual count low at 0.9. Platelets normal.Continue to monitor for worsening neutropenia 12/18: CBC with diff shows improved WBC count of 4.0, but neutrophil % further decreased at 20 although manual count is low but stable at 0.9. I discussed with ID, Dr. Silva, who states do not change antibiotics for now. Diabetic foot infection. He has cellulitis/abscess status post multiple I&D, Integra graft placement and wound VAC application. Culture growing multiple organisms. Infectious disease consulted and made antibiotic recommendations Morphine 2 mg IV when necessary for wound VAC change Podiatry says okay to be weightbearing in postop shoe, okay to work out with stationary bike with postop shoe 2030 minutes every other day -Eucerin cream ordered for dry skin to R foot only to apply on plantar aspect. -12/17: Dr. Rodriguez evaluated the patient this morning. Advises continuing wound vac MWF, Per podiatry, awaiting fully granular wound base. Once achieved, patient will need partial thickness skin graft harvest and application. Will follow up in 1 week. Sinus tachycardia: Heart rate has been more persistently elevated since 12/06. Afebrile. -12/18: Stable. TSH normal. Cr normal. Monitor. -12/19: Evaluate am BMP Diabetes mellitus. Hemoglobin A1c 11.8. Current regimen: Levemir to 15 units units at bedtime and 22 units in the morning. Accu-Cheks with sliding scale coverage. 12/17: Patient persistently elevated above 170 at night. Last night's blood glucose level was elevated at 283. Will increase morning Levemir dose to 24 units. 12/18: BGL 267 last night, good at 126 this morning. Increased am Levemir dose to start this morning. 12/19: BGL still above 200 last night but improved from prior. Continue to monitor and adjust medication as needed. Hypertension: Norvasc 10 mg daily Lisinopril 10 mg daily 12/19/16: BP in the 140's again this morning. Monitor. Tinea cruris Nystatin powder Tobacco abuse. Patient previously counseled regarding cessation. Peripheral vascular disease. Status post CTA no reconstructible vessels per vascular surgery. Continue asa. Tobacco cessation DVT prophylaxis subcutaneous heparin Discharge Planning 12/02: Per podiatry, needs wound vac set up for discharge. Case management had been previously consulted to set up outpatient antibiotic infusion therapy, but this will not be able to be arranged as patient is on vancomycin 3 times daily. Problem Qualifiers (1) Sepsis: Qualified Code: A41.02 - Sepsis due to methicillin resistant Staphylococcus aureus (MRSA) Alexandra Mora Dec 19, 2016 09:25
[2016-12-19] MEDS: INSULIN DETEMIR 100 UNITS/ML VIAL SQ SCH ×2 (10:24→21:14)
[2016-12-19] MEDS: HEPARIN SODIUM - SQ 10,000 UNITS/ML VIAL SQ SCH ×2 (10:26→21:09)
[2016-12-19] MEDS: LISINOPRIL 10 MG TAB PO SCH (10:29)
[2016-12-19] MEDS: LACTOBACILLUS ACIDOPHILUS TAB PO SCH ×3 (10:29→17:36)
[2016-12-19] MEDS: ASPIRIN 81 MG CHEW TAB CHEW SCH (10:29)
[2016-12-19 20:00] VITALS: BP 107/62; PULSE 102; RESP 20; TEMP 98.6; O2SAT 97
[2016-12-20] MEDS: ACETAMINOPHEN/HYDROcodone 325 MG/7.5 MG TAB PO PRN ×3 (00:28→20:04)
[2016-12-20] MEDS ORDERED: PHARMACY ORDERED LAB ONE (02:45)
[2016-12-20] MEDS: VANCOMYCIN INJ 1,250 MG in SODIUM CHLOR 0.9% 250 ML INJ 250 ML IV SCH ×3 (02:52→18:05)
[2016-12-20] MEDS: INSULIN ASPART SUPPLEMENTAL SCALE SQ SCH ×4 (05:37→20:04)
[2016-12-20 05:59] LABS: POTASSIUM 4.1 MEQ/L (3.5-5.1)
[2016-12-20 06:02] LABS: BICARBONATE 29.3 MEQ/L (21.0-32.0)
[2016-12-20 08:00] VITALS: BP 119/82; PULSE 105; RESP 18; TEMP 100.5; O2SAT 99
[2016-12-20] MEDS ORDERED: INSULIN ASPART SUPPLEMENTAL SCALE SQ ONE ×3 (08:00→08:30)
[2016-12-20] MEDS ORDERED: DEXTROSE 50% IN WATER 50 ML VIAL(D50) IV PRN (08:15)
[2016-12-20] MEDS ORDERED: GLUCAGON 1 MG/ML VIAL OTHER PRN (08:15)
[2016-12-20] MEDS: SODIUM CHLORIDE 0.9% FLUSH 10 ML FLUSH IV FLUSH SCH ×3 (09:00→20:06)
[2016-12-20] MEDS: MUPIROCIN 2% CREAM 15 GM TOPICAL SCH ×2 (09:00→20:09)
[2016-12-20] MEDS: LISINOPRIL 10 MG TAB PO SCH (09:51)
[2016-12-20] MEDS: LACTOBACILLUS ACIDOPHILUS TAB PO SCH ×3 (09:51→17:29)
[2016-12-20] MEDS: ASPIRIN 81 MG CHEW TAB CHEW SCH (09:52)
[2016-12-20] MEDS: HEPARIN SODIUM - SQ 10,000 UNITS/ML VIAL SQ SCH ×2 (09:54→20:03)
[2016-12-20] MEDS: INSULIN DETEMIR 100 UNITS/ML VIAL SQ SCH ×2 (09:59→20:03)
--- NOTE | 2016-12-20 10:53 | HHI.PR ---
Subjective Remarks Follow up for endocarditis, diabetic foot infection, and tachycardia. Complains of pain in his left upper molar. Denies purulence from the mouth. Denies any fevers or chills. Denies dizziness, palpitations, chest pain, or shortness of breath. Objective Vitals Vital Signs Date Time Temp Pulse Resp B/P Pulse Ox O2 Delivery O2 Flow Rate FiO2 12/19/16 20:00 98.6 102 20 107/62 97 12/19/16 11:29 18 I/O 12/19/16 12/19/16 12/19/16 12/20/16 12/20/16 12/20/16 06:59 14:59 22:59 06:59 14:59 22:59 Intake Total 120 ml 600 ml 360 ml 490 ml Output Total 675 ml Balance -555 ml 600 ml 360 ml 490 ml Intake Oral 120 ml 600 ml 360 ml 240 ml IV Total 250 ml Output Urine Total 675 ml # Voids 2 3 2 2 # Bowel Movements 1 Result Diagram: 12/18/16 0600 12/20/16 0527 Objective Remarks GENERAL: Pleasant, well-nourished, well-developed patient in no apparent distress sitting in recliner. SKIN: Light erythema to proximal R second and third toes, same as prior exams. ENT: Mildly tender over most posterior L upper molar. Tooth is intact, tartar present. Gingiva in this area is without erythema or fluctuance. CARDIOVASCULAR: Tachycardic with regular rhythm. RESPIRATORY: No accessory muscle use. Clear to auscultation. Breath sounds equal bilaterally. GASTROINTESTINAL: Abdomen soft, nontender, nondistended. MUSCULOSKELETAL: Post-op shoe R foot. Capillary refill normal in R toes; toes slightly swollen, same. NEUROLOGICAL: Awake and alert. Sensation grossly intact over toes of R foot. Normal speech. PSYCHIATRIC: Appropriate mood and affect; insight and judgment normal. 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 He presents to the emergency department because of cellulitis/abscess involving his right foot. Mitral valve endocarditis: stable Presented with sepsis from diabetic foot infection, bacteremia Blood cultures indicated Staphylococcus epidermidis Repeat blood cultures 11/19/16 have remained negative Echocardiogram 11/19/16 indicated aortic valve was moderately thickened leaflets , specifically of the left coronary cusp, cannot rule out endocarditis. NORIS 11/21/16 indicates mitral valve with echo density on the atrial aspect of the base of the anterior leaflet appearance consistent with vegetation. Probable endocarditis of the anterior leaflet of the mitral valve. Infectious disease was consulted and evaluated the patient and recommend 6 weeks worth of IV vancomycin, until December 28, 2016. PICC line placed 11/25/16 for long-term antibiotics 12/16: CBC reviewed with mild leukopenia 3.2; neutrophils 27%, manual count low at 0.9. Platelets normal.Continue to monitor for worsening neutropenia 12/18: CBC with diff shows improved WBC count of 4.0, but neutrophil % further decreased at 20 although manual count is low but stable at 0.9. I discussed with ID, Dr. Silva, who states do not change antibiotics for now. Diabetic foot infection. He has cellulitis/abscess status post multiple I&D, Integra graft placement and wound VAC application. Culture growing multiple organisms. Infectious disease consulted and made antibiotic recommendations Morphine 2 mg IV when necessary for wound VAC change Podiatry says okay to be weightbearing in postop shoe, okay to work out with stationary bike with postop shoe 2030 minutes every other day -Eucerin cream ordered for dry skin to R foot only to apply on plantar aspect. -12/17: Dr. Rodriguez evaluated the patient this morning. Advises continuing wound vac MWF, Per podiatry, awaiting fully granular wound base. Once achieved, patient will need partial thickness skin graft harvest and application. Will follow up in 1 week. Sinus tachycardia: Heart rate has been more persistently elevated since 12/06, upper 90's-low 100's. Afebrile. -12/18: TSH normal. Cr normal. -12/20: Stable. BMP reviewed with normal BUN and electrolytes. HR tachy but stable. Asymptomatic. No evidence of new infection or dehydration. Discussed with Dr. John. No need to start medication at this time. Monitor. Diabetes mellitus: stable Hemoglobin A1c 11.8. Levemir 15 units units at bedtime and 24 units in the morning (last adjusted 12/18). Accu-Cheks with sliding scale coverage. 12/20: Nighttime BGL improved. Continue current Levemir regimen. Monitor and adjust medication as needed. Hypertension: Improved. Norvasc 10 mg daily Lisinopril 10 mg daily Tinea cruris Nystatin powder Tobacco abuse. Patient previously counseled regarding cessation. Peripheral vascular disease. Status post CTA No reconstructible vessels per vascular surgery. Continue asa. Tobacco cessation DVT prophylaxis subcutaneous heparin Note: Patient had a recorded temp of 100.5 this morning, but nurse called me back informing me that the oral temp was taken directly after the patient had a hot beverage. His temp was rechecked and is normal. Discharge Planning 12/02: Per podiatry, needs wound vac set up for discharge. Case management had been previously consulted to set up outpatient antibiotic infusion therapy, but this will not be able to be arranged as patient is on vancomycin 3 times daily. Problem Qualifiers (1) Sepsis: Qualified Code: A41.02 - Sepsis due to methicillin resistant Staphylococcus aureus (MRSA) Alexandra Mora Dec 20, 2016 10:53
[2016-12-20] MEDS: MORPHINE SULFATE 4 MG/ML INJ IV PUSH PRN (16:02)
[2016-12-20 17:05] VITALS: TEMP 96.5
[2016-12-20 20:00] VITALS: BP 115/80; PULSE 104; RESP 16; TEMP 97.4; O2SAT 99
--- NOTE | 2016-12-20 20:03 | HHI.IDPN ---
Subjective Subjective Remarks Patient on IV Vancomycin till 12/28 Concern about some Neutropenia and if Vancomycin needs to be changed. Patient feels a lot better Low grade fever Rt foot wound vac changed today- reviewed photographs. Eating well. No diarrhea Antibiotics Vancomycin Lines Rt PICC line Past Medical History Type 2 diabetes Allergies: Coded Allergies: Penicillin (Verified Allergy, Severe, 11/16/16) Review of Systems Constitutional Constitutional: Fever (Low grade) Constitutional Remarks No chills Objective . Vital Signs Date Time Temp Pulse Resp B/P Pulse Ox O2 Delivery O2 Flow Rate FiO2 12/20/16 17:05 96.5 12/20/16 16:07 18 12/20/16 08:00 100.5 105 18 119/82 99 12/19/16 20:00 98.6 102 20 107/62 97 12/19/16 12/19/16 12/20/16 15:00 23:00 07:00 Intake Total 600 ml 360 ml 490 ml Balance 600 ml 360 ml 490 ml Intake Oral 600 ml 360 ml 240 ml IV Total 250 ml # Voids 3 2 2 # Bowel Movements 1 . Laboratory Tests Test 12/20/16 05:27 Sodium Level 139 MEQ/L Potassium Level 4.1 MEQ/L Chloride Level 102 MEQ/L Carbon Dioxide Level 29.3 MEQ/L Anion Gap 8 MEQ/L Blood Urea Nitrogen 14 MG/DL Creatinine 0.59 MG/DL Estimat Glomerular Filtration 144 ML/MIN Rate Random Glucose 200 MG/DL Calcium Level 8.9 MG/DL Physical Exam GENERAL: This is a chronically ill patient, appears older than in no apparent distress. SKIN: Right foot with a wound vac- HEAD: Atraumatic. Normocephalic. No temporal or scalp tenderness. EYES: Pupils equal round and reactive. Extraocular motions intact. No scleral icterus. No injection or drainage. ENT: Nose without bleeding, purulent drainage or septal hematoma. Throat without erythema, tonsillar hypertrophy or exudate. Uvula midline. Airway patent. Poor dental hygiene NECK: Trachea midline. No JVD or lymphadenopathy. Supple, nontender, no meningeal signs. CARDIOVASCULAR: Regular rate and rhythm without murmurs, gallops, or rubs. RESPIRATORY: Clear to auscultation. Breath sounds equal bilaterally. No wheezes , rales, or rhonchi. GASTROINTESTINAL: Abdomen soft, non-tender, nondistended. No hepato-splenomegaly , or palpable masses. No guarding. MUSCULOSKELETAL: Rt foot with a wound vac NEUROLOGICAL: Awake and alert. Cranial nerves II through XII intact. Motor and sensory grossly within normal limits. Five out of 5 muscle strength in all muscle groups. Normal speech. Assessment & Plan Diagnosis: (1) Type 2 diabetes mellitus (2) Endocarditis of mitral valve Plan: Continue IV Vancomycin till 12/28 With some low grade fevers- though patient feels well- if fevers persist- check Blood cultures (3) Diabetic foot infection Plan: On Wound vac Podiatry following patient (4) Neutropenia Plan: Possibility of drug induced however will continue the Vancomycin and monitor CBC with diff closely. If it gets worse then will need to change it. Bren Silva MD Dec 20, 2016 20:03
[2016-12-21] MEDS: VANCOMYCIN INJ 1,250 MG in SODIUM CHLOR 0.9% 250 ML INJ 250 ML IV SCH ×3 (03:02→18:32)
[2016-12-21 05:47] LABS: HEMATOCRIT 38.8 % (39.0-51.0); MEAN CELL VOLUME 88.1 FL (80.0-100.0); MEAN CORPUSCULAR HEMOGLOBIN 29.8 PG (27.0-34.0); MEAN CORPUSCULAR HGB CONC 33.8 % (32.0-36.0); PLATELET COUNT 231 TH/MM3 (150-450); RED CELL DISTRIBUTION WIDTH 13.4 % (11.6-17.2)
[2016-12-21 05:59] LABS: HEMO FLAGS AUTO DIFF
[2016-12-21 06:38] LABS: WESTERGREN SEDIMENTATION RATE 42 mm/hr (0-20)
[2016-12-21 07:07] LABS: BASOPHILS 2 % (0-2); EOSINOPHILS 3 % (0-4); NEUTROPHIL # MANUAL DIFF 0.8 TH/MM3 (1.8-7.7); POLYS (SEG NEUTROPHILS) 20 % (16-70); WBC DIFF SAMPLE 100
[2016-12-21 07:08] LABS: SCAN/DIFF FINAL DIFF MANUAL
[2016-12-21 08:00] VITALS: BP 136/88; PULSE 103; RESP 16; TEMP 97; O2SAT 98
[2016-12-21] MEDS: LISINOPRIL 10 MG TAB PO SCH (08:08)
[2016-12-21] MEDS: LACTOBACILLUS ACIDOPHILUS TAB PO SCH ×3 (08:08→17:01)
[2016-12-21] MEDS: ASPIRIN 81 MG CHEW TAB CHEW SCH (08:08)
[2016-12-21] MEDS: ACETAMINOPHEN/HYDROcodone 325 MG/7.5 MG TAB PO PRN ×3 (08:09→21:47)
[2016-12-21] MEDS: HEPARIN SODIUM - SQ 10,000 UNITS/ML VIAL SQ SCH ×2 (08:09→20:33)
[2016-12-21] MEDS: SODIUM CHLORIDE 0.9% FLUSH 10 ML FLUSH IV FLUSH SCH ×3 (08:10→20:33)
[2016-12-21] MEDS: INSULIN DETEMIR 100 UNITS/ML VIAL SQ SCH ×2 (08:12→20:29)
[2016-12-21] MEDS: INSULIN ASPART SUPPLEMENTAL SCALE SQ SCH ×4 (08:17→20:28)
[2016-12-21] MEDS: MUPIROCIN 2% CREAM 15 GM TOPICAL SCH ×2 (08:18→21:00)
--- NOTE | 2016-12-21 11:46 | HHI.PR ---
Subjective Remarks Patient seen and examined today for follow-up on right foot infection. Patient states that he is doing better. Patient did have graft removed because of improved healing. He indicates podiatry plans on doing a skin graft if continues to heal. Objective Vitals Vital Signs Date Time Temp Pulse Resp B/P Pulse Ox O2 Delivery O2 Flow Rate FiO2 12/21/16 09:15 18 12/21/16 08:00 97.0 103 16 136/88 98 12/20/16 20:00 97.4 104 16 115/80 99 12/20/16 17:05 96.5 12/20/16 16:07 18 I/O 12/20/16 12/20/16 12/20/16 12/21/16 12/21/16 12/21/16 07:00 15:00 23:00 07:00 15:00 23:00 Intake Total 490 ml 1080 ml 480 ml Balance 490 ml 1080 ml 480 ml Intake Oral 240 ml 1080 ml 480 ml IV Total 250 ml # Voids 2 5 1 # Bowel Movements 0 0 Result Diagram: 12/21/16 0509 12/20/16 0527 Objective Remarks GENERAL: Well-developed, well-nourished, in no acute distress. alert and orientated HEENT: Head is normocephalic without any lesions or masses noted. Facial features are symmetric. Eyes: Extraocular muscles are intact. Conjunctivae were clear. NECK: Supple without any masses. Trachea midline no deviation. No JVD, CARDIAC: Regular rhythm, regular rate. S1/S2 are heard. No murmurs gallops or rubs. LUNGS: Clear to auscultation bilaterally. No wheeze, rhonchi or rales. No use of accessory muscles on inspiration or expiration. ABDOMEN: Soft, nontender. Nondistended. Bowel sounds heard in all 4 quadrants. No organomegaly or masses. Negative rebound, negative guarding EXTREMITIES: No edema, pulses are equal bilaterally. No cyanosis or clubbing NEUROLOGY: Mood and affect appear appropriate. Cranial nerves II through XII grossly intact. Moving all extremities, speech is clear RIGHT FOOT: Patient does have right foot wound which appears to be healing fine , nice pink edges, able see tendon sheaths through graft material. No signs of infection Procedures R foot infection, I&D 11/18/16 and 11/20/16 [facility] [place], 11/24 [place] [facility]IS Urinary Catheter: Yes Assessment to: Continue Vascular Central Line Catheter: No Date of Insertion: Nov 25, 2016 Line: PICC Side: Right A/P Assessment and Plan 51-year-old male with history of diabetes and tobacco abuse. He presents to the emergency department because of cellulitis/abscess involving his right foot. Mitral valve endocarditis Patient originally presented with sepsis from diabetic foot infection, bacteremia Blood cultures indicated Staphylococcus epidermidis Repeat blood cultures 11/19/16 have remained negative Echocardiogram 11/19/16 indicated aortic valve was moderately thickened leaflets , specifically of the left coronary cusp, cannot rule out endocarditis does not appear mobile as endocarditis would be NORIS 11/21/16 indicates mitral valve with echo density on the atrial aspect of the base of the anterior leaflet appearance consistent with vegetation. Probable endocarditis of the anterior leaflet of the mitral valve. Infectious disease was consulted and evaluated the patient and at this time recommending 6 weeks worth of IV vancomycin, until December 28, 2016 PICC line placed 11/25/16 for long-term antibiotics Case management consulted trying to arrange outpatient antibiotics Infectious disease reconsulted due to neutropenia and low-grade fever. They recommended continue to monitor and if patient continues to have fever then repeat blood culture. Indicated that neutropenia could be secondary to medication side effects Diabetic foot infection. He has cellulitis/abscess status post multiple I&D, intragraft placement and wound VAC application. Culture growing multiple organisms. Infectious disease consulted and made antibiotic recommendations Morphine 2 mg IV when necessary for wound VAC change Podiatry says okay to be weightbearing in postop shoe, okay to work out with stationary bike with postop shoe 2030 minutes every other day Diabetes mellitus. Improving Hemoglobin A1c 11.8. Levemir to 16 units units at bedtime and 26 units in the morning. Accu-Cheks with sliding scale coverage. Hypertension. Improving Norvasc 10 mg daily lisinopril 10 mg daily Monitor for response Tinea cruris Nystatin powder Tobacco abuse. Patient previously counseled regarding cessation. Peripheral vascular disease. Status post CTA no reconstructible vessels per vascular surgery. Ct asa. Tobacco cessation DVT prophylaxis subcutaneous heparin Discharge Planning Discharge planning if case management can arrange outpatient antibiotics, otherwise, patient remain at [facility] for long-term care until antibiotics completed Diogo Gallagher Dec 21, 2016 11:45
[2016-12-21 20:00] VITALS: BP 123/74; PULSE 97; RESP 18; TEMP 96.8; O2SAT 97
[2016-12-22] MEDS: VANCOMYCIN INJ 1,250 MG in SODIUM CHLOR 0.9% 250 ML INJ 250 ML IV SCH ×3 (03:09→17:58)
[2016-12-22] MEDS: INSULIN ASPART SUPPLEMENTAL SCALE SQ SCH ×4 (07:49→20:24)
[2016-12-22 08:00] VITALS: BP 133/81; PULSE 101; RESP 21; TEMP 97.5; O2SAT 99
[2016-12-22] MEDS: MUPIROCIN 2% CREAM 15 GM TOPICAL SCH ×2 (09:00→20:27)
[2016-12-22] MEDS: SODIUM CHLORIDE 0.9% FLUSH 10 ML FLUSH IV FLUSH SCH ×3 (09:00→20:27)
[2016-12-22] MEDS: LISINOPRIL 10 MG TAB PO SCH (09:02)
[2016-12-22] MEDS: ASPIRIN 81 MG CHEW TAB CHEW SCH (09:02)
[2016-12-22] MEDS: LACTOBACILLUS ACIDOPHILUS TAB PO SCH ×3 (09:02→17:58)
[2016-12-22] MEDS: ACETAMINOPHEN/HYDROcodone 325 MG/7.5 MG TAB PO PRN ×2 (09:03→21:03)
[2016-12-22] MEDS: HEPARIN SODIUM - SQ 10,000 UNITS/ML VIAL SQ SCH ×2 (09:05→20:26)
[2016-12-22] MEDS: INSULIN DETEMIR 100 UNITS/ML VIAL SQ SCH ×2 (09:16→20:24)
--- NOTE | 2016-12-22 13:39 | HHI.PR ---
Subjective Remarks Patient seen and examined today for follow-up on right foot wound. Patient states that he is doing well. He is getting up at least 2 times daily to ambulate. Objective Vitals Vital Signs Date Time Temp Pulse Resp B/P Pulse Ox O2 Delivery O2 Flow Rate FiO2 12/22/16 10:03 18 12/22/16 08:00 97.5 101 21 133/81 99 12/21/16 20:00 96.8 97 18 123/74 97 I/O 12/21/16 12/21/16 12/21/16 12/22/16 12/22/16 12/22/16 07:00 15:00 23:00 07:00 15:00 23:00 Intake Total 480 ml 1150 ml 480 ml 480 ml Balance 480 ml 1150 ml 480 ml 480 ml Intake Oral 480 ml 1150 ml 480 ml 480 ml # Voids 1 3 1 1 # Bowel Movements 0 1 0 0 Result Diagram: 12/21/16 0509 12/22/16 0550 Objective Remarks GENERAL: Well-developed, well-nourished, in no acute distress. alert and orientated HEENT: Head is normocephalic without any lesions or masses noted. Facial features are symmetric. Eyes: Extraocular muscles are intact. Conjunctivae were clear. NECK: Supple without any masses. Trachea midline no deviation. No JVD, CARDIAC: Regular rhythm, regular rate. S1/S2 are heard. No murmurs gallops or rubs. LUNGS: Clear to auscultation bilaterally. No wheeze, rhonchi or rales. No use of accessory muscles on inspiration or expiration. ABDOMEN: Soft, nontender. Nondistended. Bowel sounds heard in all 4 quadrants. No organomegaly or masses. Negative rebound, negative guarding EXTREMITIES: No edema, pulses are equal bilaterally. No cyanosis or clubbing NEUROLOGY: Mood and affect appear appropriate. Cranial nerves II through XII grossly intact. Moving all extremities, speech is clear RIGHT FOOT: Patient does have right foot wound which appears to be healing fine , nice pink edges, able see tendon sheaths through graft material. No signs of infection Procedures R foot infection, I&D 11/18/16 and 11/20/16 [place], 11/24 [place] [facility]IS Urinary Catheter: No Vascular Central Line Catheter: Yes Assessment to: Continue Date of Insertion: Nov 25, 2016 Line: PICC Side: Right A/P Assessment and Plan 51-year-old male with history of diabetes and tobacco abuse. He presents to the emergency department because of cellulitis/abscess involving his right foot. Mitral valve endocarditis Patient originally presented with sepsis from diabetic foot infection, bacteremia Blood cultures indicated Staphylococcus epidermidis Repeat blood cultures 11/19/16 have remained negative Echocardiogram 11/19/16 indicated aortic valve was moderately thickened leaflets , specifically of the left coronary cusp, cannot rule out endocarditis does not appear mobile as endocarditis would be NORIS 11/21/16 indicates mitral valve with echo density on the atrial aspect of the base of the anterior leaflet appearance consistent with vegetation. Probable endocarditis of the anterior leaflet of the mitral valve. Infectious disease was consulted and evaluated the patient and at this time recommending 6 weeks worth of IV vancomycin, until December 28, 2016 PICC line placed 11/25/16 for long-term antibiotics Case management consulted trying to arrange outpatient antibiotics Infectious disease reconsulted due to neutropenia and low-grade fever. They recommended continue to monitor and if patient continues to have fever then repeat blood culture. Indicated that neutropenia could be secondary to medication side effects Diabetic foot infection. He has cellulitis/abscess status post multiple I&D, intragraft placement and wound VAC application. Culture growing multiple organisms. Infectious disease consulted and made antibiotic recommendations Morphine 2 mg IV when necessary for wound VAC change Podiatry says okay to be weightbearing in postop shoe, okay to work out with stationary bike with postop shoe 2030 minutes every other day Diabetes mellitus. Improving Hemoglobin A1c 11.8. Levemir to 16 units units at bedtime and 26 units in the morning. Accu-Cheks with sliding scale coverage. Hypertension. Improving Norvasc 10 mg daily lisinopril 10 mg daily Monitor for response Tinea cruris Nystatin powder Tobacco abuse. Patient previously counseled regarding cessation. Peripheral vascular disease. Status post CTA no reconstructible vessels per vascular surgery. Ct asa. Tobacco cessation DVT prophylaxis subcutaneous heparin Discharge Planning Discharge planning if case management can arrange outpatient antibiotics, otherwise, patient remain at [facility] for long-term care until antibiotics completed Diogo Gallagher Dec 22, 2016 13:39
[2016-12-22] MEDS: MORPHINE SULFATE 4 MG/ML INJ IV PUSH PRN (16:17)
[2016-12-22 20:00] VITALS: BP 124/80; PULSE 107; RESP 20; TEMP 98; O2SAT 98
[2016-12-23] MEDS: VANCOMYCIN INJ 1,250 MG in SODIUM CHLOR 0.9% 250 ML INJ 250 ML IV SCH ×3 (03:20→18:51)
[2016-12-23 08:00] VITALS: BP 123/79; PULSE 96; RESP 18; TEMP 96.8; O2SAT 98
[2016-12-23] MEDS: INSULIN ASPART SUPPLEMENTAL SCALE SQ SCH ×4 (08:31→20:32)
[2016-12-23] MEDS: INSULIN DETEMIR 100 UNITS/ML VIAL SQ SCH ×2 (08:35→20:32)
[2016-12-23] MEDS: ASPIRIN 81 MG CHEW TAB CHEW SCH (08:37)
[2016-12-23] MEDS: LISINOPRIL 10 MG TAB PO SCH (08:37)
[2016-12-23] MEDS: LACTOBACILLUS ACIDOPHILUS TAB PO SCH ×3 (08:37→17:20)
[2016-12-23] MEDS: HEPARIN SODIUM - SQ 10,000 UNITS/ML VIAL SQ SCH ×2 (08:38→21:20)
[2016-12-23] MEDS: SODIUM CHLORIDE 0.9% FLUSH 10 ML FLUSH IV FLUSH SCH ×3 (08:39→20:33)
[2016-12-23] MEDS: MUPIROCIN 2% CREAM 15 GM TOPICAL SCH ×2 (08:39→21:00)
--- NOTE | 2016-12-23 08:52 | HHI.PR ---
Subjective Remarks Patient seen and examined today for follow-up on foot wound. Patient is sitting comfortably in the chair. Denies any new complaints. No change in clinical status. Objective Vitals Vital Signs Date Time Temp Pulse Resp B/P Pulse Ox O2 Delivery O2 Flow Rate FiO2 12/22/16 22:03 16 12/22/16 20:00 98.0 107 20 124/80 98 12/22/16 16:22 18 I/O 12/22/16 12/22/16 12/22/16 12/23/16 12/23/16 12/23/16 07:00 15:00 23:00 07:00 15:00 23:00 Intake Total 480 ml 520 ml 240 ml 755 ml Balance 480 ml 520 ml 240 ml 755 ml Intake Oral 480 ml 520 ml 240 ml 480 ml IV Total 275 ml # Voids 1 2 2 # Bowel Movements 0 0 0 Result Diagram: 12/21/16 0509 12/22/16 0550 Objective Remarks GENERAL: Well-developed, well-nourished, in no acute distress. alert and orientated HEENT: Head is normocephalic without any lesions or masses noted. Facial features are symmetric. Eyes: Extraocular muscles are intact. Conjunctivae were clear. NECK: Supple without any masses. Trachea midline no deviation. No JVD, CARDIAC: Regular rhythm, regular rate. S1/S2 are heard. No murmurs gallops or rubs. LUNGS: Clear to auscultation bilaterally. No wheeze, rhonchi or rales. No use of accessory muscles on inspiration or expiration. ABDOMEN: Soft, nontender. Nondistended. Bowel sounds heard in all 4 quadrants. No organomegaly or masses. Negative rebound, negative guarding EXTREMITIES: No edema, pulses are equal bilaterally. No cyanosis or clubbing NEUROLOGY: Mood and affect appear appropriate. Cranial nerves II through XII grossly intact. Moving all extremities, speech is clear RIGHT FOOT: Patient does have right foot wound which appears to be healing fine , nice pink edges, able see tendon sheaths through graft material. No signs of infection Procedures R foot infection, I&D 11/18/16 and 11/20/16 [place], 11/24 [place] [facility] Urinary Catheter: No Vascular Central Line Catheter: Yes Assessment to: Continue Date of Insertion: Nov 25, 2016 Line: PICC Side: Right A/P Assessment and Plan 51-year-old male with history of diabetes and tobacco abuse. He presents to the emergency department because of cellulitis/abscess involving his right foot. Mitral valve endocarditis Patient originally presented with sepsis from diabetic foot infection, bacteremia Blood cultures indicated Staphylococcus epidermidis Repeat blood cultures 11/19/16 have remained negative Echocardiogram 11/19/16 indicated aortic valve was moderately thickened leaflets , specifically of the left coronary cusp, cannot rule out endocarditis does not appear mobile as endocarditis would be NORIS 11/21/16 indicates mitral valve with echo density on the atrial aspect of the base of the anterior leaflet appearance consistent with vegetation. Probable endocarditis of the anterior leaflet of the mitral valve. Infectious disease was consulted and evaluated the patient and at this time recommending 6 weeks worth of IV vancomycin, until December 28, 2016 PICC line placed 11/25/16 for long-term antibiotics Case management consulted trying to arrange outpatient antibiotics Infectious disease reconsulted due to neutropenia and low-grade fever. They recommended continue to monitor and if patient continues to have fever then repeat blood culture. Indicated that neutropenia could be secondary to medication side effects Diabetic foot infection. He has cellulitis/abscess status post multiple I&D, intragraft placement and wound VAC application. Culture growing multiple organisms. Infectious disease consulted and made antibiotic recommendations Morphine 2 mg IV when necessary for wound VAC change Podiatry says okay to be weightbearing in postop shoe, okay to work out with stationary bike with postop shoe 2030 minutes every other day Diabetes mellitus. Improving Hemoglobin A1c 11.8. Levemir to 16 units units at bedtime and 26 units in the morning. Accu-Cheks with sliding scale coverage. Hypertension. Improving Norvasc 10 mg daily lisinopril 10 mg daily Monitor for response Tinea cruris Status post Nystatin powder Tobacco abuse. Patient previously counseled regarding cessation. Peripheral vascular disease. Status post CTA no reconstructible vessels per vascular surgery. Ct asa. Tobacco cessation DVT prophylaxis subcutaneous heparin Discharge Planning Discharge planning if case management can arrange outpatient antibiotics, otherwise, patient remain at [facility] for long-term care until antibiotics completed Diogo Gallagher Dec 23, 2016 08:52
[2016-12-23] MEDS: ACETAMINOPHEN/HYDROcodone 325 MG/7.5 MG TAB PO PRN (10:40)
[2016-12-23] MEDS: SODIUM CHLORIDE 0.9% FLUSH 10 ML FLUSH IV FLUSH PRN (10:42)
[2016-12-23 23:40] VITALS: BP 123/84; PULSE 105; RESP 18; TEMP 97.6; O2SAT 99
[2016-12-24] MEDS: VANCOMYCIN INJ 1,250 MG in SODIUM CHLOR 0.9% 250 ML INJ 250 ML IV SCH ×3 (02:37→18:26)
[2016-12-24 08:00] VITALS: BP 140/88; PULSE 106; RESP 18; TEMP 97.8; O2SAT 100
[2016-12-24] MEDS: LACTOBACILLUS ACIDOPHILUS TAB PO SCH ×3 (08:12→18:25)
[2016-12-24] MEDS: ASPIRIN 81 MG CHEW TAB CHEW SCH (08:12)
[2016-12-24] MEDS: LISINOPRIL 10 MG TAB PO SCH (08:12)
[2016-12-24] MEDS: HEPARIN SODIUM - SQ 10,000 UNITS/ML VIAL SQ SCH ×2 (08:13→21:45)
[2016-12-24] MEDS: SODIUM CHLORIDE 0.9% FLUSH 10 ML FLUSH IV FLUSH SCH ×3 (08:14→21:45)
[2016-12-24] MEDS: MUPIROCIN 2% CREAM 15 GM TOPICAL SCH ×2 (08:15→21:00)
[2016-12-24] MEDS: INSULIN ASPART SUPPLEMENTAL SCALE SQ SCH ×4 (08:19→21:00)
[2016-12-24] MEDS: INSULIN DETEMIR 100 UNITS/ML VIAL SQ SCH ×2 (08:20→21:44)
[2016-12-24] MEDS: ACETAMINOPHEN/HYDROcodone 325 MG/7.5 MG TAB PO PRN ×2 (08:41→18:25)
--- NOTE | 2016-12-24 08:48 | HHI.PR ---
Subjective Remarks Patient seen and examined today for follow-up on right foot wound. Patient is sitting in chair without any complaints. He does have questions about skin grafting and how it is to be performed and if he would require wound VAC afterwards. I told him he needed to speak to the ladder operator regarding the surgical procedures and aftercare. Objective Vitals Vital Signs Date Time Temp Pulse Resp B/P Pulse Ox O2 Delivery O2 Flow Rate FiO2 12/23/16 23:40 97.6 105 18 123/84 99 I/O 12/23/16 12/23/16 12/23/16 12/24/16 12/24/16 12/24/16 06:59 14:59 22:59 06:59 14:59 22:59 Intake Total 755 ml 900 ml 720 ml Output Total 650 ml Balance 755 ml 900 ml 70 ml Intake Oral 480 ml 600 ml 720 ml IV Total 275 ml 300 ml Output Urine Total 650 ml # Voids 2 3 # Bowel Movements 0 1 Result Diagram: 12/21/16 0509 12/24/16 0640 Objective Remarks GENERAL: Well-developed, well-nourished, in no acute distress. alert and orientated HEENT: Head is normocephalic without any lesions or masses noted. Facial features are symmetric. Eyes: Extraocular muscles are intact. Conjunctivae were clear. NECK: Supple without any masses. Trachea midline no deviation. No JVD, CARDIAC: Regular rhythm, regular rate. S1/S2 are heard. No murmurs gallops or rubs. LUNGS: Clear to auscultation bilaterally. No wheeze, rhonchi or rales. No use of accessory muscles on inspiration or expiration. ABDOMEN: Soft, nontender. Nondistended. Bowel sounds heard in all 4 quadrants. No organomegaly or masses. Negative rebound, negative guarding EXTREMITIES: No edema, pulses are equal bilaterally. No cyanosis or clubbing NEUROLOGY: Mood and affect appear appropriate. Cranial nerves II through XII grossly intact. Moving all extremities, speech is clear RIGHT FOOT: Patient does have right foot wound which appears to be healing fine , nice pink edges, able see tendon sheaths through graft material. No signs of infection Procedures R foot infection, I&D 11/18/16 and 11/20/16 [place], 11/24 [place] [facility]IS Urinary Catheter: No Vascular Central Line Catheter: Yes Assessment to: Continue Date of Insertion: Nov 25, 2016 Line: PICC Side: Right A/P Assessment and Plan 51-year-old male with history of diabetes and tobacco abuse. He presents to the emergency department because of cellulitis/abscess involving his right foot. Mitral valve endocarditis Patient originally presented with sepsis from diabetic foot infection, bacteremia Blood cultures indicated Staphylococcus epidermidis Repeat blood cultures 11/19/16 have remained negative Echocardiogram 11/19/16 indicated aortic valve was moderately thickened leaflets , specifically of the left coronary cusp, cannot rule out endocarditis does not appear mobile as endocarditis would be NORIS 11/21/16 indicates mitral valve with echo density on the atrial aspect of the base of the anterior leaflet appearance consistent with vegetation. Probable endocarditis of the anterior leaflet of the mitral valve. Infectious disease was consulted and evaluated the patient and at this time recommending 6 weeks worth of IV vancomycin, until December 28, 2016 PICC line placed 11/25/16 for long-term antibiotics Case management consulted trying to arrange outpatient antibiotics Infectious disease reconsulted due to neutropenia and low-grade fever. They recommended continue to monitor and if patient continues to have fever then repeat blood culture. Indicated that neutropenia could be secondary to medication side effects Diabetic foot infection. He has cellulitis/abscess status post multiple I&D, intragraft placement and wound VAC application. Culture growing multiple organisms. Infectious disease consulted and made antibiotic recommendations Morphine 2 mg IV when necessary for wound VAC change Podiatry says okay to be weightbearing in postop shoe, okay to work out with stationary bike with postop shoe 2030 minutes every other day Diabetes mellitus. Improving Hemoglobin A1c 11.8. Levemir to 16 units units at bedtime and 28 units in the morning. Accu-Cheks with sliding scale coverage. Hypertension. Improving Norvasc 10 mg daily lisinopril 10 mg daily Monitor for response Tinea cruris Status post Nystatin powder Tobacco abuse. Patient previously counseled regarding cessation. Peripheral vascular disease. Status post CTA no reconstructible vessels per vascular surgery. Ct asa. Tobacco cessation DVT prophylaxis subcutaneous heparin Discharge Planning Discharge planning if case management can arrange outpatient antibiotics, otherwise, patient remain at [facility] for long-term care until antibiotics completed Diogo Gallagher Dec 24, 2016 08:48
[2016-12-24] MEDS ORDERED: INSULIN DETEMIR 100 UNITS/ML VIAL SQ SCH (09:00)
[2016-12-24] MEDS: MORPHINE SULFATE 4 MG/ML INJ IV PUSH PRN (11:25)
[2016-12-24] MEDS: SODIUM CHLORIDE 0.9% FLUSH 10 ML FLUSH IV FLUSH PRN (18:27)
[2016-12-24 20:00] VITALS: BP 124/79; PULSE 110; RESP 18; TEMP 96.4; O2SAT 96
[2016-12-25] MEDS: VANCOMYCIN INJ 1,250 MG in SODIUM CHLOR 0.9% 250 ML INJ 250 ML IV SCH ×3 (03:56→17:06)
[2016-12-25 08:00] VITALS: BP 145/81; PULSE 98; RESP 18; TEMP 97.2; O2SAT 99
[2016-12-25] MEDS: LACTOBACILLUS ACIDOPHILUS TAB PO SCH ×3 (08:48→17:05)
[2016-12-25] MEDS: SODIUM CHLORIDE 0.9% FLUSH 10 ML FLUSH IV FLUSH SCH ×3 (08:49→21:20)
[2016-12-25] MEDS: LISINOPRIL 10 MG TAB PO SCH (08:50)
[2016-12-25] MEDS: ASPIRIN 81 MG CHEW TAB CHEW SCH (08:50)
[2016-12-25] MEDS: HEPARIN SODIUM - SQ 10,000 UNITS/ML VIAL SQ SCH ×2 (08:50→21:20)
[2016-12-25] MEDS: INSULIN DETEMIR 100 UNITS/ML VIAL SQ SCH ×2 (08:57→21:20)
[2016-12-25] MEDS: INSULIN ASPART SUPPLEMENTAL SCALE SQ SCH ×4 (08:58→21:19)
[2016-12-25] MEDS: MUPIROCIN 2% CREAM 15 GM TOPICAL SCH ×2 (09:00→21:00)
--- NOTE | 2016-12-25 10:01 | HHI.PR ---
Subjective Remarks Patient seen and examined today for follow-up on right foot infection. Patient sitting in chair, resting carefully. Denies any new complaints. Objective Vitals Vital Signs Date Time Temp Pulse Resp B/P Pulse Ox O2 Delivery O2 Flow Rate FiO2 12/25/16 08:00 97.2 98 18 145/81 99 12/24/16 20:00 96.4 110 18 124/79 96 I/O 12/24/16 12/24/16 12/24/16 12/25/16 12/25/16 12/25/16 07:00 15:00 23:00 07:00 15:00 23:00 Intake Total 720 ml 863 ml 240 ml Output Total 650 ml Balance 70 ml 863 ml 240 ml Intake Oral 720 ml 600 ml 240 ml IV Total 263 ml Output Urine Total 650 ml # Voids 4 2 # Bowel Movements 1 1 Result Diagram: 12/21/16 0509 12/24/16 0640 Objective Remarks GENERAL: Well-developed, well-nourished, in no acute distress. alert and orientated HEENT: Head is normocephalic without any lesions or masses noted. Facial features are symmetric. Eyes: Extraocular muscles are intact. Conjunctivae were clear. NECK: Supple without any masses. Trachea midline no deviation. No JVD, CARDIAC: Regular rhythm, regular rate. S1/S2 are heard. No murmurs gallops or rubs. LUNGS: Clear to auscultation bilaterally. No wheeze, rhonchi or rales. No use of accessory muscles on inspiration or expiration. ABDOMEN: Soft, nontender. Nondistended. Bowel sounds heard in all 4 quadrants. No organomegaly or masses. Negative rebound, negative guarding EXTREMITIES: No edema, pulses are equal bilaterally. No cyanosis or clubbing NEUROLOGY: Mood and affect appear appropriate. Cranial nerves II through XII grossly intact. Moving all extremities, speech is clear RIGHT FOOT: Patient does have right foot wound which appears to be healing fine , nice pink edges, able see tendon sheaths through graft material. No signs of infection Procedures R foot infection, I&D 11/18/16 and 11/20/16 [place], 11/24 [place] Urinary Catheter: No Vascular Central Line Catheter: Yes Assessment to: Continue Date of Insertion: Nov 25, 2016 Line: PICC Side: Right A/P Assessment and Plan 51-year-old male with history of diabetes and tobacco abuse. He presents to the emergency department because of cellulitis/abscess involving his right foot. Mitral valve endocarditis Patient originally presented with sepsis from diabetic foot infection, bacteremia Blood cultures indicated Staphylococcus epidermidis Repeat blood cultures 11/19/16 have remained negative Echocardiogram 11/19/16 indicated aortic valve was moderately thickened leaflets , specifically of the left coronary cusp, cannot rule out endocarditis does not appear mobile as endocarditis would be NORIS 11/21/16 indicates mitral valve with echo density on the atrial aspect of the base of the anterior leaflet appearance consistent with vegetation. Probable endocarditis of the anterior leaflet of the mitral valve. Infectious disease was consulted and evaluated the patient and at this time recommending 6 weeks worth of IV vancomycin, until December 28, 2016 PICC line placed 11/25/16 for long-term antibiotics Case management consulted trying to arrange outpatient antibiotics Infectious disease reconsulted due to neutropenia and low-grade fever. They recommended continue to monitor and if patient continues to have fever then repeat blood culture. Indicated that neutropenia could be secondary to medication side effects Diabetic foot infection. He has cellulitis/abscess status post multiple I&D, intragraft placement and wound VAC application. Culture growing multiple organisms. Infectious disease consulted and made antibiotic recommendations Morphine 2 mg IV when necessary for wound VAC change Podiatry says okay to be weightbearing in postop shoe, okay to work out with stationary bike with postop shoe 2030 minutes every other day Diabetes mellitus. Improving Hemoglobin A1c 11.8. Levemir to 16 units units at bedtime and 28 units in the morning. Accu-Cheks with sliding scale coverage. Hypertension. Improving Norvasc 10 mg daily lisinopril 10 mg daily Monitor for response Tinea cruris Status post Nystatin powder Tobacco abuse. Patient previously counseled regarding cessation. Peripheral vascular disease. Status post CTA no reconstructible vessels per vascular surgery. Ct asa. Tobacco cessation DVT prophylaxis subcutaneous heparin Discharge Planning Discharge planning if case management can arrange outpatient antibiotics, otherwise, patient remain at [facility] for long-term care until antibiotics completed Diogo Gallagher Dec 25, 2016 10:01
[2016-12-25] MEDS: MORPHINE SULFATE 4 MG/ML INJ IV PUSH PRN (15:19)
--- NOTE | 2016-12-25 16:13 | PD.POD ---
Subjective Podiatric Problems R foot infection, s/p I&D 11/18/16 and 11/20/16 [facility], 11/24/16 [place] , [place] with skin graft application and wound VAC. Seen this pm at bedside with nursing staff. Pain scale used: 0-10 numeric scale Pain score: 0 Past Med/Surg/Social History Social History Smoking Status: Never Smoker Objective Vital Signs Vital Signs Date Time Temp Pulse Resp B/P Pulse Ox O2 Delivery O2 Flow Rate FiO2 12/25/16 08:00 97.2 98 18 145/81 99 12/24/16 20:00 96.4 110 18 124/79 96 Coded Allergies: Penicillin (Verified Allergy, Severe, 11/16/16) Other Results Laboratory Tests Test 12/21/16 12/24/16 05:09 06:40 White Blood Count 4.0 TH/MM3 Red Blood Count 4.40 MIL/MM3 Hemoglobin 13.1 GM/DL Hematocrit 38.8 % Mean Corpuscular Volume 88.1 FL Mean Corpuscular Hemoglobin 29.8 PG Mean Corpuscular Hemoglobin 33.8 % Concent Red Cell Distribution Width 13.4 % Platelet Count 231 TH/MM3 Mean Platelet Volume 7.5 FL Neutrophils (%) (Auto) % Lymphocytes (%) (Auto) % Monocytes (%) (Auto) % Eosinophils (%) (Auto) % Basophils (%) (Auto) % Neutrophils # (Auto) TH/MM3 Lymphocytes # (Auto) TH/MM3 Monocytes # (Auto) TH/MM3 Eosinophils # (Auto) TH/MM3 Basophils # (Auto) TH/MM3 CBC Comment AUTO DIFF Differential Total Cells 100 Counted Neutrophils % (Manual) 20 % Lymphocytes % 48 % Monocytes % 27 % Eosinophils % 3 % Basophils % 2 % Neutrophils # (Manual) 0.8 TH/MM3 Differential Comment FINAL DIFF MANUAL Erythrocyte Sedimentation Rate 42 mm/hr C-Reactive Protein 0.62 MG/DL Creatinine 0.68 MG/DL Estimat Glomerular Filtration 122 ML/MIN Rate Exam-Podiatry Dermatological Exam Ulcers: Location/Measurements RLE Full thickness wound with exposed EDL. NVS intact. approximately 6x6 Assessment & Plan Diagnosis: (1) Type 2 diabetes mellitus Status: Acute A/P R foot infection, s/p I&D 11/18/16 and 11/20/16 [facility], 11/24/16 [place], 12/04/17 [place] with skin substitute application. OK to WB with post ops shoe. OK to work out including stationary bike with post op shoe x 20-30 minutes qod. Continue with wound VAC. Plan for skin graft, discussed with patient. Dr Sales will begin coverage 12/27/16 Kate Ayoub DPM Dec 25, 2016 16:13
[2016-12-25 20:00] VITALS: BP 105/66; PULSE 103; RESP 16; TEMP 97.7; O2SAT 97
[2016-12-25] MEDS: ACETAMINOPHEN/HYDROcodone 325 MG/7.5 MG TAB PO PRN ×2 (22:32→22:36)
[2016-12-26] MEDS: VANCOMYCIN INJ 1,250 MG in SODIUM CHLOR 0.9% 250 ML INJ 250 ML IV SCH ×3 (04:18→18:04)
[2016-12-26] MEDS: INSULIN ASPART SUPPLEMENTAL SCALE SQ SCH ×4 (07:00→21:53)
[2016-12-26 08:00] VITALS: BP 140/91; PULSE 104; RESP 19; TEMP 97.3; O2SAT 100
[2016-12-26] MEDS: INSULIN DETEMIR 100 UNITS/ML VIAL SQ SCH ×2 (08:22→21:52)
[2016-12-26] MEDS: LISINOPRIL 10 MG TAB PO SCH (08:24)
[2016-12-26] MEDS: LACTOBACILLUS ACIDOPHILUS TAB PO SCH ×3 (08:24→17:58)
[2016-12-26] MEDS: HEPARIN SODIUM - SQ 10,000 UNITS/ML VIAL SQ SCH ×2 (08:25→21:53)
[2016-12-26] MEDS: ASPIRIN 81 MG CHEW TAB CHEW SCH (08:25)
[2016-12-26] MEDS: SODIUM CHLORIDE 0.9% FLUSH 10 ML FLUSH IV FLUSH SCH ×3 (08:27→21:53)
[2016-12-26] MEDS: MUPIROCIN 2% CREAM 15 GM TOPICAL SCH ×2 (08:28→21:00)
--- NOTE | 2016-12-26 10:37 | HHI.PR ---
Subjective Remarks Patient seen and examined today for follow-up on foot wound. Patient denies any new complaints. No change in clinical status. Objective Vitals Vital Signs Date Time Temp Pulse Resp B/P Pulse Ox O2 Delivery O2 Flow Rate FiO2 12/26/16 08:00 97.3 104 19 140/91 100 12/25/16 20:00 97.7 103 16 105/66 97 I/O 12/25/16 12/25/16 12/25/16 12/26/16 12/26/16 12/26/16 07:00 15:00 23:00 07:00 15:00 23:00 Intake Total 240 ml 1200 ml 1480 ml 480 ml Balance 240 ml 1200 ml 1480 ml 480 ml Intake Oral 240 ml 950 ml 480 ml 480 ml IV Total 250 ml 1000 ml # Voids 2 2 2 1 # Bowel Movements 2 2 0 Result Diagram: 12/26/16 0610 Objective Remarks GENERAL: Well-developed, well-nourished, in no acute distress. alert and orientated HEENT: Head is normocephalic without any lesions or masses noted. Facial features are symmetric. Eyes: Extraocular muscles are intact. Conjunctivae were clear. NECK: Supple without any masses. Trachea midline no deviation. No JVD, CARDIAC: Regular rhythm, regular rate. S1/S2 are heard. No murmurs gallops or rubs. LUNGS: Clear to auscultation bilaterally. No wheeze, rhonchi or rales. No use of accessory muscles on inspiration or expiration. ABDOMEN: Soft, nontender. Nondistended. Bowel sounds heard in all 4 quadrants. No organomegaly or masses. Negative rebound, negative guarding EXTREMITIES: No edema, pulses are equal bilaterally. No cyanosis or clubbing NEUROLOGY: Mood and affect appear appropriate. Cranial nerves II through XII grossly intact. Moving all extremities, speech is clear RIGHT FOOT: Patient does have right foot wound which appears to be healing fine , nice pink edges, able see tendon sheaths through graft material. No signs of infection Procedures R foot infection, I&D 11/18/16 and 11/20/16 [place], 11/24 [place] [facility] Urinary Catheter: No Vascular Central Line Catheter: Yes Assessment to: Continue Date of Insertion: Nov 25, 2016 Line: PICC Side: Right A/P Assessment and Plan 51-year-old male with history of diabetes and tobacco abuse. He presents to the emergency department because of cellulitis/abscess involving his right foot. Mitral valve endocarditis Patient originally presented with sepsis from diabetic foot infection, bacteremia Blood cultures indicated Staphylococcus epidermidis Repeat blood cultures 11/19/16 have remained negative Echocardiogram 11/19/16 indicated aortic valve was moderately thickened leaflets , specifically of the left coronary cusp, cannot rule out endocarditis does not appear mobile as endocarditis would be NORIS 11/21/16 indicates mitral valve with echo density on the atrial aspect of the base of the anterior leaflet appearance consistent with vegetation. Probable endocarditis of the anterior leaflet of the mitral valve. Infectious disease was consulted and evaluated the patient and at this time recommending 6 weeks worth of IV vancomycin, until December 28, 2016 PICC line placed 11/25/16 for long-term antibiotics Case management consulted trying to arrange outpatient antibiotics Infectious disease reconsulted due to neutropenia and low-grade fever. They recommended continue to monitor and if patient continues to have fever then repeat blood culture. Indicated that neutropenia could be secondary to medication side effects Diabetic foot infection. He has cellulitis/abscess status post multiple I&D, intragraft placement and wound VAC application. Culture growing multiple organisms. Infectious disease consulted and made antibiotic recommendations Morphine 2 mg IV when necessary for wound VAC change Podiatry says okay to be weightbearing in postop shoe, okay to work out with stationary bike with postop shoe 2030 minutes every other day Diabetes mellitus. Improving Hemoglobin A1c 11.8. Levemir to 16 units units at bedtime and 30 units in the morning. Accu-Cheks with sliding scale coverage. Hypertension. Improving Norvasc 10 mg daily lisinopril 20 mg daily Monitor for response Tinea cruris Status post Nystatin powder Tobacco abuse. Patient previously counseled regarding cessation. Peripheral vascular disease. Status post CTA no reconstructible vessels per vascular surgery. Ct asa. Tobacco cessation DVT prophylaxis subcutaneous heparin Discharge Planning Discharge planning if case management can arrange outpatient antibiotics, otherwise, patient remain at [facility] for long-term care until antibiotics completed Diogo Gallagher Dec 26, 2016 10:36
[2016-12-26] MEDS: ACETAMINOPHEN/HYDROcodone 325 MG/7.5 MG TAB PO PRN ×2 (11:32→21:12)
[2016-12-26 20:00] VITALS: BP 120/87; PULSE 108; RESP 18; TEMP 97.4; O2SAT 98
[2016-12-27] MEDS: VANCOMYCIN INJ 1,250 MG in SODIUM CHLOR 0.9% 250 ML INJ 250 ML IV SCH ×3 (04:01→18:18)
[2016-12-27] MEDS: INSULIN ASPART SUPPLEMENTAL SCALE SQ SCH ×4 (06:55→20:51)
[2016-12-27 08:00] VITALS: BP 129/87; PULSE 113; RESP 16; TEMP 97.8; O2SAT 100
[2016-12-27] MEDS: INSULIN DETEMIR 100 UNITS/ML VIAL SQ SCH ×2 (08:22→20:50)
[2016-12-27] MEDS: LACTOBACILLUS ACIDOPHILUS TAB PO SCH ×3 (08:23→18:16)
[2016-12-27] MEDS: LISINOPRIL 20 MG TAB PO SCH (08:24)
[2016-12-27] MEDS: ASPIRIN 81 MG CHEW TAB CHEW SCH (08:24)
[2016-12-27] MEDS: MUPIROCIN 2% CREAM 15 GM TOPICAL SCH ×2 (08:24→21:00)
[2016-12-27] MEDS: SODIUM CHLORIDE 0.9% FLUSH 10 ML FLUSH IV FLUSH SCH ×3 (08:25→21:00)
[2016-12-27] MEDS: HEPARIN SODIUM - SQ 10,000 UNITS/ML VIAL SQ SCH ×2 (08:25→20:52)
--- NOTE | 2016-12-27 08:59 | HHI.PR ---
Subjective Remarks Patient seen and examined today for follow-up on foot wound and endocarditis. Patient doing well. Denies any new complaints. Almost completed antibiotic regimen. Patient possibly to have skin graft done in near future Objective Vitals Vital Signs Date Time Temp Pulse Resp B/P Pulse Ox O2 Delivery O2 Flow Rate FiO2 12/26/16 20:00 97.4 108 18 120/87 98 I/O 12/26/16 12/26/16 12/26/16 12/27/16 12/27/16 12/27/16 07:00 15:00 23:00 07:00 15:00 23:00 Intake Total 480 ml 265 ml 263 ml 960 ml Balance 480 ml 265 ml 263 ml 960 ml Intake Oral 480 ml 960 ml IV Total 265 ml 263 ml # Voids 1 3 # Bowel Movements 0 Result Diagram: 12/26/16 0610 Objective Remarks GENERAL: Well-developed, well-nourished, in no acute distress. alert and orientated HEENT: Head is normocephalic without any lesions or masses noted. Facial features are symmetric. Eyes: Extraocular muscles are intact. Conjunctivae were clear. NECK: Supple without any masses. Trachea midline no deviation. No JVD, CARDIAC: Regular rhythm, regular rate. S1/S2 are heard. No murmurs gallops or rubs. LUNGS: Clear to auscultation bilaterally. No wheeze, rhonchi or rales. No use of accessory muscles on inspiration or expiration. ABDOMEN: Soft, nontender. Nondistended. Bowel sounds heard in all 4 quadrants. No organomegaly or masses. Negative rebound, negative guarding EXTREMITIES: No edema, pulses are equal bilaterally. No cyanosis or clubbing NEUROLOGY: Mood and affect appear appropriate. Cranial nerves II through XII grossly intact. Moving all extremities, speech is clear RIGHT FOOT: Patient does have right foot wound which appears to be healing fine , nice pink edges, able see tendon sheaths through graft material. No signs of infection Procedures R foot infection, I&D 11/18/16 and 11/20/16 [place], 11/24 [place] Urinary Catheter: No Vascular Central Line Catheter: No Date of Insertion: Nov 25, 2016 Line: PICC Side: Right A/P Assessment and Plan 51-year-old male with history of diabetes and tobacco abuse. He presents to the emergency department because of cellulitis/abscess involving his right foot. Mitral valve endocarditis Patient originally presented with sepsis from diabetic foot infection, bacteremia Blood cultures indicated Staphylococcus epidermidis Repeat blood cultures 11/19/16 have remained negative Echocardiogram 11/19/16 indicated aortic valve was moderately thickened leaflets , specifically of the left coronary cusp, cannot rule out endocarditis does not appear mobile as endocarditis would be NORIS 11/21/16 indicates mitral valve with echo density on the atrial aspect of the base of the anterior leaflet appearance consistent with vegetation. Probable endocarditis of the anterior leaflet of the mitral valve. Infectious disease was consulted and evaluated the patient and at this time recommending 6 weeks worth of IV vancomycin, until December 28, 2016 PICC line placed 11/25/16 for long-term antibiotics Case management consulted trying to arrange outpatient antibiotics Infectious disease reconsulted due to neutropenia and low-grade fever. They recommended continue to monitor and if patient continues to have fever then repeat blood culture. Indicated that neutropenia could be secondary to medication side effects Diabetic foot infection. He has cellulitis/abscess status post multiple I&D, intragraft placement and wound VAC application. Culture growing multiple organisms. Infectious disease consulted and made antibiotic recommendations Morphine 2 mg IV when necessary for wound VAC change Podiatry says okay to be weightbearing in postop shoe, okay to work out with stationary bike with postop shoe 2030 minutes every other day Diabetes mellitus. Improving Hemoglobin A1c 11.8. Levemir to 16 units units at bedtime and 30 units in the morning. Accu-Cheks with sliding scale coverage. Hypertension. Improving Norvasc 10 mg daily lisinopril 20 mg daily Monitor for response Tinea cruris Status post Nystatin powder Tobacco abuse. Patient previously counseled regarding cessation. Peripheral vascular disease. Status post CTA no reconstructible vessels per vascular surgery. Ct asa. Tobacco cessation DVT prophylaxis subcutaneous heparin Discharge Planning Discharge planning if case management can arrange outpatient antibiotics, otherwise, patient remain at [facility] for long-term care until antibiotics completed Diogo Gallagher Dec 27, 2016 08:59
[2016-12-27] MEDS ORDERED: VANCOMYCIN TROUGH ONE (10:45)
[2016-12-27] MEDS ORDERED: PHARMACY ORDERED LAB ONE (14:45)
[2016-12-27] MEDS: MORPHINE SULFATE 4 MG/ML INJ IV PUSH PRN (18:12)
[2016-12-27 20:00] VITALS: BP 125/90; PULSE 106; RESP 20; TEMP 96.9; O2SAT 100
[2016-12-28] MEDS: VANCOMYCIN INJ 1,250 MG in SODIUM CHLOR 0.9% 250 ML INJ 250 ML IV SCH ×3 (02:38→18:27)
[2016-12-28] MEDS: ACETAMINOPHEN/HYDROcodone 325 MG/7.5 MG TAB PO PRN ×3 (06:33→20:55)
[2016-12-28] MEDS: INSULIN ASPART SUPPLEMENTAL SCALE SQ SCH ×4 (06:36→20:56)
[2016-12-28 08:00] VITALS: BP 139/87; PULSE 96; RESP 18; TEMP 97.3; O2SAT 99
[2016-12-28] MEDS: LACTOBACILLUS ACIDOPHILUS TAB PO SCH ×3 (08:50→18:00)
[2016-12-28] MEDS: LISINOPRIL 20 MG TAB PO SCH (08:50)
[2016-12-28] MEDS: ASPIRIN 81 MG CHEW TAB CHEW SCH (08:50)
[2016-12-28] MEDS: SODIUM CHLORIDE 0.9% FLUSH 10 ML FLUSH IV FLUSH SCH ×3 (08:51→20:56)
[2016-12-28] MEDS: HEPARIN SODIUM - SQ 10,000 UNITS/ML VIAL SQ SCH ×2 (08:52→20:55)
[2016-12-28] MEDS: MUPIROCIN 2% CREAM 15 GM TOPICAL SCH ×2 (08:53→20:56)
[2016-12-28] MEDS: INSULIN DETEMIR 100 UNITS/ML VIAL SQ SCH ×2 (09:00→20:54)
[2016-12-28 10:01] LABS: BASOPHIL % 0.4 % (0.0-2.0); EOSINOPHIL # 0.2 TH/MM3 (0-0.4); EOSINOPHIL % 3.3 % (0.0-4.0); HEMATOCRIT 38.4 % (39.0-51.0); LYMPH % 21.6 % (9.0-44.0); LYMPHOCYTE # 1.3 TH/MM3 (1.0-4.8); MEAN CELL VOLUME 86.9 FL (80.0-100.0); MEAN CORPUSCULAR HGB CONC 34.5 % (32.0-36.0); MONO % 9.8 % (0.0-8.0); NEUT % 64.9 % (16.0-70.0); PLATELET COUNT 238 TH/MM3 (150-450); RED BLOOD COUNT 4.42 MIL/MM3 (4.50-5.90); RED CELL DISTRIBUTION WIDTH 12.9 % (11.6-17.2); WHITE BLOOD COUNT 6.1 TH/MM3 (4.0-11.0)
[2016-12-28 10:03] LABS: HEMO FLAGS DIFF FINAL
--- NOTE | 2016-12-28 13:40 | HHI.PR ---
Subjective Remarks Follow up for diabetic foot infection, endocarditis. Pain was controlled overnight but he did have pain this morning. States he is trying to wean off the medication. He did not use any pain medication yesterday. Patient denies any fevers or chills, chest pain, or shortness of breath. Objective Vitals Vital Signs Date Time Temp Pulse Resp B/P Pulse Ox O2 Delivery O2 Flow Rate FiO2 12/28/16 08:00 97.3 96 18 139/87 99 12/27/16 20:00 96.9 106 20 125/90 100 I/O 12/27/16 12/27/16 12/27/16 12/28/16 12/28/16 12/28/16 07:00 15:00 23:00 07:00 15:00 23:00 Intake Total 960 ml 1130 ml 240 ml 250 ml Output Total 400 ml Balance 960 ml 1130 ml 240 ml -150 ml Intake Oral 960 ml 1130 ml 240 ml IV Total 250 ml Output Urine Total 400 ml # Voids 3 2 2 2 # Bowel Movements 2 Result Diagram: 12/28/16 0915 12/27/16 1045 Objective Remarks GENERAL: Pleasant, well-nourished, well-developed patient in no apparent distress sitting in recliner. CARDIOVASCULAR: Tachycardic with regular rhythm. RESPIRATORY: No accessory muscle use. Clear to auscultation. Breath sounds equal bilaterally. GASTROINTESTINAL: Abdomen soft, nontender, nondistended. MUSCULOSKELETAL: Post-op shoe R foot. JUNE wrap and wound vac to R foot. NEUROLOGICAL: Awake and alert. Normal speech. PSYCHIATRIC: Appropriate mood and affect; insight and judgment normal. Procedures R foot infection, I&D 11/18/16 and 11/20/16 [facility], 11/24 [place] Urinary Catheter: No Vascular Central Line Catheter: Yes Assessment to: Continue Date of Insertion: Nov 25, 2016 Line: PICC Side: Right A/P Problem List: (1) Sepsis ICD Code: A41.9 Status: Acute (2) Cellulitis of right foot ICD Code: L03.115 Status: Acute (3) Type 2 diabetes mellitus ICD Code: E11.9 Status: Acute (4) Bacteremia due to methicillin resistant Staphylococcus aureus ICD Code: R78.81 Status: Acute Assessment and Plan 51-year-old male with history of diabetes and tobacco abuse. He presents to the emergency department because of cellulitis/abscess involving his right foot. Mitral valve endocarditis: stable Presented with sepsis from diabetic foot infection, bacteremia Blood cultures indicated Staphylococcus epidermidis Repeat blood cultures 11/19/16 have remained negative Echocardiogram 11/19/16 indicated aortic valve was moderately thickened leaflets , specifically of the left coronary cusp, cannot rule out endocarditis. NOIRS 11/21/16 indicates mitral valve with echo density on the atrial aspect of the base of the anterior leaflet appearance consistent with vegetation. Probable endocarditis of the anterior leaflet of the mitral valve. Infectious disease was consulted and evaluated the patient and recommend 6 weeks worth of IV vancomycin, until 12/28/16. Vancomycin discontinued after last dose today. PICC line placed 11/25/16 for long-term antibiotics Neutropenia discussed with ID, Dr. Silva, who states do not change antibiotics for now. Repeat CBC this morning reviewed with normal neutrophil count. Diabetic foot infection. He has cellulitis/abscess status post multiple I&D, Integra graft placement and wound VAC application. Culture growing multiple organisms. Infectious disease consulted and made antibiotic recommendations Morphine 2 mg IV when necessary for wound VAC change Podiatry says okay to be weightbearing in postop shoe, okay to work out with stationary bike with postop shoe 2030 minutes every other day -Eucerin cream ordered for dry skin to R foot only to apply on plantar aspect. -12/17: Dr. Rodriguez evaluated the patient this morning. Advises continuing wound vac MWF, Per podiatry, awaiting fully granular wound base. Once achieved, patient will need partial thickness skin graft harvest and application. Will follow up in 1 week. -12/28: Dr. Ayoub evaluated the patient on 12/25/16 and stated to plan for skin graft. This will likely need to take place in the hospital as the patient is self-pay. Will need to discuss with podiatry. I was informed by the wrapper caser today that the patient would not be able to be discharged with a wound VAC. Sinus tachycardia: Heart rate has been more persistently elevated since 12/06, upper 90's-low 100's. Afebrile. -12/18: TSH normal. Labs stable. Asymptomatic. Diabetes mellitus: stable Hemoglobin A1c 11.8. Levemir 30 units in the morning (last adjusted 12/27) and 16 units at bedtime ( last adjusted 12/21). Accu-Cheks with sliding scale coverage. 12/28: Nighttime BGL improved. BGL this morning good at 129 but increasing throughout the day. AM insulin was just increased yesterday. Continue current Levemir regimen for now. Monitor and adjust medication as needed. Hypertension: Improved. Norvasc 10 mg daily Lisinopril 20 mg daily Tinea cruris S/p Nystatin powder Tobacco abuse. Patient previously counseled regarding cessation. Peripheral vascular disease. Status post CTA No reconstructible vessels per vascular surgery. Continue asa. Tobacco cessation DVT prophylaxis subcutaneous heparin Discharge Planning 12/28: Will need to discuss with podiatry if further surgery to take place while in hospital. Patient is self-pay and may be difficult or impossible to arrange wound vac outpatient. He would likely no longer require wound vac after further grafting. Problem Qualifiers (1) Sepsis: Qualified Code: A41.02 - Sepsis due to methicillin resistant Staphylococcus aureus (MRSA) Alexandra Mora Dec 28, 2016 13:40
[2016-12-28 20:00] VITALS: BP 124/82; PULSE 94; RESP 18; TEMP 97; O2SAT 99
[2016-12-29] MEDS: INSULIN ASPART SUPPLEMENTAL SCALE SQ SCH ×4 (06:16→20:19)
[2016-12-29] MEDS: LISINOPRIL 20 MG TAB PO SCH (07:46)
[2016-12-29] MEDS: ASPIRIN 81 MG CHEW TAB CHEW SCH (07:46)
[2016-12-29] MEDS: LACTOBACILLUS ACIDOPHILUS TAB PO SCH ×3 (07:46→16:44)
[2016-12-29] MEDS: HEPARIN SODIUM - SQ 10,000 UNITS/ML VIAL SQ SCH ×2 (07:47→20:24)
[2016-12-29] MEDS: INSULIN DETEMIR 100 UNITS/ML VIAL SQ SCH ×2 (07:49→20:20)
[2016-12-29 08:00] VITALS: BP 121/84; PULSE 101; RESP 18; TEMP 96.6; O2SAT 99
[2016-12-29] MEDS: MUPIROCIN 2% CREAM 15 GM TOPICAL SCH ×2 (09:00→20:30)
[2016-12-29] MEDS: ACETAMINOPHEN/HYDROcodone 325 MG/7.5 MG TAB PO PRN ×2 (11:30→21:04)
[2016-12-29] MEDS: SODIUM CHLORIDE 0.9% FLUSH 10 ML FLUSH IV FLUSH SCH ×3 (11:31→20:25)
--- NOTE | 2016-12-29 18:07 | HHI.PR ---
Subjective Remarks Late entry. Patient evaluated this morning. Follow-up for endocarditis, diabetic foot infection. Patient's antibiotics were discontinued yesterday as he completed 6 weeks of treatment. Patient has no acute complaints today. Objective Vitals Vital Signs Date Time Temp Pulse Resp B/P Pulse Ox O2 Delivery O2 Flow Rate FiO2 12/29/16 08:00 96.6 101 18 121/84 99 12/28/16 20:00 97.0 94 18 124/82 99 I/O 12/28/16 12/28/16 12/28/16 12/29/16 12/29/16 12/29/16 07:00 15:00 23:00 07:00 15:00 23:00 Intake Total 250 ml 849 ml 180 ml Output Total 400 ml Balance -150 ml 849 ml 180 ml Intake Oral 550 ml 180 ml IV Total 250 ml 299 ml Output Urine Total 400 ml # Voids 2 2 1 # Bowel Movements 0 0 Result Diagram: 12/28/16 0915 12/29/16 0600 Objective Remarks GENERAL: Pleasant, well-nourished, well-developed patient in no apparent distress sitting in recliner. CARDIOVASCULAR: Regular rhythm. RESPIRATORY: No accessory muscle use. Clear to auscultation. Breath sounds equal bilaterally. GASTROINTESTINAL: Abdomen soft, nontender, nondistended. MUSCULOSKELETAL: Post-op shoe R foot. JUNE wrap and wound vac to R foot. NEUROLOGICAL: Awake and alert. Normal speech. PSYCHIATRIC: Appropriate mood and affect; insight and judgment normal. Procedures R foot infection, I&D 11/18/16 and 11/20/16 [facility], 11/24 [place] [facility]IS Urinary Catheter: No Vascular Central Line Catheter: Yes Assessment to: Continue Date of Insertion: Nov 25, 2016 Line: PICC Side: Right Reason for Continuation Continue for now until determination by podiatry for further procedures. A/P Problem List: (1) Sepsis ICD Code: A41.9 Status: Resolved (2) Cellulitis of right foot ICD Code: L03.115 Status: Resolved (3) Type 2 diabetes mellitus ICD Code: E11.9 Status: Acute (4) Bacteremia due to methicillin resistant Staphylococcus aureus ICD Code: R78.81 Status: Resolved Assessment and Plan 51-year-old male with history of diabetes and tobacco abuse. He presents to the emergency department because of cellulitis/abscess involving his right foot. Mitral valve endocarditis: stable Presented with sepsis from diabetic foot infection, bacteremia Blood cultures indicated Staphylococcus epidermidis Repeat blood cultures 11/19/16 have remained negative Echocardiogram 11/19/16 indicated aortic valve was moderately thickened leaflets , specifically of the left coronary cusp, cannot rule out endocarditis. NORIS 11/21/16 indicates mitral valve with echo density on the atrial aspect of the base of the anterior leaflet appearance consistent with vegetation. Probable endocarditis of the anterior leaflet of the mitral valve. Infectious disease was consulted and evaluated the patient and recommend 6 weeks worth of IV vancomycin, until 12/28/16. Vancomycin discontinued after last dose today. PICC line placed 11/25/16 for long-term antibiotics Neutropenia discussed with ID, Dr. Silva, who states do not change antibiotics for now. Repeat CBC 12/28 with normal neutrophil count. Diabetic foot infection. He has cellulitis/abscess status post multiple I&D, Integra graft placement and wound VAC application. Culture growing multiple organisms. Infectious disease consulted and made antibiotic recommendations Morphine 2 mg IV when necessary for wound VAC change Podiatry says okay to be weightbearing in postop shoe, okay to work out with stationary bike with postop shoe 2030 minutes every other day -Eucerin cream ordered for dry skin to R foot only to apply on plantar aspect. -12/17: Dr. Rodriguez evaluated the patient this morning. Advises continuing wound vac MWF, Per podiatry, awaiting fully granular wound base. Once achieved, patient will need partial thickness skin graft harvest and application. Will follow up in 1 week. -12/28: Dr. Ayoub evaluated the patient on 12/25/16 and stated to plan for skin graft. -12/29: I spoke with Dr. Sales, stoker installation mechanic, this morning. She is familiar with the patient. I informed her that the patient's antibiotics for endocarditis have been completed. I inquired whether the patient requires skin grafting in the hospital versus outpatient and that he still has wound VAC in place. She states she will come to see the patient tomorrow morning and determine further disposition at that time; advises against changing the wound VAC today. Nurse made aware not to change wound vac today. Sinus tachycardia: Heart rate has been more persistently elevated since 12/06, upper 90's-low 100's. Afebrile. -12/18: TSH normal. Labs stable. Asymptomatic. Diabetes mellitus: stable Hemoglobin A1c 11.8. Levemir 30 units in the morning (last adjusted 12/27) and 16 units at bedtime ( last adjusted 12/21). Accu-Cheks with sliding scale coverage. 12/29: BGL improved last night at 148. BGL good at 112 this morning. Continue current regimen. Hypertension: Improved. Norvasc 10 mg daily Lisinopril 20 mg daily Tinea cruris S/p Nystatin powder Tobacco abuse. Patient previously counseled regarding cessation. Peripheral vascular disease. Status post CTA No reconstructible vessels per vascular surgery. Continue asa. Tobacco cessation DVT prophylaxis subcutaneous heparin Discharge Planning Will determine further disposition after podiatry evaluation tomorrow. Problem Qualifiers (1) Sepsis: Qualified Code: A41.02 - Sepsis due to methicillin resistant Staphylococcus aureus (MRSA) Alexandra Mora Dec 29, 2016 18:07 aureus (MRSA) Alexandra Mora Dec 29, 2016 18:07
[2016-12-29 20:00] VITALS: BP 117/77; PULSE 81; RESP 18; TEMP 98.2; O2SAT 97
[2016-12-30] MEDS: INSULIN ASPART SUPPLEMENTAL SCALE SQ SCH ×4 (07:00→20:24)
[2016-12-30 08:00] VITALS: BP 139/87; PULSE 109; RESP 18; TEMP 97.7; O2SAT 97
[2016-12-30] MEDS: MORPHINE SULFATE 4 MG/ML INJ IV PUSH PRN (08:55)
[2016-12-30] MEDS: MUPIROCIN 2% CREAM 15 GM TOPICAL SCH ×2 (09:00→20:29)
[2016-12-30] MEDS: SODIUM CHLORIDE 0.9% FLUSH 10 ML FLUSH IV FLUSH SCH ×3 (10:15→20:29)
[2016-12-30] MEDS: LACTOBACILLUS ACIDOPHILUS TAB PO SCH ×3 (10:15→17:11)
[2016-12-30] MEDS: LISINOPRIL 20 MG TAB PO SCH (10:16)
[2016-12-30] MEDS: HEPARIN SODIUM - SQ 10,000 UNITS/ML VIAL SQ SCH ×2 (10:16→21:00)
[2016-12-30] MEDS: ASPIRIN 81 MG CHEW TAB CHEW SCH (10:16)
[2016-12-30] MEDS: INSULIN DETEMIR 100 UNITS/ML VIAL SQ SCH ×2 (10:18→20:25)
--- NOTE | 2016-12-30 10:21 | HHI.PR ---
Subjective Remarks Follow-up for endocarditis, right diabetic foot infection. Patient denies any fevers or chills. No acute complaints. Objective Vitals Vital Signs Date Time Temp Pulse Resp B/P Pulse Ox O2 Delivery O2 Flow Rate FiO2 12/29/16 22:04 16 12/29/16 20:00 98.2 81 18 117/77 97 I/O 12/29/16 12/29/16 12/29/16 12/30/16 12/30/16 12/30/16 07:00 15:00 23:00 07:00 15:00 23:00 Intake Total 180 ml 1240 ml 480 ml Balance 180 ml 1240 ml 480 ml Intake Oral 180 ml 1240 ml 480 ml # Voids 1 6 1 # Bowel Movements 0 1 0 Result Diagram: 12/28/16 0915 12/30/16 0610 Objective Remarks GENERAL: Pleasant, well-nourished, well-developed patient in no apparent distress sitting in recliner. SKIN: Wound over dorsal R foot with granulation tissue, tendon still visible but much improved from my prior evaluation. No surrounding erythema. CARDIOVASCULAR: Tachycardic rate with regular rhythm. RESPIRATORY: No accessory muscle use. Clear to auscultation. Breath sounds equal bilaterally. NEUROLOGICAL: Awake and alert. Normal speech. PSYCHIATRIC: Appropriate mood and affect; insight and judgment normal. Procedures R foot infection, I&D 11/18/16 and 11/20/16 [facility], 11/24 [place] [facility] Urinary Catheter: No Vascular Central Line Catheter: Yes Assessment to: Continue Date of Insertion: Nov 25, 2016 Line: PICC Side: Right Reason for Continuation Will keep in place until patient completes surgery on Tuesday. A/P Problem List: (1) Sepsis ICD Code: A41.9 Status: Resolved (2) Cellulitis of right foot ICD Code: L03.115 Status: Resolved (3) Type 2 diabetes mellitus ICD Code: E11.9 Status: Acute (4) Bacteremia due to methicillin resistant Staphylococcus aureus ICD Code: R78.81 Status: Resolved Assessment and Plan 51-year-old male with history of diabetes and tobacco abuse. He presents to the emergency department because of cellulitis/abscess involving his right foot. Mitral valve endocarditis: stable Presented with sepsis from diabetic foot infection, bacteremia Blood cultures indicated Staphylococcus epidermidis Repeat blood cultures 11/19/16 have remained negative Echocardiogram 11/19/16 indicated aortic valve was moderately thickened leaflets , specifically of the left coronary cusp, cannot rule out endocarditis. NORIS 11/21/16 indicates mitral valve with echo density on the atrial aspect of the base of the anterior leaflet appearance consistent with vegetation. Probable endocarditis of the anterior leaflet of the mitral valve. Infectious disease was consulted and evaluated the patient and recommend 6 weeks worth of IV vancomycin, discontinued 12/28/16. PICC line placed 11/25/16 for long-term antibiotics Neutropenia discussed with ID, Dr. Silva, who states do not change antibiotics for now. Repeat CBC 12/28 with normal neutrophil count. Diabetic foot infection. He has cellulitis/abscess status post multiple I&D, Integra graft placement and wound VAC application. Culture growing multiple organisms. Infectious disease consulted and made antibiotic recommendations Morphine 2 mg IV when necessary for wound VAC change Podiatry says okay to be weightbearing in postop shoe, okay to work out with stationary bike with postop shoe 2030 minutes every other day -Eucerin cream ordered for dry skin to R foot only to apply on plantar aspect. -12/30: Dr. Sales, passenger service supervisor, evaluated the patient this morning. Plans for application of another Integra graft and vac change possibly Tuesday morning due to need for coverage over tendons. NPO after midnight Tuesday night. States if possible, patient will need to stay in another 2 weeks to assess for split thickness skin graft if tendons have granulation tissue over them at that time. Continue wound vac Sinus tachycardia: Heart rate has been more persistently elevated since 12/06, upper 90's-low 100's. Afebrile. -TSH normal. Labs stable. Asymptomatic. Diabetes mellitus: stable Hemoglobin A1c 11.8. Levemir 30 units in the morning (last adjusted 12/27) and 16 units at bedtime ( last adjusted 12/21). Accu-Cheks with sliding scale coverage. Hypertension: Improved. Norvasc 10 mg daily Lisinopril 20 mg daily Tinea cruris S/p Nystatin powder Tobacco abuse. Patient previously counseled regarding cessation. Peripheral vascular disease. Status post CTA No reconstructible vessels per vascular surgery. Continue asa. Tobacco cessation DVT prophylaxis subcutaneous heparin Discharge Planning Patient to undergo another Integra graft on Tuesday by Dr. Sales. Problem Qualifiers (1) Sepsis: Qualified Code: A41.02 - Sepsis due to methicillin resistant Staphylococcus aureus (MRSA) Alexandra Mora Dec 30, 2016 10:21
--- NOTE | 2016-12-30 13:22 | PD.POD ---
Subjective Podiatric Problems R foot infection, s/p I&D 11/18/16 and 11/20/16 [facility], 11/24/16 [place] Wound dorsal R foot, continuing wound vac dressings Pain scale used: 0-10 numeric scale Pain score: 0 Past Med/Surg/Social History Social History Smoking Status: Never Smoker Objective Vital Signs Vital Signs Date Time Temp Pulse Resp B/P Pulse Ox O2 Delivery O2 Flow Rate FiO2 12/30/16 08:00 97.7 109 18 139/87 97 12/29/16 22:04 16 12/29/16 20:00 98.2 81 18 117/77 97 Coded Allergies: Penicillin (Verified Allergy, Severe, 11/16/16) Medications and IVs Current Medications Medications (Trade) Dose Ordered Sig/Kristian Route Start Time Stop Time Status Last Admin (NS Flush) 2 ml UNSCH PRN IV FLUSH 11/16/16 23:00 12/24/16 18:27 (NS Flush) 2 ml BID IV FLUSH 11/17/16 09:00 12/30/16 10:15 (Tylenol) 650 mg Q4H PRN PO 11/17/16 08:15 (Zofran Inj) 4 mg Q6H PRN IV 11/17/16 08:15 (Milk Of Magnesia Liq) 30 ml DAILY PRN PO 11/17/16 08:15 (Tums Chew) 1,000 mg TID PRN CHEW 11/17/16 08:15 (Tylenol) 650 mg Q6H PRN PO 11/17/16 08:15 (Narcan Inj) 0.4 mg UNSCH PRN IV 11/17/16 08:15 (Aspirin Chew) 81 mg DAILY CHEW 11/17/16 09:00 12/30/16 10:16 (Bactroban 2% Cream) 1 applic Q12HR TOPICAL 11/17/16 21:00 12/28/16 08:53 (Lactinex) 1 tab TID PO 11/19/16 13:00 12/30/16 11:08 (Heparin Inj) 5,000 units BID SQ 11/19/16 21:00 12/30/16 10:16 (Pill Splitter) 1 ea UNSCH PRN OTHER 11/22/16 12:15 (NS Flush) See Protocol DAILY IV FLUSH 11/26/16 09:00 12/30/16 10:15 (NS Flush) See Protocol UNSCH PRN IV FLUSH 11/25/16 09:45 (Heparin Central Flush) See Protocol DAILY IV FLUSH 11/26/16 09:00 12/30/16 10:15 (Heparin Central Flush) See Protocol UNSCH PRN IV FLUSH 11/25/16 09:45 12/14/16 06:08 (NS Flush) UNSCH PRN IV FLUSH 11/25/16 09:45 12/25/16 15:20 (Norvasc) 10 mg DAILY PO 11/29/16 09:00 12/30/16 10:16 (Morphine Inj) 2 mg DAILY PRN IV PUSH 11/29/16 12:00 12/30/16 08:55 ([place] 7.5-325 Mg) 1 tab Q6HR PRN PO 11/29/16 12:30 12/29/16 21:04 (Eucerin Cream) 1 applic Q6H PRN TOPICAL 12/15/16 18:30 (D50w (Vial) Inj) 50 ml UNSCH PRN IV 12/20/16 08:15 (Glucagon Inj) 1 mg UNSCH PRN OTHER 12/20/16 08:15 (Levemir Inj) 16 units DAILY@2100 SQ 12/21/16 21:00 12/29/16 20:20 (Levemir Inj) 30 units DAILY SQ 12/27/16 09:00 12/30/16 10:18 (Prinivil) 20 mg DAILY PO 12/27/16 09:00 12/30/16 10:16 Physical Exam Remarks R dorsal forefoot with healthy appearing granulation tissue, but tendon still visible. No sign of infection Assessment & Plan A/P R foot infection, s/p I&D 11/18/16 and 11/20/16 [place] 11/24 [place] R foot wound with wound vac Plan for application of another integra graft and vac change possibly tuesday morning due to need for coverage over tendons Will make NPO after midnight Tuesday night. If possible, patient will need to stay in another 2 weeks to assess for split thickness skin graft if tendons have granulation tissue over them at that time. Continue wound vac Arsenio Sales DPM Dec 30, 2016 13:22
[2016-12-30 20:00] VITALS: BP 113/73; PULSE 108; RESP 18; TEMP 97.6; O2SAT 97
[2016-12-30] MEDS: ACETAMINOPHEN/HYDROcodone 325 MG/7.5 MG TAB PO PRN (21:51)
[2016-12-31] MEDS: INSULIN ASPART SUPPLEMENTAL SCALE SQ SCH ×4 (06:39→21:31)
[2016-12-31 08:00] VITALS: BP 118/78; PULSE 114; RESP 16; TEMP 97.5; O2SAT 98
[2016-12-31] MEDS: MUPIROCIN 2% CREAM 15 GM TOPICAL SCH ×2 (09:00→21:37)
[2016-12-31] MEDS: LISINOPRIL 20 MG TAB PO SCH (09:20)
[2016-12-31] MEDS: ASPIRIN 81 MG CHEW TAB CHEW SCH (09:20)
[2016-12-31] MEDS: SODIUM CHLORIDE 0.9% FLUSH 10 ML FLUSH IV FLUSH SCH ×3 (09:21→21:26)
[2016-12-31] MEDS: LACTOBACILLUS ACIDOPHILUS TAB PO SCH ×3 (09:21→16:42)
[2016-12-31] MEDS: ACETAMINOPHEN/HYDROcodone 325 MG/7.5 MG TAB PO PRN ×2 (09:22→16:42)
[2016-12-31] MEDS: HEPARIN SODIUM - SQ 10,000 UNITS/ML VIAL SQ SCH ×2 (09:22→21:26)
[2016-12-31] MEDS: INSULIN DETEMIR 100 UNITS/ML VIAL SQ SCH ×2 (09:31→21:30)
--- NOTE | 2016-12-31 10:48 | HHI.PR ---
Subjective Remarks Follow-up for endocarditis, diabetic foot infection. Patient's pain is currently controlled as he just received pain medication. Objective Vitals Vital Signs Date Time Temp Pulse Resp B/P Pulse Ox O2 Delivery O2 Flow Rate FiO2 12/31/16 08:00 97.5 114 16 118/78 98 12/30/16 22:51 16 12/30/16 20:00 97.6 108 18 113/73 97 I/O 12/30/16 12/30/16 12/30/16 12/31/16 12/31/16 12/31/16 07:00 15:00 23:00 07:00 15:00 23:00 Intake Total 480 ml 1540 ml 220 ml Balance 480 ml 1540 ml 220 ml Intake Oral 480 ml 1540 ml 220 ml # Voids 1 4 1 # Bowel Movements 0 1 Result Diagram: 12/28/16 0915 12/30/16 0610 Objective Remarks GENERAL: Pleasant, well-nourished, well-developed patient in no apparent distress sitting in recliner. CARDIOVASCULAR: Tachycardic rate with regular rhythm. RESPIRATORY: No accessory muscle use. Clear to auscultation. Breath sounds equal bilaterally. MUSCULOSKELETAL: Post op shoe, JUNE wrap, wound vac R foot. PSYCHIATRIC: Appropriate mood and affect; insight and judgment normal. Procedures R foot infection, I&D 11/18/16 and 11/20/16 [facility], 11/24 [place] [facility] Urinary Catheter: No Vascular Central Line Catheter: Yes Assessment to: Continue Date of Insertion: Nov 25, 2016 Line: PICC Side: Right Reason for Continuation Continue until surgery completed tomorrow. A/P Problem List: (1) Sepsis ICD Code: A41.9 Status: Resolved (2) Cellulitis of right foot ICD Code: L03.115 Status: Resolved (3) Type 2 diabetes mellitus ICD Code: E11.9 Status: Acute (4) Bacteremia due to methicillin resistant Staphylococcus aureus ICD Code: R78.81 Status: Resolved Assessment and Plan 51-year-old male with history of diabetes and tobacco abuse. He presents to the emergency department because of cellulitis/abscess involving his right foot. Mitral valve endocarditis: stable Presented with sepsis from diabetic foot infection, bacteremia Blood cultures indicated Staphylococcus epidermidis Repeat blood cultures 11/19/16 have remained negative Echocardiogram 11/19/16 indicated aortic valve was moderately thickened leaflets , specifically of the left coronary cusp, cannot rule out endocarditis. NORIS 11/21/16 indicates mitral valve with echo density on the atrial aspect of the base of the anterior leaflet appearance consistent with vegetation. Probable endocarditis of the anterior leaflet of the mitral valve. Infectious disease was consulted and evaluated the patient and recommend 6 weeks worth of IV vancomycin, discontinued 12/28/16. PICC line placed 11/25/16 for long-term antibiotics Neutropenia discussed with ID, Dr. Silva, who states do not change antibiotics for now. Repeat CBC 12/28 with normal neutrophil count. Diabetic foot infection. He has cellulitis/abscess status post multiple I&D, Integra graft placement and wound VAC application. Culture growing multiple organisms. Infectious disease consulted and made antibiotic recommendations Morphine 2 mg IV when necessary for wound VAC change Podiatry says okay to be weightbearing in postop shoe, okay to work out with stationary bike with postop shoe 2030 minutes every other day -Eucerin cream ordered for dry skin to R foot only to apply on plantar aspect. -12/30: Dr. Sales, dural mechanic, evaluated the patient this morning. Plans for application of another Integra graft and vac change possibly Tuesday due to need for coverage over tendons. NPO after midnight Tuesday night. States if possible, patient will need to stay in another 2 weeks to assess for split thickness skin graft if tendons have granulation tissue over them at that time. Continue wound vac Sinus tachycardia: Heart rate has been more persistently elevated since 12/06, upper 90's-low 100's. Afebrile. -TSH normal. Labs stable. Asymptomatic. Diabetes mellitus: Stable. BGL 169 last night, 136 this morning. Hemoglobin A1c 11.8. Levemir 30 units in the morning (last adjusted 12/27) and 16 units at bedtime ( last adjusted 12/21). Accu-Cheks with sliding scale coverage. Hypertension: Improved. Norvasc 10 mg daily Lisinopril 20 mg daily Tinea cruris S/p Nystatin powder Tobacco abuse. Patient previously counseled regarding cessation. Peripheral vascular disease. Status post CTA No reconstructible vessels per vascular surgery. Continue asa. Tobacco cessation DVT prophylaxis subcutaneous heparin Discharge Planning Patient to undergo another Integra graft possibly tomorrow by Dr. Sales. Problem Qualifiers (1) Sepsis: Qualified Code: A41.02 - Sepsis due to methicillin resistant Staphylococcus aureus (MRSA) Alexandra Mora Dec 31, 2016 10:48
[2016-12-31 21:22] VITALS: BP 100/73; PULSE 120; RESP 18; TEMP 97.7; O2SAT 97
[2017-01-01] MEDS: INSULIN ASPART SUPPLEMENTAL SCALE SQ SCH ×4 (05:43→21:59)
[2017-01-01 08:00] VITALS: BP 108/78; PULSE 116; RESP 18; TEMP 97.6; O2SAT 97
[2017-01-01] MEDS: LACTOBACILLUS ACIDOPHILUS TAB PO SCH ×3 (08:16→18:00)
[2017-01-01] MEDS: ASPIRIN 81 MG CHEW TAB CHEW SCH (08:17)
[2017-01-01] MEDS: LISINOPRIL 20 MG TAB PO SCH (08:18)
[2017-01-01] MEDS: HEPARIN SODIUM - SQ 10,000 UNITS/ML VIAL SQ SCH ×2 (08:18→21:49)
[2017-01-01] MEDS: MUPIROCIN 2% CREAM 15 GM TOPICAL SCH ×2 (08:19→21:00)
[2017-01-01] MEDS: INSULIN DETEMIR 100 UNITS/ML VIAL SQ SCH ×2 (08:28→22:00)
[2017-01-01] MEDS: SODIUM CHLORIDE 0.9% FLUSH 10 ML FLUSH IV FLUSH SCH ×3 (08:29→21:00)
[2017-01-01] MEDS ORDERED: PROPOFOL 200 MG/20 ML AMP IV ONE (09:38)
[2017-01-01] MEDS ORDERED: ONDANSETRON HCL 4 MG/2 ML VIAL IV PUSH ONE (09:38)
[2017-01-01] MEDS ORDERED: NEOMYCIN/POLYMYXIN 1 ML G.U. IRRIGANT ONE (10:37)
[2017-01-01] MEDS ORDERED: BUPIVACAINE HCL PF 0.25% 30 ML VIAL ONE (10:37)
[2017-01-01 10:45] VITALS: BP 108/58; PULSE 93; RESP 16; TEMP 98.4; O2SAT 99
[2017-01-01] MEDS: MORPHINE SULFATE 4 MG/ML INJ IV PUSH PRN ×2 (11:35→11:40)
[2017-01-01] MEDS ORDERED: MIDAZOLAM HCL 2 MG/2 ML VIAL ONE (11:59)
[2017-01-01] MEDS ORDERED: NEOMYCIN/POLYMYXIN 1 ML G.U. IRRIGANT TOPICAL ONE (12:18)
--- NOTE | 2017-01-01 12:48 | HHI.PR ---
Immediate Post Op Note Procedure Date: Jan 01, 2017 Pre Op Diagnosis: Wound R dorsolateral forefoot Post Op Diagnosis: same Surgeon: Arsenio Sales DPM Party Chief(s): Staff Procedure: Debridement of wound R foot with application of integra graft and wound vac change Findings: 10 cm x 9cm x 0.3cm R dorsolateral forefoot with exposed extensor tendons and healthy granulation tissue alongside all tendons. No purulence. No necrotic tissue. Wound excisionally debrided of fibrotic tissue with #15 blade and curettage, followed by irrigation with 3L NS, followed by application of Integra graft and wound vac dressing R foot. Setting 125mmHg continuous. Continue T/Th/Sat vac changes If tendons not exposed in 2 weeks, will assess for split thickness skin graft vs other graft options. Complications: None Specimen(s) removed: None Estimated blood loss: Minimal Anesthesia: General Drains: None IVF Tourniquet time (min at mmHg) n/a Patient to: PACU Patient Condition: Good Date/Time of Procedure: SEE SURGICAL CARE RECORD Arsenio Sales DPM Jan 01, 2017 12:48
[2017-01-01 12:52] VITALS: PULSE 95
--- NOTE | 2017-01-01 14:35 | HHI.PR ---
Subjective Remarks Late entry. Patient evaluated this morning prior to procedure. Follow-up for endocarditis, diabetic foot infection. Patient is to undergo Integra graft to right foot this morning. Patient states the wound VAC became clogged at 5 AM. The nurse states it was working upon the start of his shift, but is now again clogged, but the patient is to go down for procedure shortly. Patient denies any fevers or chills. Objective Vitals Vital Signs Date Time Temp Pulse Resp B/P Pulse Ox O2 Delivery O2 Flow Rate FiO2 01/01/17 13:15 97.9 90 14 90/57 97 Room Air 01/01/17 13:00 100 14 75/57 97 Room Air 01/01/17 12:52 95 01/01/17 12:52 98.7 95 14 82/58 96 Room Air 01/01/17 10:45 98.4 93 16 108/58 99 01/01/17 08:00 97.6 116 18 108/78 97 12/31/16 21:22 97.7 120 18 100/73 97 I/O 12/31/16 12/31/16 12/31/16 01/01/17 01/01/17 01/01/17 07:00 15:00 23:00 07:00 15:00 23:00 Intake Total 220 ml 1050 ml 1000 ml Output Total 400 ml Balance 220 ml 1050 ml -400 ml 1000 ml Intake Oral 220 ml 1050 ml 0 ml Other 1000 ml Output Urine Total 400 ml # Voids 1 3 2 0 # Bowel Movements 0 0 Result Diagram: 12/28/16 0915 12/30/16 0610 Objective Remarks GENERAL: Pleasant, well-nourished, well-developed patient in no apparent distress sitting in recliner. CARDIOVASCULAR: Regular rate and rhythm. RESPIRATORY: No accessory muscle use. Clear to auscultation. Breath sounds equal bilaterally. GASTROINTESTINAL: Abdomen soft, non-tender, non-distended. MUSCULOSKELETAL: Post op shoe, JUNE wrap, clogged wound vac tubing R foot which patient has disconnected from machine. PSYCHIATRIC: Appropriate mood and affect; insight and judgment normal. Procedures NORIS Incision and drainage abscess R foot 11/18/16 and 11/20/16 Dr. Sales R foot wound debridement Dr. Hardwick 11/24/16 Irrigation and Debridement and Integra graft placement 12/02/16 Dr. Sales Irrigation and Debridement and Integra graft placement 01/01/17 Dr. Sales Urinary Catheter: No Vascular Central Line Catheter: Yes Assessment to: Remove Date of Insertion: Nov 25, 2016 Date of Removal: Jan 01, 2017 Line: PICC Side: Right A/P Problem List: (1) Sepsis ICD Code: A41.9 Status: Resolved (2) Cellulitis of right foot ICD Code: L03.115 Status: Resolved (3) Type 2 diabetes mellitus ICD Code: E11.9 Status: Acute (4) Bacteremia due to methicillin resistant Staphylococcus aureus ICD Code: R78.81 Status: Resolved Assessment and Plan 51-year-old male with history of diabetes and tobacco abuse. He presents to the emergency department because of cellulitis/abscess involving his right foot. Mitral valve endocarditis: stable Presented with sepsis from diabetic foot infection, bacteremia Blood cultures indicated Staphylococcus epidermidis Repeat blood cultures 11/19/16 have remained negative Echocardiogram 11/19/16 indicated aortic valve was moderately thickened leaflets , specifically of the left coronary cusp, cannot rule out endocarditis. NORIS 11/21/16 indicates mitral valve with echo density on the atrial aspect of the base of the anterior leaflet appearance consistent with vegetation. Probable endocarditis of the anterior leaflet of the mitral valve. Infectious disease was consulted and evaluated the patient and recommend 6 weeks worth of IV vancomycin, discontinued 12/28/16. PICC line placed 11/25/16 for long-term antibiotics. Neutropenia discussed with ID, Dr. Silva, who states do not change antibiotics for now. Repeat CBC 12/28 with normal neutrophil count. Discontinue PICC as no longer needed to decrease risk of complications. Start peripheral IV as patient has good venous access. Diabetic foot infection. He has cellulitis/abscess status post multiple I&D, Integra graft placement and wound VAC application. Culture growing multiple organisms. Infectious disease consulted and made antibiotic recommendations Morphine 2 mg IV when necessary for wound VAC change Podiatry says okay to be weightbearing in postop shoe, okay to work out with stationary bike with postop shoe 2030 minutes every other day -Eucerin cream ordered for dry skin to R foot only to apply on plantar aspect. -01/01: Dr. Sales performed another debridement and Integra graft placement today. States if tendons not exposed in 2 weeks, will assess for split thickness skin graft vs other graft options. -Continue T//Sat wound vac changes. Sinus tachycardia: Afebrile. -TSH normal. Labs stable. Asymptomatic. Diabetes mellitus: Stable. Hemoglobin A1c 11.8. Levemir 30 units in the morning (last adjusted 12/27) and 16 units at bedtime ( last adjusted 12/21). Accu-Cheks with sliding scale coverage. BGL 206 last night and 130 this morning, 83 this afternoon likely due to NPO status this morning. Monitor and adjust medication as needed. Continue current regiment for now. Hypertension: Improved. Norvasc 10 mg daily Lisinopril 20 mg daily Patient hypotensive this afternoon due to midazolam given this morning for procedure. RN advised to hold narcotics until BP improves. Tinea cruris S/p Nystatin powder Tobacco abuse. Patient previously counseled regarding cessation. Peripheral vascular disease. Status post CTA No reconstructible vessels per vascular surgery. Continue asa. Tobacco cessation DVT prophylaxis subcutaneous heparin Discharge Planning Patient need further surgery while in hospital, will defer to podiatry. Continues to utilize wound vac at this time. Problem Qualifiers (1) Sepsis: Qualified Code: A41.02 - Sepsis due to methicillin resistant Staphylococcus aureus (MRSA) Alexandra Mora Jan 01, 2017 14:35
[2017-01-01 20:00] VITALS: BP 119/74; PULSE 93; RESP 20; TEMP 97.4; O2SAT 98
[2017-01-02] MEDS: INSULIN ASPART SUPPLEMENTAL SCALE SQ SCH ×4 (06:40→21:00)
[2017-01-02 08:00] VITALS: BP 143/92; PULSE 101; RESP 18; TEMP 98.3; O2SAT 97
[2017-01-02] MEDS: ASPIRIN 81 MG CHEW TAB CHEW SCH (08:46)
[2017-01-02] MEDS: LISINOPRIL 20 MG TAB PO SCH (08:47)
[2017-01-02] MEDS: HEPARIN SODIUM - SQ 10,000 UNITS/ML VIAL SQ SCH ×2 (08:49→22:39)
[2017-01-02] MEDS: MUPIROCIN 2% CREAM 15 GM TOPICAL SCH ×2 (08:50→21:00)
[2017-01-02] MEDS: SODIUM CHLORIDE 0.9% FLUSH 10 ML FLUSH IV FLUSH SCH ×3 (08:50→21:00)
[2017-01-02] MEDS: INSULIN DETEMIR 100 UNITS/ML VIAL SQ SCH ×2 (08:53→22:43)
[2017-01-02] MEDS: LACTOBACILLUS ACIDOPHILUS TAB PO SCH ×3 (08:54→16:23)
[2017-01-02] MEDS: ACETAMINOPHEN/HYDROcodone 325 MG/7.5 MG TAB PO PRN ×2 (08:57→22:45)
--- NOTE | 2017-01-02 10:07 | HHI.PR ---
Subjective Remarks Follow up for endocarditis, diabetic foot infection. Patient denies any worsening pain in the foot after Integra graft placement yesterday. Denies any fevers or chills. Objective Vitals Vital Signs Date Time Temp Pulse Resp B/P Pulse Ox O2 Delivery O2 Flow Rate FiO2 01/01/17 20:00 97.4 93 20 119/74 98 01/01/17 13:15 97.9 90 14 90/57 97 Room Air 01/01/17 13:00 100 14 75/57 97 Room Air 01/01/17 12:52 95 01/01/17 12:52 98.7 95 14 82/58 96 Room Air 01/01/17 10:45 98.4 93 16 108/58 99 I/O 01/01/17 01/01/17 01/01/17 01/02/17 01/02/17 01/02/17 07:00 15:00 23:00 07:00 15:00 23:00 Intake Total 1000 ml 240 ml Output Total 400 ml Balance -400 ml 1000 ml 240 ml Intake Oral 0 ml 240 ml Other 1000 ml Output Urine Total 400 ml # Voids 0 3 2 # Bowel Movements 1 Result Diagram: 01/01/17 1417 Objective Remarks GENERAL: Pleasant, well-nourished, well-developed patient in no apparent distress sitting in recliner. CARDIOVASCULAR: Tachycardic rate and regular rhythm. RESPIRATORY: No accessory muscle use. Clear to auscultation. Breath sounds equal bilaterally. MUSCULOSKELETAL: Post op shoe, JUNE wrap to R foot. All toes to R foot are warm, normal. NEUROLOGICAL: Sensation is grossly intact over toes of R foot. Normal speech. PSYCHIATRIC: Appropriate mood and affect; insight and judgment normal. Procedures NORIS Incision and drainage abscess R foot 11/18/16 and 11/20/16 Dr. Sales R foot wound debridement Dr. Hardwick 11/24/16 Irrigation and Debridement and Integra graft placement 12/02/16 Dr. Sales Irrigation and Debridement and Integra graft placement 01/01/17 Dr. Sales Urinary Catheter: No Vascular Central Line Catheter: No Date of Insertion: Nov 25, 2016 Date of Removal: Jan 01, 2017 Line: PICC Side: Right A/P Problem List: (1) Sepsis ICD Code: A41.9 Status: Resolved (2) Cellulitis of right foot ICD Code: L03.115 Status: Resolved (3) Type 2 diabetes mellitus ICD Code: E11.9 Status: Acute (4) Bacteremia due to methicillin resistant Staphylococcus aureus ICD Code: R78.81 Status: Resolved Assessment and Plan 51-year-old male with history of diabetes and tobacco abuse. He presents to the emergency department because of cellulitis/abscess involving his right foot. Mitral valve endocarditis: stable Presented with sepsis from diabetic foot infection, bacteremia Blood cultures indicated Staphylococcus epidermidis Repeat blood cultures 11/19/16 have remained negative Echocardiogram 11/19/16 indicated aortic valve was moderately thickened leaflets , specifically of the left coronary cusp, cannot rule out endocarditis. NORIS 11/21/16 indicates mitral valve with echo density on the atrial aspect of the base of the anterior leaflet appearance consistent with vegetation. Probable endocarditis of the anterior leaflet of the mitral valve. Infectious disease was consulted and evaluated the patient and recommend 6 weeks worth of IV vancomycin, discontinued 12/28/16. PICC line placed 11/25/16 for long-term antibiotics. Neutropenia discussed with ID, Dr. Silva, who states do not change antibiotics for now. Repeat CBC 12/28 with normal neutrophil count. 01/01: Discontinue PICC as no longer needed to decrease risk of complications. Start peripheral IV as patient has good venous access. Diabetic foot infection. He has cellulitis/abscess status post multiple I&D, Integra graft placement and wound VAC application. Culture growing multiple organisms. Infectious disease consulted and made antibiotic recommendations Morphine 2 mg IV when necessary for wound VAC change Podiatry says okay to be weightbearing in postop shoe, okay to work out with stationary bike with postop shoe 2030 minutes every other day -Eucerin cream ordered for dry skin to R foot only to apply on plantar aspect. -01/01: Dr. Sales performed another debridement and Integra graft placement today. States if tendons not exposed in 2 weeks, will assess for split thickness skin graft vs other graft options. -Continue T//Tue wound vac changes. Sinus tachycardia: Afebrile. -TSH normal. Labs stable. Asymptomatic. Diabetes mellitus: Stable. Hemoglobin A1c 11.8. Levemir 30 units in the morning (last adjusted 12/27) and 16 units at bedtime ( last adjusted 12/21). Accu-Cheks with sliding scale coverage. 01/02: Last night's BGL improved compared to prior. Morning BGLs controlled. Continue current regiment for now. Monitor and adjust medication as needed. Hypertension: Mildly elevated this morning. Continue to monitor. Norvasc 10 mg daily Lisinopril 20 mg daily Tinea cruris S/p Nystatin powder Tobacco abuse. Patient previously counseled regarding cessation. Peripheral vascular disease. Status post CTA No reconstructible vessels per vascular surgery. Continue asa. Tobacco cessation DVT prophylaxis subcutaneous heparin Discharge Planning Patient need further surgery while in hospital, will defer to podiatry. Continues to utilize wound vac at this time. Problem Qualifiers (1) Sepsis: Qualified Code: A41.02 - Sepsis due to methicillin resistant Staphylococcus aureus (MRSA) Alexandra Mora Jan 02, 2017 10:07 aureus (MRSA) Alexandra Mora Jan 02, 2017 10:07
[2017-01-02 20:00] VITALS: BP 118/75; PULSE 96; RESP 18; TEMP 97.6; O2SAT 98
[2017-01-03] MEDS: INSULIN ASPART SUPPLEMENTAL SCALE SQ SCH ×4 (06:56→22:08)
[2017-01-03] MEDS: SODIUM CHLORIDE 0.9% FLUSH 10 ML FLUSH IV FLUSH SCH ×3 (07:53→21:00)
[2017-01-03 08:00] VITALS: BP 140/89; PULSE 99; RESP 18; TEMP 96.9; O2SAT 99
[2017-01-03] MEDS: MUPIROCIN 2% CREAM 15 GM TOPICAL SCH ×2 (08:40→21:00)
[2017-01-03] MEDS: LACTOBACILLUS ACIDOPHILUS TAB PO SCH ×3 (08:41→17:53)
[2017-01-03] MEDS: ASPIRIN 81 MG CHEW TAB CHEW SCH (08:41)
[2017-01-03] MEDS: LISINOPRIL 20 MG TAB PO SCH (08:41)
[2017-01-03] MEDS: INSULIN DETEMIR 100 UNITS/ML VIAL SQ SCH ×2 (08:44→22:09)
[2017-01-03] MEDS: ACETAMINOPHEN/HYDROcodone 325 MG/7.5 MG TAB PO PRN ×2 (08:50→22:05)
[2017-01-03] MEDS: HEPARIN SODIUM - SQ 10,000 UNITS/ML VIAL SQ SCH ×2 (09:00→22:04)
--- NOTE | 2017-01-03 11:41 | HHI.PR ---
Subjective Remarks Follow up for endocarditis, diabetic foot infection. Patient admits to some pain over his left side which started the other night. States he had a chill this morning. Denies any dysuria. No acute changes with the R foot. Objective Vitals Vital Signs Date Time Temp Pulse Resp B/P Pulse Ox O2 Delivery O2 Flow Rate FiO2 01/03/17 08:00 96.9 99 18 140/89 99 01/02/17 23:45 18 01/02/17 20:00 97.6 96 18 118/75 98 I/O 01/02/17 01/02/17 01/02/17 01/03/17 01/03/17 01/03/17 07:00 15:00 23:00 07:00 15:00 23:00 Intake Total 240 ml 960 ml Output Total 350 ml Balance 240 ml 960 ml -350 ml Intake Oral 240 ml 960 ml Output Urine Total 350 ml # Voids 2 3 2 # Bowel Movements 1 1 Result Diagram: 01/03/17 0934 Objective Remarks GENERAL: Pleasant, well-nourished, well-developed patient in no apparent distress sitting in recliner. SKIN: No rashes over the L flank. CARDIOVASCULAR: Tachycardic rate and regular rhythm. RESPIRATORY: No accessory muscle use. Clear to auscultation. Breath sounds equal bilaterally. MUSCULOSKELETAL: JUNE wrap and post op shoe to the R foot with wound vac. Tender over the left lower side/flank region. No CVA tenderness. NEUROLOGICAL: Awake and alert. Normal speech. PSYCHIATRIC: Appropriate mood and affect; insight and judgment normal. Procedures NORIS Incision and drainage abscess R foot 11/18/16 and 11/20/16 Dr. Sales R foot wound debridement Dr. Hardwick 11/24/16 Irrigation and Debridement and Integra graft placement 12/02/16 Dr. Sales Irrigation and Debridement and Integra graft placement 01/01/17 Dr. Sales Urinary Catheter: No Vascular Central Line Catheter: No Date of Insertion: Nov 25, 2016 Date of Removal: Jan 01, 2017 Line: PICC Side: Right A/P Problem List: (1) Sepsis ICD Code: A41.9 Status: Resolved (2) Cellulitis of right foot ICD Code: L03.115 Status: Resolved (3) Type 2 diabetes mellitus ICD Code: E11.9 Status: Acute (4) Bacteremia due to methicillin resistant Staphylococcus aureus ICD Code: R78.81 Status: Resolved Assessment and Plan 51-year-old male with history of diabetes and tobacco abuse. He presents to the emergency department because of cellulitis/abscess involving his right foot. 01/03: Patient has mild pain over L lower side/flank but no rash or infection evident. Likely muscular. Patient indicates it has improved since he first noticed it the other night. Nothing acute to do. Monitor clinically. Mitral valve endocarditis: stable Presented with sepsis from diabetic foot infection, bacteremia Blood cultures indicated Staphylococcus epidermidis Repeat blood cultures 11/19/16 have remained negative Echocardiogram 11/19/16 indicated aortic valve was moderately thickened leaflets , specifically of the left coronary cusp, cannot rule out endocarditis. NORIS 11/21/16 indicates mitral valve with echo density on the atrial aspect of the base of the anterior leaflet appearance consistent with vegetation. Probable endocarditis of the anterior leaflet of the mitral valve. Infectious disease was consulted and evaluated the patient and recommend 6 weeks worth of IV vancomycin, discontinued 12/28/16. PICC line placed 11/25/16 for long-term antibiotics. Neutropenia discussed with ID, Dr. Silva, who states do not change antibiotics for now. Repeat CBC 12/28 with normal neutrophil count. 01/01: Discontinue PICC as no longer needed to decrease risk of complications. Start peripheral IV as patient has good venous access. Diabetic foot infection. He has cellulitis/abscess status post multiple I&D, Integra graft placement and wound VAC application. Culture growing multiple organisms. Infectious disease consulted and made antibiotic recommendations Morphine 2 mg IV when necessary for wound VAC change Podiatry says okay to be weightbearing in postop shoe, okay to work out with stationary bike with postop shoe 2030 minutes every other day -Eucerin cream ordered for dry skin to R foot only to apply on plantar aspect. -01/01: Dr. Sales performed another debridement and Integra graft placement. States if tendons not exposed in 2 weeks, will assess for split thickness skin graft vs other graft options. -Continue T/Th/Sat wound vac changes. Sinus tachycardia: -TSH normal. Labs stable. Afebrile. Asymptomatic. Nothing acute to do. Diabetes mellitus: Stable. Hemoglobin A1c 11.8. Levemir 30 units in the morning (last adjusted 12/27) and 16 units at bedtime ( last adjusted 12/21). Accu-Cheks with sliding scale coverage. 01/03: BGL improved last night and this morning. Continue current regimen. Monitor and adjust medication as needed. Hypertension: Stable. Continue to monitor. Norvasc 10 mg daily Lisinopril 20 mg daily Tinea cruris S/p Nystatin powder Tobacco abuse. Patient previously counseled regarding cessation. Peripheral vascular disease. Status post CTA No reconstructible vessels per vascular surgery. Continue asa. Tobacco cessation DVT prophylaxis subcutaneous heparin Discharge Planning Patient need further surgery while in hospital, will defer to podiatry. Continues to utilize wound vac at this time. Problem Qualifiers (1) Sepsis: Qualified Code: A41.02 - Sepsis due to methicillin resistant Staphylococcus aureus (MRSA) Alexandra Mora Jan 03, 2017 11:41
[2017-01-03] MEDS: MORPHINE SULFATE 4 MG/ML INJ IV PUSH PRN (14:46)
[2017-01-03 20:00] VITALS: BP 105/75; PULSE 100; RESP 20; TEMP 97.7; O2SAT 99
[2017-01-04] MEDS: INSULIN ASPART SUPPLEMENTAL SCALE SQ SCH ×4 (07:00→20:03)
[2017-01-04 08:00] VITALS: BP 102/82; PULSE 106; RESP 18; TEMP 96.1; O2SAT 99
[2017-01-04] MEDS: MUPIROCIN 2% CREAM 15 GM TOPICAL SCH (09:00)
[2017-01-04] MEDS: LISINOPRIL 20 MG TAB PO SCH (09:00)
[2017-01-04] MEDS: SODIUM CHLORIDE 0.9% FLUSH 10 ML FLUSH IV FLUSH SCH ×3 (09:00→20:09)
[2017-01-04] MEDS: ASPIRIN 81 MG CHEW TAB CHEW SCH (09:42)
[2017-01-04] MEDS: LACTOBACILLUS ACIDOPHILUS TAB PO SCH ×3 (09:42→18:46)
[2017-01-04] MEDS: HEPARIN SODIUM - SQ 10,000 UNITS/ML VIAL SQ SCH ×2 (09:43→20:10)
--- NOTE | 2017-01-04 09:43 | MP ---
cc: ARSENIO GONZALEZ DPM DATE OF 1965 DATE OF SURGERY January 01, 2017 INDICATIONS FOR PROCEDURE The patient presented originally to the emergency department with infection of the right dorsal lateral foot. He underwent several I&D procedures with wound VAC and has undergone an Integra skin graft before to cover residual exposed tendons. He was found to have significant granulation tissue around the tendon areas. However, he still has exposed tendons. I discussed with the patient that he would benefit from debridement of the wound with an application of another Integra graft as well as a wound VAC change. He consented to the procedure. He was seen in preop holding by myself, nursing staff and Anesthesia where the correct patient, side and site were all confirmed to be correct in the right foot. PROCEDURE He was then taken back to the surgical suite, placed in supine position where attention was directed to the right foot. It was prepped and draped in normal sterile fashion followed by time-outs as per hospital protocol. Attention was directed to the right dorsolateral foot where he was noted to have a wound approximately 10 cm x 9 cm x 0.3 cm to the right dorsolateral forefoot with exposed extensor tendons and healthy granulation tissue alongside all the tendons. No purulence was noted. No necrotic tissue was noted. The wound was excisionally debrided of all fibrotic tissue with a #15 blade down to healthy bleeding subcutaneous granular tissue as well as curettage followed by irrigation with 3 liters normal sterile saline, followed by application of an Integra skin graft that was sutured in place, followed by wound VAC dressing to the right foot set at 125 mmHg continuous. He tolerated the procedure and anesthesia well without complications and was taken to the PACU with vital signs stable and vascular status intact to the remainder of the right foot. He will have wound VAC changes Tuesday, and Tuesday and we will reevaluate in 2 weeks and if the tendons are not exposed at the time, we will assess for a split-thickness skin graft versus other graft options. Short operative note. SHORT OPERATIVE NOTE SURGEON Arsenio Gonzalez DPM [facility] Staff. PREOPERATIVE DIAGNOSIS Wound right dorsolateral forefoot. POSTOPERATIVE DIAGNOSIS Wound right dorsolateral forefoot. PROCEDURE Debridement of wound right foot with application of Integra graft the wound VAC change. ANESTHESIA Generally endotracheal anesthesia. ESTIMATED BLOOD LOSS Minimal. COMPLICATIONS None. DISPOSITION Non-weightbearing right foot with reevaluation in two weeks for possible further grafting. CONDITION Stable to PACU. ESTIMATED BLOOD LOSS Minimal. SPECIMENS None. COMPLICATIONS None. Arsenio RENE/RAMIN /4:54 PM /9:39 AM
[2017-01-04] MEDS ORDERED: SODIUM CHLORID 0.9% 500 ML INJ 500 ML IV ONE (09:45)
[2017-01-04] MEDS: INSULIN DETEMIR 100 UNITS/ML VIAL SQ SCH ×2 (09:52→20:04)
--- NOTE | 2017-01-04 12:13 | HHI.PR ---
Subjective Remarks Patient seen and examined today for follow-up on right foot infection. Patient is doing much better. Had another surgery done last week for his foot. No longer on antibiotics. Objective Vitals Vital Signs Date Time Temp Pulse Resp B/P Pulse Ox O2 Delivery O2 Flow Rate FiO2 01/04/17 08:00 96.1 106 18 102/82 99 01/03/17 23:05 16 01/03/17 20:00 97.7 100 20 105/75 99 I/O 01/03/17 01/03/17 01/03/17 01/04/17 01/04/17 01/04/17 07:00 15:00 23:00 07:00 15:00 23:00 Intake Total 0 ml 480 ml Output Total 350 ml Balance -350 ml 0 ml 480 ml Intake Oral 480 ml IV Total 0 ml Output Urine Total 350 ml # Voids 2 3 # Bowel Movements 1 Result Diagram: 01/03/17 0934 Objective Remarks GENERAL: Well-developed, well-nourished, in no acute distress. alert and orientated HEENT: Head is normocephalic without any lesions or masses noted. Facial features are symmetric. Eyes: Extraocular muscles are intact. Conjunctivae were clear. NECK: Supple without any masses. Trachea midline no deviation. No JVD, CARDIAC: Regular rhythm, regular rate. S1/S2 are heard. No murmurs gallops or rubs. LUNGS: Clear to auscultation bilaterally. No wheeze, rhonchi or rales. No use of accessory muscles on inspiration or expiration. ABDOMEN: Soft, nontender. Nondistended. Bowel sounds heard in all 4 quadrants. No organomegaly or masses. Negative rebound, negative guarding EXTREMITIES: No edema, pulses are equal bilaterally. No cyanosis or clubbing NEUROLOGY: Mood and affect appear appropriate. Cranial nerves II through XII grossly intact. Moving all extremities, speech is clear RIGHT FOOT: Patient does have right foot wound which appears to be healing fine , nice pink edges, able see tendon sheaths through graft material. No signs of infection Procedures NORIS Incision and drainage abscess R foot 11/18/16 and 11/20/16 Dr. Sales R foot wound debridement Dr. Hardwick 11/24/16 Irrigation and Debridement and Integra graft placement 12/02/16 Dr. Sales Irrigation and Debridement and Integra graft placement 01/01/17 Dr. Sales Urinary Catheter: No Vascular Central Line Catheter: No Date of Insertion: Nov 25, 2016 Date of Removal: Jan 01, 2017 A/P Assessment and Plan 51-year-old male with history of diabetes and tobacco abuse. He presents to the emergency department because of cellulitis/abscess involving his right foot. Mitral valve endocarditis Patient originally presented with sepsis from diabetic foot infection, bacteremia Blood cultures indicated Staphylococcus epidermidis Repeat blood cultures 11/19/16 have remained negative Echocardiogram 11/19/16 indicated aortic valve was moderately thickened leaflets , specifically of the left coronary cusp, cannot rule out endocarditis does not appear mobile as endocarditis would be NORIS 11/21/16 indicates mitral valve with echo density on the atrial aspect of the base of the anterior leaflet appearance consistent with vegetation. Probable endocarditis of the anterior leaflet of the mitral valve. Infectious disease was consulted and evaluated the patient and at this time recommending 6 weeks worth of IV vancomycin, until December 28, 2016 PICC line placed 11/25/16 for long-term antibiotics Case management consulted trying to arrange outpatient antibiotics Infectious disease reconsulted due to neutropenia and low-grade fever. They recommended continue to monitor and if patient continues to have fever then repeat blood culture. Indicated that neutropenia could be secondary to medication side effects Diabetic foot infection. He has cellulitis/abscess status post multiple I&D, intragraft placement and wound VAC application. Culture growing multiple organisms. Infectious disease consulted and made antibiotic recommendations Morphine 2 mg IV when necessary for wound VAC change Podiatry says okay to be weightbearing in postop shoe, okay to work out with stationary bike with postop shoe 2030 minutes every other day Diabetes mellitus. Improving Hemoglobin A1c 11.8. Levemir to 16 units units at bedtime and 30 units in the morning. Accu-Cheks with sliding scale coverage. Hypertension. Improving Norvasc 10 mg daily lisinopril 20 mg daily Monitor for response Tinea cruris, resolved Status post Nystatin powder Tobacco abuse. Patient previously counseled regarding cessation. Peripheral vascular disease. Status post CTA no reconstructible vessels per vascular surgery. Ct asa. Tobacco cessation DVT prophylaxis subcutaneous heparin Discharge Planning Discharge planning if case management can arrange outpatient antibiotics, otherwise, patient remain at [facility] for long-term care until antibiotics completed Diogo Gallagher Jan 04, 2017 12:13
[2017-01-04] MEDS ORDERED: ONDANSETRON ODT 4 MG TAB PO PRN (12:15)
[2017-01-04 20:00] VITALS: BP 115/89; PULSE 115; RESP 18; TEMP 98.8; O2SAT 99
[2017-01-05] MEDS: INSULIN ASPART SUPPLEMENTAL SCALE SQ SCH ×4 (07:00→20:26)
[2017-01-05 08:00] VITALS: BP 133/91; PULSE 120; RESP 18; TEMP 97.8; O2SAT 99
[2017-01-05] MEDS: ASPIRIN 81 MG CHEW TAB CHEW SCH (09:51)
[2017-01-05] MEDS: SODIUM CHLORIDE 0.9% FLUSH 10 ML FLUSH IV FLUSH SCH ×2 (09:51→20:25)
[2017-01-05] MEDS: HEPARIN SODIUM - SQ 10,000 UNITS/ML VIAL SQ SCH ×2 (09:51→20:24)
[2017-01-05] MEDS: LACTOBACILLUS ACIDOPHILUS TAB PO SCH ×3 (09:51→17:32)
[2017-01-05] MEDS: LISINOPRIL 20 MG TAB PO SCH (09:51)
[2017-01-05] MEDS: INSULIN DETEMIR 100 UNITS/ML VIAL SQ SCH ×2 (10:02→20:22)
--- NOTE | 2017-01-05 11:17 | HHI.PR ---
Subjective Remarks Patient seen and examined today for follow-up on right foot wound. Patient doing well this time. Denies any new complaints. Patient inquiring about his and ambulation status. Objective Vitals Vital Signs Date Time Temp Pulse Resp B/P Pulse Ox O2 Delivery O2 Flow Rate FiO2 01/05/17 08:00 97.8 120 18 133/91 99 01/04/17 20:00 98.8 115 18 115/89 99 I/O 01/04/17 01/04/17 01/04/17 01/05/17 01/05/17 01/05/17 06:59 14:59 22:59 06:59 14:59 22:59 Intake Total 480 ml 580 ml 220 ml Balance 480 ml 580 ml 220 ml Intake Oral 480 ml 580 ml 220 ml # Voids 3 2 1 # Bowel Movements 0 0 Result Diagram: 01/05/17 0940 Objective Remarks GENERAL: Well-developed, well-nourished, in no acute distress. alert and orientated HEENT: Head is normocephalic without any lesions or masses noted. Facial features are symmetric. Eyes: Extraocular muscles are intact. Conjunctivae were clear. NECK: Supple without any masses. Trachea midline no deviation. No JVD, CARDIAC: Regular rhythm, regular rate. S1/S2 are heard. No murmurs gallops or rubs. LUNGS: Clear to auscultation bilaterally. No wheeze, rhonchi or rales. No use of accessory muscles on inspiration or expiration. ABDOMEN: Soft, nontender. Nondistended. Bowel sounds heard in all 4 quadrants. No organomegaly or masses. Negative rebound, negative guarding EXTREMITIES: No edema, pulses are equal bilaterally. No cyanosis or clubbing NEUROLOGY: Mood and affect appear appropriate. Cranial nerves II through XII grossly intact. Moving all extremities, speech is clear RIGHT FOOT: Patient does have right foot wound which appears to be healing fine , nice pink edges, able see tendon sheaths through graft material. No signs of infection Procedures NORIS Incision and drainage abscess R foot 11/18/16 and 11/20/16 Dr. Sales R foot wound debridement Dr. Hardwick 11/24/16 Irrigation and Debridement and Integra graft placement 12/02/16 Dr. Sales Irrigation and Debridement and Integra graft placement 01/01/17 Dr. Sales Urinary Catheter: No Vascular Central Line Catheter: No Date of Insertion: Nov 25, 2016 Date of Removal: Jan 01, 2017 A/P Assessment and Plan 51-year-old male with history of diabetes and tobacco abuse. He presents to the emergency department because of cellulitis/abscess involving his right foot. Mitral valve endocarditis Patient originally presented with sepsis from diabetic foot infection, bacteremia Blood cultures indicated Staphylococcus epidermidis Repeat blood cultures 11/19/16 have remained negative Echocardiogram 11/19/16 indicated aortic valve was moderately thickened leaflets , specifically of the left coronary cusp, cannot rule out endocarditis does not appear mobile as endocarditis would be NORIS 11/21/16 indicates mitral valve with echo density on the atrial aspect of the base of the anterior leaflet appearance consistent with vegetation. Probable endocarditis of the anterior leaflet of the mitral valve. Infectious disease was consulted and evaluated the patient and at this time recommending completion of 6 weeks worth of IV vancomycin, finished on December 28, 2016 Diabetic foot infection. He has cellulitis/abscess status post multiple I&D, intragraft placement and wound VAC application. Culture growing multiple organisms. Infectious disease consulted and made antibiotic recommendations Morphine 2 mg IV when necessary for wound VAC change Podiatry says okay to be weightbearing in postop shoe, okay to work out with stationary bike with postop shoe 2030 minutes every other day Diabetes mellitus. Improving Hemoglobin A1c 11.8. Levemir to 16 units units at bedtime and 30 units in the morning. Accu-Cheks with sliding scale coverage. Hypertension. Improving Norvasc 10 mg daily lisinopril 20 mg daily Monitor for response Tinea cruris, resolved Status post Nystatin powder Tobacco abuse. Patient previously counseled regarding cessation. Peripheral vascular disease. Status post CTA no reconstructible vessels per vascular surgery. Ct asa. Tobacco cessation DVT prophylaxis subcutaneous heparin Discharge Planning Discharge planning if case management can arrange outpatient antibiotics, otherwise, patient remain at [facility] for long-term care until antibiotics completed Diogo Gallagher Jan 05, 2017 11:16
[2017-01-05] MEDS: MORPHINE SULFATE 4 MG/ML INJ IV PUSH PRN (16:55)
[2017-01-05 20:00] VITALS: BP 112/85; PULSE 97; RESP 18; TEMP 98.3; O2SAT 97
[2017-01-06] MEDS: INSULIN ASPART SUPPLEMENTAL SCALE SQ SCH ×4 (06:28→21:00)
[2017-01-06 08:00] VITALS: BP 138/85; PULSE 117; RESP 18; TEMP 97.1; O2SAT 100
[2017-01-06] MEDS: LACTOBACILLUS ACIDOPHILUS TAB PO SCH ×3 (09:53→17:10)
[2017-01-06] MEDS: ASPIRIN 81 MG CHEW TAB CHEW SCH (09:53)
[2017-01-06] MEDS: LISINOPRIL 20 MG TAB PO SCH (09:53)
[2017-01-06] MEDS: HEPARIN SODIUM - SQ 10,000 UNITS/ML VIAL SQ SCH ×2 (09:53→20:29)
[2017-01-06] MEDS: INSULIN DETEMIR 100 UNITS/ML VIAL SQ SCH ×2 (10:02→21:00)
[2017-01-06] MEDS: SODIUM CHLORIDE 0.9% FLUSH 10 ML FLUSH IV FLUSH SCH ×2 (10:06→20:30)
--- NOTE | 2017-01-06 10:18 | HHI.PR ---
Subjective Remarks Patient seen and examined today for follow-up on foot infection. Patient is doing well. Denies any new complaints. Awaiting further treatment per podiatry. Objective Vitals Vital Signs Date Time Temp Pulse Resp B/P Pulse Ox O2 Delivery O2 Flow Rate FiO2 01/05/17 20:00 98.3 97 18 112/85 97 I/O 01/05/17 01/05/17 01/05/17 01/06/17 01/06/17 01/06/17 07:00 15:00 23:00 07:00 15:00 23:00 Intake Total 220 ml 480 ml 480 ml Balance 220 ml 480 ml 480 ml Intake Oral 220 ml 480 ml 480 ml # Voids 1 5 1 # Bowel Movements 0 0 0 Result Diagram: 01/05/17 0940 Objective Remarks GENERAL: Well-developed, well-nourished, in no acute distress. alert and orientated HEENT: Head is normocephalic without any lesions or masses noted. Facial features are symmetric. Eyes: Extraocular muscles are intact. Conjunctivae were clear. NECK: Supple without any masses. Trachea midline no deviation. No JVD, CARDIAC: Regular rhythm, regular rate. S1/S2 are heard. No murmurs gallops or rubs. LUNGS: Clear to auscultation bilaterally. No wheeze, rhonchi or rales. No use of accessory muscles on inspiration or expiration. ABDOMEN: Soft, nontender. Nondistended. Bowel sounds heard in all 4 quadrants. No organomegaly or masses. Negative rebound, negative guarding EXTREMITIES: No edema, pulses are equal bilaterally. No cyanosis or clubbing NEUROLOGY: Mood and affect appear appropriate. Cranial nerves II through XII grossly intact. Moving all extremities, speech is clear RIGHT FOOT: Patient does have right foot wound which appears to be healing fine , nice pink edges, able see tendon sheaths through graft material. No signs of infection Procedures NORIS Incision and drainage abscess R foot 11/18/16 and 11/20/16 Dr. Sales R foot wound debridement Dr. Hardwick 11/24/16 Irrigation and Debridement and Integra graft placement 12/02/16 Dr. Sales Irrigation and Debridement and Integra graft placement 01/01/17 Dr. Sales Urinary Catheter: No Vascular Central Line Catheter: No Date of Insertion: Nov 25, 2016 Date of Removal: Jan 01, 2017 A/P Assessment and Plan 51-year-old male with history of diabetes and tobacco abuse. He presents to the emergency department because of cellulitis/abscess involving his right foot. Mitral valve endocarditis Patient originally presented with sepsis from diabetic foot infection, bacteremia Blood cultures indicated Staphylococcus epidermidis Repeat blood cultures 11/19/16 have remained negative Echocardiogram 11/19/16 indicated aortic valve was moderately thickened leaflets , specifically of the left coronary cusp, cannot rule out endocarditis does not appear mobile as endocarditis would be NORIS 11/21/16 indicates mitral valve with echo density on the atrial aspect of the base of the anterior leaflet appearance consistent with vegetation. Probable endocarditis of the anterior leaflet of the mitral valve. Infectious disease recommended completion of 6 weeks worth of IV vancomycin, finished on December 28, 2016 Diabetic foot infection. He has cellulitis/abscess status post multiple I&D, intragraft placement and wound VAC application. Culture growing multiple organisms. Infectious disease consulted and made antibiotic recommendations Morphine 2 mg IV when necessary for wound VAC change Podiatry says okay to be weightbearing in postop shoe, okay to work out with stationary bike with postop shoe 2030 minutes every other day Diabetes mellitus. Improving Hemoglobin A1c 11.8. Levemir to 16 units units at bedtime and 30 units in the morning. Accu-Cheks with sliding scale coverage. Hypertension. Improving Norvasc 10 mg daily lisinopril 20 mg daily Monitor for response Tinea cruris, resolved Status post Nystatin powder Tobacco abuse. Patient previously counseled regarding cessation. Peripheral vascular disease. Status post CTA no reconstructible vessels per vascular surgery. Ct asa. Tobacco cessation DVT prophylaxis subcutaneous heparin Discharge Planning Discharge planning if case management can arrange outpatient antibiotics, otherwise, patient remain at [facility] for long-term care until antibiotics completed Diogo Gallagher Jan 06, 2017 10:18
[2017-01-06 20:00] VITALS: BP 113/76; PULSE 107; RESP 20; TEMP 98; O2SAT 98
[2017-01-07] MEDS: INSULIN ASPART SUPPLEMENTAL SCALE SQ SCH ×4 (06:40→20:47)
[2017-01-07] MEDS: ASPIRIN 81 MG CHEW TAB CHEW SCH (07:46)
[2017-01-07] MEDS: LACTOBACILLUS ACIDOPHILUS TAB PO SCH ×3 (07:46→17:42)
[2017-01-07] MEDS: LISINOPRIL 20 MG TAB PO SCH (07:46)
[2017-01-07] MEDS: HEPARIN SODIUM - SQ 10,000 UNITS/ML VIAL SQ SCH ×2 (07:47→20:34)
[2017-01-07] MEDS: INSULIN DETEMIR 100 UNITS/ML VIAL SQ SCH ×2 (07:48→20:45)
[2017-01-07] MEDS: SODIUM CHLORIDE 0.9% FLUSH 10 ML FLUSH IV FLUSH SCH ×2 (07:49→20:34)
[2017-01-07 08:00] VITALS: BP 126/80; PULSE 106; RESP 18; TEMP 97.6; O2SAT 96
--- NOTE | 2017-01-07 09:25 | HHI.PR ---
Subjective Remarks Patient seen and examined today for follow-up on foot infection. Patient is doing well today. Denies any new complaints. No change in clinical status. Objective Vitals Vital Signs Date Time Temp Pulse Resp B/P Pulse Ox O2 Delivery O2 Flow Rate FiO2 01/06/17 20:00 98.0 107 20 113/76 98 I/O 01/06/17 01/06/17 01/06/17 01/07/17 01/07/17 01/07/17 07:00 15:00 23:00 07:00 15:00 23:00 Intake Total 480 ml 1440 ml 480 ml Balance 480 ml 1440 ml 480 ml Intake Oral 480 ml 1440 ml 480 ml # Voids 1 6 3 # Bowel Movements 0 0 0 Result Diagram: 01/07/17 0645 Objective Remarks GENERAL: Well-developed, well-nourished, in no acute distress. alert and orientated HEENT: Head is normocephalic without any lesions or masses noted. Facial features are symmetric. Eyes: Extraocular muscles are intact. Conjunctivae were clear. NECK: Supple without any masses. Trachea midline no deviation. No JVD, CARDIAC: Regular rhythm, regular rate. S1/S2 are heard. No murmurs gallops or rubs. LUNGS: Clear to auscultation bilaterally. No wheeze, rhonchi or rales. No use of accessory muscles on inspiration or expiration. ABDOMEN: Soft, nontender. Nondistended. Bowel sounds heard in all 4 quadrants. No organomegaly or masses. Negative rebound, negative guarding EXTREMITIES: No edema, pulses are equal bilaterally. No cyanosis or clubbing NEUROLOGY: Mood and affect appear appropriate. Cranial nerves II through XII grossly intact. Moving all extremities, speech is clear RIGHT FOOT: Patient does have right foot wound which appears to be healing fine , nice pink edges, able see tendon sheaths through graft material. No signs of infection Procedures NORIS Incision and drainage abscess R foot 11/18/16 and 11/20/16 Dr. Salse R foot wound debridement Dr. Hardwick 11/24/16 Irrigation and Debridement and Integra graft placement 12/02/16 Dr. Sales Irrigation and Debridement and Integra graft placement 01/01/17 Dr. Sales Urinary Catheter: No Vascular Central Line Catheter: No Date of Insertion: Nov 25, 2016 Date of Removal: Jan 01, 2017 A/P Assessment and Plan 51-year-old male with history of diabetes and tobacco abuse. He presents to the emergency department because of cellulitis/abscess involving his right foot. Diabetic foot infection. He has cellulitis/abscess status post multiple I&D, intragraft placement and wound VAC application. Culture growing multiple organisms. Infectious disease consulted and made antibiotic recommendations Morphine 2 mg IV when necessary for wound VAC change Podiatry says okay to be weightbearing in postop shoe, okay to work out with stationary bike with postop shoe 2030 minutes every other day Mitral valve endocarditis, finished treatment Patient originally presented with sepsis from diabetic foot infection, bacteremia Blood cultures indicated Staphylococcus epidermidis Repeat blood cultures 11/19/16 have remained negative Echocardiogram 11/19/16 indicated aortic valve was moderately thickened leaflets , specifically of the left coronary cusp, cannot rule out endocarditis does not appear mobile as endocarditis would be NORIS 11/21/16 indicates mitral valve with echo density on the atrial aspect of the base of the anterior leaflet appearance consistent with vegetation. Probable endocarditis of the anterior leaflet of the mitral valve. Infectious disease recommended completion of 6 weeks worth of IV vancomycin, finished on December 28, 2016 Diabetes mellitus. Controlled Hemoglobin A1c 11.8. Levemir to 16 units units at bedtime and 30 units in the morning. Accu-Cheks with sliding scale coverage. Hypertension. Stable Norvasc 10 mg daily lisinopril 20 mg daily Monitor for response Tinea cruris, resolved Status post Nystatin powder Tobacco abuse. Patient previously counseled regarding cessation. Peripheral vascular disease. Status post CTA no reconstructible vessels per vascular surgery. Ct asa. Tobacco cessation DVT prophylaxis subcutaneous heparin Discharge Planning Discharge planning per case management. Awaiting clearance from podiatry Diogo Gallagher Jan 07, 2017 09:25
[2017-01-07] MEDS: MORPHINE SULFATE 4 MG/ML INJ IV PUSH PRN (12:36)
--- NOTE | 2017-01-07 17:43 | PD.POD ---
Subjective Pain scale used: 0-10 numeric scale Pain score: 0 Remarks Doing well mild pain, tolerating wound vac Past Med/Surg/Social History Social History Smoking Status: Never Smoker Objective Vital Signs Vital Signs Date Time Temp Pulse Resp B/P Pulse Ox O2 Delivery O2 Flow Rate FiO2 01/07/17 08:00 97.6 106 18 126/80 96 01/06/17 20:00 98.0 107 20 113/76 98 Coded Allergies: Penicillin (Verified Allergy, Severe, 11/16/16) Medications and IVs Administered Medications Medications (Trade) Dose Ordered Sig/Kristian Route PRN Reason Start Time Stop Time Status Last Admin Dose Admin Sodium Chloride (NS Flush) 2 ml UNSCH PRN IV FLUSH FLUSH AFTER USING IV ACCESS 11/16/16 23:00 12/24/16 18:27 Sodium Chloride (NS Flush) 2 ml BID IV FLUSH 11/17/16 09:00 01/07/17 07:49 Aspirin (Aspirin Chew) 81 mg DAILY CHEW 11/17/16 09:00 01/07/17 07:46 Lactobacillus Acidophilus (Lactinex) 1 tab TID PO 11/19/16 13:00 01/07/17 14:13 Heparin Sodium (Porcine) (Heparin Inj) 5,000 units BID SQ 11/19/16 21:00 01/07/17 07:47 Amlodipine Besylate (Norvasc) 10 mg DAILY PO 11/29/16 09:00 01/07/17 07:46 Morphine Sulfate (Morphine Inj) 2 mg DAILY PRN IV PUSH wound VAC change 11/29/16 12:00 01/07/17 12:36 Acetaminophen/ Hydrocodone Bitart (Almond 7.5-325 Mg) 1 tab Q6HR PRN PO PAIN SCALE 6 TO 10 11/29/16 12:30 01/03/17 22:05 Insulin Detemir (Levemir Inj) 16 units DAILY@2100 SQ 12/21/16 21:00 01/05/17 20:22 Insulin Detemir (Levemir Inj) 30 units DAILY SQ 12/27/16 09:00 01/07/17 07:48 Lisinopril (Prinivil) 20 mg DAILY PO 12/27/16 09:00 01/07/17 07:46 Other Results Laboratory Tests Test 01/07/17 06:45 Creatinine 0.73 MG/DL Estimat Glomerular Filtration 113 ML/MIN Rate Physical Exam Remarks Intact skin substitute with exposed extensor tendons dorsum foot wound approx 7cm 6cm. minimal redness, no signs of abscess or infection Granular wound base appears to be beginning to encompass tendons Intact DP and PT. Protective sensation is intact Assessment & Plan A/P Right foot full thickness ulcer- no infection Wound is slowly coming along, continue wound vac MWF, awaiting fully granular wound base. Once achieved, patient will need partial thickness skin graft harvest and application. Will FU 1 week, nursing to continue wound vac changes, no change in care at this point. Mike Rodriguez DPM Jan 07, 2017 17:43
[2017-01-07 20:00] VITALS: BP 106/74; PULSE 112; RESP 20; TEMP 97.8; O2SAT 99
[2017-01-08] MEDS: INSULIN ASPART SUPPLEMENTAL SCALE SQ SCH ×4 (06:20→20:10)
[2017-01-08 08:00] VITALS: BP 110/79; PULSE 114; RESP 18; TEMP 97.6; O2SAT 99
[2017-01-08] MEDS: ASPIRIN 81 MG CHEW TAB CHEW SCH (08:16)
[2017-01-08] MEDS: LISINOPRIL 20 MG TAB PO SCH (08:16)
[2017-01-08] MEDS: HEPARIN SODIUM - SQ 10,000 UNITS/ML VIAL SQ SCH ×2 (08:17→20:15)
[2017-01-08] MEDS: SODIUM CHLORIDE 0.9% FLUSH 10 ML FLUSH IV FLUSH SCH ×2 (08:17→20:14)
[2017-01-08] MEDS: LACTOBACILLUS ACIDOPHILUS TAB PO SCH ×3 (08:17→17:44)
[2017-01-08] MEDS: INSULIN DETEMIR 100 UNITS/ML VIAL SQ SCH ×2 (08:23→20:11)
--- NOTE | 2017-01-08 10:22 | HHI.PR ---
Subjective Remarks Patient seen and examined today for follow-up on foot infection. Patient denies any new complaints. No change in clinical status. Objective Vitals Vital Signs Date Time Temp Pulse Resp B/P Pulse Ox O2 Delivery O2 Flow Rate FiO2 01/08/17 08:00 97.6 114 18 110/79 99 01/07/17 20:00 97.8 112 20 106/74 99 I/O 01/07/17 01/07/17 01/07/17 01/08/17 01/08/17 01/08/17 07:00 15:00 23:00 07:00 15:00 23:00 Intake Total 480 ml 600 ml 480 ml Balance 480 ml 600 ml 480 ml Intake Oral 480 ml 600 ml 480 ml IV Total 0 ml # Voids 3 3 4 # Bowel Movements 0 Result Diagram: 01/07/17 0645 Objective Remarks GENERAL: Well-developed, well-nourished, in no acute distress. alert and orientated HEENT: Head is normocephalic without any lesions or masses noted. Facial features are symmetric. Eyes: Extraocular muscles are intact. Conjunctivae were clear. NECK: Supple without any masses. Trachea midline no deviation. No JVD, CARDIAC: Regular rhythm, regular rate. S1/S2 are heard. No murmurs gallops or rubs. LUNGS: Clear to auscultation bilaterally. No wheeze, rhonchi or rales. No use of accessory muscles on inspiration or expiration. ABDOMEN: Soft, nontender. Nondistended. Bowel sounds heard in all 4 quadrants. No organomegaly or masses. Negative rebound, negative guarding EXTREMITIES: No edema, pulses are equal bilaterally. No cyanosis or clubbing NEUROLOGY: Mood and affect appear appropriate. Cranial nerves II through XII grossly intact. Moving all extremities, speech is clear RIGHT FOOT: Patient does have right foot wound which appears to be healing fine , nice pink edges, able see tendon sheaths through graft material. No signs of infection Procedures NORIS Incision and drainage abscess R foot 11/18/16 and 11/20/16 Dr. Sales R foot wound debridement Dr. Hardwick 11/24/16 Irrigation and Debridement and Integra graft placement 12/02/16 Dr. Sales Irrigation and Debridement and Integra graft placement 01/01/17 Dr. Sales Urinary Catheter: No Vascular Central Line Catheter: No Date of Insertion: Nov 25, 2016 Date of Removal: Jan 01, 2017 A/P Assessment and Plan 51-year-old male with history of diabetes and tobacco abuse. He presents to the emergency department because of cellulitis/abscess involving his right foot. Diabetic foot infection. He has cellulitis/abscess status post multiple I&D, intragraft placement and wound VAC application. Culture growing multiple organisms. Infectious disease consulted and made antibiotic recommendations Morphine 2 mg IV when necessary for wound VAC change Podiatry indicates okay to be weightbearing in postop shoe, okay to work out with stationary bike with postop shoe 2030 minutes every other day Mitral valve endocarditis, finished treatment Patient originally presented with sepsis from diabetic foot infection, bacteremia Blood cultures indicated Staphylococcus epidermidis Repeat blood cultures 11/19/16 have remained negative Echocardiogram 11/19/16 indicated aortic valve was moderately thickened leaflets , specifically of the left coronary cusp, cannot rule out endocarditis does not appear mobile as endocarditis would be NORIS 11/21/16 indicates mitral valve with echo density on the atrial aspect of the base of the anterior leaflet appearance consistent with vegetation. Probable endocarditis of the anterior leaflet of the mitral valve. Infectious disease recommended completion of 6 weeks worth of IV vancomycin, finished on December 28, 2016 Diabetes mellitus. Controlled Hemoglobin A1c 11.8. Levemir to 16 units units at bedtime and 30 units in the morning. Accu-Cheks with sliding scale coverage. Hypertension. Stable Norvasc 10 mg daily lisinopril 20 mg daily Monitor for response Tinea cruris, resolved Status post Nystatin powder Tobacco abuse. Patient previously counseled regarding cessation. Peripheral vascular disease. Status post CTA no reconstructible vessels per vascular surgery. Ct asa. Tobacco cessation DVT prophylaxis subcutaneous heparin Records are reviewed, no change in present treatment plan Discharge Planning Discharge planning per case management. Awaiting clearance from podiatry Diogo Gallagher Jan 08, 2017 10:22
[2017-01-08 20:00] VITALS: BP 112/77; PULSE 105; RESP 16; TEMP 97.5; O2SAT 99
[2017-01-09] MEDS: INSULIN ASPART SUPPLEMENTAL SCALE SQ SCH ×4 (06:51→21:00)
[2017-01-09 08:00] VITALS: BP 121/89; PULSE 110; RESP 18; TEMP 96.4; O2SAT 99
[2017-01-09] MEDS: ASPIRIN 81 MG CHEW TAB CHEW SCH (09:41)
[2017-01-09] MEDS: LISINOPRIL 20 MG TAB PO SCH (09:41)
[2017-01-09] MEDS: HEPARIN SODIUM - SQ 10,000 UNITS/ML VIAL SQ SCH ×2 (09:42→21:45)
[2017-01-09] MEDS: SODIUM CHLORIDE 0.9% FLUSH 10 ML FLUSH IV FLUSH SCH ×2 (09:42→21:46)
[2017-01-09] MEDS: INSULIN DETEMIR 100 UNITS/ML VIAL SQ SCH ×2 (09:50→21:00)
--- NOTE | 2017-01-09 10:17 | HHI.PR ---
Subjective Remarks Patient seen and examined today for follow-up on foot wound. Patient denies any new complaints. He was walking in the [place] today. Objective Vitals Vital Signs Date Time Temp Pulse Resp B/P Pulse Ox O2 Delivery O2 Flow Rate FiO2 01/09/17 08:00 96.4 110 18 121/89 99 01/08/17 20:00 97.5 105 16 112/77 99 I/O 01/08/17 01/08/17 01/08/17 01/09/17 01/09/17 01/09/17 07:00 15:00 23:00 07:00 15:00 23:00 Intake Total 480 ml 1290 ml 480 ml 240 ml Output Total 350 ml Balance 480 ml 940 ml 480 ml 240 ml Intake Oral 480 ml 1290 ml 480 ml 240 ml Output Urine Total 350 ml # Voids 4 3 1 1 # Bowel Movements 2 0 Result Diagram: 01/09/17 0658 Objective Remarks GENERAL: Well-developed, well-nourished, in no acute distress. alert and orientated HEENT: Head is normocephalic without any lesions or masses noted. Facial features are symmetric. Eyes: Extraocular muscles are intact. Conjunctivae were clear. NECK: Supple without any masses. Trachea midline no deviation. No JVD, CARDIAC: Regular rhythm, regular rate. S1/S2 are heard. No murmurs gallops or rubs. LUNGS: Clear to auscultation bilaterally. No wheeze, rhonchi or rales. No use of accessory muscles on inspiration or expiration. ABDOMEN: Soft, nontender. Nondistended. Bowel sounds heard in all 4 quadrants. No organomegaly or masses. Negative rebound, negative guarding EXTREMITIES: No edema, pulses are equal bilaterally. No cyanosis or clubbing NEUROLOGY: Mood and affect appear appropriate. Cranial nerves II through XII grossly intact. Moving all extremities, speech is clear RIGHT FOOT: Patient does have right foot wound which appears to be healing fine , nice pink edges, able see tendon sheaths through graft material. No signs of infection Procedures NORIS Incision and drainage abscess R foot 11/18/16 and 11/20/16 Dr. Sales R foot wound debridement Dr. Hardwick 11/24/16 Irrigation and Debridement and Integra graft placement 12/02/16 Dr. Sales Irrigation and Debridement and Integra graft placement 01/01/17 Dr. Sales Urinary Catheter: No Vascular Central Line Catheter: No Date of Insertion: Nov 25, 2016 Date of Removal: Jan 01, 2017 A/P Assessment and Plan 51-year-old male with history of diabetes and tobacco abuse. He presents to the emergency department because of cellulitis/abscess involving his right foot. Diabetic foot infection. He has cellulitis/abscess status post multiple I&D, intragraft placement and wound VAC application. Culture growing multiple organisms. Infectious disease consulted and made antibiotic recommendations Morphine 2 mg IV when necessary for wound VAC change Podiatry indicates okay to be weightbearing in postop shoe, okay to work out with stationary bike with postop shoe 2030 minutes every other day Mitral valve endocarditis, finished treatment Patient originally presented with sepsis from diabetic foot infection, bacteremia Blood cultures indicated Staphylococcus epidermidis Repeat blood cultures 11/19/16 have remained negative Echocardiogram 11/19/16 indicated aortic valve was moderately thickened leaflets , specifically of the left coronary cusp, cannot rule out endocarditis does not appear mobile as endocarditis would be NORIS 11/21/16 indicates mitral valve with echo density on the atrial aspect of the base of the anterior leaflet appearance consistent with vegetation. Probable endocarditis of the anterior leaflet of the mitral valve. Infectious disease recommended completion of 6 weeks worth of IV vancomycin, finished on December 28, 2016 Diabetes mellitus. Controlled Hemoglobin A1c 11.8. Levemir 16 units units at bedtime and 32 units in the morning. Accu-Cheks with sliding scale coverage. Hypertension. Stable Norvasc 10 mg daily lisinopril 20 mg daily Monitor for response Tinea cruris, resolved Status post Nystatin powder Tobacco abuse. Patient previously counseled regarding cessation. Peripheral vascular disease. Status post CTA no reconstructible vessels per vascular surgery. Ct asa. Tobacco cessation DVT prophylaxis subcutaneous heparin Discharge Planning Discharge planning per case management. Awaiting clearance from podiatry Diogo Gallagher Jan 09, 2017 10:17
[2017-01-09 20:00] VITALS: BP 101/74; PULSE 100; RESP 16; TEMP 98.2; O2SAT 99
[2017-01-10] MEDS: INSULIN ASPART SUPPLEMENTAL SCALE SQ SCH ×4 (06:27→20:54)
[2017-01-10] MEDS ORDERED: INSULIN DETEMIR 100 UNITS/ML VIAL SQ SCH (09:00)
[2017-01-10] MEDS: HEPARIN SODIUM - SQ 10,000 UNITS/ML VIAL SQ SCH ×2 (09:04→20:53)
[2017-01-10] MEDS: LISINOPRIL 20 MG TAB PO SCH (09:04)
[2017-01-10] MEDS: ASPIRIN 81 MG CHEW TAB CHEW SCH (09:04)
[2017-01-10] MEDS: SODIUM CHLORIDE 0.9% FLUSH 10 ML FLUSH IV FLUSH SCH ×2 (09:12→20:52)
--- NOTE | 2017-01-10 09:58 | HHI.PR ---
Subjective Remarks Patient seen and examined today for follow-up on right foot wound. Patient resting carefully. Denies any new complaints. Objective Vitals Vital Signs Date Time Temp Pulse Resp B/P Pulse Ox O2 Delivery O2 Flow Rate FiO2 01/09/17 20:00 98.2 100 16 101/74 99 I/O 01/09/17 01/09/17 01/09/17 01/10/17 01/10/17 01/10/17 06:59 14:59 22:59 06:59 14:59 22:59 Intake Total 240 ml 1250 ml 480 ml 480 ml Balance 240 ml 1250 ml 480 ml 480 ml Intake Oral 240 ml 1250 ml 480 ml 480 ml # Voids 1 4 2 1 # Bowel Movements 0 1 0 0 Result Diagram: 01/09/17 0658 Objective Remarks GENERAL: Well-developed, well-nourished, in no acute distress. alert and orientated HEENT: Head is normocephalic without any lesions or masses noted. Facial features are symmetric. Eyes: Extraocular muscles are intact. Conjunctivae were clear. NECK: Trachea midline no deviation. No JVD, CARDIAC: Regular rhythm, regular rate. S1/S2 are heard. No murmurs gallops or rubs. LUNGS: Clear to auscultation bilaterally. No wheeze, rhonchi or rales. No use of accessory muscles on inspiration or expiration. NEUROLOGY: Mood and affect appear appropriate. Cranial nerves II through XII grossly intact. Moving all extremities, speech is clear RIGHT FOOT: Patient does have right foot wound VAC Procedures NORIS Incision and drainage abscess R foot 11/18/16 and 11/20/16 Dr. Sales R foot wound debridement Dr. Hardwick 11/24/16 Irrigation and Debridement and Integra graft placement 12/02/16 Dr. Sales Irrigation and Debridement and Integra graft placement 01/01/17 Dr. Sales Urinary Catheter: No Vascular Central Line Catheter: No Date of Insertion: Nov 25, 2016 Date of Removal: Jan 01, 2017 A/P Assessment and Plan 51-year-old male with history of diabetes and tobacco abuse. He presents to the emergency department because of cellulitis/abscess involving his right foot. Diabetic foot infection. He has cellulitis/abscess status post multiple I&D, intragraft placement and wound VAC application. Culture growing multiple organisms. Infectious disease consulted and made antibiotic recommendations Morphine 2 mg IV when necessary for wound VAC change Podiatry indicates okay to be weightbearing in postop shoe, okay to work out with stationary bike with postop shoe 2030 minutes every other day Awaiting for enough granulation to cover tendons and bone in order to perform partial-thickness skin graft Mitral valve endocarditis, finished treatment Patient originally presented with sepsis from diabetic foot infection, bacteremia Blood cultures indicated Staphylococcus epidermidis Repeat blood cultures 11/19/16 have remained negative Echocardiogram 11/19/16 indicated aortic valve was moderately thickened leaflets , specifically of the left coronary cusp, cannot rule out endocarditis does not appear mobile as endocarditis would be NORIS 11/21/16 indicates mitral valve with echo density on the atrial aspect of the base of the anterior leaflet appearance consistent with vegetation. Probable endocarditis of the anterior leaflet of the mitral valve. Infectious disease recommended completion of 6 weeks worth of IV vancomycin, finished on December 28, 2016 Diabetes mellitus. Controlled Hemoglobin A1c 11.8. Levemir 16 units units at bedtime and 34 units in the morning. Accu-Cheks with sliding scale coverage. Hypertension. Stable Norvasc 10 mg daily lisinopril 20 mg daily Monitor for response Tinea cruris, resolved Status post Nystatin powder Tobacco abuse. Patient previously counseled regarding cessation. Peripheral vascular disease. Status post CTA no reconstructible vessels per vascular surgery. Ct asa. Tobacco cessation DVT prophylaxis subcutaneous heparin Discharge Planning Discharge planning per case management. Awaiting clearance from podiatry Diogo Gallagher Jan 10, 2017 09:58
[2017-01-10 10:09] VITALS: BP 135/76; PULSE 111; RESP 15; TEMP 97.9; O2SAT 99
[2017-01-10] MEDS: MORPHINE SULFATE 4 MG/ML INJ IV PUSH PRN (15:13)
[2017-01-10 20:00] VITALS: BP 123/78; PULSE 82; PULSE 93; RESP 20; TEMP 97.6; O2SAT 98
[2017-01-10] MEDS: INSULIN DETEMIR 100 UNITS/ML VIAL SQ SCH (20:55)
[2017-01-11] MEDS: INSULIN ASPART SUPPLEMENTAL SCALE SQ SCH ×4 (06:41→21:07)
[2017-01-11 08:50] VITALS: BP 116/77; PULSE 98; RESP 19; TEMP 97.6; O2SAT 100
[2017-01-11] MEDS: SODIUM CHLORIDE 0.9% FLUSH 10 ML FLUSH IV FLUSH SCH ×2 (09:44→20:37)
[2017-01-11] MEDS: LISINOPRIL 20 MG TAB PO SCH (09:44)
[2017-01-11] MEDS: ASPIRIN 81 MG CHEW TAB CHEW SCH (09:44)
[2017-01-11] MEDS: HEPARIN SODIUM - SQ 10,000 UNITS/ML VIAL SQ SCH ×2 (09:44→20:37)
[2017-01-11] MEDS: INSULIN DETEMIR 100 UNITS/ML VIAL SQ SCH ×2 (09:50→21:08)
--- NOTE | 2017-01-11 16:35 | HHI.PR ---
Subjective Remarks Follow up for endocarditis, diabetic foot infection. Patient does not have a wound VAC currently in place. According to the nurse she had noted some purulence and odor from the wound yesterday. She informed the PA who had had wound care nurse evaluate the area. Assembling Machine Operator was informed and advised keeping the wound VAC off and applying dressings until her evaluation today. The patient denies any fevers or chills. Objective Vitals Vital Signs Date Time Temp Pulse Resp B/P Pulse Ox O2 Delivery O2 Flow Rate FiO2 01/11/17 08:50 97.6 98 19 116/77 100 01/10/17 20:00 97.6 82 20 123/78 98 I/O 01/10/17 01/10/17 01/10/17 01/11/17 01/11/17 01/11/17 07:00 15:00 23:00 07:00 15:00 23:00 Intake Total 480 ml 0 ml 480 ml 840 ml Balance 480 ml 0 ml 480 ml 840 ml Intake Oral 480 ml 480 ml 840 ml IV Total 0 ml # Voids 1 2 4 # Bowel Movements 0 1 1 Result Diagram: 01/09/17 0658 Objective Remarks GENERAL: Pleasant, well-nourished, well-developed patient in no apparent distress sitting in recliner. CARDIOVASCULAR: Tachycardic rate and regular rhythm. RESPIRATORY: No accessory muscle use. Clear to auscultation. Breath sounds equal bilaterally. GASTROINTESTINAL: Abdomen soft, nontender, nondistended. MUSCULOSKELETAL: JUNE wrap and post op shoe to the R foot. NEUROLOGICAL: Awake and alert. Normal speech. PSYCHIATRIC: Appropriate mood and affect; insight and judgment normal. Procedures NORIS Incision and drainage abscess R foot 11/18/16 and 11/20/16 Dr. Sales R foot wound debridement Dr. Hardwick 11/24/16 Irrigation and Debridement and Integra graft placement 12/02/16 Dr. Sales Irrigation and Debridement and Integra graft placement 01/01/17 Dr. Sales Urinary Catheter: No Vascular Central Line Catheter: No Date of Insertion: Nov 25, 2016 Date of Removal: Jan 01, 2017 A/P Problem List: (1) Sepsis ICD Code: A41.9 Status: Resolved (2) Cellulitis of right foot ICD Code: L03.115 Status: Resolved (3) Type 2 diabetes mellitus ICD Code: E11.9 Status: Acute (4) Bacteremia due to methicillin resistant Staphylococcus aureus ICD Code: R78.81 Status: Resolved Assessment and Plan 51-year-old male with history of diabetes and tobacco abuse. He presents to the emergency department because of cellulitis/abscess involving his right foot. Mitral valve endocarditis: stable Presented with sepsis from diabetic foot infection, bacteremia Blood cultures indicated Staphylococcus epidermidis Repeat blood cultures 11/19/16 have remained negative Echocardiogram 11/19/16 indicated aortic valve was moderately thickened leaflets , specifically of the left coronary cusp, cannot rule out endocarditis. NORIS 11/21/16 indicates mitral valve with echo density on the atrial aspect of the base of the anterior leaflet appearance consistent with vegetation. Probable endocarditis of the anterior leaflet of the mitral valve. Infectious disease was consulted and evaluated the patient and recommend 6 weeks worth of IV vancomycin, discontinued 12/28/16. PICC line placed 11/25/16 for long-term antibiotics. Neutropenia discussed with ID, Dr. Silva, who states do not change antibiotics for now. Repeat CBC 12/28 with normal neutrophil count. 01/01: PICC discontinued. Diabetic foot infection. He has cellulitis/abscess status post multiple I&D, Integra graft placement and wound VAC application. Culture growing multiple organisms. Infectious disease consulted and made antibiotic recommendations Morphine 2 mg IV when necessary for wound VAC change Podiatry says okay to be weightbearing in postop shoe, okay to work out with stationary bike with postop shoe 2030 minutes every other day -Eucerin cream ordered for dry skin to R foot only to apply on plantar aspect. -01/01: Dr. Sales performed another debridement and Integra graft placement. States if tendons not exposed in 2 weeks, will assess for split thickness skin graft vs other graft options. -Continue T//Tue wound vac changes. -01/11: Afebrile. Dr. Sales evaluated the patient today, resume vac. Note pending. Sinus tachycardia: -TSH normal. Labs stable. Afebrile. Asymptomatic. Nothing acute to do. Diabetes mellitus: Stable. BGL good this morning. Hemoglobin A1c 11.8. Levemir 30 units in the morning (last adjusted 10) and 16 units at bedtime ( last adjusted 12/21). Accu-Cheks with sliding scale coverage. Hypertension: Improved. Continue to monitor. Norvasc 10 mg daily Lisinopril 20 mg daily Tinea cruris S/p Nystatin powder Tobacco abuse. Patient previously counseled regarding cessation. Peripheral vascular disease. Status post CTA No reconstructible vessels per vascular surgery. Continue asa. Tobacco cessation DVT prophylaxis subcutaneous heparin Discharge Planning Patient need further surgery while in hospital, will defer to podiatry. Continues to utilize wound vac at this time. Problem Qualifiers (1) Sepsis: Qualified Code: A41.02 - Sepsis due to methicillin resistant Staphylococcus aureus (MRSA) Alexandra Mora Jan 11, 2017 16:35
[2017-01-11] MEDS: MORPHINE SULFATE 4 MG/ML INJ IV PUSH PRN (17:28)
[2017-01-11 20:00] VITALS: BP 113/69; PULSE 106; RESP 18; TEMP 97.7; O2SAT 97
[2017-01-12] MEDS: INSULIN ASPART SUPPLEMENTAL SCALE SQ SCH ×4 (07:00→21:35)
[2017-01-12 08:00] VITALS: BP 110/78; PULSE 100; RESP 18; TEMP 98.6; O2SAT 100
[2017-01-12] MEDS: ASPIRIN 81 MG CHEW TAB CHEW SCH (08:08)
[2017-01-12] MEDS: HEPARIN SODIUM - SQ 10,000 UNITS/ML VIAL SQ SCH ×2 (08:08→21:00)
[2017-01-12] MEDS: SODIUM CHLORIDE 0.9% FLUSH 10 ML FLUSH IV FLUSH SCH ×2 (08:08→21:00)
[2017-01-12] MEDS: LISINOPRIL 20 MG TAB PO SCH (08:08)
[2017-01-12] MEDS: INSULIN DETEMIR 100 UNITS/ML VIAL SQ SCH ×2 (08:17→21:00)
--- NOTE | 2017-01-12 11:59 | HHI.PR ---
Subjective Remarks Follow up for endocarditis, diabetic foot infection. Director Emergency Department evaluated the patient yesterday per patient. No acute complaints. Objective Vitals Vital Signs Date Time Temp Pulse Resp B/P Pulse Ox O2 Delivery O2 Flow Rate FiO2 01/12/17 08:00 98.6 100 18 110/78 100 01/11/17 20:00 97.7 106 18 113/69 97 I/O 01/11/17 01/11/17 01/11/17 01/12/17 01/12/17 01/12/17 07:00 15:00 23:00 07:00 15:00 23:00 Intake Total 480 ml 840 ml 0 ml 0 ml Balance 480 ml 840 ml 0 ml 0 ml Intake Oral 480 ml 840 ml 0 ml IV Total 0 ml # Voids 2 4 2 # Bowel Movements 1 1 Result Diagram: 01/09/17 0658 Objective Remarks GENERAL: Pleasant, well-nourished, well-developed patient in no apparent distress sitting in recliner. CARDIOVASCULAR: Tachycardic rate and regular rhythm. RESPIRATORY: No accessory muscle use. Clear to auscultation. Breath sounds equal bilaterally. GASTROINTESTINAL: Abdomen soft, nontender, nondistended. MUSCULOSKELETAL: JUNE wrap and post op shoe to the R foot. NEUROLOGICAL: Awake and alert. Normal speech. PSYCHIATRIC: Appropriate mood and affect; insight and judgment normal. Procedures NORIS Incision and drainage abscess R foot 11/18/16 and 11/20/16 Dr. Sales R foot wound debridement Dr. Hardwick 11/24/16 Irrigation and Debridement and Integra graft placement 12/02/16 Dr. Sales Irrigation and Debridement and Integra graft placement 01/01/17 Dr. Sales Urinary Catheter: No Vascular Central Line Catheter: No Date of Insertion: Nov 25, 2016 Date of Removal: Jan 01, 2017 A/P Problem List: (1) Sepsis ICD Code: A41.9 Status: Resolved (2) Cellulitis of right foot ICD Code: L03.115 Status: Resolved (3) Type 2 diabetes mellitus ICD Code: E11.9 Status: Acute (4) Bacteremia due to methicillin resistant Staphylococcus aureus ICD Code: R78.81 Status: Resolved Assessment and Plan 51-year-old male with history of diabetes and tobacco abuse. He presents to the emergency department because of cellulitis/abscess involving his right foot. Mitral valve endocarditis: stable Presented with sepsis from diabetic foot infection, bacteremia Blood cultures indicated Staphylococcus epidermidis Repeat blood cultures 11/19/16 have remained negative Echocardiogram 11/19/16 indicated aortic valve was moderately thickened leaflets , specifically of the left coronary cusp, cannot rule out endocarditis. NORIS 11/21/16 indicates mitral valve with echo density on the atrial aspect of the base of the anterior leaflet appearance consistent with vegetation. Probable endocarditis of the anterior leaflet of the mitral valve. Infectious disease was consulted and evaluated the patient and recommend 6 weeks worth of IV vancomycin, discontinued 12/28/16. PICC line placed 11/25/16 for long-term antibiotics. Neutropenia discussed with ID, Dr. Silva, who states do not change antibiotics for now. Repeat CBC 12/28 with normal neutrophil count. 01/01: PICC discontinued. Diabetic foot infection. He has cellulitis/abscess status post multiple I&D, Integra graft placement and wound VAC application. Culture growing multiple organisms. Infectious disease consulted and made antibiotic recommendations Morphine 2 mg IV when necessary for wound VAC change Podiatry says okay to be weightbearing in postop shoe, okay to work out with stationary bike with postop shoe 2030 minutes every other day -Eucerin cream ordered for dry skin to R foot only to apply on plantar aspect. -01/01: Dr. Sales performed another debridement and Integra graft placement. States if tendons not exposed in 2 weeks, will assess for split thickness skin graft vs other graft options. -Continue T//Tue wound vac changes. -01/11: Afebrile. Dr. Sales evaluated the patient today, resume vac. Note pending. Sinus tachycardia: -TSH normal. Labs stable. Afebrile. Asymptomatic. Nothing acute to do. Diabetes mellitus: Stable. Hemoglobin A1c 11.8. Levemir 30 units in the morning (last adjusted 12/27) and 16 units at bedtime ( last adjusted 12/21). Accu-Cheks with sliding scale coverage. Hypertension: Improved. Continue to monitor. Norvasc 10 mg daily Lisinopril 20 mg daily Tinea cruris S/p Nystatin powder Tobacco abuse. Patient previously counseled regarding cessation. Peripheral vascular disease. Status post CTA No reconstructible vessels per vascular surgery. Continue asa. Tobacco cessation DVT prophylaxis subcutaneous heparin Discharge Planning Patient need further surgery while in hospital, will defer to podiatry. Continues to utilize wound vac at this time. Problem Qualifiers (1) Sepsis: Qualified Code: A41.02 - Sepsis due to methicillin resistant Staphylococcus aureus (MRSA) Alexandra Mora Jan 12, 2017 11:59
[2017-01-12 20:00] VITALS: BP 120/71; PULSE 108; RESP 18; TEMP 97.8; O2SAT 99
[2017-01-13] MEDS: INSULIN ASPART SUPPLEMENTAL SCALE SQ SCH ×4 (06:21→21:14)
[2017-01-13] MEDS: LISINOPRIL 20 MG TAB PO SCH (07:12)
[2017-01-13] MEDS: ASPIRIN 81 MG CHEW TAB CHEW SCH (07:13)
[2017-01-13] MEDS: HEPARIN SODIUM - SQ 10,000 UNITS/ML VIAL SQ SCH ×2 (07:13→21:12)
[2017-01-13] MEDS: INSULIN DETEMIR 100 UNITS/ML VIAL SQ SCH ×2 (07:17→21:00)
[2017-01-13] MEDS: SODIUM CHLORIDE 0.9% FLUSH 10 ML FLUSH IV FLUSH SCH ×2 (07:31→21:00)
[2017-01-13 08:00] VITALS: BP 141/89; PULSE 105; RESP 18; TEMP 97.9; O2SAT 99
--- NOTE | 2017-01-13 11:50 | HHI.PR ---
Subjective Remarks Follow up for endocarditis, diabetic foot infection. Patient states his foot pain is tolerable. He denies any fevers or chills. Denies shortness of breath. Objective Vitals Vital Signs Date Time Temp Pulse Resp B/P Pulse Ox O2 Delivery O2 Flow Rate FiO2 01/13/17 08:00 97.9 105 18 141/89 99 01/12/17 20:00 97.8 108 18 120/71 99 I/O 01/12/17 01/12/17 01/12/17 01/13/17 01/13/17 01/13/17 07:00 15:00 23:00 07:00 15:00 23:00 Intake Total 0 ml 1080 ml 480 ml 100 ml Balance 0 ml 1080 ml 480 ml 100 ml Intake Oral 0 ml 1080 ml 480 ml 100 ml # Voids 2 5 1 # Bowel Movements 1 0 Result Diagram: 01/09/17 0658 Objective Remarks GENERAL: Pleasant, well-nourished, well-developed patient in no apparent distress sitting in recliner. CARDIOVASCULAR: Tachycardic rate 100 bpm with regular rhythm. RESPIRATORY: No accessory muscle use. Clear to auscultation. Breath sounds equal bilaterally. GASTROINTESTINAL: Abdomen soft, nontender, nondistended. MUSCULOSKELETAL: JUNE wrap and post op shoe to the R foot, wound vac. NEUROLOGICAL: Awake and alert. Normal speech. PSYCHIATRIC: Appropriate mood and affect; insight and judgment normal. Procedures NORIS Incision and drainage abscess R foot 11/18/16 and 11/20/16 Dr. Sales R foot wound debridement Dr. Hardwick 11/24/16 Irrigation and Debridement and Integra graft placement 12/02/16 Dr. Sales Irrigation and Debridement and Integra graft placement 01/01/17 Dr. Sales Urinary Catheter: No Vascular Central Line Catheter: No Date of Insertion: Nov 25, 2016 Date of Removal: Jan 01, 2017 A/P Problem List: (1) Sepsis ICD Code: A41.9 Status: Resolved (2) Cellulitis of right foot ICD Code: L03.115 Status: Resolved (3) Type 2 diabetes mellitus ICD Code: E11.9 Status: Acute (4) Bacteremia due to methicillin resistant Staphylococcus aureus ICD Code: R78.81 Status: Resolved Assessment and Plan 51-year-old male with history of diabetes and tobacco abuse. He presents to the emergency department because of cellulitis/abscess involving his right foot. Mitral valve endocarditis: stable Presented with sepsis from diabetic foot infection, bacteremia Blood cultures indicated Staphylococcus epidermidis Repeat blood cultures 11/19/16 have remained negative Echocardiogram 11/19/16 indicated aortic valve was moderately thickened leaflets , specifically of the left coronary cusp, cannot rule out endocarditis. NORIS 11/21/16 indicates mitral valve with echo density on the atrial aspect of the base of the anterior leaflet appearance consistent with vegetation. Probable endocarditis of the anterior leaflet of the mitral valve. Infectious disease was consulted and evaluated the patient and recommend 6 weeks worth of IV vancomycin, discontinued 12/28/16. PICC line placed 11/25/16 for long-term antibiotics. Neutropenia discussed with ID, Dr. Silva, who states do not change antibiotics for now. Repeat CBC 12/28 with normal neutrophil count. 01/01: PICC discontinued. Diabetic foot infection. He has cellulitis/abscess status post multiple I&D, Integra graft placement and wound VAC application. Culture growing multiple organisms. Infectious disease consulted and made antibiotic recommendations Morphine 2 mg IV when necessary for wound VAC change Podiatry says okay to be weightbearing in postop shoe, okay to work out with stationary bike with postop shoe 2030 minutes every other day -Eucerin cream ordered for dry skin to R foot only to apply on plantar aspect. -01/01: Dr. Sales performed another debridement and Integra graft placement. States if tendons not exposed in 2 weeks, will assess for split thickness skin graft vs other graft options. -Continue T//Tue wound vac changes. -01/11: Afebrile. Dr. Sales evaluated the patient today, but no note posted. Vac resumed. Sinus tachycardia: -TSH normal. Labs stable. Afebrile. Asymptomatic. Nothing acute to do. Diabetes mellitus: Stable. Hemoglobin A1c 11.8. Levemir 30 units in the morning (last adjusted 12/27) and 16 units at bedtime ( last adjusted 12/21). Accu-Cheks with sliding scale coverage. Hypertension: Improved. Continue to monitor. Norvasc 10 mg daily Lisinopril 20 mg daily Tinea cruris S/p Nystatin powder Tobacco abuse. Patient previously counseled regarding cessation. Peripheral vascular disease. Status post CTA No reconstructible vessels per vascular surgery. Continue asa. Tobacco cessation DVT prophylaxis subcutaneous heparin Discharge Planning Patient needs further surgery while in hospital, will defer to podiatry. Continues to utilize wound vac at this time. Problem Qualifiers (1) Sepsis: Qualified Code: A41.02 - Sepsis due to methicillin resistant Staphylococcus aureus (MRSA) Alexandra Mora Jan 13, 2017 11:50
[2017-01-13 20:00] VITALS: BP 123/78; PULSE 100; RESP 20; TEMP 98.5; O2SAT 98
[2017-01-14] MEDS: INSULIN ASPART SUPPLEMENTAL SCALE SQ SCH ×4 (06:14→21:25)
[2017-01-14 08:00] VITALS: BP 138/98; PULSE 111; RESP 18; TEMP 98.3; O2SAT 99
[2017-01-14] MEDS: ASPIRIN 81 MG CHEW TAB CHEW SCH (10:36)
[2017-01-14] MEDS: LISINOPRIL 20 MG TAB PO SCH (10:36)
[2017-01-14] MEDS: HEPARIN SODIUM - SQ 10,000 UNITS/ML VIAL SQ SCH ×2 (10:37→21:27)
[2017-01-14] MEDS: SODIUM CHLORIDE 0.9% FLUSH 10 ML FLUSH IV FLUSH SCH ×2 (10:38→21:27)
[2017-01-14] MEDS: INSULIN DETEMIR 100 UNITS/ML VIAL SQ SCH ×2 (10:49→21:26)
--- NOTE | 2017-01-14 11:32 | HHI.PR ---
Subjective Remarks Follow-up for diabetic foot infection. No acute complaints. Objective Vitals Vital Signs Date Time Temp Pulse Resp B/P Pulse Ox O2 Delivery O2 Flow Rate FiO2 01/14/17 08:00 98.3 111 18 138/98 99 01/13/17 20:00 98.5 100 20 123/78 98 I/O 01/13/17 01/13/17 01/13/17 01/14/17 01/14/17 01/14/17 07:00 15:00 23:00 07:00 15:00 23:00 Intake Total 480 ml 100 ml 1200 ml 240 ml Balance 480 ml 100 ml 1200 ml 240 ml Intake Oral 480 ml 100 ml 1200 ml 240 ml # Voids 1 5 2 # Bowel Movements 0 0 1 Objective Remarks GENERAL: Pleasant, well-nourished, well-developed patient in no apparent distress sitting in recliner. CARDIOVASCULAR: Tachycardic rate with regular rhythm. RESPIRATORY: No accessory muscle use. Clear to auscultation. Breath sounds equal bilaterally. GASTROINTESTINAL: Abdomen soft, nontender, nondistended. NEUROLOGICAL: Awake and alert. Normal speech. PSYCHIATRIC: Appropriate mood and affect; insight and judgment normal. Procedures NORIS Incision and drainage abscess R foot 11/18/16 and 11/20/16 Dr. Sales R foot wound debridement Dr. Hardwick 11/24/16 Irrigation and Debridement and Integra graft placement 12/02/16 Dr. Sales Irrigation and Debridement and Integra graft placement 01/01/17 Dr. Sales Urinary Catheter: No Vascular Central Line Catheter: No Date of Insertion: Nov 25, 2016 Date of Removal: Jan 01, 2017 A/P Problem List: (1) Sepsis ICD Code: A41.9 Status: Resolved (2) Cellulitis of right foot ICD Code: L03.115 Status: Resolved (3) Type 2 diabetes mellitus ICD Code: E11.9 Status: Acute (4) Bacteremia due to methicillin resistant Staphylococcus aureus ICD Code: R78.81 Status: Resolved Assessment and Plan 51-year-old male with history of diabetes and tobacco abuse. He presents to the emergency department because of cellulitis/abscess involving his right foot. Mitral valve endocarditis: stable Presented with sepsis from diabetic foot infection, bacteremia Blood cultures indicated Staphylococcus epidermidis Repeat blood cultures 11/19/16 have remained negative Echocardiogram 11/19/16 indicated aortic valve was moderately thickened leaflets , specifically of the left coronary cusp, cannot rule out endocarditis. NORIS 11/21/16 indicates mitral valve with echo density on the atrial aspect of the base of the anterior leaflet appearance consistent with vegetation. Probable endocarditis of the anterior leaflet of the mitral valve. Infectious disease was consulted and evaluated the patient and recommend 6 weeks worth of IV vancomycin, discontinued 12/28/16. PICC line placed 11/25/16 for long-term antibiotics. Neutropenia discussed with ID, Dr. Silva, who states do not change antibiotics for now. Repeat CBC 12/28 with normal neutrophil count. 01/01: PICC discontinued. Diabetic foot infection. He has cellulitis/abscess status post multiple I&D, Integra graft placement and wound VAC application. Culture growing multiple organisms. Infectious disease consulted and made antibiotic recommendations Morphine 2 mg IV when necessary for wound VAC change Podiatry says okay to be weightbearing in postop shoe, okay to work out with stationary bike with postop shoe 2030 minutes every other day -Eucerin cream ordered for dry skin to R foot only to apply on plantar aspect. -01/01: Dr. Sales performed another debridement and Integra graft placement. States if tendons not exposed in 2 weeks, will assess for split thickness skin graft vs other graft options. -Continue T//Tue wound vac changes. -01/11: Afebrile. Dr. Sales evaluated the patient today, but no note posted. Vac resumed. -01/14: Nurse later called to ask me to examine the patient's R foot stating he has some blisters on his right foot. I went to examine the patient and the graft appears good. There is no erythema or drainage. There is a significant foul odor coming from the foot, but there is no evidence of macerated skin between the toes or drainage which would indicate a fungal infection. No ulcerations to the plantar foot. There are some small abrasions over the dorsal aspects of the toes which is likely from tape, dressing, or pressure against the postop shoe. The patient states he's had a odor in the past and the electrical electronics technician told him it was coming from the graft and it was fine. Sinus tachycardia: -TSH normal. Labs stable. Afebrile. Asymptomatic. Nothing acute to do. Diabetes mellitus: Stable. Hemoglobin A1c 11.8. Levemir 30 units in the morning (last adjusted 12/27) and 16 units at bedtime ( last adjusted 12/21). Accu-Cheks with sliding scale coverage. 01/14: BGLs reviewed, stable. No changes to medication at this time. Hypertension: Improved. Continue to monitor. Norvasc 10 mg daily Lisinopril 20 mg daily Tinea cruris S/p Nystatin powder Tobacco abuse. Patient previously counseled regarding cessation. Peripheral vascular disease. Status post CTA No reconstructible vessels per vascular surgery. Continue asa. Tobacco cessation DVT prophylaxis subcutaneous heparin Discharge Planning Patient needs further surgery while in hospital, will defer to podiatry. Continues to utilize wound vac at this time. Problem Qualifiers (1) Sepsis: Qualified Code: A41.02 - Sepsis due to methicillin resistant Staphylococcus aureus (MRSA) Alexandra Mora Jan 14, 2017 11:32
[2017-01-14] MEDS: ACETAMINOPHEN/HYDROcodone 325 MG/7.5 MG TAB PO PRN (15:57)
[2017-01-14] MEDS: MORPHINE SULFATE 4 MG/ML INJ IV PUSH PRN (16:42)
[2017-01-14 21:09] VITALS: BP 109/71; PULSE 101; RESP 20; TEMP 97.9; O2SAT 98
[2017-01-15] MEDS: INSULIN ASPART SUPPLEMENTAL SCALE SQ SCH ×4 (07:00→21:00)
[2017-01-15] MEDS: SODIUM CHLORIDE 0.9% FLUSH 10 ML FLUSH IV FLUSH SCH ×2 (09:00→21:26)
[2017-01-15 09:07] VITALS: BP 110/81; PULSE 100; RESP 18; TEMP 97.9; O2SAT 95
[2017-01-15] MEDS: LISINOPRIL 20 MG TAB PO SCH (09:39)
[2017-01-15] MEDS: HEPARIN SODIUM - SQ 10,000 UNITS/ML VIAL SQ SCH ×2 (09:40→21:26)
[2017-01-15] MEDS: ASPIRIN 81 MG CHEW TAB CHEW SCH (09:40)
[2017-01-15] MEDS: INSULIN DETEMIR 100 UNITS/ML VIAL SQ SCH ×2 (09:43→21:25)
--- NOTE | 2017-01-15 09:46 | HHI.PR ---
Subjective Remarks Follow for diabetic foot infection. Patient denies any fevers or chills. Objective Vitals Vital Signs Date Time Temp Pulse Resp B/P Pulse Ox O2 Delivery O2 Flow Rate FiO2 01/15/17 09:07 97.9 100 18 110/81 95 01/14/17 21:09 97.9 101 20 109/71 98 I/O 01/14/17 01/14/17 01/14/17 01/15/17 01/15/17 01/15/17 06:59 14:59 22:59 06:59 14:59 22:59 Intake Total 240 ml Balance 240 ml Intake Oral 240 ml # Voids 6 2 1 # Bowel Movements 1 Objective Remarks GENERAL: Pleasant, well-nourished, well-developed patient in no apparent distress sitting in recliner. CARDIOVASCULAR: Tachycardic rate with regular rhythm. RESPIRATORY: No accessory muscle use. Clear to auscultation. Breath sounds equal bilaterally. MUSCULOSKELETAL: Vernon wrap and post-op shoe to R foot. NEUROLOGICAL: Awake and alert. Normal speech. PSYCHIATRIC: Appropriate mood and affect; insight and judgment normal. Procedures NORIS Incision and drainage abscess R foot 11/18/16 and 11/20/16 Dr. Sales R foot wound debridement Dr. Hardwick 11/24/16 Irrigation and Debridement and Integra graft placement 12/02/16 Dr. Sales Irrigation and Debridement and Integra graft placement 01/01/17 Dr. Sales Urinary Catheter: No Vascular Central Line Catheter: No Date of Insertion: Nov 25, 2016 Date of Removal: Jan 01, 2017 A/P Problem List: (1) Sepsis ICD Code: A41.9 Status: Resolved (2) Cellulitis of right foot ICD Code: L03.115 Status: Resolved (3) Type 2 diabetes mellitus ICD Code: E11.9 Status: Acute (4) Bacteremia due to methicillin resistant Staphylococcus aureus ICD Code: R78.81 Status: Resolved Assessment and Plan 51-year-old male with history of diabetes and tobacco abuse. He presents to the emergency department because of cellulitis/abscess involving his right foot. Mitral valve endocarditis: stable Presented with sepsis from diabetic foot infection, bacteremia Blood cultures indicated Staphylococcus epidermidis Repeat blood cultures 11/19/16 have remained negative Echocardiogram 11/19/16 indicated aortic valve was moderately thickened leaflets , specifically of the left coronary cusp, cannot rule out endocarditis. NORIS 11/21/16 indicates mitral valve with echo density on the atrial aspect of the base of the anterior leaflet appearance consistent with vegetation. Probable endocarditis of the anterior leaflet of the mitral valve. Infectious disease was consulted and evaluated the patient and recommend 6 weeks worth of IV vancomycin, discontinued 12/28/16. PICC line placed 11/25/16 for long-term antibiotics. Neutropenia discussed with ID, Dr. Silva, who states do not change antibiotics for now. Repeat CBC 12/28 with normal neutrophil count. 01/01: PICC discontinued. Diabetic foot infection. He has cellulitis/abscess status post multiple I&D, Integra graft placement and wound VAC application. Culture growing multiple organisms. Infectious disease consulted and made antibiotic recommendations Morphine 2 mg IV when necessary for wound VAC change Podiatry says okay to be weightbearing in postop shoe, okay to work out with stationary bike with postop shoe 2030 minutes every other day -Eucerin cream ordered for dry skin to R foot only to apply on plantar aspect. -01/01: Dr. Sales performed another debridement and Integra graft placement. States if tendons not exposed in 2 weeks, will assess for split thickness skin graft vs other graft options. -Continue wound vac changes. -Dr. Sales following, awaiting note from last evaluation on 01/11. Sinus tachycardia: -TSH normal. Labs stable. Afebrile. Asymptomatic. Nothing acute to do. Diabetes mellitus: Stable. Hemoglobin A1c 11.8. Levemir 30 units in the morning (last adjusted 10) and 16 units at bedtime ( last adjusted /). Accu-Cheks with sliding scale coverage. 01/14: BGLs reviewed, stable. No changes to medication at this time. Hypertension: Improved. Continue to monitor. Norvasc 10 mg daily Lisinopril 20 mg daily Tinea cruris S/p Nystatin powder Tobacco abuse. Patient previously counseled regarding cessation. Peripheral vascular disease. Status post CTA No reconstructible vessels per vascular surgery. Continue asa. Tobacco cessation DVT prophylaxis subcutaneous heparin Discharge Planning Patient needs further surgery while in hospital, will defer to podiatry. Continues to utilize wound vac at this time. Problem Qualifiers (1) Sepsis: Qualified Code: A41.02 - Sepsis due to methicillin resistant Staphylococcus aureus (MRSA) Alexandra Mora Jan 15, 2017 09:46 Qualified Code: A41.02 - Sepsis due to methicillin resistant Staphylococcus aureus (MRSA) Alexandra Mora Jan 15, 2017 09:46
[2017-01-15 20:00] VITALS: BP 119/78; PULSE 109; RESP 20; TEMP 98.4; O2SAT 99
[2017-01-16] MEDS: INSULIN ASPART SUPPLEMENTAL SCALE SQ SCH ×4 (07:00→21:00)
[2017-01-16 08:00] VITALS: BP 116/94; PULSE 103; RESP 18; TEMP 98.7; O2SAT 97
[2017-01-16] MEDS: LISINOPRIL 20 MG TAB PO SCH (09:27)
[2017-01-16] MEDS: ASPIRIN 81 MG CHEW TAB CHEW SCH (09:28)
[2017-01-16] MEDS: SODIUM CHLORIDE 0.9% FLUSH 10 ML FLUSH IV FLUSH SCH ×2 (09:29→21:00)
[2017-01-16] MEDS: HEPARIN SODIUM - SQ 10,000 UNITS/ML VIAL SQ SCH ×2 (09:29→21:18)
[2017-01-16] MEDS: INSULIN DETEMIR 100 UNITS/ML VIAL SQ SCH ×2 (09:42→21:17)
--- NOTE | 2017-01-16 10:02 | HHI.PR ---
Subjective Remarks Follow-up for diabetic foot infection. Denies any fevers or chills or increased pain in the foot. Objective Vitals Vital Signs Date Time Temp Pulse Resp B/P Pulse Ox O2 Delivery O2 Flow Rate FiO2 01/15/17 20:00 98.4 109 20 119/78 99 I/O 01/15/17 01/15/17 01/15/17 01/16/17 01/16/17 01/16/17 07:00 15:00 23:00 07:00 15:00 23:00 Intake Total 500 ml 960 ml 240 ml Balance 500 ml 960 ml 240 ml Intake Oral 500 ml 960 ml 240 ml # Voids 1 4 2 Objective Remarks GENERAL: Pleasant, well-nourished, well-developed patient in no apparent distress sitting in recliner. SKIN: Minimal abrasions on dorsal aspects of R toes, same. CARDIOVASCULAR: Regular rate and rhythm. RESPIRATORY: No accessory muscle use. Clear to auscultation. Breath sounds equal bilaterally. GASTROINTESTINAL: Abdomen soft, non-tender, non-distended. NEUROLOGICAL: Awake and alert. Normal speech. PSYCHIATRIC: Appropriate mood and affect; insight and judgment normal. Procedures NORIS Incision and drainage abscess R foot 11/18/16 and 11/20/16 Dr. Sales R foot wound debridement Dr. Hardwick 11/24/16 Irrigation and Debridement and Integra graft placement 12/02/16 Dr. Sales Irrigation and Debridement and Integra graft placement 01/01/17 Dr. Sales Urinary Catheter: No Vascular Central Line Catheter: No Date of Insertion: Nov 25, 2016 Date of Removal: Jan 01, 2017 A/P Problem List: (1) Sepsis ICD Code: A41.9 Status: Resolved (2) Cellulitis of right foot ICD Code: L03.115 Status: Resolved (3) Type 2 diabetes mellitus ICD Code: E11.9 Status: Acute (4) Bacteremia due to methicillin resistant Staphylococcus aureus ICD Code: R78.81 Status: Resolved Assessment and Plan 51-year-old male with history of diabetes and tobacco abuse. He presents to the emergency department because of cellulitis/abscess involving his right foot. Mitral valve endocarditis: stable Presented with sepsis from diabetic foot infection, bacteremia Blood cultures indicated Staphylococcus epidermidis Repeat blood cultures 11/19/16 have remained negative Echocardiogram 11/19/16 indicated aortic valve was moderately thickened leaflets , specifically of the left coronary cusp, cannot rule out endocarditis. NORIS 11/21/16 indicates mitral valve with echo density on the atrial aspect of the base of the anterior leaflet appearance consistent with vegetation. Probable endocarditis of the anterior leaflet of the mitral valve. Infectious disease was consulted and evaluated the patient and recommend 6 weeks worth of IV vancomycin, discontinued 12/28/16. PICC line placed 11/25/16 for long-term antibiotics. Neutropenia discussed with ID, Dr. Silva, who states do not change antibiotics for now. Repeat CBC 12/28 with normal neutrophil count. 01/01: PICC discontinued. Diabetic foot infection. He has cellulitis/abscess status post multiple I&D, Integra graft placement and wound VAC application. Culture growing multiple organisms. Infectious disease consulted and made antibiotic recommendations Morphine 2 mg IV when necessary for wound VAC change Podiatry says okay to be weightbearing in postop shoe, okay to work out with stationary bike with postop shoe 2030 minutes every other day -Eucerin cream ordered for dry skin to R foot only to apply on plantar aspect. -01/01: Dr. Sales performed another debridement and Integra graft placement. States if tendons not exposed in 2 weeks, will assess for split thickness skin graft vs other graft options. -Continue wound vac changes. -Dr. Sales following, awaiting note from last evaluation on 01/11. Sinus tachycardia: -TSH normal. Labs stable. Afebrile. Asymptomatic. Nothing acute to do. Diabetes mellitus: Stable. Hemoglobin A1c 11.8. Levemir 30 units in the morning (last adjusted 12/27) and 16 units at bedtime ( last adjusted 12/21). Accu-Cheks with sliding scale coverage. 01/16: BGLs reviewed, good. No changes to medication at this time. Hypertension: Improved. Continue to monitor. Norvasc 10 mg daily Lisinopril 20 mg daily Tinea cruris S/p Nystatin powder Tobacco abuse. Patient previously counseled regarding cessation. Peripheral vascular disease. Status post CTA No reconstructible vessels per vascular surgery. Continue asa. Tobacco cessation DVT prophylaxis subcutaneous heparin Discharge Planning Patient needs further surgery while in hospital, will defer to podiatry. Continues to utilize wound vac at this time. Problem Qualifiers (1) Sepsis: Qualified Code: A41.02 - Sepsis due to methicillin resistant Staphylococcus aureus (MRSA) Alexandra Mora Jan 16, 2017 10:02
[2017-01-16 20:00] VITALS: BP 123/81; PULSE 98; RESP 18; TEMP 97.8; O2SAT 97
[2017-01-17] MEDS: INSULIN ASPART SUPPLEMENTAL SCALE SQ SCH ×4 (07:00→21:21)
[2017-01-17 08:48] VITALS: BP 116/81; PULSE 97; RESP 19; TEMP 97.5; O2SAT 100
[2017-01-17] MEDS: LISINOPRIL 20 MG TAB PO SCH (09:43)
[2017-01-17] MEDS: SODIUM CHLORIDE 0.9% FLUSH 10 ML FLUSH IV FLUSH SCH ×2 (09:44→21:25)
[2017-01-17] MEDS: HEPARIN SODIUM - SQ 10,000 UNITS/ML VIAL SQ SCH ×2 (09:44→21:24)
[2017-01-17] MEDS: ASPIRIN 81 MG CHEW TAB CHEW SCH (09:44)
[2017-01-17] MEDS: INSULIN DETEMIR 100 UNITS/ML VIAL SQ SCH ×2 (09:51→21:22)
--- NOTE | 2017-01-17 11:04 | HHI.PR ---
Subjective Remarks Follow up for diabetic foot infection. Patient has no acute complaints. Objective Vitals Vital Signs Date Time Temp Pulse Resp B/P Pulse Ox O2 Delivery O2 Flow Rate FiO2 01/17/17 08:48 97.5 97 19 116/81 100 01/16/17 20:00 97.8 98 18 123/81 97 I/O 01/16/17 01/16/17 01/16/17 01/17/17 01/17/17 01/17/17 07:00 15:00 23:00 07:00 15:00 23:00 Intake Total 240 ml 960 ml 420 ml Output Total 700 ml Balance 240 ml 960 ml -280 ml Intake Oral 240 ml 960 ml 420 ml Output Urine Total 700 ml # Voids 2 3 # Bowel Movements 3 Objective Remarks GENERAL: Pleasant, well-nourished, well-developed patient in no apparent distress sitting in recliner. SKIN: Minimal abrasions on dorsal aspects of R toes, same. CARDIOVASCULAR: Tachycardic rate and regular rhythm. RESPIRATORY: No accessory muscle use. Clear to auscultation. Breath sounds equal bilaterally. GASTROINTESTINAL: Abdomen soft, non-tender, non-distended. MUSCULOSKELETAL: Post op shoe R foot; normal capillary refill. NEUROLOGICAL: Awake and alert. Normal speech. PSYCHIATRIC: Appropriate mood and affect; insight and judgment normal. Procedures NORIS Incision and drainage abscess R foot 11/18/16 and 11/20/16 Dr. Sales R foot wound debridement Dr. Hardwick 11/24/16 Irrigation and Debridement and Integra graft placement 12/02/16 Dr. Sales Irrigation and Debridement and Integra graft placement 01/01/17 Dr. Sales Urinary Catheter: No Vascular Central Line Catheter: No Date of Insertion: Nov 25, 2016 Date of Removal: Jan 01, 2017 A/P Problem List: (1) Sepsis ICD Code: A41.9 Status: Resolved (2) Cellulitis of right foot ICD Code: L03.115 Status: Resolved (3) Type 2 diabetes mellitus ICD Code: E11.9 Status: Acute (4) Bacteremia due to methicillin resistant Staphylococcus aureus ICD Code: R78.81 Status: Resolved Assessment and Plan 51-year-old male with history of diabetes and tobacco abuse. He presents to the emergency department because of cellulitis/abscess involving his right foot. Mitral valve endocarditis: stable Presented with sepsis from diabetic foot infection, bacteremia Blood cultures indicated Staphylococcus epidermidis Repeat blood cultures 11/19/16 have remained negative Echocardiogram 11/19/16 indicated aortic valve was moderately thickened leaflets , specifically of the left coronary cusp, cannot rule out endocarditis. NORIS 11/21/16 indicates mitral valve with echo density on the atrial aspect of the base of the anterior leaflet appearance consistent with vegetation. Probable endocarditis of the anterior leaflet of the mitral valve. Infectious disease was consulted and evaluated the patient and recommend 6 weeks worth of IV vancomycin, discontinued 12/28/16. PICC line placed 11/25/16 for long-term antibiotics. Neutropenia discussed with ID, Dr. Silva, who states do not change antibiotics for now. Repeat CBC 12/28 with normal neutrophil count. 01/01: PICC discontinued. Diabetic foot infection. He has cellulitis/abscess status post multiple I&D, Integra graft placement and wound VAC application. Culture growing multiple organisms. Infectious disease consulted and made antibiotic recommendations Morphine 2 mg IV when necessary for wound VAC change Podiatry says okay to be weightbearing in postop shoe, okay to work out with stationary bike with postop shoe 2030 minutes every other day -Eucerin cream ordered for dry skin to R foot only to apply on plantar aspect. -01/01: Dr. Sales performed another debridement and Integra graft placement. States if tendons not exposed in 2 weeks, will assess for split thickness skin graft vs other graft options. -Continue wound vac changes. -Dr. Sales following, awaiting note from last evaluation on 01/11. Sinus tachycardia: -TSH normal. Labs stable. Afebrile. Asymptomatic. Nothing acute to do. Diabetes mellitus: Stable. Hemoglobin A1c 11.8. Levemir 30 units in the morning (last adjusted 12/27) and 16 units at bedtime ( last adjusted 12/21). Accu-Cheks with sliding scale coverage. 01/17: BGLs reviewed, well controlled. No changes to medication at this time. Hypertension: Improved. Continue to monitor. Norvasc 10 mg daily Lisinopril 20 mg daily Tinea cruris S/p Nystatin powder Tobacco abuse. Patient previously counseled regarding cessation. Peripheral vascular disease. Status post CTA No reconstructible vessels per vascular surgery. Continue asa. Tobacco cessation DVT prophylaxis subcutaneous heparin Discharge Planning Patient needs further surgery while in hospital, will defer to podiatry. Continues to utilize wound vac at this time. Problem Qualifiers (1) Sepsis: Qualified Code: A41.02 - Sepsis due to methicillin resistant Staphylococcus aureus (MRSA) Alexandra Mora Jan 17, 2017 11:04
[2017-01-17 20:00] VITALS: BP 110/75; PULSE 120; RESP 16; TEMP 98.5; O2SAT 96
[2017-01-18] MEDS: INSULIN ASPART SUPPLEMENTAL SCALE SQ SCH ×4 (07:50→20:24)
[2017-01-18 08:00] VITALS: BP 128/82; PULSE 106; RESP 18; TEMP 96.2; O2SAT 100
[2017-01-18] MEDS: LISINOPRIL 20 MG TAB PO SCH (09:46)
[2017-01-18] MEDS: ASPIRIN 81 MG CHEW TAB CHEW SCH (09:46)
[2017-01-18] MEDS: SODIUM CHLORIDE 0.9% FLUSH 10 ML FLUSH IV FLUSH SCH ×2 (09:46→20:16)
[2017-01-18] MEDS: HEPARIN SODIUM - SQ 10,000 UNITS/ML VIAL SQ SCH ×2 (09:47→20:17)
[2017-01-18] MEDS: INSULIN DETEMIR 100 UNITS/ML VIAL SQ SCH ×2 (09:53→20:25)
--- NOTE | 2017-01-18 11:28 | HHI.PR ---
Subjective Remarks Patient seen and examined today for follow-up on right foot infection. Patient is doing much better. Awaiting podiatry for reevaluation and if it is time for grafting. Objective Vitals Vital Signs Date Time Temp Pulse Resp B/P Pulse Ox O2 Delivery O2 Flow Rate FiO2 01/18/17 08:00 96.2 106 18 128/82 100 01/17/17 20:00 98.5 120 16 110/75 96 I/O 01/17/17 01/17/17 01/17/17 01/18/17 01/18/17 01/18/17 06:59 14:59 22:59 06:59 14:59 22:59 Intake Total 420 ml 1330 ml Output Total 700 ml Balance -280 ml 1330 ml Intake Oral 420 ml 1330 ml Output Urine Total 700 ml # Voids 6 # Bowel Movements 3 1 Objective Remarks GENERAL: Well-developed, well-nourished, in no acute distress. alert and orientated HEENT: Head is normocephalic without any lesions or masses noted. Facial features are symmetric. Eyes: Extraocular muscles are intact. Conjunctivae were clear. NECK: Trachea midline no deviation. No JVD, CARDIAC: Regular rhythm, regular rate. S1/S2 are heard. No murmurs gallops or rubs. LUNGS: Clear to auscultation bilaterally. No wheeze, rhonchi or rales. No use of accessory muscles on inspiration or expiration. NEUROLOGY: Mood and affect appear appropriate. Cranial nerves II through XII grossly intact. Moving all extremities, speech is clear RIGHT FOOT: Patient does have right foot wound VAC Procedures NORIS Incision and drainage abscess R foot 11/18/16 and 11/20/16 Dr. Sales R foot wound debridement Dr. Hardwick 11/24/16 Irrigation and Debridement and Integra graft placement 12/02/16 Dr. Sales Irrigation and Debridement and Integra graft placement 01/01/17 Dr. Sales Urinary Catheter: No Vascular Central Line Catheter: No Date of Insertion: Nov 25, 2016 Date of Removal: Jan 01, 2017 A/P Assessment and Plan 51-year-old male with history of diabetes and tobacco abuse. He presents to the emergency department because of cellulitis/abscess involving his right foot. Diabetic foot infection. He has cellulitis/abscess status post multiple I&D, intragraft placement and wound VAC application. Culture growing multiple organisms. Infectious disease consulted and made antibiotic recommendations Morphine 2 mg IV when necessary for wound VAC change Podiatry indicates okay to be weightbearing in postop shoe, okay to work out with stationary bike with postop shoe 2030 minutes every other day Awaiting for enough granulation to cover tendons and bone in order to perform partial-thickness skin graft Mitral valve endocarditis, finished treatment Patient originally presented with sepsis from diabetic foot infection, bacteremia Blood cultures indicated Staphylococcus epidermidis Repeat blood cultures 11/19/16 have remained negative Echocardiogram 11/19/16 indicated aortic valve was moderately thickened leaflets , specifically of the left coronary cusp, cannot rule out endocarditis does not appear mobile as endocarditis would be NORIS 11/21/16 indicates mitral valve with echo density on the atrial aspect of the base of the anterior leaflet appearance consistent with vegetation. Probable endocarditis of the anterior leaflet of the mitral valve. Infectious disease recommended completion of 6 weeks worth of IV vancomycin, finished on December 28, 2016 Diabetes mellitus. Controlled Hemoglobin A1c 11.8. Levemir 16 units units at bedtime and 34 units in the morning. Accu-Cheks with sliding scale coverage. Hypertension. Stable Norvasc 10 mg daily lisinopril 20 mg daily Monitor for response Tinea cruris, resolved Status post Nystatin powder Tobacco abuse. Patient previously counseled regarding cessation. Peripheral vascular disease. Status post CTA no reconstructible vessels per vascular surgery. Ct asa. Tobacco cessation DVT prophylaxis subcutaneous heparin Discharge Planning Discharge planning per case management. Awaiting clearance from podiatry Diogo Gallagher Jan 18, 2017 11:28
--- NOTE | 2017-01-18 17:51 | PD.POD ---
Subjective Podiatric Problems R foot infection, s/p I&D 11/18/16 and 11/20/16 [place], 11/24/16 Hardwick , [place] with skin graft application and wound VAC. Seen this pm at bedside with nursing staff. Pain scale used: 0-10 numeric scale Pain score: 0 Past Med/Surg/Social History Social History Smoking Status: Never Smoker Objective Vital Signs Vital Signs Date Time Temp Pulse Resp B/P Pulse Ox O2 Delivery O2 Flow Rate FiO2 01/18/17 08:00 96.2 106 18 128/82 100 01/17/17 20:00 98.5 120 16 110/75 96 Coded Allergies: Penicillin (Verified Allergy, Severe, 11/16/16) Exam-Podiatry Dermatological Exam Ulcers: Location/Measurements RLE ulcer base is 7x6 cm. 95% granular, no drainage and no purulence and no acute soi. No exposed bone and no tunneling. Protective sensation is intact and muscle strength is intact. Assessment & Plan Diagnosis: (1) Type 2 diabetes mellitus Status: Acute A/P R foot infection, s/p I&D 11/18/16 and 11/20/16 [place], 11/24/16 Hardwick, 12/04/17 [place] with skin substitute application. Plan fro application of Appligraft x 1 -2 units on the right foot at bedside. Hold on Wound VAC. Begin Santyl qd with DSD. Patient may be d/c per Podiatry once application of skin substitute. Kate Ayoub DPM Jan 18, 2017 17:51
[2017-01-18 20:00] VITALS: BP 105/76; PULSE 98; RESP 20; TEMP 97.9; O2SAT 97
[2017-01-19] MEDS: HEPARIN SODIUM - SQ 10,000 UNITS/ML VIAL SQ SCH ×2 (08:05→21:23)
[2017-01-19] MEDS: ASPIRIN 81 MG CHEW TAB CHEW SCH (08:06)
[2017-01-19] MEDS: LISINOPRIL 20 MG TAB PO SCH (08:06)
[2017-01-19] MEDS: SODIUM CHLORIDE 0.9% FLUSH 10 ML FLUSH IV FLUSH SCH ×2 (09:00→21:12)
[2017-01-19] MEDS: INSULIN DETEMIR 100 UNITS/ML VIAL SQ SCH ×2 (09:00→21:21)
[2017-01-19 10:08] VITALS: BP 116/89; PULSE 102; RESP 15; TEMP 96.6; O2SAT 99
[2017-01-19] MEDS: INSULIN ASPART SUPPLEMENTAL SCALE SQ SCH ×3 (11:00→21:22)
--- NOTE | 2017-01-19 11:23 | HHI.PR ---
Subjective Remarks Patient seen and examined today for follow-up on right foot infection. Patient indicates that he is doing much better. States that podiatry plans on doing skin grafting today or tomorrow and after that we'll be only decide when patient can be discharged Objective Vitals Vital Signs Date Time Temp Pulse Resp B/P Pulse Ox O2 Delivery O2 Flow Rate FiO2 01/19/17 10:08 96.6 102 15 116/89 99 01/18/17 20:00 97.9 98 20 105/76 97 I/O 01/18/17 01/18/17 01/18/17 01/19/17 01/19/17 01/19/17 07:00 15:00 23:00 07:00 15:00 23:00 Intake Total 480 ml 480 ml Balance 480 ml 480 ml Intake Oral 480 ml 480 ml # Voids 2 2 # Bowel Movements 0 0 Objective Remarks GENERAL: Well-developed, well-nourished, in no acute distress. alert and orientated HEENT: Head is normocephalic without any lesions or masses noted. Facial features are symmetric. Eyes: Extraocular muscles are intact. Conjunctivae were clear. NECK: Trachea midline no deviation. No JVD, CARDIAC: Regular rhythm, regular rate. S1/S2 are heard. No murmurs gallops or rubs. LUNGS: Clear to auscultation bilaterally. No wheeze, rhonchi or rales. No use of accessory muscles on inspiration or expiration. NEUROLOGY: Mood and affect appear appropriate. Cranial nerves II through XII grossly intact. Moving all extremities, speech is clear RIGHT FOOT: Patient does have right foot wound VAC Procedures NORIS Incision and drainage abscess R foot 11/18/16 and 11/20/16 Dr. Sales R foot wound debridement Dr. Hardwick 11/24/16 Irrigation and Debridement and Integra graft placement 12/02/16 Dr. Sales Irrigation and Debridement and Integra graft placement 01/01/17 Dr. Sales Urinary Catheter: No Vascular Central Line Catheter: No Date of Insertion: Nov 25, 2016 Date of Removal: Jan 01, 2017 A/P Assessment and Plan 51-year-old male with history of diabetes and tobacco abuse. He presents to the emergency department because of cellulitis/abscess involving his right foot. Diabetic foot infection. He has cellulitis/abscess status post multiple I&D, intragraft placement and wound VAC application. Culture growing multiple organisms. Infectious disease consulted and patient completed antibiotic therapy Podiatry indicates okay to be weightbearing in postop shoe, okay to work out with stationary bike with postop shoe 2030 minutes every other day Podiatry evaluated patient and recommended no more wound VAC, plans for grafting and discharge Mitral valve endocarditis, finished treatment Patient originally presented with sepsis from diabetic foot infection, bacteremia Blood cultures indicated Staphylococcus epidermidis Repeat blood cultures 11/19/16 have remained negative Echocardiogram 11/19/16 indicated aortic valve was moderately thickened leaflets , specifically of the left coronary cusp, cannot rule out endocarditis does not appear mobile as endocarditis would be NORIS 11/21/16 indicates mitral valve with echo density on the atrial aspect of the base of the anterior leaflet appearance consistent with vegetation. Probable endocarditis of the anterior leaflet of the mitral valve. Infectious disease recommended completion of 6 weeks worth of IV vancomycin, completed on December 28, 2016 Diabetes mellitus. Controlled Hemoglobin A1c 11.8. Levemir 16 units units at bedtime and 34 units in the morning. Accu-Cheks with sliding scale coverage. Hypertension. Stable Norvasc 10 mg daily lisinopril 20 mg daily Monitor for response Tinea cruris, resolved Status post Nystatin powder Tobacco abuse. Patient previously counseled regarding cessation. Peripheral vascular disease. Status post CTA no reconstructible vessels per vascular surgery. Ct asa. Tobacco cessation DVT prophylaxis subcutaneous heparin Discharge Planning Discharge planning per case management. Awaiting clearance from podiatry Diogo Gallagher Jan 19, 2017 11:23
[2017-01-19] MEDS: COLLAGENASE OINT 30 GM TUBE TOPICAL SCH (15:00)
[2017-01-19 21:38] VITALS: BP 117/87; PULSE 109; RESP 18; TEMP 97.2; O2SAT 99
[2017-01-20 08:00] VITALS: BP 154/88; PULSE 97; RESP 18; TEMP 97.5; O2SAT 100
[2017-01-20] MEDS: INSULIN ASPART SUPPLEMENTAL SCALE SQ SCH ×4 (08:06→20:26)
[2017-01-20] MEDS: COLLAGENASE OINT 30 GM TUBE TOPICAL SCH (09:00)
[2017-01-20] MEDS: ASPIRIN 81 MG CHEW TAB CHEW SCH (09:53)
[2017-01-20] MEDS: SODIUM CHLORIDE 0.9% FLUSH 10 ML FLUSH IV FLUSH SCH ×2 (09:53→20:14)
[2017-01-20] MEDS: LISINOPRIL 20 MG TAB PO SCH (09:53)
[2017-01-20] MEDS: HEPARIN SODIUM - SQ 10,000 UNITS/ML VIAL SQ SCH ×2 (09:54→20:14)
[2017-01-20] MEDS: INSULIN DETEMIR 100 UNITS/ML VIAL SQ SCH ×2 (09:58→20:26)
--- NOTE | 2017-01-20 13:28 | HHI.PR ---
Subjective Remarks Patient seen and examined for follow-up on right foot infection. Patient is doing well. Awaiting podiatry to do the graft so he can go home. Objective Vitals Vital Signs Date Time Temp Pulse Resp B/P Pulse Ox O2 Delivery O2 Flow Rate FiO2 01/19/17 21:38 97.2 109 18 117/87 99 I/O 01/19/17 01/19/17 01/19/17 01/20/17 01/20/17 01/20/17 07:00 15:00 23:00 07:00 15:00 23:00 Intake Total 480 ml 2400 ml 480 ml Output Total 4 ml Balance 480 ml 2396 ml 480 ml Intake Oral 480 ml 2400 ml 480 ml Output Urine Total 4 ml # Voids 2 3 1 # Bowel Movements 0 1 0 Objective Remarks GENERAL: Well-developed, well-nourished, in no acute distress. alert and orientated HEENT: Head is normocephalic without any lesions or masses noted. Facial features are symmetric. Eyes: Extraocular muscles are intact. Conjunctivae were clear. NECK: Trachea midline no deviation. No JVD, CARDIAC: Regular rhythm, regular rate. S1/S2 are heard. No murmurs gallops or rubs. LUNGS: Clear to auscultation bilaterally. No wheeze, rhonchi or rales. No use of accessory muscles on inspiration or expiration. NEUROLOGY: Mood and affect appear appropriate. Cranial nerves II through XII grossly intact. Moving all extremities, speech is clear RIGHT FOOT: Patient with a bandage and fracture boot on right foot Procedures NORIS Incision and drainage abscess R foot 11/18/16 and 11/20/16 Dr. Sales R foot wound debridement Dr. Hardwick 11/24/16 Irrigation and Debridement and Integra graft placement 12/02/16 Dr. Sales Irrigation and Debridement and Integra graft placement 01/01/17 Dr. Sales Urinary Catheter: No Vascular Central Line Catheter: No Date of Insertion: Nov 25, 2016 Date of Removal: Jan 01, 2017 A/P Assessment and Plan 51-year-old male with history of diabetes and tobacco abuse. He presents to the emergency department because of cellulitis/abscess involving his right foot. Diabetic foot infection. He has cellulitis/abscess status post multiple I&D, intragraft placement and wound VAC application. Culture growing multiple organisms. Infectious disease consulted and patient completed antibiotic therapy Podiatry indicates okay to be weightbearing in postop shoe, okay to work out with stationary bike with postop shoe 2030 minutes every other day Podiatry evaluated patient and recommended no more wound VAC, plans for grafting and discharge Mitral valve endocarditis, finished treatment Patient originally presented with sepsis from diabetic foot infection, bacteremia Blood cultures indicated Staphylococcus epidermidis Repeat blood cultures 11/19/16 have remained negative Echocardiogram 11/19/16 indicated aortic valve was moderately thickened leaflets , specifically of the left coronary cusp, cannot rule out endocarditis does not appear mobile as endocarditis would be NORIS 11/21/16 indicates mitral valve with echo density on the atrial aspect of the base of the anterior leaflet appearance consistent with vegetation. Probable endocarditis of the anterior leaflet of the mitral valve. Infectious disease recommended completion of 6 weeks worth of IV vancomycin, completed on December 28, 2016 Diabetes mellitus. Controlled Hemoglobin A1c 11.8. Levemir 16 units units at bedtime and 34 units in the morning. Accu-Cheks with sliding scale coverage. Hypertension. Stable Norvasc 10 mg daily lisinopril 20 mg daily Monitor for response Tinea cruris, resolved Status post Nystatin powder Tobacco abuse. Patient previously counseled regarding cessation. Peripheral vascular disease. Status post CTA no reconstructible vessels per vascular surgery. Ct asa. Tobacco cessation DVT prophylaxis subcutaneous heparin Discharge Planning Discharge planning per case management. Awaiting clearance from podiatry Diogo Gallagher Jan 20, 2017 13:28
[2017-01-20 20:00] VITALS: BP 125/82; PULSE 103; RESP 18; TEMP 97.3; O2SAT 100
[2017-01-21] MEDS: INSULIN ASPART SUPPLEMENTAL SCALE SQ SCH ×4 (07:45→20:07)
[2017-01-21 08:00] VITALS: BP 123/83; PULSE 106; RESP 18; TEMP 98.1; O2SAT 98
[2017-01-21] MEDS: COLLAGENASE OINT 30 GM TUBE TOPICAL SCH (09:00)
[2017-01-21] MEDS: ASPIRIN 81 MG CHEW TAB CHEW SCH (09:58)
[2017-01-21] MEDS: LISINOPRIL 20 MG TAB PO SCH (09:58)
[2017-01-21] MEDS: SODIUM CHLORIDE 0.9% FLUSH 10 ML FLUSH IV FLUSH SCH ×2 (09:59→20:06)
[2017-01-21] MEDS: HEPARIN SODIUM - SQ 10,000 UNITS/ML VIAL SQ SCH ×2 (10:00→20:06)
[2017-01-21] MEDS: INSULIN DETEMIR 100 UNITS/ML VIAL SQ SCH ×2 (10:06→20:09)
--- NOTE | 2017-01-21 10:50 | HHI.PR ---
Subjective Remarks Patient is examined today for follow-up on right foot wound. Patient is doing well. I discussed with podiatry today that they are waiting for operating room to order the graft material in order to perform the surgery Objective Vitals Vital Signs Date Time Temp Pulse Resp B/P Pulse Ox O2 Delivery O2 Flow Rate FiO2 01/21/17 08:00 98.1 106 18 123/83 98 01/20/17 20:00 97.3 103 18 125/82 100 I/O 01/20/17 01/20/17 01/20/17 01/21/17 01/21/17 01/21/17 07:00 15:00 23:00 07:00 15:00 23:00 Intake Total 480 ml 100 ml Balance 480 ml 100 ml Intake Oral 480 ml 100 ml # Voids 1 # Bowel Movements 0 Objective Remarks GENERAL: Well-developed, well-nourished, in no acute distress. alert and orientated HEENT: Head is normocephalic without any lesions or masses noted. Facial features are symmetric. Eyes: Extraocular muscles are intact. Conjunctivae were clear. NECK: Trachea midline no deviation. No JVD, CARDIAC: Regular rhythm, regular rate. S1/S2 are heard. No murmurs gallops or rubs. LUNGS: Clear to auscultation bilaterally. No wheeze, rhonchi or rales. No use of accessory muscles on inspiration or expiration. NEUROLOGY: Mood and affect appear appropriate. Cranial nerves II through XII grossly intact. Moving all extremities, speech is clear RIGHT FOOT: Patient with a bandage and fracture boot on right foot Procedures NORSI Incision and drainage abscess R foot 11/18/16 and 11/20/16 Dr. Sales R foot wound debridement Dr. Hardwick 11/24/16 Irrigation and Debridement and Integra graft placement 12/02/16 Dr. Sales Irrigation and Debridement and Integra graft placement 01/01/17 Dr. Sales Urinary Catheter: No Vascular Central Line Catheter: No Date of Insertion: Nov 25, 2016 Date of Removal: Jan 01, 2017 A/P Assessment and Plan 51-year-old male with history of diabetes and tobacco abuse. He presents to the emergency department because of cellulitis/abscess involving his right foot. Diabetic foot infection. He has cellulitis/abscess status post multiple I&D, intragraft placement and wound VAC application. Culture growing multiple organisms. Infectious disease consulted and patient completed antibiotic therapy Podiatry indicates okay to be weightbearing in postop shoe, okay to work out with stationary bike with postop shoe 2030 minutes every other day Podiatry evaluated patient and recommended no more wound VAC, plans for grafting and discharge, awaiting OR to order grafting material Mitral valve endocarditis, finished treatment Patient originally presented with sepsis from diabetic foot infection, bacteremia Blood cultures indicated Staphylococcus epidermidis Repeat blood cultures 11/19/16 have remained negative Echocardiogram 11/19/16 indicated aortic valve was moderately thickened leaflets , specifically of the left coronary cusp, cannot rule out endocarditis does not appear mobile as endocarditis would be NORIS 11/21/16 indicates mitral valve with echo density on the atrial aspect of the base of the anterior leaflet appearance consistent with vegetation. Probable endocarditis of the anterior leaflet of the mitral valve. Infectious disease recommended completion of 6 weeks worth of IV vancomycin, completed on December 28, 2016 Diabetes mellitus. Controlled Hemoglobin A1c 11.8. Levemir 16 units units at bedtime and 34 units in the morning. Accu-Cheks with sliding scale coverage. Hypertension. Stable Norvasc 10 mg daily lisinopril 20 mg daily Monitor for response Tinea cruris, resolved Status post Nystatin powder Tobacco abuse. Patient previously counseled regarding cessation. Peripheral vascular disease. Status post CTA no reconstructible vessels per vascular surgery. Ct asa. Tobacco cessation DVT prophylaxis subcutaneous heparin Discharge Planning Discharge planning per case management. Awaiting clearance from podiatry Diogo Gallagher Jan 21, 2017 10:50
[2017-01-21 20:00] VITALS: BP 110/82; PULSE 96; RESP 18; TEMP 97.1; O2SAT 99
--- NOTE | 2017-01-21 20:59 | PD.POD ---
Subjective Podiatric Problems R foot infection, s/p I&D 11/18/16 and 11/20/16 [place], 11/24/16 Hardwick , [place] with skin graft application and wound VAC. Seen this pm at bedside with nursing staff. Pain scale used: 0-10 numeric scale Pain score: 0 Past Med/Surg/Social History Social History Smoking Status: Never Smoker Objective Vital Signs Vital Signs Date Time Temp Pulse Resp B/P Pulse Ox O2 Delivery O2 Flow Rate FiO2 01/21/17 08:00 98.1 106 18 123/83 98 Coded Allergies: Penicillin (Verified Allergy, Severe, 11/16/16) Exam-Podiatry Dermatological Exam Ulcers: Location/Measurements RLE Intact dressing with no strikethrough. >90% granulation. No erythema, no edema and no acute soi. Assessment & Plan Diagnosis: (1) Type 2 diabetes mellitus Status: Acute A/P R foot infection, s/p I&D 11/18/16 and 11/20/16 [place], 11/24/16 Hardwick, 12/04/17 [place] with skin substitute application. Plan for application of Appligraft x 1 -2 units on the right foot at bedside. Hold on Wound VAC. Continue Santyl qd with DSD. Patient may be d/c per Podiatry once application of skin substitute. Discussed apligraft vs skin graft vs delayed closure as an out patient. Discussed with [employer]iculture Teacher ( Juan) .Pending approval for a unit of Apligraft. Kate Ayoub DPM Jan 21, 2017 20:59
[2017-01-22] MEDS: INSULIN ASPART SUPPLEMENTAL SCALE SQ SCH ×4 (06:11→20:56)
[2017-01-22] MEDS: ASPIRIN 81 MG CHEW TAB CHEW SCH (08:35)
[2017-01-22] MEDS: LISINOPRIL 20 MG TAB PO SCH (08:35)
[2017-01-22] MEDS: HEPARIN SODIUM - SQ 10,000 UNITS/ML VIAL SQ SCH ×2 (08:37→20:55)
[2017-01-22] MEDS: COLLAGENASE OINT 30 GM TUBE TOPICAL SCH (08:38)
[2017-01-22] MEDS: SODIUM CHLORIDE 0.9% FLUSH 10 ML FLUSH IV FLUSH SCH ×2 (08:44→20:56)
[2017-01-22] MEDS: INSULIN DETEMIR 100 UNITS/ML VIAL SQ SCH ×2 (08:44→21:02)
[2017-01-22 09:46] VITALS: BP 134/87; PULSE 111; RESP 14; TEMP 97.4; O2SAT 100
--- NOTE | 2017-01-22 12:06 | HHI.PR ---
Subjective Remarks Patient seen and examined today for follow-up on foot wound. Patient is doing well. Awaiting for insurance to approve graft for surgery. Objective Vitals Vital Signs Date Time Temp Pulse Resp B/P Pulse Ox O2 Delivery O2 Flow Rate FiO2 01/22/17 09:46 97.4 111 14 134/87 100 01/21/17 20:00 97.1 96 18 110/82 99 I/O 01/21/17 01/21/17 01/21/17 01/22/17 01/22/17 01/22/17 07:00 15:00 23:00 07:00 15:00 23:00 Intake Total 960 ml 420 ml Balance 960 ml 420 ml Intake Oral 960 ml 420 ml IV Total 0 ml 0 ml # Voids 3 3 # Bowel Movements 1 Objective Remarks GENERAL: Well-developed, well-nourished, in no acute distress. alert and orientated HEENT: Head is normocephalic without any lesions or masses noted. Facial features are symmetric. Eyes: Extraocular muscles are intact. Conjunctivae were clear. NECK: Trachea midline no deviation. No JVD, CARDIAC: Regular rhythm, regular rate. S1/S2 are heard. No murmurs gallops or rubs. LUNGS: Clear to auscultation bilaterally. No wheeze, rhonchi or rales. No use of accessory muscles on inspiration or expiration. NEUROLOGY: Mood and affect appear appropriate. Cranial nerves II through XII grossly intact. Moving all extremities, speech is clear RIGHT FOOT: Patient with a bandage and fracture boot on right foot Procedures [facility]IS Incision and drainage abscess R foot 11/18/16 and 11/20/16 Dr. Sales R foot wound debridement Dr. Hardwick 11/24/16 Irrigation and Debridement and Integra graft placement 12/02/16 Dr. Sales Irrigation and Debridement and Integra graft placement 01/01/17 Dr. Sales Urinary Catheter: No Vascular Central Line Catheter: No Date of Insertion: Nov 25, 2016 Date of Removal: Jan 01, 2017 A/P Assessment and Plan 51-year-old male with history of diabetes and tobacco abuse. He presents to the emergency department because of cellulitis/abscess involving his right foot. Diabetic foot infection. He has cellulitis/abscess status post multiple I&D, intragraft placement and wound VAC application. Culture growing multiple organisms. Infectious disease consulted and patient completed antibiotic therapy Podiatry indicates okay to be weightbearing in postop shoe, okay to work out with stationary bike with postop shoe 2030 minutes every other day Podiatry evaluated patient and recommended no more wound VAC, plans for grafting and discharge, awaiting insurance to authorize grafting material Mitral valve endocarditis, finished treatment Patient originally presented with sepsis from diabetic foot infection, bacteremia Blood cultures indicated Staphylococcus epidermidis Repeat blood cultures 11/19/16 have remained negative Echocardiogram 11/19/16 indicated aortic valve was moderately thickened leaflets , specifically of the left coronary cusp, cannot rule out endocarditis does not appear mobile as endocarditis would be NORIS 11/21/16 indicates mitral valve with echo density on the atrial aspect of the base of the anterior leaflet appearance consistent with vegetation. Probable endocarditis of the anterior leaflet of the mitral valve. Infectious disease recommended completion of 6 weeks worth of IV vancomycin, completed on December 28, 2016 Diabetes mellitus. Controlled Hemoglobin A1c 11.8. Levemir 16 units units at bedtime and 34 units in the morning. Accu-Cheks with sliding scale coverage. Hypertension. Stable Norvasc 10 mg daily lisinopril 20 mg daily Monitor for response Tinea cruris, resolved Status post Nystatin powder Tobacco abuse. Patient previously counseled regarding cessation. Peripheral vascular disease. Status post CTA no reconstructible vessels per vascular surgery. Ct asa. Tobacco cessation DVT prophylaxis subcutaneous heparin Discharge Planning Discharge planning per case management. Awaiting clearance from podiatry Diogo Gallagher Jan 22, 2017 12:06
[2017-01-22 21:00] VITALS: BP 108/76; PULSE 93; RESP 18; TEMP 98.6; O2SAT 97
[2017-01-23] MEDS: INSULIN ASPART SUPPLEMENTAL SCALE SQ SCH ×4 (06:08→20:19)
[2017-01-23] MEDS: COLLAGENASE OINT 30 GM TUBE TOPICAL SCH (09:31)
[2017-01-23] MEDS: SODIUM CHLORIDE 0.9% FLUSH 10 ML FLUSH IV FLUSH SCH (09:31)
[2017-01-23] MEDS: ASPIRIN 81 MG CHEW TAB CHEW SCH (09:31)
[2017-01-23] MEDS: LISINOPRIL 20 MG TAB PO SCH (09:31)
[2017-01-23] MEDS: INSULIN DETEMIR 100 UNITS/ML VIAL SQ SCH ×2 (09:41→20:15)
[2017-01-23 10:18] VITALS: BP 96/65; PULSE 109; RESP 16; TEMP 98.3; O2SAT 99
--- NOTE | 2017-01-23 11:15 | HHI.PR ---
Subjective Remarks Patient seen and examined today for follow-up on right foot wound. Patient is doing well. Patient ambulating every hour and requested heparin can be discontinued. Patient denies any new complaints. Objective Vitals Vital Signs Date Time Temp Pulse Resp B/P Pulse Ox O2 Delivery O2 Flow Rate FiO2 01/23/17 10:18 98.3 109 16 96/65 99 01/22/17 21:00 98.6 93 18 108/76 97 I/O 01/22/17 01/22/17 01/22/17 01/23/17 01/23/17 01/23/17 07:00 15:00 23:00 07:00 15:00 23:00 Intake Total 420 ml 1000 ml 0 ml Balance 420 ml 1000 ml 0 ml Intake Oral 420 ml 1000 ml IV Total 0 ml 0 ml 0 ml # Voids 3 5 # Bowel Movements 1 1 Objective Remarks GENERAL: Well-developed, well-nourished, in no acute distress. alert and orientated HEENT: Head is normocephalic without any lesions or masses noted. Facial features are symmetric. Eyes: Extraocular muscles are intact. Conjunctivae were clear. NECK: Trachea midline no deviation. No JVD, CARDIAC: Regular rhythm, regular rate. S1/S2 are heard. No murmurs gallops or rubs. LUNGS: Clear to auscultation bilaterally. No wheeze, rhonchi or rales. No use of accessory muscles on inspiration or expiration. NEUROLOGY: Mood and affect appear appropriate. Cranial nerves II through XII grossly intact. Moving all extremities, speech is clear RIGHT FOOT: Patient with a bandage and fracture boot on right foot Procedures [facility]IS Incision and drainage abscess R foot 11/18/16 and 11/20/16 Dr. Sales R foot wound debridement Dr. Hardwick 11/24/16 Irrigation and Debridement and Integra graft placement 12/02/16 Dr. Sales Irrigation and Debridement and Integra graft placement 01/01/17 Dr. Sales Urinary Catheter: No Vascular Central Line Catheter: No Date of Insertion: Nov 25, 2016 Date of Removal: Jan 01, 2017 A/P Assessment and Plan 51-year-old male with history of diabetes and tobacco abuse. He presents to the emergency department because of cellulitis/abscess involving his right foot. Diabetic foot infection. He has cellulitis/abscess status post multiple I&D, intragraft placement and wound VAC application. Culture growing multiple organisms. Infectious disease consulted and patient completed antibiotic therapy Podiatry indicates okay to be weightbearing in postop shoe, okay to work out with stationary bike with postop shoe 2030 minutes every other day Podiatry evaluated patient and recommended no more wound VAC, plans for grafting and discharge, awaiting insurance to authorize grafting material Mitral valve endocarditis, finished treatment Patient originally presented with sepsis from diabetic foot infection, bacteremia Blood cultures indicated Staphylococcus epidermidis Repeat blood cultures 11/19/16 have remained negative Echocardiogram 11/19/16 indicated aortic valve was moderately thickened leaflets , specifically of the left coronary cusp, cannot rule out endocarditis does not appear mobile as endocarditis would be NORIS 11/21/16 indicates mitral valve with echo density on the atrial aspect of the base of the anterior leaflet appearance consistent with vegetation. Probable endocarditis of the anterior leaflet of the mitral valve. Infectious disease recommended completion of 6 weeks worth of IV vancomycin, completed on December 28, 2016 Diabetes mellitus. Controlled Hemoglobin A1c 11.8. Levemir 16 units units at bedtime and 34 units in the morning. Accu-Cheks with sliding scale coverage. Hypertension. Stable Norvasc 10 mg daily lisinopril 20 mg daily Monitor for response Tinea cruris, resolved Status post Nystatin powder Tobacco abuse. Patient previously counseled regarding cessation. Peripheral vascular disease. Status post CTA no reconstructible vessels per vascular surgery. Ct asa. Tobacco cessation DVT prophylaxis Low risk, patient is ambulating every hour Discharge Planning Discharge planning per case management. Awaiting clearance from podiatry Diogo Gallagher Jan 23, 2017 11:15
[2017-01-23 19:10] VITALS: BP 111/81; PULSE 120; RESP 15; TEMP 97; O2SAT 98
[2017-01-23 20:00] VITALS: BP 111/81; PULSE 120; RESP 15; TEMP 97; O2SAT 98
[2017-01-24] MEDS: INSULIN ASPART SUPPLEMENTAL SCALE SQ SCH ×4 (07:00→20:52)
--- NOTE | 2017-01-24 08:08 | HHI.PR ---
Subjective Remarks Patient seen and examined today for foot wound. Patient is doing well. Awaiting insurance approval for grafting. Once grafting takes place discharge per podiatry Objective Vitals Vital Signs Date Time Temp Pulse Resp B/P Pulse Ox O2 Delivery O2 Flow Rate FiO2 01/23/17 19:10 97.0 120 15 111/81 98 01/23/17 10:18 98.3 109 16 96/65 99 I/O 01/23/17 01/23/17 01/23/17 01/24/17 01/24/17 01/24/17 07:00 15:00 23:00 07:00 15:00 23:00 Intake Total 0 ml Balance 0 ml IV Total 0 ml Objective Remarks GENERAL: Well-developed, well-nourished, in no acute distress. alert and orientated HEENT: Head is normocephalic without any lesions or masses noted. Facial features are symmetric. Eyes: Extraocular muscles are intact. Conjunctivae were clear. NECK: Trachea midline no deviation. No JVD, CARDIAC: Regular rhythm, regular rate. S1/S2 are heard. No murmurs gallops or rubs. LUNGS: Clear to auscultation bilaterally. No wheeze, rhonchi or rales. No use of accessory muscles on inspiration or expiration. NEUROLOGY: Mood and affect appear appropriate. Cranial nerves II through XII grossly intact. Moving all extremities, speech is clear RIGHT FOOT: Patient with a bandage and fracture boot on right foot Procedures NORIS Incision and drainage abscess R foot 11/18/16 and 11/20/16 Dr. Sales R foot wound debridement Dr. Hardwick 11/24/16 Irrigation and Debridement and Integra graft placement 12/02/16 Dr. Sales Irrigation and Debridement and Integra graft placement 01/01/17 Dr. Sales Urinary Catheter: No Vascular Central Line Catheter: No Date of Insertion: Nov 25, 2016 Date of Removal: Jan 01, 2017 A/P Assessment and Plan 51-year-old male with history of diabetes and tobacco abuse. He presents to the emergency department because of cellulitis/abscess involving his right foot. Diabetic foot infection/wound. He has cellulitis/abscess status post multiple I&D, intragraft placement and wound VAC application. Culture growing multiple organisms. Infectious disease consulted and patient completed antibiotic therapy Podiatry indicates okay to be weightbearing in postop shoe, okay to work out with stationary bike with postop shoe 2030 minutes every other day Podiatry evaluated patient and recommended no more wound VAC, plans for grafting and discharge, awaiting insurance to authorize grafting material Mitral valve endocarditis, finished treatment Patient originally presented with sepsis from diabetic foot infection, bacteremia Blood cultures indicated Staphylococcus epidermidis Repeat blood cultures 11/19/16 have remained negative Echocardiogram 11/19/16 indicated aortic valve was moderately thickened leaflets , specifically of the left coronary cusp, cannot rule out endocarditis does not appear mobile as endocarditis would be NORIS 11/21/16 indicates mitral valve with echo density on the atrial aspect of the base of the anterior leaflet appearance consistent with vegetation. Probable endocarditis of the anterior leaflet of the mitral valve. Infectious disease recommended completion of 6 weeks worth of IV vancomycin, completed on December 28, 2016 Diabetes mellitus. Controlled Hemoglobin A1c 11.8. Levemir 16 units units at bedtime and 34 units in the morning. Accu-Cheks with sliding scale coverage. Hypertension. Stable Norvasc 10 mg daily lisinopril 20 mg daily Monitor for response Tobacco abuse. Patient previously counseled regarding cessation. Peripheral vascular disease. Status post CTA no reconstructible vessels per vascular surgery. Ct asa. Tobacco cessation DVT prophylaxis Low risk, patient is ambulating every hour Discharge Planning Discharge planning per case management. Awaiting clearance from podiatry Diogo Gallagher Jan 24, 2017 08:08
[2017-01-24 08:49] VITALS: BP 129/90; PULSE 111; RESP 19; TEMP 96.5; O2SAT 100
[2017-01-24] MEDS: ASPIRIN 81 MG CHEW TAB CHEW SCH (09:12)
[2017-01-24] MEDS: COLLAGENASE OINT 30 GM TUBE TOPICAL SCH (09:12)
[2017-01-24] MEDS: LISINOPRIL 20 MG TAB PO SCH (09:12)
[2017-01-24] MEDS: INSULIN DETEMIR 100 UNITS/ML VIAL SQ SCH ×2 (09:17→20:51)
[2017-01-24 20:00] VITALS: BP 87/75; PULSE 111; RESP 12; TEMP 98.3; O2SAT 98
[2017-01-25] MEDS: INSULIN ASPART SUPPLEMENTAL SCALE SQ SCH ×4 (06:47→20:59)
[2017-01-25 08:00] VITALS: BP 140/86; PULSE 108; RESP 18; TEMP 97.8; O2SAT 97
[2017-01-25] MEDS: ASPIRIN 81 MG CHEW TAB CHEW SCH (09:23)
[2017-01-25] MEDS: LISINOPRIL 20 MG TAB PO SCH (09:23)
[2017-01-25] MEDS: COLLAGENASE OINT 30 GM TUBE TOPICAL SCH (09:24)
[2017-01-25] MEDS: INSULIN DETEMIR 100 UNITS/ML VIAL SQ SCH ×2 (09:34→21:04)
--- NOTE | 2017-01-25 11:03 | HHI.PR ---
Subjective Remarks Follow-up for diabetic foot infection. Patient tells me he spoke with the mattress spring encaser and he is supposed to get the graft placed today by the operational meteorologist. Denies any fevers or chills. Objective Vitals Vital Signs Date Time Temp Pulse Resp B/P Pulse Ox O2 Delivery O2 Flow Rate FiO2 01/24/17 20:00 98.3 111 12 87/75 98 I/O 01/24/17 01/24/17 01/24/17 01/25/17 01/25/17 01/25/17 07:00 15:00 23:00 07:00 15:00 23:00 Intake Total 1250 ml Balance 1250 ml Intake Oral 1250 ml IV Total 0 ml # Voids 7 # Bowel Movements 1 Objective Remarks GENERAL: Pleasant, well-nourished, well-developed patient in no apparent distress sitting in recliner. SKIN: Skin now intact over dorsal R toes. CARDIOVASCULAR: Tachycardic rate and regular rhythm. RESPIRATORY: No accessory muscle use. Clear to auscultation. Breath sounds equal bilaterally. GASTROINTESTINAL: Abdomen soft, non-tender, non-distended. MUSCULOSKELETAL: Post op shoe R foot; normal capillary refill. NEUROLOGICAL: Awake and alert. Normal speech. PSYCHIATRIC: Appropriate mood and affect; insight and judgment normal. Procedures NORIS Incision and drainage abscess R foot 11/18/16 and 11/20/16 Dr. Sales R foot wound debridement Dr. Hardwick 11/24/16 Irrigation and Debridement and Integra graft placement 12/02/16 Dr. Sales Irrigation and Debridement and Integra graft placement 01/01/17 Dr. Sales Urinary Catheter: No Vascular Central Line Catheter: No Date of Insertion: Nov 25, 2016 Date of Removal: Jan 01, 2017 A/P Problem List: (1) Sepsis ICD Code: A41.9 Status: Resolved (2) Cellulitis of right foot ICD Code: L03.115 Status: Resolved (3) Type 2 diabetes mellitus ICD Code: E11.9 Status: Acute (4) Bacteremia due to methicillin resistant Staphylococcus aureus ICD Code: R78.81 Status: Resolved Assessment and Plan 51-year-old male with history of diabetes and tobacco abuse. He presents to the emergency department because of cellulitis/abscess involving his right foot. Mitral valve endocarditis: stable Presented with sepsis from diabetic foot infection, bacteremia Blood cultures indicated Staphylococcus epidermidis Repeat blood cultures 11/19/16 have remained negative Echocardiogram 11/19/16 indicated aortic valve was moderately thickened leaflets , specifically of the left coronary cusp, cannot rule out endocarditis. NORIS 11/21/16 indicates mitral valve with echo density on the atrial aspect of the base of the anterior leaflet appearance consistent with vegetation. Probable endocarditis of the anterior leaflet of the mitral valve. Infectious disease was consulted and evaluated the patient and recommend 6 weeks worth of IV vancomycin, discontinued 12/28/16. PICC line placed 11/25/16 for long-term antibiotics. Neutropenia discussed with ID, Dr. Silva, who states do not change antibiotics for now. Repeat CBC 12/28 with normal neutrophil count. 01/01: PICC discontinued. Diabetic foot infection. He has cellulitis/abscess status post multiple I&D, Integra graft placement and wound VAC application. Culture growing multiple organisms. Infectious disease consulted and made antibiotic recommendations Morphine 2 mg IV when necessary for wound VAC change Podiatry says okay to be weightbearing in postop shoe, okay to work out with stationary bike with postop shoe 2030 minutes every other day -Eucerin cream ordered for dry skin to R foot only to apply on plantar aspect. -01/01: Dr. Sales performed another debridement and Integra graft placement. States if tendons not exposed in 2 weeks, will assess for split thickness skin graft vs other graft options. -Per Dr. Ayoub's note on 01/21, hold wound VAC; Santyl daily with DSD. Awaiting approval for a unit of Apligraft to be applied at bedside. Sinus tachycardia: -TSH normal. Labs stable. Afebrile. Asymptomatic. Nothing acute to do. Diabetes mellitus: Stable. Hemoglobin A1c 11.8. Levemir 30 units in the morning (last adjusted 12/27) and 16 units at bedtime ( last adjusted 12/21). Accu-Cheks with sliding scale coverage. 01/25: BGLs well controlled today. Keep with current regimen. Hypertension: Improved. Continue to monitor. Norvasc 10 mg daily Lisinopril 20 mg daily Tinea cruris S/p Nystatin powder Tobacco abuse. Patient previously counseled regarding cessation. Peripheral vascular disease. Status post CTA No reconstructible vessels per vascular surgery. Continue asa. Tobacco cessation DVT prophylaxis subcutaneous heparin Discharge Planning 01/24/17: Per CM, working on getting Apligraft ordered and delivered to PO for placement by operational meteorologist. 01/25/17: I was informed by patient and nurse that graft is to be placed by operational meteorologist today. Once graft is placed, will await operational meteorologist's discharge recommendations to determine need for home health, etc. Patient will need blue card on discharge to obtain prescriptions and follow up with PCP as well as operational meteorologist. Will need to discuss with CM. Problem Qualifiers (1) Sepsis: Qualified Code: A41.02 - Sepsis due to methicillin resistant Staphylococcus aureus (MRSA) Alexandra Mora Jan 25, 2017 11:03
--- NOTE | 2017-01-25 18:26 | PD.POD ---
Subjective Podiatric Problems Patient seen at bedside, resting comfortably, no distress. Patient denies n/v/f/ h/c/sob. He is happy about having the graft placed and being discharged home soon. Pain scale used: 0-10 numeric scale Pain score: 0 Past Med/Surg/Social History Social History Smoking Status: Never Smoker Objective Vital Signs Vital Signs Date Time Temp Pulse Resp B/P Pulse Ox O2 Delivery O2 Flow Rate FiO2 01/25/17 08:00 97.8 108 18 140/86 97 01/24/17 20:00 98.3 111 12 87/75 98 Coded Allergies: Penicillin (Verified Allergy, Severe, 11/16/16) Physical Exam Remarks Bio/Neuro/Vasc are unchanged Derm- right dorsal foot ulcer full thickness 5cm x 5cm x 0cm, 90% granular with small amount of fibrotic tissue, no erythema, moderate serous drainage. No malodor. Assessment & Plan A/P 1)s/p multiple wound debridement to right foot ulcer 2) s/p right foot aligraf application at bedside, 01/25/17 -Keep dressing clean, dry, and intact. Next dressing change to be done in the office with in 5-7 days -Keep WBing minimal -Elevate foot while at rest -Ok to d/c from a podiatry standpoint, patient does not need abx or HHC Procedures Right foot ulceration sharply debrided at bedside. Wound is granular and healthy in appearance. A well preserved and fenestrated Aligraf was cut to size and applied to the wound site. All air bubbles were removed and steri stripes were applied to all edges. Adaptic dressing was placed over the graft and covered with 4x4s. The gauze was secured with a light kristi and a light JUNE wrap. Ivet Hardwick DPM Jan 25, 2017 18:26
[2017-01-25 20:00] VITALS: BP 115/84; PULSE 107; RESP 20; TEMP 97.2; O2SAT 98
[2017-01-26] MEDS: INSULIN ASPART SUPPLEMENTAL SCALE SQ SCH (06:16)
[2017-01-26] MEDS: ASPIRIN 81 MG CHEW TAB CHEW SCH (08:44)
[2017-01-26] MEDS: LISINOPRIL 20 MG TAB PO SCH (08:44)
[2017-01-26] MEDS: INSULIN DETEMIR 100 UNITS/ML VIAL SQ SCH (08:47)
--- NOTE | 2017-01-26 09:56 | HHI.DS ---
Discharge Summary Admission Date November 16, 2016 at 22:57 Discharge Date: Jan 26, 2017 Admitting Diagnosis Sepsis, right foot cellulitis, lymphangitis, hyperglycemia (1) Sepsis ICD Code: A41.9 Diagnosis: Principal (2) Cellulitis of right foot ICD Code: L03.115 Diagnosis: Principal (3) Lymphangitis ICD Code: I89.1 Diagnosis: Principal (4) Diabetic foot infection ICD Code: E11.69 Diagnosis: Principal (5) Hyperglycemia ICD Code: R73.9 Diagnosis: Principal (6) Bacteremia ICD Code: R78.81 Diagnosis: Principal (7) Endocarditis of mitral valve ICD Code: I05.8 Diagnosis: Principal (8) Type 2 diabetes mellitus ICD Code: E11.9 Diagnosis: Principal (9) Hypertension ICD Code: I10 Diagnosis: Principal Procedures NORIS Incision and drainage abscess R foot 11/18/16 and 11/20/16 Dr. Sales R foot wound debridement Dr. Hardwick 11/24/16 Irrigation and Debridement and Integra graft placement 12/02/16 Dr. Sales Irrigation and Debridement and Integra graft placement 01/01/17 Dr. Sales Apligraft application bedside on 01/25/[address] Hardwick . Brief History - From Admission This is a 51-year-old male with history of diabetes and tobacco abuse. He presents to the emergency department complaining of cellulitis involving his right foot. Two nights ago, he reports that a corn on the right/lateral aspect of his right foot was scraped off after banging against the door. The next day he noticed pain and redness to the area. He reports of constant severe foot pain worse when his foot is lowered. He noticed red streaks up his leg and increasing area of redness to the right foot with purulent drainage. He also had fever last night. He went to an urgent care facility earlier today and was prescribed Bactrim and Keflex, however was advised to present to the emergency department for evaluation. Denies claudication Imaging Last Impressions Chest X-Ray 11/25/16 0000 Signed Impressions: Service Date/Time: November 10:56 - CONCLUSION: PICC line in good position. The lungs are clear. Robb Pathak MD Aorta w/Runoff CTA 11/22/16 Signed Impressions: Service Date/Time: Tuesday, November 22, 2016 12:01 - CONCLUSION: 1. Mild to moderate mixed infrarenal aortic plaque with resultant mild distal aortic stenosis. 2. Mild bilateral common iliac artery stenosis secondary to calcified plaque. Otherwise, no significant iliac inflow stenosis. 3. Tandem [id number] stenoses of the mid to distal left common femoral artery secondary to eccentric noncalcified plaque. 4. No significant outflow stenosis. 5. Three-vessel runoff bilaterally. 6. Trace bilateral pleural effusions. 7. Left inguinal hernia containing trace fluid and fat. 8. Nonspecific, likely reactive, right inguinal adenopathy measuring up to 1.1 cm. Kelvin Ferguson MD Foot MRI 11/18/16 0000 Signed Impressions: Service Date/Time: November 09:43 - CONCLUSION: 1. Mild enhancement of the soft tissues of the first through third toes indicating possible cellulitis. 2. No evidence of osteomyelitis. 3. Nonspecific arthritic findings of the midfoot. 4. Lobulated 2 cm area of superficial soft tissue abnormality lateral to the fifth metatarsal head and neck. No evidence of enhancement. May represent pressure lesion. Given that it has predominantly high signal on the T1-weighted images, hemangioma is also the differential diagnosis. Jerry Moreau MD Foot X-Ray 11/16/16 0000 Signed Impressions: Service Date/Time: Wednesday, November 16, 2016 21:54 - CONCLUSION: 1. Changes consistent with cellulitis involving the lateral forefoot. No radiopaque foreign body or radiographic evidence to clearly suggest osteomyelitis. Robb Landin Jr., MD PE at Discharge GENERAL: Pleasant, well-nourished, well-developed patient in no apparent distress sitting in recliner. CARDIOVASCULAR: Tachycardic rate and regular rhythm. RESPIRATORY: No accessory muscle use. Clear to auscultation. Breath sounds equal bilaterally. GASTROINTESTINAL: Abdomen soft, non-tender, non-distended. MUSCULOSKELETAL: Dressing and post op shoe R foot; normal capillary refill in all digits of R foot. NEUROLOGICAL: Awake and alert. Normal speech. PSYCHIATRIC: Appropriate mood and affect; insight and judgment normal. Pt update on day of discharge Follow up for diabetic foot wound. Denies fevers or chills. Denies shortness of breath. Hospital Course Patient initially presented to the ED on 11/16/16 for wound to the right foot. Patient was found to be septic with cellulitis and lymphangitis of the right foot. He was also found to be bacteremic and found to have mitral valve endocarditis on NORIS. Patient was evaluated by infectious disease and completed 6 weeks of IV antibiotics via PICC. He was unable to be discharged as he was on 3 times a day dosing of vancomycin. He was evaluated by podiatry and underwent multiple procedures to the right foot including irrigation and debridement as well as multiple grafts and wound vac placement. He also underwent consultation by vascular surgeon for peripheral vascular disease but did not have any reconstructible disease of the lower extremities. Patient is a type II diabetic and was hyperglycemic on presentation to ED. He had not been on any medications at home for this. Diabetes was uncontrolled with a hemoglobin A1c of 11.8. Patient was placed on insulin here. Regimen was adjusted regularly, and patient now has controlled BGLs on current regimen. Patient was also found have hypertension and was started on medication and BP is now controlled. He continues to have sinus tachycardia but is asymptomatic. Patient most recently had an Apligraf placed yesterday. He is to leave dressing in place and follow up with senior information security consultant in 5-7 days. He has been cleared by podiatry with no need for home health. Patient given blue card. market asset protection manager informs me the patient can obtain his prescriptions from the main hospital. He also states the patient is trying to arrange his own primary care follow-up. Pt Condition on Discharge: Stable Discharge Disposition: Discharge Home Discharge Time: > 30 minutes Discharge Instructions DIET: Follow Instructions for: Heart Healthy Diet, Diabetic Diet Activities you can perform: See Additionl Instruction Activities to Avoid: Prolonged Standing, Driving Other Activity Instructions: minimal weightbearing Follow up Referrals: PCP Follow-up - 1 Week Podiatry - 01/31/17 with Arsenio Sales DPM New Medications: Insulin Syringe/U-100/31G X 5/16" 1 ml (Insulin Syringe/U-100/31G X 5/16" 1 ml) 1 Mis Mis 1 EA .ROUTE DIRECTED Blood Sugar Management #1 Ref 0 BOX Lancets (Lancets) 1 Mis Mis 1 EA .ROUTE DIRECTED Blood Sugar Management #1 Ref 0 BOX Amlodipine (Norvasc) 10 Mg Tab 10 MG PO DAILY Blood Pressure Management #30 TAB Insulin Aspart Inj (Novolog Inj) 100 Unit/Ml Inj 1 UNIT SQ ACHS SLIDING SCALE Administer as directed: BGL < 70 No insulin BGL 150-199 1 unit BGL 200-249 3 units BGL 250-299 5 units BGL 300- 349 7 units BGL > 349 9 units Blood Sugar Management Days 30 INJECTION Insulin Detemir Inj (Levemir Inj) 1,000 unit/ 10 ML Vial 34 UNITS SQ DAILYAC Blood Sugar Management Days 30 INJECTION Insulin Detemir Inj (Levemir Inj) 1,000 unit/ 10 ML Vial 16 UNITS SQ DAILY@2100 Blood Sugar Management Days 30 INJECTION Lisinopril (Lisinopril) 20 Mg Tab 20 MG PO DAILY Blood Pressure Management #30 TAB Continued Medications: Aspirin (Aspirin) 81 Mg Chew 81 MG CHEW DAILY Ref 0 TAB Discontinued Medications: Clindamycin (Clindamycin) 300 Mg Cap 300 MG PO Q6H Infection Ref 0 CAP Sulfamethoxazole-Trimethoprim (Bactrim DS) 800-160 Mg Tab 1 TAB PO BID Infection Ref 0 TAB Additional Information Patient states he has glucometer and test strips already. Alexandra Mora Jan 26, 2017 09:56
[2017-01-26] MEDS ORDERED: LEVEMIR SQ ×2 (10:15)
[2017-01-26] MEDS ORDERED: AMLO10 PO (10:15)
[2017-01-26] MEDS ORDERED: LISI-515 PO (10:15)
[2017-01-26] MEDS ORDERED: NOVOLOGSS SQ (10:15)
--- NOTE | 2017-01-26 18:21 | HHI.DCPOC ---
Discharge Care Plan Diagnosis: (1) Sepsis (2) Cellulitis of right foot (3) Lymphangitis (4) Diabetic foot infection (5) Hyperglycemia (6) Endocarditis of mitral valve (7) Bacteremia (8) Type 2 diabetes mellitus (9) Hypertension Goals to Promote Your Health * To prevent worsening of your condition and complications * To maintain your health at the optimal level Directions to Meet Your Goals Take your medications as prescribed Follow your dietary instruction Follow activity as directed Keep your appointments as scheduled Take your immunizations and boosters as scheduled If your symptoms worsen call your PCP, if no PCP go to Urgent Care Center or Emergency Room Smoking is Dangerous to Your Health. Avoid second hand smoke Call the 24-hour hour crisis hotline for domestic abuse at Alexandra Mora Jan 26, 2017 18:21
== END 2017-01-26 11:49 | disposition home or self-care (01) | DRG 854 ==
LOC: PHED 20:43 → PHEDA 22:55 → UNDOADMIN 22:55 → PHEDA 22:57 → PHEDH 11-17 02:57 → PH3A 11-17 11:36 → HCIS 11-20 11:51 → PH3A 11-21 16:30 → PH5A 11-26 16:29
PROVIDERS: ADMIT Hospitalist; ATTEND Hospitalist
PROC: 0JBQ0ZZ Excision of Right Foot Subcutaneous Tissue and Fascia, Open Approach (ICD-10-PCS; 2016-11-18)
PROC: 2W0SX6Z Change Pressure Dressing on Right Foot (ICD-10-PCS; 2016-11-18)
PROC: 0JBQ0ZZ Excision of Right Foot Subcutaneous Tissue and Fascia, Open Approach (ICD-10-PCS; 2016-11-20)
PROC: 2W0SX6Z Change Pressure Dressing on Right Foot (ICD-10-PCS; 2016-11-20)
PROC: B246ZZ4 Ultrasonography of Right and Left Heart, Transesophageal (ICD-10-PCS; 2016-11-21)
PROC: 0JBQ0ZZ Excision of Right Foot Subcutaneous Tissue and Fascia, Open Approach (ICD-10-PCS; 2016-11-24)
PROC: 2W1SX6Z Compression of Right Foot using Pressure Dressing (ICD-10-PCS; 2016-11-24)
PROC: 02HV33Z Insertion of Infusion Device into Superior Vena Cava, Percutaneous Approach (ICD-10-PCS; principal; 2016-11-25)
PROC: B548ZZA Ultrasonography of Superior Vena Cava, Guidance (ICD-10-PCS; 2016-11-25)
PROC: 0JR Subcutaneous Tissue and Fascia, Replacement (ICD-10-PCS; 2016-12-02)
PROC: 0JBQ0ZZ Excision of Right Foot Subcutaneous Tissue and Fascia, Open Approach (ICD-10-PCS; 2016-12-02)
PROC: 2W0SX6Z Change Pressure Dressing on Right Foot (ICD-10-PCS; 2016-12-02)
PROC: 0JBQ0ZZ Excision of Right Foot Subcutaneous Tissue and Fascia, Open Approach (ICD-10-PCS; 2017-01-01)
PROC: 0JR Subcutaneous Tissue and Fascia, Replacement (ICD-10-PCS; 2017-01-01)
PROC: 2W0SX6Z Change Pressure Dressing on Right Foot (ICD-10-PCS; 2017-01-01)
PROC: 0HRMXK3 Replacement of Right Foot Skin with Nonautologous Tissue Substitute, Full Thickness, External Approach (ICD-10-PCS; 2017-01-25)
PROC: 0HBMXZZ Excision of Right Foot Skin, External Approach (ICD-10-PCS; 2017-01-25)
DX: A41.02 Sepsis due to Methicillin resistant Staphylococcus aureus (principal); L03.115 Cellulitis of right lower limb; E11.51 Type 2 diabetes mellitus with diabetic peripheral angiopathy without gangrene; E11.621 Type 2 diabetes mellitus with foot ulcer; L02.611 Cutaneous abscess of right foot; I89.1 Lymphangitis; L97.519 Non-pressure chronic ulcer of other part of right foot with unspecified severity; E87.6 Hypokalemia; F17.210 Nicotine dependence, cigarettes, uncomplicated; I05.9 Rheumatic mitral valve disease, unspecified; E11.65 Type 2 diabetes mellitus with hyperglycemia; I10 Essential (primary) hypertension; L84 Corns and callosities; Z91.19 Patient's noncompliance with other medical treatment and regimen; R19.7 Diarrhea, unspecified; B35.6 Tinea cruris; R00.0 Tachycardia, unspecified
CPT/HCPCS: 36569; 71010; 73630; 73720; 75635; 76937; 80048; 80053; 80202; 82565; 82948; 83036; 83605; 83735; 84443; 85007; 85025; 85027; 85652; 86140; 86403; 87015; 87040; 87070; 87077; 87102; 87116; 87149; 87185; 87186; 87205; 87206; 87506; 88300; 93306; 93312; 93320; 93325; 96365; 96367; 96372; 96375; A9579; J0461; J0696; J1642; J1644; J1815; J2250; J2270; J2370; J2405; J2543; J3010; J3370; J3480; J7030; J7040; J7050; J7120; L3260; Q4104; Q9967